=== PATIENT | male | born 1935 | race Caucasian/White ===

== ENCOUNTER 2016-06-17 20:33 | Inpatient (IN) | payer OTHER ==
[~2016-06-17] VITALS: Ht 180.3 cm; Wt 84.8 kg
[~2016-06-17 20:33] MED LIST: ADALAT CC90 MG ORAL; CELEBREX200 MG ORAL; GABAPENTIN100 MG ORAL; HYDROCODON-ACE1 EA15 ORAL; LOTENSIN20 MG ORAL; TROSPIUM CHLORI60 MG PO; TYLENOL EXTRA500 MG ORAL; ULTRAM50 MG ORAL
[2016-06-17] MEDS ORDERED: Morphine Sulfate 4mg/ml Inj IVP ONE (21:00)
[2016-06-17 21:13] VITALS: BP 152/80
--- NOTE | 2016-06-17 21:21 | Emergency Room Report ---
History of Present Illness General Chief Complaint: Abdominal Pain Source: Patient Present Illness HPI Patient presents with complaints of lower abdominal cramping Also complains of gross hematuria Patient reports that previously back in December after having any procedure He thinks likely there was a Lynch catheter placed Since then the patient has been having off-and-on discomfort Recently was on Cipro Patient had been having frequency and burning with urination along with UTI Earlier today patient had increased cramping and gross hematuria Pain was 5/10 And presents for further eval Allergies: Coded Allergies: No Known Allergies (Unverified , 10/25/13) Patient History Past Medical History: see triage record Pertinent Family History: none Reviewed Nursing Documentation: PMH: Agreed, PSxH: Agreed Nursing Documentation-PMH Hx Hypertension: Yes Hx Cancer: No Hx Gastrointestinal Problems: Yes - OVER ACTIVE BLADDER Hx Neurological Problems: No Review of Systems All Other Systems: negative except mentioned in HPI Physical Exam Vital Signs Date Time Temp Pulse Resp B/P Pulse Ox O2 Delivery O2 Flow Rate FiO2 06/17/16 20:50 97.9 74 16 152/80 99 Room Air Sp02 EP Interpretation: reviewed, normal General Appearance: well appearing, no apparent distress Head: normocephalic, atraumatic Eyes: bilateral eye EOMI, bilateral eye PERRL ENT: hearing grossly normal, normal pharynx, TMs + canals normal, uvula midline Neck: full range of motion, supple, no meningismus, no bony tend Respiratory: lungs clear, normal breath sounds, no rhonchi, no respiratory distress, no retraction, no accessory muscle use Cardiovascular #1: normal peripheral pulses, regular rate, rhythm, no edema, no gallop, no JVD, no murmur Gastrointestinal: normal bowel sounds, soft, no mass, no organomegaly, non- distended, no guarding, no hernia, no pulsatile mass, no rebound, other - Tender over the suprapubic area Genitourinary: no CVA tenderness Musculoskeletal: normal inspection Neurologic: oriented x3, responsive, doper III-XII nml as tested, motor strength/ tone normal, sensory intact Psychiatric: mood/affect normal Skin: normal color, no rash, warm/dry, palpation normal Lymphatic: normal inspection, no adenopathy Medical Decision Making Diagnostic Impression: Primary Impression: Hematuria Additional Impressions: Abdominal pain Bladder mass ER Course Multiple differentials considered patient is complex requiring blood work and imaging CAT scan shows concerning findings of possible mass Patient was given further hydration Requires pain medication urology consultation was made and patient admitted for further care Labs Test 06/17/16 21:30 06/18/16 04:50 White Blood Count 7.2 K/UL (4.8-10.8) 7.8 K/UL (4.8-10.8) Red Blood Count 4.69 M/UL (4.70-6.10) 4.73 M/UL (4.70-6.10) Hemoglobin 14.2 G/DL (14.2-18.0) 14.3 G/DL (14.2-18.0) Hematocrit 42.8 % (42.0-52.0) 42.9 % (42.0-52.0) Mean Corpuscular Volume 91 FL (80-99) 91 FL (80-99) Mean Corpuscular Hemoglobin 30.4 PG (27.0-31.0) 30.2 PG (27.0-31.0) Mean Corpuscular Hemoglobin Concent 33.3 G/DL (32.0-36.0) 33.3 G/DL (32.0-36.0) Red Cell Distribution Width 12.6 % (11.6-14.8) 12.0 % (11.6-14.8) Platelet Count 148 K/UL (150-450) 231 K/UL (150-450) Mean Platelet Volume 12.7 FL (6.5-10.1) 8.0 FL (6.5-10.1) Neutrophils (%) (Auto) 52.2 % (45.0-75.0) 70.5 % (45.0-75.0) Lymphocytes (%) (Auto) 27.6 % (20.0-45.0) 14.0 % (20.0-45.0) Monocytes (%) (Auto) 14.8 % (1.0-10.0) 12.4 % (1.0-10.0) Eosinophils (%) (Auto) 4.1 % (0.0-3.0) 2.4 % (0.0-3.0) Basophils (%) (Auto) 1.3 % (0.0-2.0) 0.8 % (0.0-2.0) Prothrombin Time 10.4 SEC (9.30-11.50) Prothromb Time International Ratio 1.0 (0.9-1.1) Activated Partial Thromboplast Time 27 SEC (23-33) Urine Color Yellow Urine Appearance Slightly cloudy Urine pH 7 (4.5-8.0) Urine Specific [place] 1.015 (1.005-1.035) Urine Protein 4+ (NEGATIVE) Urine Glucose (UA) Negative (NEGATIVE) Urine Ketones Negative (NEGATIVE) Urine Occult Blood 5+ (NEGATIVE) Urine Nitrite Negative (NEGATIVE) Urine Bilirubin Negative (NEGATIVE) Urine Urobilinogen Normal MG/DL (0.0-1.0) Urine Leukocyte Esterase Negative (NEGATIVE) Urine RBC Tntc /HPF (0 - 0) Urine WBC 2-4 /HPF (0 - 0) Urine Squamous Epithelial Cells None /LPF (NONE/OCC) Urine Bacteria Few /HPF (NONE) Sodium Level 141 mEQ/L (135-145) 139 mEQ/L (135-145) Potassium Level 4.3 mEQ/L (3.4-4.9) 3.9 mEQ/L (3.4-4.9) Chloride Level 101 mEQ/L (98-107) 100 mEQ/L (98-107) Carbon Dioxide Level 28 mEQ/L (20-30) 26 mEQ/L (20-30) Anion Gap 12 (5-15) 13 (5-15) Blood Urea Nitrogen 18 mg/dL (7-23) 14 mg/dL (7-23) Creatinine 0.9 mg/dL (0.7-1.2) 0.8 mg/dL (0.7-1.2) Estimat Glomerular Filtration Rate mL/min (>60) mL/min (>60) Glucose Level 99 mg/dL (74-106) 133 mg/dL (74-106) Calcium Level 9.1 mg/dL (8.6-10.2) 9.2 mg/dL (8.6-10.2) Total Bilirubin 0.3 mg/dL (0.0-1.2) 0.4 mg/dL (0.0-1.2) Aspartate Amino Transf (AST/SGOT) 15 U/L (5-40) 16 U/L (5-40) Alanine Aminotransferase (ALT/SGPT) 8 U/L (3-41) 9 U/L (3-41) Alkaline Phosphatase 64 U/L (40-129) 66 U/L (40-129) Total Protein 6.8 g/dL (6.6-8.7) 6.8 g/dL (6.6-8.7) Albumin 3.7 g/dL (3.5-5.2) 3.8 g/dL (3.5-5.2) Globulin 3.1 g/dL 3.0 g/dL Albumin/Globulin Ratio 1.1 (1.0-2.7) 1.2 (1.0-2.7) Lipase 24 U/L (< 60) Hemoglobin A1c 5.8 % (< 6.0) Triglycerides Level 91 mg/dL (< 150) Cholesterol Level 184 mg/dL (< 200) LDL Cholesterol 107 mg/dL (60-99) HDL Cholesterol 59 mg/dL (> 60) Cholesterol/HDL Ratio 3.1 (3.3-4.4) Thyroid Stimulating Hormone (TSH) 2.660 uIU/mL (0.300-4.500) Rhythm Strip Diag. Results EP Interpretation: yes Rate: 67 Rhythm: NSR, no PVC's, no ectopy CT/MRI/US Diagnostic Results CT/MRI/US Diagnostic Results : Impression CT abdomen pelvis:Impression: Complex bladder mass or masses, as described, worrisome for bladder or prostatic neoplasm. Recommend cystoscopy for further evaluation Multiple pulmonary nodules bilaterally, not evident on prior to that on the exam. Given the bladder findings, this is worrisome for metastatic malignancy Other findings as noted, including multilobulated spleen, degenerative spondylosis, small sliding-type hiatal hernia, duodenal diverticulum, asymmetric atrophy of the left rectus abdominis muscle Last Vital Signs Date Time Temp Pulse Resp B/P Pulse Ox O2 Delivery O2 Flow Rate FiO2 06/17/16 21:13 97.9 74 16 152/80 99 Room Air Status: improved Disposition: ADMITTED INPATIENT Condition: Serious MARCEL YI D.O. Jun 17, 2016 21:21
[2016-06-17 21:57] LABS: ALANINE AMINOTRANSFERASE 8 U/L (3-41); ALBUMIN/GLOBULIN RATIO 1.1 (1.0-2.7); ANION GAP 12 (5-15); ASPARTATE AMINO TRANSFERASE 15 U/L (5-40); CALCIUM 9.1 mg/dL (8.6-10.2); CARBON DIOXIDE 28 mEQ/L (20-30); CHLORIDE 101 mEQ/L (98-107); CREATININE 0.9 mg/dL (0.7-1.2); HEMOLYSIS 5; LIPASE 24 U/L (< 60); POTASSIUM 4.3 mEQ/L (3.4-4.9); SODIUM 141 mEQ/L (135-145); TOTAL PROTEIN 6.8 g/dL (6.6-8.7)
[2016-06-17 22:03] LABS: BASOPHILS % (AUTO) 1.3 % (0.0-2.0); EOSINOPHILS % (AUTO) 4.1 % (0.0-3.0); LYMPHOCYTES % (AUTO) 27.6 % (20.0-45.0); MEAN CORPUSCULAR HEMOGLOBIN 30.4 PG (27.0-31.0); MEAN CORPUSCULAR HGB CONC 33.3 G/DL (32.0-36.0); MEAN CORPUSCULAR VOLUME 91 FL (80-99); MEAN PLATELET VOLUME 12.7 FL (6.5-10.1); MONOCYTES % (AUTO) 14.8 % (1.0-10.0); NEUTROPHILS % (AUTO) 52.2 % (45.0-75.0); PLATELET COUNT 148 K/UL (150-450); RED BLOOD COUNT 4.69 M/UL (4.70-6.10); RED CELL DISTRIBUTION WIDTH 12.6 % (11.6-14.8); WHITE BLOOD COUNT 7.2 K/UL (4.8-10.8)
[2016-06-17 22:09] LABS: PROTHROMBIN TIME 10.4 SEC (9.30-11.50)
[2016-06-17 22:11] LABS: APPEARANCE,URINE SLIGHTLY CLOUDY; KETONES,URINE NEGATIVE (NEGATIVE); LEUKOCYTE ESTERASE ,URINE NEGATIVE (NEGATIVE); NITRITE,URINE NEGATIVE (NEGATIVE); PH,URINE 7 (4.5-8.0); PROTEIN,URINE 4+ (NEGATIVE); UROBILINOGEN,URINE NORMAL MG/DL (0.0-1.0)
[2016-06-17 22:16] LABS: BACTERIA,URINE FEW /HPF; RBC,URINE TNTC /HPF (0 - 0)
[2016-06-17 22:30] VITALS: BP 158/69
[2016-06-17] MEDS ORDERED: LORazepam Inj 2mg/ml 1ml IV PRN (23:00)
[2016-06-17] MEDS ORDERED: Morphine Sulfate 2mg/ml Inj IVP PRN (23:00)
[2016-06-17] MEDS ORDERED: Mylanta II UD 30ml ORAL PRN (23:00)
[2016-06-18] VITALS (7 sets, daily range): BP systolic 111–154; BP diastolic 63–96
[2016-06-18] MEDS: Norco 5mg/325mg tab ORAL PRN ×2 (02:05→21:16)
[2016-06-18 05:31] LABS: BASOPHILS % (AUTO) 0.8 % (0.0-2.0); EOSINOPHILS % (AUTO) 2.4 % (0.0-3.0); MEAN CORPUSCULAR HEMOGLOBIN 30.2 PG (27.0-31.0); MEAN CORPUSCULAR HGB CONC 33.3 G/DL (32.0-36.0); MEAN CORPUSCULAR VOLUME 91 FL (80-99); MONOCYTES % (AUTO) 12.4 % (1.0-10.0); NEUTROPHILS % (AUTO) 70.5 % (45.0-75.0); PLATELET COUNT 231 K/UL (150-450); RED BLOOD COUNT 4.73 M/UL (4.70-6.10); WHITE BLOOD COUNT 7.8 K/UL (4.8-10.8)
[2016-06-18 06:15] LABS: HEMOGLOBIN A1C 5.8 % (< 6.0)
[2016-06-18 06:24] LABS: ALANINE AMINOTRANSFERASE 9 U/L (3-41); ALBUMIN/GLOBULIN RATIO 1.2 (1.0-2.7); ANION GAP 13 (5-15); ASPARTATE AMINO TRANSFERASE 16 U/L (5-40); CALCIUM 9.2 mg/dL (8.6-10.2); CARBON DIOXIDE 26 mEQ/L (20-30); CHLORIDE 100 mEQ/L (98-107); CHOLESTEROL 184 mg/dL (< 200); CHOLESTEROL/HDL RATIO 3.1 (3.3-4.4); CREATININE 0.8 mg/dL (0.7-1.2); HEMOLYSIS 22; LDL CHOLESTEROL (CALC.) 107 mg/dL (60-99); POTASSIUM 3.9 mEQ/L (3.4-4.9); SODIUM 139 mEQ/L (135-145); TOTAL PROTEIN 6.8 g/dL (6.6-8.7)
--- NOTE | 2016-06-18 10:33 | Diagnostic Imaging Report ---
Indication: BLD Technique: Precontrast spiral acquisitions obtained through the abdomen and pelvis. No oral contrast, per urinary protocol. IV administration nonionic contrast. Multiphasic spiral acquisitions obtained through the abdomen and pelvis. Multiplanar reconstructions were generated. Total dose length product 3181 mGycm. CTDIvol(s) 17, 8, 16, 15, 17, 17 mGy. Radiation dose was minimized using automated exposure control Comparison: 01/15/2011 Findings: Within the bladder lumen, there is an endophytic polypoid masslike lesion which measures 4.8 cm AP by 4.5 cm transverse. This may represent intraluminal hematoma, but stability over the course of multiple phases as well as slight degree of enhancement suggests this is more likely tumor. This appears to have a thin connection with a mass that protrudes from the bladder floor, measures 4.8 x 4.4 cm and is contiguous with the prostate. The second lesion demonstrates a rim of calcification at its superior aspect. Either these lesions are evident on the prior study. The bladder wall is overall not thickened. There are some prominent but not frankly enlarged right iliac chain lymph nodes noted. These are also evident previously but are more striking currently The kidneys are unremarkable. No calculi, hydronephrosis, mass, cyst, or other abnormality demonstrated. The collecting systems are unremarkable. The liver, gallbladder, bile ducts, pancreas are unremarkable. The spleen is multilobulated irregular, and there are several accessory splenules. The adrenals are unremarkable. No retroperitoneal mass or adenopathy. The aorta is tortuous. The appendix is not definitely visualized, but no findings to suggest acute appendicitis are evident. No evidence of diverticulosis or diverticulitis. No small bowel distention. No free or loculated intraperitoneal air or fluid is evident. There is a duodenal diverticulum. There is a small sliding-type hiatal hernia. The stomach is unremarkable. There is asymmetric atrophy of the left side of the rectus abdominis muscle again noted. The included lung bases demonstrate multiple noncalcified nodules of up to 6 mm diameter, not evident on the prior study. The bones demonstrate degenerative spondylosis changes Impression: Complex bladder mass or masses, as described, worrisome for bladder or prostatic neoplasm. Recommend cystoscopy for further evaluation Multiple pulmonary nodules bilaterally, not evident on prior to that on the exam. Given the bladder findings, this is worrisome for metastatic malignancy Other findings as noted, including multilobulated spleen, degenerative spondylosis, small sliding-type hiatal hernia, duodenal diverticulum, asymmetric atrophy of the left rectus abdominis muscle This agrees with the preliminary interpretation provided overnight by [facility] teleradiology service. The CT scanner at [facility] is accredited by the [employer] and the scans are performed using protocols designed to limit radiation exposure to as low as reasonably achievable to attain images of sufficient resolution adequate for diagnostic evaluation.
--- NOTE | 2016-06-18 11:16 | Consultation ---
History of Present Illness General Date patient seen: Jun 18, 2016 Time patient seen: 11:12 Chief Complaint: Abdominal Pain Reason for Consultation: hematuria Present Illness HPI 80 yo male followed by Dr. Quinonez for OAB symptoms. Has been treated with detrol with little relief. Bladder symptoms started after knee surgery in december 2015. Former smoker, had 4 infections since last year. Did have hematuria before as well. Came to ER last night for increasing LUTS, difficulty voiding, and hematuria. Allergies: Coded Allergies: No Known Allergies (Unverified , 10/25/13) Medication History Scheduled Benazepril Hcl* (Lotensin*), 10 MG ORAL BEDTIME, (Reported) Celecoxib* (Celebrex*), 200 MG ORAL DAILY, (Reported) Nifedipine Er* (Adalat Cc*), 90 MG ORAL DAILY, (Reported) Trospium Chloride (Trospium Chloride), 60 MG PO BEDTIME, (Reported) Scheduled PRN Acetaminophen* (Tylenol Extra Strength*), 500 MG ORAL Q8H PRN for Prn Headache/ Temp > 101, (Reported) Hydrocodone/Acetaminophen 5-325* (Hydrocodone/Acetaminophen 5-325*), 1 TAB ORAL Q6H PRN for For Pain Tramadol Hcl (Ultram*), 50 MG ORAL BID PRN for For Pain, (Reported) Patient History History Provided By: Patient Healthcare decision maker Resuscitation status Full Code Advanced Directive on File No Past Medical/Surgical History Past Medical/Surgical History: (1) Abdominal pain (2) Hematuria Review of Systems Constitutional: Denies: chills, fever, malaise, no symptoms, other, see HPI, sweats, weakness Eye: Denies: acuity changes, blurred vision, discharge, double vision, eye pain , no symptoms, nose congestion, nose pain, other, see HPI, tearing ENT: Denies: ear discharge, ear pain, hearing loss, mouth pain, nasal discharge , no symptoms, nose congestion, nose pain, other, see HPI, throat pain, throat swelling Respiratory: Denies: MANNING, cough, no symptoms, orthopnea, other, see HPI, shortness of breath, sputum, stridor, wheezing Cardiovascular: Denies: PND, chest pain, edema, no symptoms, other, palpitations, see HPI, syncope Gastrointestinal: Reports: abdominal pain Genitourinary: Reports: hematuria Musculoskeletal: Denies: back pain, gout, joint pain, joint swelling, muscle pain, muscle stiffness, no symptoms, other, see HPI Skin: Denies: change in color, change in hair/nails, dryness, lesions, no symptoms, other, rash, see HPI Psychiatric: Denies: HI, SI, anxiety, depressed feelings, emotional problems, hallucinations, no symptoms, other, prior hx, see HPI Neurological: Denies: dizziness, focal weakness, headache, no symptoms, numbness, other, paresthesia, see HPI, seizure, syncope, tingling, tremors Endocrine: Denies: excessive sweating, flushing, increased thirst, increased urine, intolerance to temperature, no symptoms, other, see HPI, unexplained weight loss Hematologic/Lymphatic: Denies: anemia, blood clots, diathesis, easy bleeding, easy bruising, no symptoms, other, see HPI, swollen glands Physical Exam General Appearance: moderate distress Neck: non-tender Cardiovascular/Chest: normal rate Abdomen: soft, distended Neurologic: alert, oriented x 3 Last 24 Hour Vital Signs Date Time Temp Pulse Resp B/P Pulse Ox O2 Delivery O2 Flow Rate FiO2 06/18/16 09:38 73 149/83 06/18/16 08:14 96.4 06/18/16 08:00 96.4 73 18 149/83 93 Room Air 06/18/16 04:00 98.2 94 18 152/96 97 Room Air 06/18/16 03:04 98.2 06/18/16 00:48 98.2 62 18 137/70 97 Room Air 06/18/16 00:14 98.0 64 18 154/72 100 Room Air 06/18/16 00:00 98.0 64 18 154/72 100 Room Air 06/17/16 22:30 68 18 158/69 100 Room Air 06/17/16 21:13 97.9 74 16 152/80 99 Room Air 06/17/16 20:50 97.9 74 16 152/80 99 Room Air Intake and Output 06/17/16 06/18/16 19:00 07:00 Intake Total 1050 ml Output Total 600 ml Balance 450 ml Intake Oral 450 ml IV Total 600 ml Output Urine Total 600 ml # Voids 1 Laboratory Tests Test 06/17/16 21:30 06/18/16 04:50 White Blood Count 7.2 K/UL (4.8-10.8) 7.8 K/UL (4.8-10.8) Red Blood Count 4.69 M/UL (4.70-6.10) L 4.73 M/UL (4.70-6.10) Hemoglobin 14.2 G/DL (14.2-18.0) 14.3 G/DL (14.2-18.0) Hematocrit 42.8 % (42.0-52.0) 42.9 % (42.0-52.0) Mean Corpuscular Volume 91 FL (80-99) 91 FL (80-99) Mean Corpuscular Hemoglobin 30.4 PG (27.0-31.0) 30.2 PG (27.0-31.0) Mean Corpuscular Hemoglobin Concent 33.3 G/DL (32.0-36.0) 33.3 G/DL (32.0-36.0) Red Cell Distribution Width 12.6 % (11.6-14.8) 12.0 % (11.6-14.8) Platelet Count 148 K/UL (150-450) L 231 K/UL (150-450) # Mean Platelet Volume 12.7 FL (6.5-10.1) H 8.0 FL (6.5-10.1) Neutrophils (%) (Auto) 52.2 % (45.0-75.0) 70.5 % (45.0-75.0) Lymphocytes (%) (Auto) 27.6 % (20.0-45.0) 14.0 % (20.0-45.0) L Monocytes (%) (Auto) 14.8 % (1.0-10.0) H 12.4 % (1.0-10.0) H Eosinophils (%) (Auto) 4.1 % (0.0-3.0) H 2.4 % (0.0-3.0) Basophils (%) (Auto) 1.3 % (0.0-2.0) 0.8 % (0.0-2.0) Prothrombin Time 10.4 SEC (9.30-11.50) Prothromb Time International Ratio 1.0 (0.9-1.1) Activated Partial Thromboplast Time 27 SEC (23-33) Urine Color Yellow Urine Appearance Slightly cloudy Urine pH 7 (4.5-8.0) Urine Specific [place] 1.015 (1.005-1.035) Urine Protein 4+ (NEGATIVE) H Urine Glucose (UA) Negative (NEGATIVE) Urine Ketones Negative (NEGATIVE) Urine Occult Blood 5+ (NEGATIVE) H Urine Nitrite Negative (NEGATIVE) Urine Bilirubin Negative (NEGATIVE) Urine Urobilinogen Normal MG/DL (0.0-1.0) Urine Leukocyte Esterase Negative (NEGATIVE) Urine RBC Tntc /HPF (0 - 0) H Urine WBC 2-4 /HPF (0 - 0) Urine Squamous Epithelial Cells None /LPF (NONE/OCC) Urine Bacteria Few /HPF (NONE) Sodium Level 141 mEQ/L (135-145) 139 mEQ/L (135-145) Potassium Level 4.3 mEQ/L (3.4-4.9) 3.9 mEQ/L (3.4-4.9) Chloride Level 101 mEQ/L (98-107) 100 mEQ/L (98-107) Carbon Dioxide Level 28 mEQ/L (20-30) 26 mEQ/L (20-30) Anion Gap 12 (5-15) 13 (5-15) Blood Urea Nitrogen 18 mg/dL (7-23) 14 mg/dL (7-23) Creatinine 0.9 mg/dL (0.7-1.2) 0.8 mg/dL (0.7-1.2) Estimat Glomerular Filtration Rate mL/min (>60) mL/min (>60) Glucose Level 99 mg/dL (74-106) 133 mg/dL (74-106) H Calcium Level 9.1 mg/dL (8.6-10.2) 9.2 mg/dL (8.6-10.2) Total Bilirubin 0.3 mg/dL (0.0-1.2) 0.4 mg/dL (0.0-1.2) Aspartate Amino Transf (AST/SGOT) 15 U/L (5-40) 16 U/L (5-40) Alanine Aminotransferase (ALT/SGPT) 8 U/L (3-41) 9 U/L (3-41) Alkaline Phosphatase 64 U/L (40-129) 66 U/L (40-129) Total Protein 6.8 g/dL (6.6-8.7) 6.8 g/dL (6.6-8.7) Albumin 3.7 g/dL (3.5-5.2) 3.8 g/dL (3.5-5.2) Globulin 3.1 g/dL 3.0 g/dL Albumin/Globulin Ratio 1.1 (1.0-2.7) 1.2 (1.0-2.7) Lipase 24 U/L (< 60) Hemoglobin A1c 5.8 % (< 6.0) Triglycerides Level 91 mg/dL (< 150) Cholesterol Level 184 mg/dL (< 200) LDL Cholesterol 107 mg/dL (60-99) H HDL Cholesterol 59 mg/dL (> 60) Cholesterol/HDL Ratio 3.1 (3.3-4.4) L Thyroid Stimulating Hormone (TSH) 2.660 uIU/mL (0.300-4.500) Height (Feet): 5 Height (Inches): 11.00 Weight (Pounds): 187 Medications Current Medications Medications (Trade) Dose Ordered Sig/Chivo Route PRN Reason Start Time Stop Time Status Last Admin Dose Admin Acetaminophen (Tylenol) 650 mg Q4H PRN ORAL fever 06/17/16 23:00 07/17/16 22:59 Acetaminophen/ Hydrocodone Bitart ([place] 5/325) 1 tab Q6H PRN ORAL For Pain 06/17/16 23:00 06/24/16 22:59 06/18/16 02:05 Al Hydroxide/Mg Hydroxide (Mylanta II) 30 ml Q6H PRN ORAL dyspepsia 06/17/16 23:00 07/17/16 22:59 Dextrose STAT PRN IV Hypoglycemia 06/17/16 23:00 07/17/16 22:59 Levofloxacin (Levaquin) 100 ml @ 100 mls/hr Q24H IVPB 06/18/16 01:00 06/25/16 00:59 06/18/16 01:06 Lorazepam (Ativan 2mg/ml 1ml) 0.5 mg Q4H PRN IV For Anxiety 06/17/16 23:00 06/24/16 22:59 Morphine Sulfate (Morphine Sulfate) 1 mg EVERY 4 HOURS PRN IVP For Pain 06/17/16 23:00 2/27/17 22:59 06/18/16 07:44 Nifedipine (Procardia XL) 90 mg DAILY ORAL 06/18/16 09:00 07/18/16 08:59 06/18/16 09:38 Ondansetron HCl (Zofran) 4 mg Q6H PRN IVP Nausea & Vomiting 06/17/16 23:00 07/17/16 22:59 Polyethylene Glycol (Miralax) 17 gm HSPRN PRN ORAL Constipation 06/17/16 23:00 07/17/16 22:59 Zolpidem Tartrate (Ambien) 5 mg HSPRN PRN ORAL Insomnia 06/17/16 23:00 07/17/16 22:[address] abd/pelvis: 4 cm bladder mass vs. intravesical lobe of prostate, likely clot as well. Procedure: under sterile conditions [address] cantor catheter placed, 30 mL water filled in balloon. Immediate drainage of approximately 900 mL dark urine and clots. Catheter manually irrigated with 180 mL water and minimal clots removed. Started on continuous bladder irrigation. Assessment/Plan Status: stable Assessment/Plan Hematuria/retention, possibly due to BPH vs. bladder mass. At this time need to control bleeding with catheter and irrigation. Will need cystoscopy as outpatient if hematuria improves or here in hospital if it doesn't. 1. ok for diet 2. CBI today 3. re-evaluate urine in AM. 4. likely DC home with cantor. Willy Cortez M.D. Jun 18, 2016 11:16
[2016-06-18] MEDS ORDERED: Tubing IV Secondary IV ONE (15:48)
--- NOTE | 2016-06-18 16:57 | History & Physical ---
History and Physical History & Physicial Dictated for Int Med-Dr Paz no. [id number]. CARLEEN CHIRINOS Jun 18, 2016 16:57
--- NOTE | 2016-06-18 17:35 | Consultation ---
History of Present Illness General Date patient seen: Jun 18, 2016 Chief Complaint: Abdominal Pain Referring physician: Dr. Morgan Reason for Consultation: Pulmonary Nodules Present Illness HPI 80 y/o gentleman with pmhx HTN prostate enlargement presenting with c/o abdominal pain and hematuria. On CT scan of abdomen multiple lung nodules were identified and I was then asked to see this patient in consultation for evaluation of pulmonary nodules and hematuria. The pulmonary nodules are extremely worrisome for possible metastasis secondary to the fact that its been noted that the nodules were not present on prior CT scan. I've discussed the omninous nature of these findings with the patient he insists he would rather follow up with his primary care doctor and referral with oncology with urologist and refuses any procedures from my point of view to further investigate the matter. The patient has a complaint of dry cough but no hemoptysis or sputum production. No complaint of fever or chills or recent illness. Patient has a complaint of difficulty urinating. Patient admits to a remote history of smoking 50 years ago. However admits his smoking habit was heavy for a few decades consisting of more than 1 pack per day. In light of patients refusal for further evaluation with respect to his pulmonary nodules treatment at this point is recommended to be conservative and supportive and I have urged to patient to follow up with this PCP and referral to oncology is highly recommended. Allergies: Coded Allergies: No Known Allergies (Unverified , 10/25/13) Medication History Scheduled Trospium Chloride (Trospium Chloride), 60 MG PO BEDTIME, (Reported) Scheduled PRN Acetaminophen* (Tylenol Extra Strength*), 500 MG ORAL Q8H PRN for Prn Headache/ Temp > 101, (Reported) Patient History Healthcare decision maker Resuscitation status Full Code Advanced Directive on File No Past Medical/Surgical History Past Medical/Surgical History: (1) Osteoarthritis, knee (2) Overactive bladder (3) HTN (hypertension) (4) Urinary obstruction (5) Right knee pain (6) Hypertension (7) Hypercholesteremia (8) Edema extremities (9) Shoulder pain, bilateral (10) Migraine Review of Systems Respiratory: Reports: cough Gastrointestinal: Reports: abdominal pain Genitourinary: Reports: hematuria Physical Exam General Appearance: no apparent distress Lines, tubes and drains: peripheral HEENT: normocephalic, atraumatic, PERRL Neck: non-tender, normal alignment, supple Respiratory/Chest: chest wall non-tender, decreased breath sounds Cardiovascular/Chest: normal peripheral pulses, normal rate, regular rhythm Abdomen: normal bowel sounds, non tender, soft, no organomegaly Genitourinary/Rectal: normal genital exam, normal rectal exam Extremities: normal range of motion, non-tender Skin Exam: normal pigmentation, warm/dry, no diaphoresis 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, no motor/sensory deficits Last 24 Hour Vital Signs Date Time Temp Pulse Resp B/P Pulse Ox O2 Delivery O2 Flow Rate FiO2 06/18/16 16:00 97.7 70 16 111/68 95 Room Air 06/18/16 12:00 97.7 67 18 131/74 94 Room Air 06/18/16 09:38 73 149/83 06/18/16 08:14 96.4 06/18/16 08:00 96.4 73 18 149/83 93 Room Air 06/18/16 04:00 98.2 94 18 152/96 97 Room Air 06/18/16 03:04 98.2 06/18/16 00:48 98.2 62 18 137/70 97 Room Air 06/18/16 00:14 98.0 64 18 154/72 100 Room Air 06/18/16 00:00 98.0 64 18 154/72 100 Room Air 06/17/16 22:30 68 18 158/69 100 Room Air 06/17/16 21:13 97.9 74 16 152/80 99 Room Air 06/17/16 20:50 97.9 74 16 152/80 99 Room Air Intake and Output 06/17/16 06/18/16 18:59 06:59 Intake Total 1050 ml Output Total 600 ml Balance 450 ml Intake Oral 450 ml IV Total 600 ml Output Urine Total 600 ml # Voids 1 Laboratory Tests Test 06/17/16 21:30 06/18/16 04:50 White Blood Count 7.2 K/UL (4.8-10.8) 7.8 K/UL (4.8-10.8) Red Blood Count 4.69 M/UL (4.70-6.10) L 4.73 M/UL (4.70-6.10) Hemoglobin 14.2 G/DL (14.2-18.0) 14.3 G/DL (14.2-18.0) Hematocrit 42.8 % (42.0-52.0) 42.9 % (42.0-52.0) Mean Corpuscular Volume 91 FL (80-99) 91 FL (80-99) Mean Corpuscular Hemoglobin 30.4 PG (27.0-31.0) 30.2 PG (27.0-31.0) Mean Corpuscular Hemoglobin Concent 33.3 G/DL (32.0-36.0) 33.3 G/DL (32.0-36.0) Red Cell Distribution Width 12.6 % (11.6-14.8) 12.0 % (11.6-14.8) Platelet Count 148 K/UL (150-450) L 231 K/UL (150-450) # Mean Platelet Volume 12.7 FL (6.5-10.1) H 8.0 FL (6.5-10.1) Neutrophils (%) (Auto) 52.2 % (45.0-75.0) 70.5 % (45.0-75.0) Lymphocytes (%) (Auto) 27.6 % (20.0-45.0) 14.0 % (20.0-45.0) L Monocytes (%) (Auto) 14.8 % (1.0-10.0) H 12.4 % (1.0-10.0) H Eosinophils (%) (Auto) 4.1 % (0.0-3.0) H 2.4 % (0.0-3.0) Basophils (%) (Auto) 1.3 % (0.0-2.0) 0.8 % (0.0-2.0) Prothrombin Time 10.4 SEC (9.30-11.50) Prothromb Time International Ratio 1.0 (0.9-1.1) Activated Partial Thromboplast Time 27 SEC (23-33) Urine Color Yellow Urine Appearance Slightly cloudy Urine pH 7 (4.5-8.0) Urine Specific [place] 1.015 (1.005-1.035) Urine Protein 4+ (NEGATIVE) H Urine Glucose (UA) Negative (NEGATIVE) Urine Ketones Negative (NEGATIVE) Urine Occult Blood 5+ (NEGATIVE) H Urine Nitrite Negative (NEGATIVE) Urine Bilirubin Negative (NEGATIVE) Urine Urobilinogen Normal MG/DL (0.0-1.0) Urine Leukocyte Esterase Negative (NEGATIVE) Urine RBC Tntc /HPF (0 - 0) H Urine WBC 2-4 /HPF (0 - 0) Urine Squamous Epithelial Cells None /LPF (NONE/OCC) Urine Bacteria Few /HPF (NONE) Sodium Level 141 mEQ/L (135-145) 139 mEQ/L (135-145) Potassium Level 4.3 mEQ/L (3.4-4.9) 3.9 mEQ/L (3.4-4.9) Chloride Level 101 mEQ/L (98-107) 100 mEQ/L (98-107) Carbon Dioxide Level 28 mEQ/L (20-30) 26 mEQ/L (20-30) Anion Gap 12 (5-15) 13 (5-15) Blood Urea Nitrogen 18 mg/dL (7-23) 14 mg/dL (7-23) Creatinine 0.9 mg/dL (0.7-1.2) 0.8 mg/dL (0.7-1.2) Estimat Glomerular Filtration Rate mL/min (>60) mL/min (>60) Glucose Level 99 mg/dL (74-106) 133 mg/dL (74-106) H Calcium Level 9.1 mg/dL (8.6-10.2) 9.2 mg/dL (8.6-10.2) Total Bilirubin 0.3 mg/dL (0.0-1.2) 0.4 mg/dL (0.0-1.2) Aspartate Amino Transf (AST/SGOT) 15 U/L (5-40) 16 U/L (5-40) Alanine Aminotransferase (ALT/SGPT) 8 U/L (3-41) 9 U/L (3-41) Alkaline Phosphatase 64 U/L (40-129) 66 U/L (40-129) Total Protein 6.8 g/dL (6.6-8.7) 6.8 g/dL (6.6-8.7) Albumin 3.7 g/dL (3.5-5.2) 3.8 g/dL (3.5-5.2) Globulin 3.1 g/dL 3.0 g/dL Albumin/Globulin Ratio 1.1 (1.0-2.7) 1.2 (1.0-2.7) Lipase 24 U/L (< 60) Hemoglobin A1c 5.8 % (< 6.0) Triglycerides Level 91 mg/dL (< 150) Cholesterol Level 184 mg/dL (< 200) LDL Cholesterol 107 mg/dL (60-99) H HDL Cholesterol 59 mg/dL (> 60) Cholesterol/HDL Ratio 3.1 (3.3-4.4) L Thyroid Stimulating Hormone (TSH) 2.660 uIU/mL (0.300-4.500) Height (Feet): 5 Height (Inches): 11.00 Weight (Pounds): 187 Medications Current Medications Medications (Trade) Dose Ordered Sig/Chivo Route PRN Reason Start Time Stop Time Status Last Admin Dose Admin Acetaminophen (Tylenol) 650 mg Q4H PRN ORAL fever 06/17/16 23:00 07/17/16 22:59 Acetaminophen/ Hydrocodone Bitart ([place] 5/325) 1 tab Q6H PRN ORAL For Pain 06/17/16 23:00 06/24/16 22:59 06/18/16 02:05 Al Hydroxide/Mg Hydroxide (Mylanta II) 30 ml Q6H PRN ORAL dyspepsia 06/17/16 23:00 07/17/16 22:59 Dextrose STAT PRN IV Hypoglycemia 06/17/16 23:00 07/17/16 22:59 Levofloxacin (Levaquin) 100 ml @ 100 mls/hr Q24H IVPB 06/18/16 01:00 06/25/16 00:59 06/18/16 01:06 Lorazepam (Ativan 2mg/ml 1ml) 0.5 mg Q4H PRN IV For Anxiety 06/17/16 23:00 06/24/16 22:59 Morphine Sulfate (Morphine Sulfate) 1 mg EVERY 4 HOURS PRN IVP For Pain 06/17/16 23:00 06/24/16 22:59 06/18/16 07:44 Nifedipine (Procardia XL) 90 mg DAILY ORAL 06/18/16 09:00 07/18/16 08:59 06/18/16 09:38 Ondansetron HCl (Zofran) 4 mg Q6H PRN IVP Nausea & Vomiting 06/17/16 23:00 07/17/16 22:59 Polyethylene Glycol (Miralax) 17 gm HSPRN PRN ORAL Constipation 06/17/16 23:00 07/17/16 22:59 Zolpidem Tartrate (Ambien) 5 mg HSPRN PRN ORAL Insomnia 06/17/16 23:00 07/17/16 22:59 Assessment/Plan Status: stable, progressing Assessment/Plan Assessment Multiple 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 DIONI PATEL Jun 18, 2016 17:35
[2016-06-18] MEDS: Miralax 17gm pkt ORAL PRN (20:03)
--- NOTE | 2016-06-18 20:38 | History and Physical Report ---
DATE OF ADMISSION: 06/17/2016 CHIEF COMPLAINT: The patient is an 80-year-old white male with history of overactive bladder. Presents with chief complaint of hematuria. HISTORY OF PRESENT ILLNESS: The patient is followed as an outpatient by Dr. Quinonez. The patient has been treated with medication for overactive bladder. Last evening, however, the patient states he began to experience difficulty voiding. The patient states he would pass the blood clot and then could not void any further. The patient presented to [facility]. The patient was found to have 800 mL residual urine in his bladder. The patient also had gross hematuria. The patient was admitted for hematuria to rule out bladder tumor. REVIEW OF SYSTEMS: Constitutional: The patient denies weight loss or weight gain. The patient denies fevers or chills. HEENT: The patient denies ear or throat pain. Cardiovascular: The patient denies palpitations or chest pain. Chest: The patient denies wheeze or shortness of breath. Abdomen: The patient denies nausea, vomiting, or constipation. Genitourinary: The patient complains of hematuria as above. The patient denies dysuria. The patient does complain of difficulty voiding. Neuromuscular: The patient denies seizures or generalized weakness. PAST MEDICAL HISTORY: Significant for: 1. Hypertension, currently off medications. 2. Hypercholesterolemia. 3. Osteoarthritis bilateral knees. 4. Migraine headache. 5. History of overactive bladder. PAST SURGICAL HISTORY: 1. Significant for right knee total arthroplasty in 12/2015. 2. Appendectomy. 3. Spleenectomy. 4. Bilateral inguinal hernia repair. 5. Tonsillectomy/adenoidectomy. CURRENT MEDICATIONS: 1. Lotensin 20 mg one tablet p.o. daily. 2. Celebrex 200 mg one tablet p.o. daily. 3. [place] 5/325 mg one tablet p.o. every 6 hours as needed. 4. Nifedipine ER 90 mg one tablet p.o. daily. 5. Tramadol 50 mg one tablet p.o. twice daily. 6. Trospium 60 mg p.o. nightly. ALLERGIES: No known drug allergies. SOCIAL HISTORY: The patient is . He is retired. The patient denies tobacco use, having quit 50 years ago. The patient denies alcohol use. PHYSICAL EXAMINATION: VITAL SIGNS: Temperature 98.2 degrees, respirations 18, pulse 94, and blood pressure 152/96. GENERAL: The patient is a well-developed, well-nourished white male, in no apparent distress. HEENT: Pupils are equal and responsive to light and accommodation. Extraocular movements are intact. NECK: Supple. No lymphadenopathy. CHEST: Lungs are clear to auscultation bilaterally without wheezes or rales. CARDIOVASCULAR: Regular rhythm and rate. S1 and S2 normal without murmurs, rubs, or gallops. ABDOMEN: Soft, nontender, and nondistended. Positive bowel sounds. No evidence of hepatosplenomegaly currently. No rebound or guarding noted. EXTREMITIES: Negative for clubbing cyanosis or edema. RECTAL/GENITAL: Refused. NEUROLOGIC: Neurologically cranial nerves II through XII are grossly intact without focal deficits. Motor strength is 5/5 bilaterally. Deep tendon reflexes are 2+ plantar. LABORATORY STUDIES: WBC 7.2, hemoglobin 14.2, hematocrit 42.8, and platelets 148,000. Sodium 141, potassium 4.3, chloride 101, CO2 28, BUN 18, creatinine 0.9, and glucose 99. Urinalysis showed 5+ occult blood, 4+ protein and RBCs too numerous to count. ASSESSMENT: This is an 80-year-old white male 1. Hematuria. 2. Overactive bladder. 3. Difficulty voiding. 4. Hypertension. 5. Hypercholesterolemia. 6. Osteoarthritis, bilateral knees. 7. Migraine headaches. TREATMENT: 1. Overactive bladder/hematuria/difficulty voiding. A urology consultation is being obtained with Dr. Davis. Dr. Davis is going to refer Dr. Quinonez. The patient is currently receiving bladder flushes. The patient is scheduled for cystoscopy when hematuria has resolved. 2. Hypertension. Continue Lotensin as above. 3. Hypercholesterolemia. Continue Lipitor. 4. Osteoarthritis, bilateral knees. 5. Migraine headaches. Demetrio Morgan M.D. DR: Leonardo JOB#: [id number] CC:
[2016-06-19] VITALS: BP 122/72
[2016-06-19 04:00] VITALS: BP 125/69
[2016-06-19] MEDS: Norco 5mg/325mg tab ORAL PRN ×3 (06:14→19:40)
[2016-06-19 07:22] LABS: ANION GAP 12 (5-15); CARBON DIOXIDE 25 mEQ/L (20-30); CHLORIDE 101 mEQ/L (98-107); CREATININE 0.8 mg/dL (0.7-1.2); HEMOLYSIS 3; POTASSIUM 4.2 mEQ/L (3.4-4.9); SODIUM 138 mEQ/L (135-145)
[2016-06-19 07:49] LABS: MEAN CORPUSCULAR HEMOGLOBIN 29.9 PG (27.0-31.0); MEAN CORPUSCULAR HGB CONC 33.3 G/DL (32.0-36.0); MEAN CORPUSCULAR VOLUME 90 FL (80-99); MEAN PLATELET VOLUME 13.8 FL (6.5-10.1); RED BLOOD COUNT 4.56 M/UL (4.70-6.10); RED CELL DISTRIBUTION WIDTH 12.3 % (11.6-14.8); WHITE BLOOD COUNT 11.2 K/UL (4.8-10.8)
[2016-06-19 08:00] VITALS: BP 116/62
[2016-06-19 11:46] LABS: PLATELET COUNT 200 K/UL (150-450)
[2016-06-19 11:48] LABS: BAND NEUTROPHILS % (MANUAL) 0 % (0-8); BASOPHILS % (MANUAL) 0 % (0-2); EOSINOPHILS % (MANUAL) 0 % (0-3); LYMPHOCYTES % (MANUAL) 15 % (20-45); NEUTROPHILS % (MANUAL) 78 % (45-75); PLATELET ESTIMATE ADEQUATE; PLATELET MORPHOLOGY NORMAL; TOTAL CELLS COUNTED 100
[2016-06-19 11:49] LABS: PLATELET CLUMPS 2+
[2016-06-19 12:00] VITALS: BP 115/58
[2016-06-19] MEDS: Miralax 17gm pkt ORAL PRN (13:30)
--- NOTE | 2016-06-19 13:50 | Internal Med Progress Note ---
Subjective Date of Service: Jun 19, 2016 Physician Name MorganCarleen camacho Attending Physician Noah Paz MD Current Medications Medications (Trade) Dose Ordered Sig/Chivo Route PRN Reason Start Time Stop Time Status Last Admin Dose Admin Acetaminophen (Tylenol) 650 mg Q4H PRN ORAL fever 06/17/16 23:00 07/17/16 22:59 Acetaminophen/ Hydrocodone Bitart ([place] 5/325) 1 tab Q6H PRN ORAL For Pain 06/17/16 23:00 06/24/16 22:59 06/19/16 13:31 Al Hydroxide/Mg Hydroxide (Mylanta II) 30 ml Q6H PRN ORAL dyspepsia 06/17/16 23:00 07/17/16 22:59 Dextrose STAT PRN IV Hypoglycemia 06/17/16 23:00 07/17/16 22:59 Levofloxacin (Levaquin) 100 ml @ 100 mls/hr Q24H IVPB 06/18/16 01:00 06/25/16 00:59 06/19/16 01:06 Lorazepam (Ativan 2mg/ml 1ml) 0.5 mg Q4H PRN IV For Anxiety 06/17/16 23:00 06/24/16 22:59 Morphine Sulfate (Morphine Sulfate) 1 mg EVERY 4 HOURS PRN IVP For Pain 06/17/16 23:00 06/24/16 22:59 06/18/16 07:44 Nifedipine (Procardia XL) 90 mg DAILY ORAL 06/18/16 09:00 07/18/16 08:59 06/18/16 09:38 Ondansetron HCl (Zofran) 4 mg Q6H PRN IVP Nausea & Vomiting 06/17/16 23:00 07/17/16 22:59 Polyethylene Glycol (Miralax) 17 gm HSPRN PRN ORAL Constipation 06/17/16 23:00 07/17/16 22:59 06/19/16 13:30 Zolpidem Tartrate (Ambien) 5 mg HSPRN PRN ORAL Insomnia 06/17/16 23:00 07/17/16 22:59 Allergies: Coded Allergies: No Known Allergies (Unverified , 10/25/13) ROS Limited/Unobtainable: No Constitutional: Reports: no symptoms HEENT: Reports: no symptoms Cardiovascular: Reports: no symptoms Respiratory: Reports: no symptoms Gastrointestinal/Abdominal: Reports: no symptoms Genitourinary: Reports: no symptoms Neurologic/Psychiatric: Reports: no symptoms Subjective 80 YO M admitted with gross hematuria. Cover for [facility]-Dr Paz. Objective Last Vital Signs Date Time Temp Pulse Resp B/P Pulse Ox O2 Delivery O2 Flow Rate FiO2 06/19/16 12:00 97.6 63 18 115/58 94 Room Air General Appearance: WD/WN, no apparent distress, alert EENT: PERRL/EOMI, normal ENT inspection Neck: non-tender, normal alignment, supple Cardiovascular: normal peripheral pulses, normal rate, regular rhythm, no gallop/murmur, no JVD Respiratory/Chest: chest wall non-tender, lungs clear, normal breath sounds, no respiratory distress, no accessory muscle use Abdomen: normal bowel sounds, non tender, soft, no organomegaly, no mass Extremities: normal range of motion, non-tender 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, no motor/sensory deficits Laboratory Tests Test 06/19/16 04:45 White Blood Count 11.2 K/UL (4.8-10.8) H Red Blood Count 4.56 M/UL (4.70-6.10) L Hemoglobin 13.6 G/DL (14.2-18.0) L Hematocrit 41.0 % (42.0-52.0) L Mean Corpuscular Volume 90 FL (80-99) Mean Corpuscular Hemoglobin 29.9 PG (27.0-31.0) Mean Corpuscular Hemoglobin Concent 33.3 G/DL (32.0-36.0) Red Cell Distribution Width 12.3 % (11.6-14.8) Platelet Count 200 K/UL (150-450) Mean Platelet Volume 13.8 FL (6.5-10.1) H Neutrophils (%) (Auto) % (45.0-75.0) Lymphocytes (%) (Auto) % (20.0-45.0) Monocytes (%) (Auto) % (1.0-10.0) Eosinophils (%) (Auto) % (0.0-3.0) Basophils (%) (Auto) % (0.0-2.0) Differential Total Cells Counted 100 Neutrophils % (Manual) 78 % (45-75) H Lymphocytes % (Manual) 15 % (20-45) L Monocytes % (Manual) 7 % (1-10) Eosinophils % (Manual) 0 % (0-3) Basophils % (Manual) 0 % (0-2) Band Neutrophils 0 % (0-8) Platelet Estimate Adequate Platelet Morphology Normal Clumped Platelets 2+ Red Blood Cell Morphology Normal Sodium Level 138 mEQ/L (135-145) Potassium Level 4.2 mEQ/L (3.4-4.9) Chloride Level 101 mEQ/L (98-107) Carbon Dioxide Level 25 mEQ/L (20-30) Anion Gap 12 (5-15) Blood Urea Nitrogen 11 mg/dL (7-23) Creatinine 0.8 mg/dL (0.7-1.2) Estimat Glomerular Filtration Rate mL/min (>60) Glucose Level 122 mg/dL (74-106) H Calcium Level 9.0 mg/dL (8.6-10.2) Bad table Assessment/Plan Problem List: (1) Overactive bladder (2) Urinary obstruction (3) HTN (hypertension) Assessment & Plan: Cont procardia (4) Osteoarthritis, knee (5) Hematuria Assessment & Plan: Continuous bladder irrigation per Urology-see note. May require cystoscopy to rule out bladder mass (6) Abdominal pain Status: not improved CARLEEN MORGAN Jun 19, 2016 13:50
[2016-06-19 16:00] VITALS: BP 138/74
[2016-06-19 20:00] VITALS: BP 145/80
--- NOTE | 2016-06-19 20:19 | Urology Progress Note ---
Assessment/Plan Status: stable Assessment/Plan H/H stable. Vitals stable. urine bloody off irrigation. Will run irrigation one more day and re-evaluate tomorrow off irrigation. if still bloody with clots, will recommend cysto under anesthesia. Subjective Date patient seen: Jun 19, 2016 Time patient seen: 20:17 ROS Limited/Unobtainable: No Constitutional: Denies: chills, diaphoresis, fever, malaise, no symptoms, other , weakness HEENT: Denies: blurred vision, double vision, ear discharge, ear pain, eye pain , mouth pain, mouth swelling, no symptoms, nose congestion, nose pain, other, tearing, throat pain, throat swelling Cardiovascular: Denies: chest pain, edema, irregular heart rate, lightheadedness, no symptoms, other, palpitations, syncope Respiratory: Denies: SOB at rest, SOB with excertion, cough, no symptoms, orthopnea, other, shortness of breath, sputum, stridor, wheezing Gastrointestinal/Abdominal: Denies: abdomen distended, abdominal pain, black stools, blood in stool, constipated, diarrhea, difficulty swallowing, nausea, no symptoms, other, poor appetite, poor fluid intake, rectal bleeding, tarry stools, vomiting Genitourinary: Reports: hematuria Neurologic/Psychiatric: Denies: anxiety, depressed, emotional problems, headache, no symptoms, numbness, other, paresthesia, pre-existing deficit, seizure, tingling, tremors, weakness Endocrine: Denies: excessive sweating, flushing, increased hunger, increased thirst, increased urine, intolerance to cold, intolerance to heat, no symptoms, other, unexplained weight gain, unexplained weight loss Hematologic/Lymphatic: Denies: anemia, easy bleeding, easy bruising, no symptoms, other Allergies: Coded Allergies: No Known Allergies (Unverified , 10/25/13) Subjective doing well, urine bloody off irrigation Objective Last 24 Hour Vital Signs Date Time Temp Pulse Resp B/P Pulse Ox O2 Delivery O2 Flow Rate FiO2 06/19/16 16:00 97.9 69 16 138/74 96 Room Air 06/19/16 14:30 97.6 06/19/16 12:00 97.6 63 18 115/58 94 Room Air 06/19/16 08:38 75 116/62 06/19/16 08:00 97.7 75 18 116/62 95 Room Air 06/19/16 04:00 98.5 83 20 125/69 97 Room Air 06/19/16 00:00 98.2 87 18 122/72 94 Room Air Bad tableLaboratory Tests 06/19/16 04:45: White Blood Count 11.2H, Red Blood Count 4.56L, Hemoglobin 13.6L, Hematocrit 41.0L, Mean Corpuscular Volume 90, Mean Corpuscular Hemoglobin 29.9, Mean Corpuscular Hemoglobin Concent 33.3, Red Cell Distribution Width 12.3, Platelet Count 200, Mean Platelet Volume 13.8H, Neutrophils (%) (Auto) , Lymphocytes (%) (Auto) , Monocytes (%) (Auto) , Eosinophils (%) (Auto) , Basophils (%) (Auto) , Differential Total Cells Counted 100, Neutrophils % (Manual) 78H, Lymphocytes % (Manual) 15L, Monocytes % (Manual) 7, Eosinophils % (Manual) 0, Basophils % ( Manual) 0, Band Neutrophils 0, Platelet Estimate Adequate, Platelet Morphology Normal, Clumped Platelets 2+, Red Blood Cell Morphology Normal, Sodium Level 138 , Potassium Level 4.2, Chloride Level 101, Carbon Dioxide Level 25, Anion Gap 12 , Blood Urea Nitrogen 11, Creatinine 0.8, Estimat Glomerular Filtration Rate , Glucose Level 122H, Calcium Level 9.0 Height (Feet): 5 Height (Inches): 11.00 Weight (Pounds): 187 General Appearance: WD/WN Genitourinary/Rectal: other - urine light pink with minimal irrigation Willy Cortez M.D. Jun 19, 2016 20:19
--- NOTE | 2016-06-19 21:29 | Pulmonology Progress Note ---
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 Remote history of heavy tobacco smoking use HTN Hematuria Abdominal Pain Prostate Enlargement Plan Discussed abnormal findings of CT scan with patient and also discussed likelihood of metastasis Patient says he will rather want to follow outpatient oncology through his PCP Provided patient with my business card for evaluation out patient at my office and repeat CT scan to re-evaluate size and nature of metastasis Subjective ROS Limited/Unobtainable: No Respiratory: Reports: dyspnea at rest, dyspnea on exertion, pleuritic pain, productive cough, shortness of breath, sputum Allergies: Coded Allergies: No Known Allergies (Unverified , 10/25/13) Objective Last 24 Hour Vital Signs Date Time Temp Pulse Resp B/P Pulse Ox O2 Delivery O2 Flow Rate FiO2 06/19/16 20:39 97.9 06/19/16 20:00 97.9 82 20 145/80 95 Nasal Cannula 06/19/16 16:00 97.9 69 16 138/74 96 Room Air 06/19/16 12:00 97.6 63 18 115/58 94 Room Air 06/19/16 08:38 75 116/62 06/19/16 08:00 97.7 75 18 116/62 95 Room Air 06/19/16 04:00 98.5 83 20 125/69 97 Room Air 06/19/16 00:00 98.2 87 18 122/72 94 Room Air Bad tableGeneral Appearance: no acute distress HEENT: normocephalic, atraumatic, PERRL Respiratory/Chest: chest wall non-tender, decreased breath sounds, accessory muscle use, crackles/rales, rhonchi Cardiovascular: normal peripheral pulses, normal rate, regular rhythm, no JVD Abdomen: normal bowel sounds, soft, non tender, no organomegaly, non distended Genitourinary: normal external genitalia Extremities: no cyanosis Skin: rash, lesions 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, no motor/sensory deficits, oriented x 3 Laboratory Tests 06/19/16 04:45: White Blood Count 11.2H, Red Blood Count 4.56L, Hemoglobin 13.6L, Hematocrit 41.0L, Mean Corpuscular Volume 90, Mean Corpuscular Hemoglobin 29.9, Mean Corpuscular Hemoglobin Concent 33.3, Red Cell Distribution Width 12.3, Platelet Count 200, Mean Platelet Volume 13.8H, Neutrophils (%) (Auto) , Lymphocytes (%) (Auto) , Monocytes (%) (Auto) , Eosinophils (%) (Auto) , Basophils (%) (Auto) , Differential Total Cells Counted 100, Neutrophils % (Manual) 78H, Lymphocytes % (Manual) 15L, Monocytes % (Manual) 7, Eosinophils % (Manual) 0, Basophils % ( Manual) 0, Band Neutrophils 0, Platelet Estimate Adequate, Platelet Morphology Normal, Clumped Platelets 2+, Red Blood Cell Morphology Normal, Sodium Level 138 , Potassium Level 4.2, Chloride Level 101, Carbon Dioxide Level 25, Anion Gap 12 , Blood Urea Nitrogen 11, Creatinine 0.8, Estimat Glomerular Filtration Rate , Glucose Level 122H, Calcium Level 9.0 Current Medications Medications (Trade) Dose Ordered Sig/Chivo Route PRN Reason Start Time Stop Time Status Last Admin Dose Admin Acetaminophen (Tylenol) 650 mg Q4H PRN ORAL fever 06/17/16 23:00 07/17/16 22:59 Acetaminophen/ Hydrocodone Bitart ([place] 5/325) 1 tab Q6H PRN ORAL For Pain 06/17/16 23:00 06/24/16 22:59 06/19/16 19:40 Al Hydroxide/Mg Hydroxide (Mylanta II) 30 ml Q6H PRN ORAL dyspepsia 06/17/16 23:00 07/17/16 22:59 Dextrose STAT PRN IV Hypoglycemia 06/17/16 23:00 07/17/16 22:59 Levofloxacin (Levaquin) 100 ml @ 100 mls/hr Q24H IVPB 06/18/16 01:00 06/25/16 00:59 06/19/16 01:06 Lorazepam (Ativan 2mg/ml 1ml) 0.5 mg Q4H PRN IV For Anxiety 06/17/16 23:00 06/24/16 22:59 Morphine Sulfate (Morphine Sulfate) 1 mg EVERY 4 HOURS PRN IVP For Pain 06/17/16 23:00 06/24/16 22:59 06/18/16 07:44 Nifedipine (Procardia XL) 90 mg DAILY ORAL 06/18/16 09:00 07/18/16 08:59 06/18/16 09:38 Ondansetron HCl (Zofran) 4 mg Q6H PRN IVP Nausea & Vomiting 06/17/16 23:00 07/17/16 22:59 Polyethylene Glycol (Miralax) 17 gm HSPRN PRN ORAL Constipation 06/17/16 23:00 07/17/16 22:59 06/19/16 13:30 Zolpidem Tartrate (Ambien) 5 mg HSPRN PRN ORAL Insomnia 06/17/16 23:00 07/17/16 22:59 DIONI PATEL Jun 19, 2016 21:29
[2016-06-20] VITALS: BP 113/57
[2016-06-20] MEDS: Zolpidem 5mg tab ORAL PRN (03:25)
[2016-06-20 04:00] VITALS: BP 129/69
[2016-06-20 07:11] LABS: BASOPHILS % (AUTO) 0.7 % (0.0-2.0); MEAN CORPUSCULAR HEMOGLOBIN 30.5 PG (27.0-31.0); MEAN CORPUSCULAR HGB CONC 33.6 G/DL (32.0-36.0); MEAN CORPUSCULAR VOLUME 91 FL (80-99); MEAN PLATELET VOLUME 8.5 FL (6.5-10.1); MONOCYTES % (AUTO) 13.6 % (1.0-10.0); NEUTROPHILS % (AUTO) 67.7 % (45.0-75.0); PLATELET COUNT 222 K/UL (150-450); RED BLOOD COUNT 4.26 M/UL (4.70-6.10); RED CELL DISTRIBUTION WIDTH 12.2 % (11.6-14.8); WHITE BLOOD COUNT 9.6 K/UL (4.8-10.8)
[2016-06-20 07:24] LABS: ANION GAP 13 (5-15); CALCIUM 8.9 mg/dL (8.6-10.2); CARBON DIOXIDE 27 mEQ/L (20-30); CHLORIDE 97 mEQ/L (98-107); CREATININE 0.9 mg/dL (0.7-1.2); HEMOLYSIS 6; POTASSIUM 4.2 mEQ/L (3.4-4.9); SODIUM 137 mEQ/L (135-145)
[2016-06-20 08:25] VITALS: BP 126/59
[2016-06-20 12:11] VITALS: BP 130/62
--- NOTE | 2016-06-20 12:13 | Urology Progress Note ---
Assessment/Plan Status: stable Assessment/Plan H/H stable. Vitals stable. urine quality significantly improved. expect it to be occasionally pink, but significantly better than yesterday. 1. will setup for outpatient cystoscopy on Friday with Dr. Quinonez 2. ok to discharge home today with cantor to leg bag. Subjective Date patient seen: Jun 20, 2016 Time patient seen: 12:11 ROS Limited/Unobtainable: No Constitutional: Denies: chills, diaphoresis, fever, malaise, no symptoms, other , weakness HEENT: Denies: blurred vision, double vision, ear discharge, ear pain, eye pain , mouth pain, mouth swelling, no symptoms, nose congestion, nose pain, other, tearing, throat pain, throat swelling Cardiovascular: Denies: chest pain, edema, irregular heart rate, lightheadedness, no symptoms, other, palpitations, syncope Respiratory: Denies: SOB at rest, SOB with excertion, cough, no symptoms, orthopnea, other, shortness of breath, sputum, stridor, wheezing Gastrointestinal/Abdominal: Denies: abdomen distended, abdominal pain, black stools, blood in stool, constipated, diarrhea, difficulty swallowing, nausea, no symptoms, other, poor appetite, poor fluid intake, rectal bleeding, tarry stools, vomiting Genitourinary: Reports: burning Neurologic/Psychiatric: Denies: anxiety, depressed, emotional problems, headache, no symptoms, numbness, other, paresthesia, pre-existing deficit, seizure, tingling, tremors, weakness Endocrine: Denies: excessive sweating, flushing, increased hunger, increased thirst, increased urine, intolerance to cold, intolerance to heat, no symptoms, other, unexplained weight gain, unexplained weight loss Hematologic/Lymphatic: Denies: anemia, easy bleeding, easy bruising, no symptoms, other Allergies: Coded Allergies: No Known Allergies (Unverified , 10/25/13) Subjective doing well, urine looks great off irrigation. nervous but happy to see improvement. Objective Last 24 Hour Vital Signs Date Time Temp Pulse Resp B/P Pulse Ox O2 Delivery O2 Flow Rate FiO2 06/20/16 09:00 81 126/59 06/20/16 08:25 98.4 81 20 126/59 95 Room Air 06/20/16 04:00 98.0 67 20 129/69 95 Room Air 06/20/16 00:00 97.9 73 20 113/57 97 Room Air 06/19/16 20:39 97.9 06/19/16 20:00 97.9 82 20 145/80 95 Nasal Cannula 06/19/16 16:00 97.9 69 16 138/74 96 Room Air Intake and Output 06/19/16 06/20/16 19:00 07:00 Intake Total 480 ml 340 ml Output Total 1200 ml Balance 480 ml -860 ml Intake Oral 480 ml 240 ml IV Total 100 ml Output Urine Total 1200 ml Laboratory Tests 06/20/16 06:15: White Blood Count 9.6, Red Blood Count 4.26L, Hemoglobin 13.0L, Hematocrit 38.7L , Mean Corpuscular Volume 91, Mean Corpuscular Hemoglobin 30.5, Mean Corpuscular Hemoglobin Concent 33.6, Red Cell Distribution Width 12.2, Platelet Count 222, Mean Platelet Volume 8.5, Neutrophils (%) (Auto) 67.7, Lymphocytes (% ) (Auto) 15.0L, Monocytes (%) (Auto) 13.6H, Eosinophils (%) (Auto) 3.0, Basophils (%) (Auto) 0.7, Sodium Level 137, Potassium Level 4.2, Chloride Level 97L, Carbon Dioxide Level 27, Anion Gap 13, Blood Urea Nitrogen 12, Creatinine 0.9, Estimat Glomerular Filtration Rate , Glucose Level 119H, Calcium Level 8.9 Height (Feet): 5 Height (Inches): 11.00 Weight (Pounds): 187 General Appearance: WD/WN Abdomen: soft Genitourinary/Rectal: other - cantor in place urine is yellow Willy Cortez M.D. Jun 20, 2016 12:13
--- NOTE | 2016-06-20 12:14 | Diagnostic Imaging Report ---
APPROVED REPORT CPT Code: 90274 Present Symptoms Lower Extremity Pain: Right BILATERAL: Imaging reveals a patent deep venous system bilaterally. There is no evidence of thrombus within the femoral, popliteal or tibial segments. The greater saphenous veins are also within normal limits. Doppler indicates normal spontaneous flow within these segments. INCIDENTAL FINDINGS: Imaging of the (left) popliteal fossa reveals a Bakers cyst measuring approximately 3.3 x 0.9 cm.
[2016-06-20] MEDS: Norco 5mg/325mg tab ORAL PRN ×2 (15:33→22:22)
[2016-06-20 16:00] VITALS: BP 115/68
--- NOTE | 2016-06-20 17:16 | Internal Med Progress Note ---
Subjective Date of Service: Jun 20, 2016 Physician Name Chirinos,Carleen Attending Physician Noah Paz MD Current Medications Medications (Trade) Dose Ordered Sig/Chivo Route PRN Reason Start Time Stop Time Status Last Admin Dose Admin Acetaminophen (Tylenol) 650 mg Q4H PRN ORAL fever 06/17/16 23:00 07/17/16 22:59 Acetaminophen/ Hydrocodone Bitart ([place] 5/325) 1 tab Q6H PRN ORAL For Pain 06/17/16 23:00 06/24/16 22:59 06/20/16 15:33 Al Hydroxide/Mg Hydroxide (Mylanta II) 30 ml Q6H PRN ORAL dyspepsia 06/17/16 23:00 07/17/16 22:59 Dextrose STAT PRN IV Hypoglycemia 06/17/16 23:00 07/17/16 22:59 Levofloxacin (Levaquin) 100 ml @ 100 mls/hr Q24H IVPB 06/18/16 01:00 06/25/16 00:59 06/20/16 00:38 Lorazepam (Ativan 2mg/ml 1ml) 0.5 mg Q4H PRN IV For Anxiety 06/17/16 23:00 06/24/16 22:59 Morphine Sulfate (Morphine Sulfate) 1 mg EVERY 4 HOURS PRN IVP For Pain 06/17/16 23:00 06/24/16 22:59 06/18/16 07:44 Nifedipine (Procardia XL) 90 mg DAILY ORAL 06/18/16 09:00 07/18/16 08:59 06/18/16 09:38 Ondansetron HCl (Zofran) 4 mg Q6H PRN IVP Nausea & Vomiting 06/17/16 23:00 07/17/16 22:59 Polyethylene Glycol (Miralax) 17 gm HSPRN PRN ORAL Constipation 06/17/16 23:00 07/17/16 22:59 06/19/16 13:30 Zolpidem Tartrate (Ambien) 5 mg HSPRN PRN ORAL Insomnia 06/17/16 23:00 07/17/16 22:59 06/20/16 03:25 Allergies: Coded Allergies: No Known Allergies (Unverified , 10/25/13) ROS Limited/Unobtainable: No Constitutional: Reports: no symptoms HEENT: Reports: no symptoms Cardiovascular: Reports: no symptoms Respiratory: Reports: no symptoms Gastrointestinal/Abdominal: Reports: no symptoms Genitourinary: Reports: no symptoms Neurologic/Psychiatric: Reports: no symptoms Subjective 80 YO M admitted with gross hematuria. Cover for Int [facility]-Dr Paz. Objective Last Vital Signs Date Time Temp Pulse Resp B/P Pulse Ox O2 Delivery O2 Flow Rate FiO2 06/20/16 16:00 98.8 84 17 115/68 97 Room Air Laboratory Tests Test 06/20/16 06:15 White Blood Count 9.6 K/UL (4.8-10.8) Red Blood Count 4.26 M/UL (4.70-6.10) L Hemoglobin 13.0 G/DL (14.2-18.0) L Hematocrit 38.7 % (42.0-52.0) L Mean Corpuscular Volume 91 FL (80-99) Mean Corpuscular Hemoglobin 30.5 PG (27.0-31.0) Mean Corpuscular Hemoglobin Concent 33.6 G/DL (32.0-36.0) Red Cell Distribution Width 12.2 % (11.6-14.8) Platelet Count 222 K/UL (150-450) Mean Platelet Volume 8.5 FL (6.5-10.1) Neutrophils (%) (Auto) 67.7 % (45.0-75.0) Lymphocytes (%) (Auto) 15.0 % (20.0-45.0) L Monocytes (%) (Auto) 13.6 % (1.0-10.0) H Eosinophils (%) (Auto) 3.0 % (0.0-3.0) Basophils (%) (Auto) 0.7 % (0.0-2.0) Sodium Level 137 mEQ/L (135-145) Potassium Level 4.2 mEQ/L (3.4-4.9) Chloride Level 97 mEQ/L (98-107) L Carbon Dioxide Level 27 mEQ/L (20-30) Anion Gap 13 (5-15) Blood Urea Nitrogen 12 mg/dL (7-23) Creatinine 0.9 mg/dL (0.7-1.2) Estimat Glomerular Filtration Rate mL/min (>60) Glucose Level 119 mg/dL (74-106) H Calcium Level 8.9 mg/dL (8.6-10.2) Intake and Output 06/19/16 06/20/16 19:00 07:00 Intake Total 480 ml 340 ml Output Total 1200 ml Balance 480 ml -860 ml Intake Oral 480 ml 240 ml IV Total 100 ml Output Urine Total 1200 ml Objective General Appearance: WD/WN, no apparent distress, alert EENT: PERRL/EOMI, normal ENT inspection Neck: non-tender, normal alignment, supple Cardiovascular: normal peripheral pulses, normal rate, regular rhythm, no gallop/murmur, no JVD Respiratory/Chest: chest wall non-tender, lungs clear, normal breath sounds, no respiratory distress, no accessory muscle use Abdomen: normal bowel sounds, non tender, soft, no organomegaly, no mass Extremities: normal range of motion, non-tender 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 Will require cystoscopy as inpatient vs outpatient to rule out bladder mass. Leg bag cantor in place. (6) Abdominal pain Status: progressing CARLEEN CHIRINOS Jun 20, 2016 17:16
[2016-06-20 20:00] VITALS: BP 132/80
--- NOTE | 2016-06-20 22:29 | Pulmonology Progress Note ---
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 Remote history of heavy tobacco smoking use HTN Hematuria Abdominal Pain Prostate Enlargement Plan Discussed abnormal findings of CT scan with patient and also discussed likelihood of metastasis Patient says he will rather want to follow outpatient oncology through his PCP Provided patient with my business card for evaluation out patient at my office and repeat CT scan to re-evaluate size and nature of metastasis Subjective ROS Limited/Unobtainable: No Respiratory: Reports: dry cough, dyspnea at rest, dyspnea on exertion, pleuritic pain, productive cough, shortness of breath, sputum, wheezing Allergies: Coded Allergies: No Known Allergies (Unverified , 10/25/13) Objective Last 24 Hour Vital Signs Date Time Temp Pulse Resp B/P Pulse Ox O2 Delivery O2 Flow Rate FiO2 06/20/16 20:00 97.5 98 19 132/80 96 Room Air 06/20/16 16:00 98.8 84 17 115/68 97 Room Air 06/20/16 12:11 98.0 85 20 130/62 95 Room Air 06/20/16 09:00 81 126/59 06/20/16 08:25 98.4 81 20 126/59 95 Room Air 06/20/16 04:00 98.0 67 20 129/69 95 Room Air 06/20/16 00:00 97.9 73 20 113/57 97 Room Air Intake and Output 06/19/16 06/20/16 19:00 07:00 Intake Total 480 ml 340 ml Output Total 1200 ml Balance 480 ml -860 ml Intake Oral 480 ml 240 ml IV Total 100 ml Output Urine Total 1200 ml General Appearance: no acute distress HEENT: normocephalic, atraumatic, PERRL Respiratory/Chest: chest wall non-tender, decreased breath sounds, accessory muscle use, crackles/rales, rhonchi Cardiovascular: normal peripheral pulses, normal rate, regular rhythm, no JVD Abdomen: normal bowel sounds, soft, non tender, no organomegaly Genitourinary: normal external genitalia Extremities: no cyanosis Skin: rash, lesions 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, no motor/sensory deficits Laboratory Tests 06/20/16 06:15: White Blood Count 9.6, Red Blood Count 4.26L, Hemoglobin 13.0L, Hematocrit 38.7L , Mean Corpuscular Volume 91, Mean Corpuscular Hemoglobin 30.5, Mean Corpuscular Hemoglobin Concent 33.6, Red Cell Distribution Width 12.2, Platelet Count 222, Mean Platelet Volume 8.5, Neutrophils (%) (Auto) 67.7, Lymphocytes (% ) (Auto) 15.0L, Monocytes (%) (Auto) 13.6H, Eosinophils (%) (Auto) 3.0, Basophils (%) (Auto) 0.7, Sodium Level 137, Potassium Level 4.2, Chloride Level 97L, Carbon Dioxide Level 27, Anion Gap 13, Blood Urea Nitrogen 12, Creatinine 0.9, Estimat Glomerular Filtration Rate , Glucose Level 119H, Calcium Level 8.9 Current Medications Medications (Trade) Dose Ordered Sig/Chivo Route PRN Reason Start Time Stop Time Status Last Admin Dose Admin Acetaminophen (Tylenol) 650 mg Q4H PRN ORAL fever 06/17/16 23:00 07/17/16 22:59 Acetaminophen/ Hydrocodone Bitart ([place] 5/325) 1 tab Q6H PRN ORAL For Pain 06/17/16 23:00 06/24/16 22:59 06/20/16 22:22 Al Hydroxide/Mg Hydroxide (Mylanta II) 30 ml Q6H PRN ORAL dyspepsia 06/17/16 23:00 07/17/16 22:59 Dextrose STAT PRN IV Hypoglycemia 06/17/16 23:00 07/17/16 22:59 Levofloxacin (Levaquin) 100 ml @ 100 mls/hr Q24H IVPB 06/18/16 01:00 06/25/16 00:59 06/20/16 00:38 Lorazepam (Ativan 2mg/ml 1ml) 0.5 mg Q4H PRN IV For Anxiety 06/17/16 23:00 06/24/16 22:59 Morphine Sulfate (Morphine Sulfate) 1 mg EVERY 4 HOURS PRN IVP For Pain 06/17/16 23:00 06/24/16 22:59 06/18/16 07:44 Nifedipine (Procardia XL) 90 mg DAILY ORAL 06/18/16 09:00 07/18/16 08:59 06/18/16 09:38 Ondansetron HCl (Zofran) 4 mg Q6H PRN IVP Nausea & Vomiting 06/17/16 23:00 07/17/16 22:59 Polyethylene Glycol (Miralax) 17 gm HSPRN PRN ORAL Constipation 06/17/16 23:00 07/17/16 22:59 06/19/16 13:30 Zolpidem Tartrate (Ambien) 5 mg HSPRN PRN ORAL Insomnia 06/17/16 23:00 07/17/16 22:59 06/20/16 03:25 DIONI PATEL Jun 20, 2016 22:29
[2016-06-21] VITALS: BP 121/65
[2016-06-21] MEDS: Zolpidem 5mg tab ORAL PRN ×2 (00:55→18:06)
[2016-06-21 04:00] VITALS: BP 126/69
[2016-06-21] MEDS: Norco 5mg/325mg tab ORAL PRN (05:08)
[2016-06-21 05:32] LABS: BASOPHILS % (AUTO) 0.7 % (0.0-2.0); EOSINOPHILS % (AUTO) 4.1 % (0.0-3.0); LYMPHOCYTES % (AUTO) 17.3 % (20.0-45.0); MEAN CORPUSCULAR HEMOGLOBIN 29.8 PG (27.0-31.0); MEAN CORPUSCULAR HGB CONC 33.3 G/DL (32.0-36.0); MEAN CORPUSCULAR VOLUME 90 FL (80-99); MEAN PLATELET VOLUME 8.1 FL (6.5-10.1); NEUTROPHILS % (AUTO) 63.9 % (45.0-75.0); PLATELET COUNT 211 K/UL (150-450); RED BLOOD COUNT 4.21 M/UL (4.70-6.10); RED CELL DISTRIBUTION WIDTH 12.2 % (11.6-14.8); WHITE BLOOD COUNT 8.2 K/UL (4.8-10.8)
[2016-06-21 06:03] LABS: ANION GAP 13 (5-15); CALCIUM 8.7 mg/dL (8.6-10.2); CARBON DIOXIDE 27 mEQ/L (20-30); CHLORIDE 95 mEQ/L (98-107); CREATININE 0.8 mg/dL (0.7-1.2); HEMOLYSIS 5; SODIUM 135 mEQ/L (135-145)
[2016-06-21 08:00] VITALS: BP 119/62
[2016-06-21 12:00] VITALS: BP 157/79
[2016-06-21] MEDS: Miralax 17gm pkt ORAL PRN (13:29)
[2016-06-21] MEDS ORDERED: TAMSULOSIN HCL0.4 MG ORAL (14:13)
--- NOTE | 2016-06-21 14:17 | Discharge Summary ---
Discharge Summary Hospital Course Date of Admission Jun 17, 2016 at 22:31 Date of Discharge Admitting Diagnosis abdominal pain, hematuria HPI Larry Gonzalez Jr is a 80 year old male who was admitted on Jun 17, 2016 at 22: 31 for Abdominal Pain,Hematuria Hospital Course The patient was seen and examined at bedside and all new and available data was reviewed in the patients chart. Last 24 Hour Vital Signs Date Time Temp Pulse Resp B/P Pulse Ox O2 Delivery O2 Flow Rate FiO2 06/21/16 12:29 85 157/84 06/21/16 12:00 98.2 20 157/79 96 Room Air 06/21/16 09:00 80 126/69 06/21/16 08:00 97.7 74 20 119/62 97 Room Air 06/21/16 06:13 98.1 06/21/16 04:00 97.9 80 18 126/69 97 Room Air 06/21/16 00:00 98.1 83 18 121/65 96 Room Air 06/20/16 20:00 97.5 98 19 132/80 96 Room Air 06/20/16 16:00 98.8 84 17 115/68 97 Room Air GENERAL: The patient is a well-developed, well-nourished white male, in no apparent distress. HEENT: Pupils are equal and responsive to light and accommodation. Extraocular movements are intact. NECK: Supple. No lymphadenopathy. CHEST: Lungs are clear to auscultation bilaterally without wheezes or rales. CARDIOVASCULAR: Regular rhythm and rate. S1 and S2 normal without murmurs, ABDOMEN: Soft, nontender, and nondistended. Positive bowel sounds. No rebound or guarding noted. EXTREMITIES: Negative for clubbing cyanosis or edema. GENITAL: Lynch Cath with yellow urine. NEUROLOGIC: Neurologically cranial nerves II through XII are grossly intact without focal deficits. Motor strength is 5/5 bilaterally. Plan: DC home today with Lynch cath F/U with Urology office on Friday. (Patient was seen earlier today. Signature timestamp does not reflect patient encounter time) Noah Paz MD Discharge Discharge Disposition Patient was discharged to Discharge Diagnoses: Noah Paz MD Jun 21, 2016 14:17
[2016-06-21] MEDS ORDERED: Fleet's Enema 133ml RECTAL ONE (14:30)
[2016-06-21] MEDS ORDERED: NS Irrig 4000ml IRRIG ONE ×2 (15:20→15:47)
[2016-06-21] MEDS ORDERED: NS Irrig 2000ml IRRIG ONE (15:47)
[2016-06-21] MEDS ORDERED: 1/2 NS 1000ml IV ONE (15:47)
--- NOTE | 2016-06-21 18:33 | Internal Med Progress Note ---
Subjective Physician Name Demetrio Chirinos Attending Physician Noah Paz MD Current Medications Medications (Trade) Dose Ordered Sig/Chivo Route PRN Reason Start Time Stop Time Status Last Admin Dose Admin Acetaminophen (Tylenol) 650 mg Q4H PRN ORAL fever 06/17/16 23:00 07/17/16 22:59 Acetaminophen/ Hydrocodone Bitart ([place] 5/325) 1 tab Q6H PRN ORAL For Pain 06/17/16 23:00 06/24/16 22:59 06/21/16 05:08 Al Hydroxide/Mg Hydroxide (Mylanta II) 30 ml Q6H PRN ORAL dyspepsia 06/17/16 23:00 07/17/16 22:59 Dextrose STAT PRN IV Hypoglycemia 06/17/16 23:00 07/17/16 22:59 Levofloxacin (Levaquin) 100 ml @ 100 mls/hr Q24H IVPB 06/18/16 01:00 06/25/16 00:59 06/21/16 00:49 Lorazepam (Ativan 2mg/ml 1ml) 0.5 mg Q4H PRN IV For Anxiety 06/17/16 23:00 06/24/16 22:59 Morphine Sulfate (Morphine Sulfate) 1 mg EVERY 4 HOURS PRN IVP For Pain 06/17/16 23:00 06/24/16 22:59 06/18/16 07:44 Nifedipine (Procardia XL) 90 mg DAILY ORAL 06/18/16 09:00 07/18/16 08:59 06/21/16 12:29 Ondansetron HCl (Zofran) 4 mg Q6H PRN IVP Nausea & Vomiting 06/17/16 23:00 07/17/16 22:59 Polyethylene Glycol (Miralax) 17 gm HSPRN PRN ORAL Constipation 06/17/16 23:00 07/17/16 22:59 06/21/16 13:29 Zolpidem Tartrate (Ambien) 5 mg HSPRN PRN ORAL Insomnia 06/17/16 23:00 07/17/16 22:59 06/21/16 18:06 Allergies: Coded Allergies: No Known Allergies (Unverified , 10/25/13) Subjective 80 YO M admitted with gross hematuria. Cover for Int Med-Dr Paz. Await discharge home today Objective Last Vital Signs Date Time Temp Pulse Resp B/P Pulse Ox O2 Delivery O2 Flow Rate FiO2 06/21/16 12:29 85 157/84 06/21/16 12:00 98.2 20 96 Room Air Laboratory Tests Test 06/21/16 04:05 White Blood Count 8.2 K/UL (4.8-10.8) Red Blood Count 4.21 M/UL (4.70-6.10) L Hemoglobin 12.6 G/DL (14.2-18.0) L Hematocrit 37.8 % (42.0-52.0) L Mean Corpuscular Volume 90 FL (80-99) Mean Corpuscular Hemoglobin 29.8 PG (27.0-31.0) Mean Corpuscular Hemoglobin Concent 33.3 G/DL (32.0-36.0) Red Cell Distribution Width 12.2 % (11.6-14.8) Platelet Count 211 K/UL (150-450) Mean Platelet Volume 8.1 FL (6.5-10.1) Neutrophils (%) (Auto) 63.9 % (45.0-75.0) Lymphocytes (%) (Auto) 17.3 % (20.0-45.0) L Monocytes (%) (Auto) 14.0 % (1.0-10.0) H Eosinophils (%) (Auto) 4.1 % (0.0-3.0) H Basophils (%) (Auto) 0.7 % (0.0-2.0) Sodium Level 135 mEQ/L (135-145) Potassium Level 4.0 mEQ/L (3.4-4.9) Chloride Level 95 mEQ/L (98-107) L Carbon Dioxide Level 27 mEQ/L (20-30) Anion Gap 13 (5-15) Blood Urea Nitrogen 16 mg/dL (7-23) Creatinine 0.8 mg/dL (0.7-1.2) Estimat Glomerular Filtration Rate mL/min (>60) Glucose Level 111 mg/dL (74-106) H Calcium Level 8.7 mg/dL (8.6-10.2) Intake and Output 06/20/16 06/21/16 19:00 07:00 Intake Total 720 ml 1010 ml Output Total 600 ml 1150 ml Balance 120 ml -140 ml Intake Oral 720 ml 910 ml IV Total 100 ml Output Urine Total 600 ml 1150 ml Objective General Appearance: WD/WN, no apparent distress, alert EENT: PERRL/EOMI, normal ENT inspection Neck: non-tender, normal alignment, supple Cardiovascular: normal peripheral pulses, normal rate, regular rhythm, no gallop/murmur, no JVD Respiratory/Chest: chest wall non-tender, lungs clear, normal breath sounds, no respiratory distress, no accessory muscle use Abdomen: normal bowel sounds, non tender, soft, no organomegaly, no mass Extremities: normal range of motion, non-tender 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 Will require cystoscopy as inpatient vs outpatient to rule out bladder mass. Leg bag cantor in place. (6) Abdominal pain Assessment/Plan Discharge home today-F/U Dr Cortez for outpatient cystoscopy DEMETRIO CHIRINOS Jun 21, 2016 18:33
[2016-06-21 20:00] VITALS: BP 124/58
== END 2016-06-21 21:50 | disposition home or self-care (01) | DRG 696 ==
LOC: EMR 21:02 → 4W 22:31 → EDBEDREQ 22:41
DX: R31.0 Gross hematuria (principal); N32.81 Overactive bladder; N32.89 Other specified disorders of bladder; I10 Essential (primary) hypertension; D49.4 Neoplasm of unspecified behavior of bladder; M17.0 Bilateral primary osteoarthritis of knee; E78.00 Pure hypercholesterolemia, unspecified; N13.9 Obstructive and reflux uropathy, unspecified; R33.9 Retention of urine, unspecified; R10.9 Unspecified abdominal pain
CPT/HCPCS: 36415; 74177; 74178; 80048; 80053; 80061; 81003; 83036; 83690; 84443; 85007; 85025; 85610; 85730; 93970

== ENCOUNTER → 2016-07-08 | Day surgery (SDC) | payer OTHER ==
[2016-07-01 15:32] LABS: APPEARANCE,URINE CLEAR; KETONES,URINE NEGATIVE (NEGATIVE); LEUKOCYTE ESTERASE ,URINE 1+ (NEGATIVE); NITRITE,URINE NEGATIVE (NEGATIVE); PH,URINE 8 (4.5-8.0); PROTEIN,URINE 1+ (NEGATIVE); UROBILINOGEN,URINE NORMAL MG/DL (0.0-1.0)
--- NOTE | 2016-07-01 15:41 | Diagnostic Imaging Report ---
Indication: COUGH Technique: Two views of the chest Comparison: 01/10/2016 Findings: There is calcified apical pleural scarring on the right. There are multiple subcentimeter nodules scattered throughout both lungs, more numerous on the right on the left, which are not evident on the prior study. The heart size is normal. Aorta is tortuous. No effusions. No infiltrates. Impression: No acute process Multiple small nodules, new since 01/10/2016. These are also described at the lung bases on prior abdomen pelvis CT of 06/17/2016, most likely represent metastatic neoplasm.
[2016-07-01 15:56] LABS: BACTERIA,URINE FEW /HPF; WBC,URINE 0-2 /HPF (0 - 0)
[2016-07-08] VITALS (12 sets, daily range): BP systolic 121–144; BP diastolic 61–76
[~2016-07-08] VITALS: Ht 180.3 cm; Wt 83.0 kg
[~2016-07-08] MED LIST changes: +DiphenhydrAMINE 50mg/ml Inj IVP PRN; +Hydromorphone 0.5mg/0.5ml inj IVP PRN; +LR 1000ml 1,000 ML IVLG SCH; +LR 1000ml ONE; +Midazolam 2mg/2ml Inj ONE; +NS Irrig 2000ml IRRIG ONE; +Propofol 10mg/ml 20ml IV ONE; +Sterile Water For Irrig 2000ml IRRIG ONE; +Sterile Water Irrig 1000ml IRRIG ONE; +TAMSULOSIN HCL0.4 MG ORAL; +ceFAZolin sod 1 GM in NS 55 ML IVPB ONE; +fentaNYL 100 mcg/2 mL IV ONE; +fentaNYL 100 mcg/2 mL IV PRN
--- NOTE | 2016-07-08 07:36 | Pre-Procedure Note/Attestation ---
Pre-Procedure Note/Attestation Complete Prior to Procedure Planned Procedure: not applicable Procedure Narrative: Cystoscopy with transurethral resection of bladder tumor Indications for Procedure Pre-Operative Diagnosis: Bladder mass/ hematuria Attestation I attest that I discussed the nature of the procedure; its benefits; risks and complications; and alternatives (and the risks and benefits of such alternatives ), prior to the procedure, with the patient (or the patient's legal farm loan representative). I attest that, if there was a reasonable possibility of needing a blood transfusion, the patient (or the patient's legal farm loan representative) was given the [facility] standardized written summary, pursuant to the Abdi Munir Blood Safety Act ([place] Health and Safety Code # 1645, as amended). I attest that I re-evaluated the patient just prior to the surgery and that there has been no change in the patient's H&P, except as documented below: David Quinonez M.D. Jul 08, 2016 07:36
--- NOTE | 2016-07-08 07:38 | Anethesia Preoperative Eval ---
Anesthesia Pre-op PMH/ROS General Date of Evaluation: Jul 08, 2016 Time of Evaluation: 07:37 Anesthesiologist: Gloria ASA Score: ASA 2 Mallampati Score Class I : Soft palate, uvula, fauces, pillars visible Class II: Soft palate, uvula, fauces visible Class III: Soft palate, base of uvula visible Class IV: Only hard plate visible Mallampati Classification: Class II Surgeon: Cristiano Diagnosis: Hematuria Surgical Procedure: Cysto Anesthesia History: none Family History: no anesthesia problems Allergies: Coded Allergies: No Known Allergies (Unverified , 10/25/13) Medications: see eMAR Past Medical History Cardiovascular: Reports: HTN, Denies: CAD, IL, arrhythmia, other, valve dz Pulmonary: Denies: COPD, SOFÍA, asthma, other Gastrointestinal/Genitourinary: Reports: GERD, other - bladder tumor, Denies: CRI, ESRD Neurologic/Psychiatric: Denies: CVA, TIA, dementia, depression/anxiety, other Endocrine: Denies: DM, hypothyroidism, other, steroids HEENT: Denies: ALATNA (L), ALATNA (R), cataract (L), cataract (R), glaucoma, other Hematology/Immune: Reports: anemia - mild, Denies: DVT, bleeding disorder, other Musculoskeletal/Integumentary: Reports: DJD, Denies: DDD, OA, RA, edema, other PMH Narrative: as above PSxH Narrative: hernia repair splenectomy, knee arthroplasty Anesthesia Pre-op Phys. Exam Physician Exam Last Vital Signs Date Time Temp Pulse Resp B/P Pulse Ox O2 Delivery O2 Flow Rate FiO2 07/08/16 06:59 97.2 70 18 129/68 95 Room Air Constitutional: NAD Neurologic: CN 2-12 intact Cardiovascular: RRR, no M/R/G Respiratory: CTA Gastrointestinal: S/NT/ND Airway Exam Mallampati Score: Class II MO: full Neck: stiff ROM: limited Teeth: missing Dentures: no lower, no upper Anesthesia Pre-op A/P Labs see chart Studies Pre-op Studies: EKG - NSR Risk Assessment & Plan Assessment: ASA 2 Plan: GA with LMA Status Change Before Surgery: No Pre-Antibiotics Drug: Ancef 1 gr. Given Within 1 Hr of Incision: Yes Time Given: 07:48 FARHAN LEDEZMA M.D. Jul 08, 2016 07:38
--- NOTE | 2016-07-08 09:12 | Immediate Post-Op Evaluation ---
Immediate Post-Op Evalulation Immediate Post-Op Evalulation Procedure: Cysto Resection of bladder tumor Date of Evaluation: Jul 08, 2016 Time of Evaluation: 09:11 IV Fluids: 500 Blood Products: none Estimated Blood Loss: 50 Urinary Output: n/a Blood Pressure Systolic: 139 Blood Pressure Diastolic: 68 Pulse Rate: 66 Respiratory Rate: 20 O2 Sat by Pulse Oximetry: 99 Temperature (Fahrenheit): 97.5 Pain Score (1-10): 1 Nausea: No Vomiting: No Complications none Patient Status: reacts, patent, none Hydration Status: adequate FARHAN LEDEZMA M.D. Jul 08, 2016 09:12
--- NOTE | 2016-07-08 13:45 | 48 Hour Post Anesthesia Eval ---
Post Anesthesia Evaluation Procedure: Cysto Resection of bladder tumor Date of Evaluation: Jul 08, 2016 Time of Evaluation: 13:44 Blood Pressure Systolic: 142 0: 68 Pulse Rate: 74 Respiratory Rate: 20 Temperature (Fahrenheit): 97.6 O2 Sat by Pulse Oximetry: 99 Airway: patent Nausea: No Vomiting: No Pain Intensity: 2 Hydration Status: adequate Cardiopulmonary Status: stable Mental Status/LOC: patient returned to baseline Follow-up Care/Observations: n/a Post-Anesthesia Complications: none Follow-up care needed: ready to discharge FARHAN LEDEZMA M.D. Jul 08, 2016 13:45
--- NOTE | 2016-07-09 04:38 | Operative Note - Dictated ---
DATE OF OPERATION: 07/08/2016 PREOPERATIVE DIAGNOSIS: Hematuria/bladder mass. POSTOPERATIVE DIAGNOSIS: Hematuria/bladder mass. PROCEDURE PERFORMED: Cystoscopy with TURBT. SURGEON: David Quinonez M.D. ANESTHESIA: General/LMA. ESTIMATED BLOOD LOSS: Minimal. IV FLUIDS: Crystalloid. DRAINS: 15-Chadian catheter, 20-Chadian Lynch catheter, gravity drainage. SPECIMEN: Bladder tumor chips to pathology for evaluation. COMPLICATIONS: None. OPERATIVE INDICATION: The patient is an 80-year-old gentleman with a history of gross hematuria. Office cystoscopy revealed a bladder mass worrisome for malignancy. He was counseled and elected to undergo procedure as described above. Once medical and cardiac clearance were obtained, he was scheduled to [facility] on July 08, 2016. OPERATIVE DETAILS: The patient was brought to the operative room, placed on table in supine position. General anesthesia was induced. Once the patient had his LMA placed, he was repositioned to dorsal lithotomy, draped and prepped in usual sterile fashion. Using a 24-Chadian resectoscope, the urethral meatus was calibrated and the resectoscope was passed along the length of the urethra. The urethra and prostate were normal limits. The bladder was then entered and inspected. The aforementioned tumor was seen at the right lateral side wall and the dome of the bladder. Using a resectoscope loop, I proceeded to shape the tumor off the bladder wall. Care was taken to include detrusor muscle in the specimen but not to perforate to the wall. Any bleeding which was encountered was controlled with the coagulation function of the loop during the case. The resection went well and at the conclusion resection I could not see any appreciable further tumor still within the bladder. Hemostasis was excellent. The bladder tumor chips were evacuated through the scope with an Spartz evacuator. Once this was done, a final check revealed no further evidence of hematuria or significant bleeding. As such, the bladder was left full and the scope was removed. A 20-Chadian Lynch catheter was placed to gravity drainage. The patient was taken out in dorsal lithotomy and placed back in supine position. He was clean, dry, and intact. He was awakened and extubated in the operating room without difficulty and transferred to recovery in stable condition. I was present for the entire duration of the case. All needles, sponge and instruments counts were reported correct. David Quinonez M.D. DR: MARGIE JOB#: [id number] CC: COLBY
== END | disposition home or self-care (01) ==
LOC: SUR 06:14
DX: C67.9 Malignant neoplasm of bladder, unspecified (principal); R31.9 Hematuria, unspecified; I10 Essential (primary) hypertension; E78.00 Pure hypercholesterolemia, unspecified; K21.9 Gastro-esophageal reflux disease without esophagitis; D64.9 Anemia, unspecified; M19.90 Unspecified osteoarthritis, unspecified site; R91.8 Other nonspecific abnormal finding of lung field
CPT/HCPCS: 52224; 71020; 81001; 87086; J0690; J1170; J1200; J2250; J2704; J3010; J7120; 94003; 94150

== ENCOUNTER 2016-10-14 19:18 | Inpatient (IN) | payer OTHER ==
[~2016-10-14] VITALS: Ht 182.9 cm; Wt 63.5 kg
[~2016-10-14 19:18] MED LIST changes: -DiphenhydrAMINE 50mg/ml Inj IVP PRN; -Hydromorphone 0.5mg/0.5ml inj IVP PRN; -LR 1000ml 1,000 ML IVLG SCH; -LR 1000ml ONE; -Midazolam 2mg/2ml Inj ONE; -NS Irrig 2000ml IRRIG ONE; -Propofol 10mg/ml 20ml IV ONE; -Sterile Water For Irrig 2000ml IRRIG ONE; -Sterile Water Irrig 1000ml IRRIG ONE; -ceFAZolin sod 1 GM in NS 55 ML IVPB ONE; -fentaNYL 100 mcg/2 mL IV ONE; -fentaNYL 100 mcg/2 mL IV PRN
[2016-10-14] MEDS ORDERED: NS 1000ml 1,900 ML IVLG ONE (19:30)
--- NOTE | 2016-10-14 20:12 | Emergency Room Report ---
History of Present Illness General Chief Complaint: Male Urogenital Problems Source: Patient, Family Member, EMS Present Illness HPI This patient was sent in by his primary care physician. The patient has a history of multiple cancers. Patient reports that he has prostate cancer, bladder cancer, colon cancer. He states that he was diagnosed in May of this year. He states that he has undergone 2 months of chemotherapy. He presents today for fever and chills for the past several days the. He also has right-sided flank pain. He states he was seen by his primary care physician and was diagnosed with a urinary tract infection. He had been on antibiotics but apparently he UTI was resistant to this particular antibiotic. 5 days ago he was started on a different antibiotic. He states that he continues to have ongoing fever and chills. He states that he is fatigued and weak. Allergies: Coded Allergies: No Known Allergies (Unverified , 10/25/13) Patient History Past Medical History: see triage record, HTN, other - HLP, prostate, colon, bladder ca Social History: Denies: alcohol use, drug use, smoking Reviewed Nursing Documentation: PMH: Agreed, PSxH: Agreed Nursing Documentation-PMH Past Medical History: No History, Except For Hx Cancer: Yes - colon, prostate, lung, bladder, heme Review of Systems All Other Systems: negative except mentioned in HPI Physical Exam Vital Signs Date Time Temp Pulse Resp B/P Pulse Ox O2 Delivery O2 Flow Rate FiO2 10/14/16 19:11 100.9 71 18 99/54 98 Room Air Sp02 EP Interpretation: reviewed, normal General Appearance: no apparent distress, alert, GCS 15, non-toxic Head: normocephalic, atraumatic Eyes: bilateral eye PERRL, bilateral eye normal inspection ENT: hearing grossly normal, normal pharynx, no angioedema, normal voice Neck: full range of motion, supple/symm/no masses Respiratory: chest non-tender, lungs clear, normal breath sounds, speaking full sentences Cardiovascular #1: regular rate, rhythm, no edema Gastrointestinal: normal bowel sounds, non tender, soft, non-distended, no guarding, no rebound Rectal: deferred Genitourinary: CVA tenderness (R) Musculoskeletal: normal range of motion, non-tender Neurologic: alert, oriented x3, responsive, motor strength/tone normal, sensory intact, speech normal Psychiatric: judgement/insight normal, memory normal, mood/affect normal, no suicidal/homicidal ideation Skin: normal color, no rash, warm/dry, well hydrated Medical Decision Making Diagnostic Impression: Primary Impression: Fever Additional Impressions: Pyelonephritis Sepsis ER Course This patient presents with high fever. He has a history of multiple cancers and his immunocompromised after undergoing chemotherapy. He has recently had a resistant urinary tract infection and had ongoing flank pain. He was given broad-spectrum antibiotics here in the emergency department an IV fluids. He has pyelonephritis and sepsis. Initially on arrival he did have some hypotension , however he responded to IV fluids and became normotensive. He will be admitted for further evaluation and treatment. Labs Test 10/14/16 20:00 10/14/16 21:00 10/14/16 21:45 White Blood Count 2.4 K/UL (4.8-10.8) Red Blood Count 3.77 M/UL (4.70-6.10) Hemoglobin 12.2 G/DL (14.2-18.0) Hematocrit 34.7 % (42.0-52.0) Mean Corpuscular Volume 92 FL (80-99) Mean Corpuscular Hemoglobin 32.3 PG (27.0-31.0) Mean Corpuscular Hemoglobin Concent 35.1 G/DL (32.0-36.0) Red Cell Distribution Width 17.7 % (11.6-14.8) Platelet Count 216 K/UL (150-450) Mean Platelet Volume 7.9 FL (6.5-10.1) Neutrophils (%) (Auto) 67.0 % (45.0-75.0) Lymphocytes (%) (Auto) 16.7 % (20.0-45.0) Monocytes (%) (Auto) 13.3 % (1.0-10.0) Eosinophils (%) (Auto) 1.7 % (0.0-3.0) Basophils (%) (Auto) 1.2 % (0.0-2.0) Sodium Level 132 mEQ/L (135-145) Potassium Level 4.2 mEQ/L (3.4-4.9) Chloride Level 96 mEQ/L (98-107) Carbon Dioxide Level 19 mEQ/L (20-30) Anion Gap 17 (5-15) Blood Urea Nitrogen 21 mg/dL (7-23) Creatinine 1.2 mg/dL (0.7-1.2) Estimat Glomerular Filtration Rate mL/min (>60) Glucose Level 101 mg/dL (74-106) Lactic Acid Level 0.90 mmol/L (0.66-2.22) Calcium Level 8.7 mg/dL (8.6-10.2) Total Bilirubin 0.3 mg/dL (0.0-1.2) Aspartate Amino Transf (AST/SGOT) 33 U/L (5-40) Alanine Aminotransferase (ALT/SGPT) 18 U/L (3-41) Alkaline Phosphatase 58 U/L (40-129) Total Creatine Kinase 39 U/L (38-174) Creatine Kinase MB < 1.5 ng/mL (< 6.7) Creatine Kinase MB Relative Index Troponin I < 0.30 ng/mL (<=0.30) Total Protein 5.8 g/dL (6.6-8.7) Albumin 3.2 g/dL (3.5-5.2) Globulin 2.6 g/dL Albumin/Globulin Ratio 1.2 (1.0-2.7) Urine Color Yellow Urine Appearance Clear Urine pH 6 (4.5-8.0) Urine Specific [place] 1.015 (1.005-1.035) Urine Protein 2+ (NEGATIVE) Urine Glucose (UA) Negative (NEGATIVE) Urine Ketones Negative (NEGATIVE) Urine Occult Blood 4+ (NEGATIVE) Urine Nitrite Negative (NEGATIVE) Urine Bilirubin Negative (NEGATIVE) Urine Urobilinogen Normal MG/DL (0.0-1.0) Urine Leukocyte Esterase 1+ (NEGATIVE) Urine RBC 15-20 /HPF (0 - 0) Urine WBC 2-4 /HPF (0 - 0) Urine Squamous Epithelial Cells None /LPF (NONE/OCC) Urine Bacteria Occasional /HPF (NONE) EKG Diagnostic Results Rate: normal Rhythm: NSR ST Segments: no acute changes Other Impression Short AR, PAC's Rhythm Strip Diag. Results EP Interpretation: yes Rate: 80's Rhythm: NSR, no PVC's, other Other Impression PAC's Chest X-Ray Diagnostic Results Chest X-Ray Ordered: Yes # of Views/Limited/Complete: 1 View Interpretation: no consolidation, no effusion, no pneumothorax, no acute cardiopulmonary disease Indication: Shortness of Breath Impression: No acute disease Date Electronically Signed: Oct 15, 2016 Time Electronically Signed: 11:40 Interpreting ER Physician: Iftikhar Last Vital Signs Date Time Temp Pulse Resp B/P Pulse Ox O2 Delivery O2 Flow Rate FiO2 10/14/16 19:11 100.9 71 18 99/54 98 Room Air Disposition: ADMITTED INPATIENT Condition: Serious ELENA BENNETT D.O. Oct 14, 2016 20:12
[2016-10-14] MEDS ORDERED: Cefepime 1gm vial ONE (20:15)
[2016-10-14] MEDS: Cefepime HCl 1 GM in NS 55 ML IV SCH ×2 (20:17→20:18)
[2016-10-14 20:37] LABS: TROPONIN I < 0.30 ng/mL (<=0.30)
[2016-10-14 20:55] LABS: MEAN CORPUSCULAR HEMOGLOBIN 32.3 PG (27.0-31.0); MEAN CORPUSCULAR HGB CONC 35.1 G/DL (32.0-36.0); MEAN CORPUSCULAR VOLUME 92 FL (80-99); MEAN PLATELET VOLUME 7.9 FL (6.5-10.1); PLATELET COUNT 216 K/UL (150-450); RED BLOOD COUNT 3.77 M/UL (4.70-6.10); RED CELL DISTRIBUTION WIDTH 17.7 % (11.6-14.8); WHITE BLOOD COUNT 2.4 K/UL (4.8-10.8)
[2016-10-14 20:56] LABS: BASOPHILS % (AUTO) 1.2 % (0.0-2.0); EOSINOPHILS % (AUTO) 1.7 % (0.0-3.0); LYMPHOCYTES % (AUTO) 16.7 % (20.0-45.0); MONOCYTES % (AUTO) 13.3 % (1.0-10.0)
[2016-10-14 21:13] LABS: ALANINE AMINOTRANSFERASE 18 U/L (3-41); ALBUMIN/GLOBULIN RATIO 1.2 (1.0-2.7); ANION GAP 17 (5-15); ASPARTATE AMINO TRANSFERASE 33 U/L (5-40); CALCIUM 8.7 mg/dL (8.6-10.2); CARBON DIOXIDE 19 mEQ/L (20-30); CHLORIDE 96 mEQ/L (98-107); CREATININE 1.2 mg/dL (0.7-1.2); HEMOLYSIS 11; POTASSIUM 4.2 mEQ/L (3.4-4.9); SODIUM 132 mEQ/L (135-145); TOTAL PROTEIN 5.8 g/dL (6.6-8.7)
[2016-10-14 21:23] LABS: CKMB < 1.5 ng/mL (< 6.7)
[2016-10-14 21:46] LABS: APPEARANCE,URINE CLEAR; KETONES,URINE NEGATIVE (NEGATIVE); LEUKOCYTE ESTERASE ,URINE 1+ (NEGATIVE); NITRITE,URINE NEGATIVE (NEGATIVE); PH,URINE 6 (4.5-8.0); PROTEIN,URINE 2+ (NEGATIVE); UROBILINOGEN,URINE NORMAL MG/DL (0.0-1.0)
[2016-10-14 21:58] LABS: RBC,URINE 15-20 /HPF (0 - 0)
[2016-10-14 21:59] LABS: BACTERIA,URINE OCCASIONAL /HPF
[2016-10-14 22:00] VITALS: BP 114/66
[2016-10-14] MEDS ORDERED: Morphine Sulfate 2mg/ml Inj IVP PRN (22:30)
[2016-10-14] MEDS ORDERED: DuoNeb 0.5-3(2.5)mg/3ml neb HHN PRN (22:30)
[2016-10-14] MEDS ORDERED: Miralax 17gm pkt ORAL PRN (22:30)
[2016-10-14] MEDS ORDERED: Nitroglycerin Subl 0.4mg tab (Bottle Of 25) SL PRN (22:30)
[2016-10-15] VITALS: BP 110/66
[2016-10-15] MEDS ORDERED: Nitroglycerin Subl 0.4mg tab (Bottle Of 25) SL PRN (00:15)
[2016-10-15] MEDS ORDERED: Vancomycin 1 GM in D5W 275 ML IVPB SCH (00:30)
[2016-10-15] MEDS ORDERED: Vancomycin 1gm inj IVPB ONE (00:45)
[2016-10-15 04:00] VITALS: BP 106/69
[2016-10-15 07:53] VITALS: BP 131/61
[2016-10-15] MEDS: Heparin 5000 units/ml inj SUBQ SCH ×2 (08:45→21:21)
[2016-10-15] MEDS: Cefepime HCl 2 GM in D5W 110 ML IV SCH ×2 (08:45→21:19)
[2016-10-15 09:25] LABS: MEAN CORPUSCULAR HEMOGLOBIN 32.1 PG (27.0-31.0); MEAN CORPUSCULAR HGB CONC 34.9 G/DL (32.0-36.0); MEAN CORPUSCULAR VOLUME 92 FL (80-99); PLATELET COUNT 205 K/UL (150-450); RED BLOOD COUNT 3.51 M/UL (4.70-6.10); RED CELL DISTRIBUTION WIDTH 17.9 % (11.6-14.8); WHITE BLOOD COUNT 2.5 K/UL (4.8-10.8)
[2016-10-15 09:55] LABS: ALANINE AMINOTRANSFERASE 17 U/L (3-41); ALBUMIN/GLOBULIN RATIO 0.9 (1.0-2.7); ANION GAP 16 (5-15); ASPARTATE AMINO TRANSFERASE 31 U/L (5-40); CALCIUM 8.1 mg/dL (8.6-10.2); CARBON DIOXIDE 18 mEQ/L (20-30); CHLORIDE 100 mEQ/L (98-107); CREATININE 0.9 mg/dL (0.7-1.2); HEMOLYSIS 2; POTASSIUM 3.9 mEQ/L (3.4-4.9); SODIUM 134 mEQ/L (135-145); TOTAL PROTEIN 5.3 g/dL (6.6-8.7)
[2016-10-15 10:19] LABS: ANISOCYTOSIS 1+; BAND NEUTROPHILS % (MANUAL) 0 % (0-8); BASOPHILS % (MANUAL) 0 % (0-2); EOSINOPHILS % (MANUAL) 4 % (0-3); LYMPHOCYTES % (MANUAL) 11 % (20-45); NEUTROPHILS % (MANUAL) 76 % (45-75); PLATELET ESTIMATE ADEQUATE; PLATELET MORPHOLOGY NORMAL; TOTAL CELLS COUNTED 100
[2016-10-15 11:27] VITALS: BP 116/60
--- NOTE | 2016-10-15 12:16 | Consultation ---
Consult Note Consult Note ID # [id number] LEONIDES REYEZ M.D. Oct 15, 2016 12:16
--- NOTE | 2016-10-15 13:11 | History and Physical ---
History of Present Illness General Date patient seen: Oct 15, 2016 Reason for Hospitalization: Male Urogenital Problems Present Illness HPI 80 year old male with hx of colon/cancer/prostate CA on chemo was sent in by his primary care physician for fever and chills for the past several days the. He also has right-sided flank pain. He states he was seen by his primary care physician and was diagnosed with a urinary tract infection. He had been on antibiotics. He states that he continues to have ongoing fever and chills. He states that he is fatigued and weak. He is admitted to telemetry for sepsis. Allergies: Coded Allergies: No Known Allergies (Unverified , 10/14/16) Patient History Healthcare decision maker Resuscitation status Full Code Advanced Directive on File Past Medical/Surgical History Past Medical/Surgical History: (1) Metastatic cancer Review of Systems All Other Systems: negative except mentioned in HPI Physical Exam General Appearance: cachetic Lines, tubes and drains: peripheral HEENT: normocephalic Neck: non-tender, normal alignment Respiratory/Chest: chest wall non-tender, lungs clear Cardiovascular/Chest: normal peripheral pulses, normal rate Abdomen: non tender Genitourinary/Rectal: normal genital exam Extremities: normal range of motion, non-tender Skin Exam: normal pigmentation 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: 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 engineer 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 Last 24 Hour Vital Signs Date Time Temp Pulse Resp B/P Pulse Ox O2 Delivery O2 Flow Rate FiO2 10/15/16 11:27 98.1 85 20 116/60 97 Room Air 10/15/16 07:53 98.2 81 20 131/61 96 Room Air 10/15/16 07:05 90 18 Room Air 10/15/16 04:00 97.9 72 18 106/69 97 Room Air 10/15/16 04:00 71 10/15/16 00:00 88 18 110/66 98 Room Air 10/15/16 00:00 99.0 86 18 110/66 98 Room Air 10/14/16 22:00 99.0 86 18 114/66 98 Room Air 10/14/16 19:11 100.9 71 18 99/54 98 Room Air Intake and Output 10/14/16 10/15/16 19:00 07:00 Intake Total 720 ml Output Total 300 ml Balance 420 ml Intake Oral 110 ml IV Total 610 ml Output Urine Total 300 ml # Voids 3 Laboratory Tests Test 10/14/16 20:00 10/14/16 21:00 10/14/16 21:45 10/15/16 08:50 White Blood Count 2.4 K/UL (4.8-10.8) L 2.5 K/UL (4.8-10.8) L Red Blood Count 3.77 M/UL (4.70-6.10) L 3.51 M/UL (4.70-6.10) L Hemoglobin 12.2 G/DL (14.2-18.0) L 11.3 G/DL (14.2-18.0) L Hematocrit 34.7 % (42.0-52.0) L 32.2 % (42.0-52.0) L Mean Corpuscular Volume 92 FL (80-99) 92 FL (80-99) Mean Corpuscular Hemoglobin 32.3 PG (27.0-31.0) H 32.1 PG (27.0-31.0) H Mean Corpuscular Hemoglobin Concent 35.1 G/DL (32.0-36.0) 34.9 G/DL (32.0-36.0) Red Cell Distribution Width 17.7 % (11.6-14.8) H 17.9 % (11.6-14.8) H Platelet Count 216 K/UL (150-450) 205 K/UL (150-450) Mean Platelet Volume 7.9 FL (6.5-10.1) 7.0 FL (6.5-10.1) Neutrophils (%) (Auto) 67.0 % (45.0-75.0) % (45.0-75.0) Lymphocytes (%) (Auto) 16.7 % (20.0-45.0) L % (20.0-45.0) Monocytes (%) (Auto) 13.3 % (1.0-10.0) H % (1.0-10.0) Eosinophils (%) (Auto) 1.7 % (0.0-3.0) % (0.0-3.0) Basophils (%) (Auto) 1.2 % (0.0-2.0) % (0.0-2.0) Sodium Level 132 mEQ/L (135-145) L 134 mEQ/L (135-145) L Potassium Level 4.2 mEQ/L (3.4-4.9) 3.9 mEQ/L (3.4-4.9) Chloride Level 96 mEQ/L (98-107) L 100 mEQ/L (98-107) Carbon Dioxide Level 19 mEQ/L (20-30) L 18 mEQ/L (20-30) L Anion Gap 17 (5-15) H 16 (5-15) H Blood Urea Nitrogen 21 mg/dL (7-23) 15 mg/dL (7-23) Creatinine 1.2 mg/dL (0.7-1.2) 0.9 mg/dL (0.7-1.2) Estimat Glomerular Filtration Rate mL/min (>60) mL/min (>60) Glucose Level 101 mg/dL (74-106) 119 mg/dL (74-106) H Lactic Acid Level 0.90 mmol/L (0.66-2.22) 0.70 mmol/L (0.66-2.22) Calcium Level 8.7 mg/dL (8.6-10.2) 8.1 mg/dL (8.6-10.2) L Total Bilirubin 0.3 mg/dL (0.0-1.2) 0.3 mg/dL (0.0-1.2) Aspartate Amino Transf (AST/SGOT) 33 U/L (5-40) 31 U/L (5-40) Alanine Aminotransferase (ALT/SGPT) 18 U/L (3-41) 17 U/L (3-41) Alkaline Phosphatase 58 U/L (40-129) 49 U/L (40-129) Total Creatine Kinase 39 U/L (38-174) Creatine Kinase MB < 1.5 ng/mL (< 6.7) Creatine Kinase MB Relative Index Troponin I < 0.30 ng/mL (<=0.30) Total Protein 5.8 g/dL (6.6-8.7) L 5.3 g/dL (6.6-8.7) L Albumin 3.2 g/dL (3.5-5.2) L 2.6 g/dL (3.5-5.2) L Globulin 2.6 g/dL 2.7 g/dL Albumin/Globulin Ratio 1.2 (1.0-2.7) 0.9 (1.0-2.7) L Urine Color Yellow Urine Appearance Clear Urine pH 6 (4.5-8.0) Urine Specific [place] 1.015 (1.005-1.035) Urine Protein 2+ (NEGATIVE) H Urine Glucose (UA) Negative (NEGATIVE) Urine Ketones Negative (NEGATIVE) Urine Occult Blood 4+ (NEGATIVE) H Urine Nitrite Negative (NEGATIVE) Urine Bilirubin Negative (NEGATIVE) Urine Urobilinogen Normal MG/DL (0.0-1.0) Urine Leukocyte Esterase 1+ (NEGATIVE) H Urine RBC 15-20 /HPF (0 - 0) H Urine WBC 2-4 /HPF (0 - 0) Urine Squamous Epithelial Cells None /LPF (NONE/OCC) Urine Bacteria Occasional /HPF (NONE) Differential Total Cells Counted 100 Neutrophils % (Manual) 76 % (45-75) H Lymphocytes % (Manual) 11 % (20-45) L Monocytes % (Manual) 9 % (1-10) Eosinophils % (Manual) 4 % (0-3) H Basophils % (Manual) 0 % (0-2) Band Neutrophils 0 % (0-8) Platelet Estimate Adequate Platelet Morphology Normal Anisocytosis 1+ Height (Feet): 6 Height (Inches): 0.00 Weight (Pounds): 140 Medications Current Medications Medications (Trade) Dose Ordered Sig/Chivo Route PRN Reason Start Time Stop Time Status Last Admin Dose Admin Acetaminophen (Tylenol) 650 mg Q4H PRN ORAL fever 10/14/16 22:30 11/13/16 22:29 Albuterol/ Ipratropium 3 ml 3 ml Q4H PRN HHN Shortness of Breath 10/14/16 22:30 10/19/16 22:29 Cefepime HCl/ Dextrose (Maxipime/D5W) 110 ml @ 220 mls/hr EVERY 12 HOURS IV 10/15/16 09:00 10/22/16 08:59 10/15/16 08:45 Heparin Sodium (Porcine) (Heparin 5000 units/ml) 5,000 units EVERY 12 HOURS SUBQ 10/15/16 09:00 11/14/16 08:59 10/15/16 08:45 Levofloxacin (Levaquin) 100 ml @ 100 mls/hr Q24H IVPB 10/15/16 14:00 10/22/16 13:59 Morphine Sulfate (Morphine Sulfate) 2 mg Q4H PRN IVP Moderate Pain (Pain Scale 4-6) 10/14/16 22:30 10/21/16 22:29 Nitroglycerin 0.4 mg 0.4 mg Q5M PRN SL Prn Chest Pain 10/15/16 00:15 11/14/16 00:14 Ondansetron HCl (Zofran) 4 mg Q6H PRN IVP Nausea & Vomiting 10/14/16 22:30 11/13/16 22:29 Polyethylene Glycol (Miralax) 17 gm DAILYPRN PRN ORAL Constipation 10/14/16 22:30 11/13/16 22:29 Sodium Chloride (0.45% NS 1000ml) 1,000 ml @ 75 mls/hr [id number] IV 10/15/16 00:30 11/14/16 00:29 10/15/16 01:02 Temazepam 15 mg 15 mg HSPRN PRN ORAL Insomnia 10/14/16 22:30 10/21/16 22:29 Assessment/Plan Problem List: (1) Sepsis ICD Codes: A41.9 - Sepsis, unspecified organism SNOMED: 81131089 (2) Fever ICD Codes: R50.9 - Fever, unspecified SNOMED: 404835299 (3) Pyelonephritis ICD Codes: N12 - Tubulo-interstitial nephritis, not specified as acute or chronic SNOMED: 30445488 (4) Protein-calorie malnutrition, severe ICD Codes: E43 - Unspecified severe protein-calorie malnutrition SNOMED: 600693027 (5) Metastatic cancer ICD Codes: C79.9 - Secondary malignant neoplasm of unspecified site SNOMED: 872933876 Assessment/Plan broad spectrum abx moss culture ID evaluation support BP with IV fluids if needed. anemia w/u DIONI PATEL Oct 15, 2016 13:11
--- NOTE | 2016-10-15 14:42 | Cardiology Report ---
APPROVED REPORT EXAM: Two-dimensional and M-mode echocardiogram with Doppler and color Doppler. INDICATION Left Ventricular Function M-Mode DIMENSIONS IVSd1.1 (0.7-1.1cm)Left Atrium (MM)4.0 (1.6-4.0cm) LVDd4.1 (3.5-5.6cm)Aortic Root2.6 (2.0-3.7cm) PWd0.8 (0.7-1.1cm)Aortic Cusp Exc.1.8 (1.5-2.0cm) LVDs1.7 (2.5-4.0cm) PWs1.3 cm Technically difficult study due to poor acoustic windows. Study quality precludes accurate assessment of regional wall motion. Normal left ventricular chamber size, systolic function and wall motion. Left ventricular ejection fraction estimated to be 60 %. No evidence of ventricular hypertrophy. Anterior Echo-free space, may be due to pericardial fat or effusion. All other cardiac chamber sizes are within normal limits. Focal aortic valve sclerosis with adequate cusp excursion. Thickened mitral valve leaflets with normal excursion. Mitral annulus and aortic root calcification. Pulmonic valve not visualized. Normal tricuspid valve structure. IVC dilated at 2.1 cm with physiologic collapse. A color flow and spectral Doppler study was performed and revealed: Mild aortic regurgitation. Trace mitral regurgitation. Mitral diastolic velocities suggest reduced left ventricular relaxation (Grade I). Trace tricuspid regurgitation. Tricuspid systolic velocities suggests peak right ventricular systolic pressure of 23 mmHg. No pulmonic regurgitation present.
--- NOTE | 2016-10-15 14:59 | Cardiology Report ---
APPROVED REPORT EKG Measurement Heart [id number] MD [id number] Sinus rhythm with short MD with premature supraventricular complexes Otherwise normal ECG
[2016-10-15 15:40] VITALS: BP 117/74
--- NOTE | 2016-10-15 16:27 | History & Physical ---
History and Physical History & Physicial Dictated for Int Med-Dr Paz no. [id number]. CARLEEN CHIRINOS Oct 15, 2016 16:27
--- NOTE | 2016-10-15 18:29 | Diagnostic Imaging Report ---
Indication: SOB, chest pain Technique: One view of the chest Comparison: none Findings: Lungs and pleural spaces are clear. Heart size is normal. Impression: No acute process
[2016-10-15 20:00] VITALS: BP 119/54
--- NOTE | 2016-10-15 20:00 | Consultation ---
DATE OF CONSULTATION: INFECTIOUS DISEASE CONSULTATION CONSULTING PHYSICIAN: Seth Navarro M.D. REFERRING PHYSICIAN: 1. Isacc Weir M.D. 2. Noah Paz M.D. REASON FOR CONSULTATION: Evaluation of the patient fever, pneumonia, probable urinary tract infection as well as antibiotic management. HISTORY OF PRESENT ILLNESS: This is an 80-year-old male with multiple medical problems as listed below, was admitted to this medical center due to having fever, chills, cough and right-sided flank tenderness. The patient has been admitted with impression of sepsis, probable urinary tract infection and pneumonia. Infectious Disease consultation requested for further evaluation of the patient. PAST MEDICAL HISTORY: History of colon cancer with mets to bladder and prostate statu post chemo, PET scan is pending as outpatient. MEDICATIONS: IV cefepime and vancomycin. SOCIAL HISTORY: Negative for alcohol or drug abuse. FAMILY HISTORY: Noncontributory. REVIEW OF SYSTEMS: HEENT: No recent change in vision or hearing. Pulmonary: Cough and sputum production. Cardiovascular: No chest pain or palpitations. Gastrointestinal/Abdomen: No nausea or vomiting. Genitourinary: The patient has right flank tenderness. History of urinary tract infection recently status post Levaquin, that did not respond. PHYSICAL EXAMINATION: VITAL SIGNS: Pulse 86, respiratory rate 18, temperature 100.9 and blood pressure 116/60. HEENT: Mild pale conjunctiva. No icterus. NECK: No lymphadenopathy. CHEST: Coarse breathing sounds. HEART: S1 and S2. ABDOMEN: Soft. The patient has right flank tenderness. EXTREMITIES: No cyanosis. NEUROLOGIC: Awake and alert. LABORATORY AND DIAGNOSTIC DATA: White blood cell 2.5, hemoglobin 11.3 and platelets 205,000. Urinalysis shows 15-20 red blood cells and 2-4 white blood cells. BUN 15 and creatinine 0.8. ALT, AST and alkaline phosphatase unremarkable. ASSESSMENT: The patient is an 80-year-old male with 1. Pneumonia/cough. 2. Fever. 3. Leukopenia. 4. Probable urinary tract infection/right-sided pyelonephritis. PLAN: 1. We will continue the patient on IV cefepime. Add Levaquin for atypical coverage. Discontinue vancomycin. 2. Monitor cultures (blood, sputum, and urine). 3. Monitor CBC. 4. Monitor BMP. 5. Monitor chest x-ray. 6. Ultrasound of the kidneys. 7. Based on the patient's clinical course and labs, we will do further recommendations. Thank you, Dr. Weir, for allowing me to participate in the care of this patient. I will follow the patient with you during this hospitalization. Seth Navarro M.D. DR: JASMINA JOB#: [id number] CC:
--- NOTE | 2016-10-15 23:15 | History and Physical Report ---
DATE OF ADMISSION: 10/14/2016 CHIEF COMPLAINT: The patient is an 80-year-old white male with history of metastatic cancer, who presents with chief complaint of fever, chills, and right flank pain. HISTORY OF PRESENT ILLNESS: The patient was admitted to [facility] in 05/2016. The patient was diagnosed with a bladder mass. Biopsy results reviewed. The patient underwent cystoscopy at that time. Pathology revealed metastatic colon cancer. 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 The patient began to experience frequency of urination about a week ago. The patient received antibiotics. The culture revealed that the patient was on an antibiotic, which the organism was not sensitive to. The antibiotic was changed approximately 5 days ago. Yesterday, the patient began to experience fevers and chills. The patient states that his temperature reached 101 degrees Fahrenheit. The patient also was experiencing right flank pain. The patient presented to [place] emergency room. The patient was admitted for urinary tract infection with probable pyelonephritis. PAST MEDICAL HISTORY: Significant for, 1. Hypertension. 2. Hypercholesterolemia. 3. Osteoarthritis bilateral knees. 4. Migraine headaches. 5. Colon cancer with metastases to the bladder, lung and prostate as above. The patient's last dose of chemotherapy was on 09/2013. PAST SURGICAL HISTORY: Significant for, 1. Right knee total arthroplasty in 12/2015. 2. Appendectomy. 3. Splenectomy. 4. Bilateral inguinal hernia repair. 5. Tonsillectomy/adenoidectomy. CURRENT MEDICATIONS: 1. Trospium chloride 60 mg one tablet p.o. q.h.s. 2. Tylenol 500 mg one tablet p.o. q.8 hours p.r.n. 3. Chemotherapy, last dose on 10/09/2016. ALLERGIES: No known drug allergies. SOCIAL HISTORY: The patient is and lives with his . The patient denies tobacco or alcohol use. REVIEW OF SYSTEMS: Constitutional: The patient denies weight loss or weight gain. The patient complains of fevers and chills as above. HEENT: The patient denies ear or throat pain. Cardiovascular: The patient denies palpitations or chest pain. Chest: The patient denies wheeze or shortness of breath. Abdomen: The patient denies nausea, vomiting, diarrhea, or constipation. Genitourinary: The patient denies dysuria or increased frequency of urination. The patient denies hematuria. PHYSICAL EXAMINATION: VITAL SIGNS: Temperature 98.1 to 99.0 degrees, respirations 18 to 20, pulse 81 to 90, and blood pressure 116 to 131/60 to 74. GENERAL: The patient is well-developed and well-nourished, white male, who has obvious chills. HEENT: Eyes, pupils are equal and responsive to light and accommodation. Extraocular movements are intact. NECK: Supple without lymphadenopathy. LUNGS: Clear to auscultation bilaterally without wheeze or rales. CARDIOVASCULAR: Regular rhythm and rate. S1 and S2 are normal without murmurs, rubs, or gallops. ABDOMEN: Soft, nontender, and nondistended. Positive bowel sounds. No evidence of hepatosplenomegaly. Currently, no rebound or guarding noted. EXTREMITIES: No clubbing, cyanosis, or edema. RECTAL/GENITAL: Refused. NEUROLOGICAL: Cranial nerves II through XII are grossly intact without focal deficits. Motor strength is 5/5 bilaterally. Deep tendon reflexes 2+ plantar. LABORATORY STUDIES: WBC 3.4, hemoglobin 12.2, hematocrit 37.8, lymphocytes 34.7, and platelets 260,000. Sodium 133, potassium 4.2, chloride 96, CO2 19, BUN 29, creatinine 1.2, and glucose 101. Urine and blood cultures are pending. ASSESSMENT: This is an 80-year-old white male. 1. Fever with chills. 2. Right flank pain. 3. Urinary tract infection. 4. Pyelonephritis. 5. Probable sepsis. 6. Hypertension. 7. Hypercholesterolemia. 8. Osteoarthritis, bilateral knees. 9. Migraine. TREATMENT: 1. Pyelonephritis/urinary tract infection. Urine and blood cultures are pending. The patient has been started empirically on cefepime and Levaquin. Await results of cultures as above. An Infectious Disease consultation was obtained with Dr. Navarro. 2. Fever with chills. This is probably secondary to sepsis versus pyelonephritis. 3. Right flank pain. This is probably secondary to pyelonephritis. 4. Hypertension. The patient is currently hypotensive. We will hold antihypertensive medications at this time. 5. Hypercholesterolemia. 6. Osteoarthritis, bilateral knees. 7. Migraine headaches. Demetrio Morgan M.D. DR: MICHAEL JOB#: [id number] CC:
[2016-10-16] VITALS: BP 111/56
[2016-10-16] MEDS ORDERED: Nitroglycerin Subl 0.4mg tab (Bottle Of 25) SL PRN (00:05)
[2016-10-16] MEDS ORDERED: Miralax 17gm pkt ORAL PRN (00:37)
[2016-10-16 04:00] VITALS: BP 120/58
[2016-10-16] MEDS: Morphine Sulfate 2mg/ml Inj IVP PRN ×2 (05:29→19:28)
[2016-10-16 07:05] LABS: INR 1.1 (0.9-1.1); PROTHROMBIN TIME 11.1 SEC (9.30-11.50)
[2016-10-16 07:12] LABS: MEAN CORPUSCULAR HEMOGLOBIN 32.7 PG (27.0-31.0); MEAN CORPUSCULAR HGB CONC 36.7 G/DL (32.0-36.0); MEAN CORPUSCULAR VOLUME 89 FL (80-99); MEAN PLATELET VOLUME 7.5 FL (6.5-10.1); PLATELET COUNT 148 K/UL (150-450); RED BLOOD COUNT 3.52 M/UL (4.70-6.10); RED CELL DISTRIBUTION WIDTH 17.8 % (11.6-14.8); WHITE BLOOD COUNT 2.7 K/UL (4.8-10.8)
[2016-10-16 07:22] LABS: ANION GAP 17 (5-15); CALCIUM 7.9 mg/dL (8.6-10.2); CARBON DIOXIDE 17 mEQ/L (20-30); CHLORIDE 96 mEQ/L (98-107); CREATININE 0.8 mg/dL (0.7-1.2); HEMOLYSIS 3; POTASSIUM 3.9 mEQ/L (3.4-4.9); SODIUM 130 mEQ/L (135-145)
[2016-10-16 08:00] VITALS: BP 115/58
[2016-10-16] MEDS: Heparin 5000 units/ml inj SUBQ SCH ×2 (09:00→21:00)
[2016-10-16] MEDS: Cefepime HCl 2 GM in D5W 110 ML IV SCH ×2 (09:34→21:13)
[2016-10-16 10:21] LABS: ANISOCYTOSIS 2+; BAND NEUTROPHILS % (MANUAL) 0 % (0-8); BASOPHILS % (MANUAL) 0 % (0-2); EOSINOPHILS % (MANUAL) 1 % (0-3); HYPOCHROMASIA 1+; LYMPHOCYTES % (MANUAL) 15 % (20-45); NEUTROPHILS % (MANUAL) 62 % (45-75); PLATELET ESTIMATE DECREASED; PLATELET MORPHOLOGY NORMAL; SPHEROCYTES 1+; TOTAL CELLS COUNTED 100
--- NOTE | 2016-10-16 10:26 | Infectious Diseases Prog Note ---
Assessment/Plan Assessment/Plan A: This is an 80-year-old male with Pneumonia/cough. Leukopenia. Probable urinary tract infection/right-sided pyelonephritis. Fever improving PS Chills Sepsis History of colon cancer with mets to bladder and prostate SP chemo PLAN: cont patient on IV cefepime and Levaquin d# 2 Monitor cultures (blood, sputum, and urine) Monitor CBC Monitor BMP Monitor chest x-ray Ultrasound of the kidneys Subjective Constitutional: Denies: anorexia, chills, drenching sweats, fatigue, fever, no symptoms, other Allergies: Coded Allergies: No Known Allergies (Unverified , 10/14/16) Objective Vital Signs Last 24 Hour Vital Signs Date Time Temp Pulse Resp B/P Pulse Ox O2 Delivery O2 Flow Rate FiO2 10/16/16 08:00 98.8 87 20 115/58 94 Room Air 10/16/16 07:52 74 18 Room Air 10/16/16 04:00 99.7 74 19 120/58 93 Room Air 10/16/16 00:00 97.7 50 18 111/56 95 Room Air 10/15/16 20:00 96 10/15/16 20:00 97.7 89 18 119/54 95 Room Air 10/15/16 19:58 97 18 Room Air 10/15/16 15:40 99.0 69 20 117/74 96 Room Air 10/15/16 15:05 88 10/15/16 11:44 87 10/15/16 11:27 98.1 85 20 116/60 97 Room Air Height (Feet): 6 Height (Inches): 0.00 Weight (Pounds): 140 HEENT: atraumatic Respiratory/Chest: no respiratory distress Cardiovascular: regular rhythm Abdomen: non distended Microbiology Date/Time Source Procedure Growth Status 10/14/16 20:15 Blood Blood Culture - Preliminary NO GROWTH AFTER 24 HOURS Resulted 10/14/16 20:00 Blood Blood Culture - Preliminary NO GROWTH AFTER 24 HOURS Resulted Laboratory Tests Test 10/16/16 05:20 White Blood Count 2.7 K/UL (4.8-10.8) L Red Blood Count 3.52 M/UL (4.70-6.10) L Hemoglobin 11.5 G/DL (14.2-18.0) L Hematocrit 31.4 % (42.0-52.0) L Mean Corpuscular Volume 89 FL (80-99) Mean Corpuscular Hemoglobin 32.7 PG (27.0-31.0) H Mean Corpuscular Hemoglobin Concent 36.7 G/DL (32.0-36.0) H Red Cell Distribution Width 17.8 % (11.6-14.8) H Platelet Count 148 K/UL (150-450) L Mean Platelet Volume 7.5 FL (6.5-10.1) Neutrophils (%) (Auto) % (45.0-75.0) Lymphocytes (%) (Auto) % (20.0-45.0) Monocytes (%) (Auto) % (1.0-10.0) Eosinophils (%) (Auto) % (0.0-3.0) Basophils (%) (Auto) % (0.0-2.0) Neutrophils % (Manual) Pending Lymphocytes % (Manual) Pending Platelet Estimate Pending Platelet Morphology Pending Erythrocyte Sedimentation Rate Pending Reticulocyte Count Pending Prothrombin Time 11.1 SEC (9.30-11.50) Prothromb Time International Ratio 1.1 (0.9-1.1) Activated Partial Thromboplast Time 33 SEC (23-33) Sodium Level 130 mEQ/L (135-145) L Potassium Level 3.9 mEQ/L (3.4-4.9) Chloride Level 96 mEQ/L (98-107) L Carbon Dioxide Level 17 mEQ/L (20-30) L Anion Gap 17 (5-15) H Blood Urea Nitrogen 11 mg/dL (7-23) Creatinine 0.8 mg/dL (0.7-1.2) Estimat Glomerular Filtration Rate mL/min (>60) Glucose Level 96 mg/dL (74-106) Calcium Level 7.9 mg/dL (8.6-10.2) L Iron Level 26 ug/dL (59-158) L Total Iron Binding Capacity 204 ug/dL (250-400) L Percent Iron Saturation 13 % (15-50) L Unsaturated Iron Binding 178 ug/dL (112-346) Lactate Dehydrogenase 268 U/L (135-230) H Carcinoembryonic Antigen 1.9 ng/mL Vitamin B12 Level 1393 pg/mL (211-946) H Folate Pending Current Medications Medications (Trade) Dose Ordered Sig/Chivo Route PRN Reason Start Time Stop Time Status Last Admin Dose Admin Acetaminophen (Tylenol) 650 mg Q4H PRN ORAL fever 10/16/16 00:35 11/15/16 00:34 Albuterol/ Ipratropium (DuoNeb 0.5-3(2.5)mg/3ml) 3 ml Q4H PRN HHN Shortness of Breath 10/16/16 00:36 10/21/16 00:35 Cefepime HCl 2 gm/ Dextrose 110 ml @ 220 mls/hr EVERY 12 HOURS IV 10/16/16 09:00 10/23/16 08:59 10/16/16 09:34 Heparin Sodium (Porcine) (Heparin 5000 units/ml) 5,000 units EVERY 12 HOURS SUBQ 10/16/16 09:00 11/15/16 08:59 Levofloxacin (Levaquin) 100 ml @ 100 mls/hr Q24H IVPB 10/16/16 14:00 10/23/16 13:59 Morphine Sulfate (Morphine Sulfate) 2 mg Q4H PRN IVP Moderate Pain (Pain Scale 4-6) 10/16/16 00:36 10/23/16 00:35 10/16/16 05:29 Nitroglycerin (Ntg) 0.4 mg Q5M PRN SL Prn Chest Pain 10/16/16 00:05 11/15/16 00:04 Ondansetron HCl (Zofran) 4 mg Q6H PRN IVP Nausea & Vomiting 10/16/16 00:37 11/15/16 00:36 Polyethylene Glycol (Miralax) 17 gm DAILYPRN PRN ORAL Constipation 10/16/16 00:37 11/15/16 00:36 Sodium Chloride 1,000 ml @ 75 mls/hr [id number] IV 10/16/16 01:00 11/15/16 00:59 10/16/16 05:11 Temazepam (Restoril) 15 mg HSPRN PRN ORAL Insomnia 10/16/16 22:30 10/23/16 22:29 LEONIDES REYEZ M.D. Oct 16, 2016 10:26
[2016-10-16 10:31] LABS: PATH BLOOD SMEAR/OMC SENT TO PATHOLOGIST
--- NOTE | 2016-10-16 11:10 | Internal Med Progress Note ---
Subjective Date of Service: Oct 16, 2016 Physician Name Chirinos,Carleen Attending Physician Noah Paz MD Current Medications Medications (Trade) Dose Ordered Sig/Chivo Route PRN Reason Start Time Stop Time Status Last Admin Dose Admin Acetaminophen (Tylenol) 650 mg Q4H PRN ORAL fever 10/16/16 00:35 11/15/16 00:34 Albuterol/ Ipratropium (DuoNeb 0.5-3(2.5)mg/3ml) 3 ml Q4H PRN HHN Shortness of Breath 10/16/16 00:36 10/21/16 00:35 Cefepime HCl 2 gm/ Dextrose 110 ml @ 220 mls/hr EVERY 12 HOURS IV 10/16/16 09:00 10/23/16 08:59 10/16/16 09:34 Heparin Sodium (Porcine) (Heparin 5000 units/ml) 5,000 units EVERY 12 HOURS SUBQ 10/16/16 09:00 11/15/16 08:59 Levofloxacin (Levaquin) 100 ml @ 100 mls/hr Q24H IVPB 10/16/16 14:00 10/23/16 13:59 Morphine Sulfate (Morphine Sulfate) 2 mg Q4H PRN IVP Moderate Pain (Pain Scale 4-6) 10/16/16 00:36 10/23/16 00:35 10/16/16 05:29 Nitroglycerin (Ntg) 0.4 mg Q5M PRN SL Prn Chest Pain 10/16/16 00:05 11/15/16 00:04 Ondansetron HCl (Zofran) 4 mg Q6H PRN IVP Nausea & Vomiting 10/16/16 00:37 11/15/16 00:36 Polyethylene Glycol (Miralax) 17 gm DAILYPRN PRN ORAL Constipation 10/16/16 00:37 11/15/16 00:36 Sodium Chloride 1,000 ml @ 75 mls/hr [id number] IV 10/16/16 01:00 11/15/16 00:59 10/16/16 05:11 Temazepam (Restoril) 15 mg HSPRN PRN ORAL Insomnia 10/16/16 22:30 10/23/16 22:29 Allergies: Coded Allergies: No Known Allergies (Unverified , 10/14/16) ROS Limited/Unobtainable: No Constitutional: Reports: chills, fever HEENT: Reports: no symptoms Cardiovascular: Reports: no symptoms Respiratory: Reports: no symptoms Gastrointestinal/Abdominal: Reports: no symptoms Genitourinary: Reports: flank pain Subjective 80 YO M admitted with fever and chills. Now pyelonephritis and sepsis. Cover for Int [facility]-Dr Paz. Objective Last Vital Signs Date Time Temp Pulse Resp B/P Pulse Ox O2 Delivery O2 Flow Rate FiO2 10/16/16 08:00 98.8 87 20 115/58 94 Room Air Laboratory Tests Test 10/16/16 05:20 White Blood Count 2.7 K/UL (4.8-10.8) L Red Blood Count 3.52 M/UL (4.70-6.10) L Hemoglobin 11.5 G/DL (14.2-18.0) L Hematocrit 31.4 % (42.0-52.0) L Mean Corpuscular Volume 89 FL (80-99) Mean Corpuscular Hemoglobin 32.7 PG (27.0-31.0) H Mean Corpuscular Hemoglobin Concent 36.7 G/DL (32.0-36.0) H Red Cell Distribution Width 17.8 % (11.6-14.8) H Platelet Count 148 K/UL (150-450) L Mean Platelet Volume 7.5 FL (6.5-10.1) Neutrophils (%) (Auto) % (45.0-75.0) Lymphocytes (%) (Auto) % (20.0-45.0) Monocytes (%) (Auto) % (1.0-10.0) Eosinophils (%) (Auto) % (0.0-3.0) Basophils (%) (Auto) % (0.0-2.0) Differential Total Cells Counted 100 Neutrophils % (Manual) 62 % (45-75) Lymphocytes % (Manual) 15 % (20-45) L Monocytes % (Manual) 22 % (1-10) H Eosinophils % (Manual) 1 % (0-3) Basophils % (Manual) 0 % (0-2) Band Neutrophils 0 % (0-8) Platelet Estimate Decreased L Platelet Morphology Normal Hypochromasia 1+ Anisocytosis 2+ Spherocytes 1+ Erythrocyte Sedimentation Rate Pending Reticulocyte Count Pending Prothrombin Time 11.1 SEC (9.30-11.50) Prothromb Time International Ratio 1.1 (0.9-1.1) Activated Partial Thromboplast Time 33 SEC (23-33) Sodium Level 130 mEQ/L (135-145) L Potassium Level 3.9 mEQ/L (3.4-4.9) Chloride Level 96 mEQ/L (98-107) L Carbon Dioxide Level 17 mEQ/L (20-30) L Anion Gap 17 (5-15) H Blood Urea Nitrogen 11 mg/dL (7-23) Creatinine 0.8 mg/dL (0.7-1.2) Estimat Glomerular Filtration Rate mL/min (>60) Glucose Level 96 mg/dL (74-106) Calcium Level 7.9 mg/dL (8.6-10.2) L Iron Level 26 ug/dL (59-158) L Total Iron Binding Capacity 204 ug/dL (250-400) L Percent Iron Saturation 13 % (15-50) L Unsaturated Iron Binding 178 ug/dL (112-346) Lactate Dehydrogenase 268 U/L (135-230) H Carcinoembryonic Antigen 1.9 ng/mL Vitamin B12 Level 1393 pg/mL (211-946) H Folate Pending Microbiology Date/Time Source Procedure Growth Status 10/14/16 20:15 Blood Blood Culture - Preliminary NO GROWTH AFTER 24 HOURS Resulted 10/14/16 20:00 Blood Blood Culture - Preliminary NO GROWTH AFTER 24 HOURS Resulted Intake and Output 10/15/16 10/16/16 19:00 07:00 Intake Total 1745 ml Output Total 1400 ml Balance 1745 ml -1400 ml Intake Oral 720 ml IV Total 1025 ml Output Urine Total 1400 ml # Voids 2 Objective General: alert, cooperative, no distress, appears stated age Head: normocephalic, without obvious abnormality, atraumatic Eyes: conjunctivae/corneas clear. PERRL, EOM's intact Throat: lips, mucosa, and tongue normal. MMM Neck: supple, symmetrical, trachea midline, and no JVD Lungs: clear to auscultation bilaterally Heart: regular rate and rhythm, S1, S2 normal, no murmur, click, rub or gallop Abdomen: soft, non-tender, non-distended, bowel sounds normal; no masses or organomegaly Extremities: extremities normal, atraumatic, no cyanosis or edema Pulses: 2+ and symmetric Skin: skin color, texture, turgor normal; no rashes or lesions Neurologic: grossly normal, no focal deficits Assessment/Plan Problem List: (1) Right flank pain Assessment & Plan: Due to pyelonephritis. (2) Colon cancer metastasized to multiple sites Assessment & Plan: On chemotherapy (3) HTN (hypertension) Assessment & Plan: currently hypotensive. (4) Hypercholesteremia (5) Osteoarthritis, knee (6) Pyelonephritis Assessment & Plan: Await culture and sensitivity results. Continue cefepime and levaquin per ID (7) Fever (8) Sepsis Status: unchanged CARLEEN CHIRINOS Oct 16, 2016 11:10
[2016-10-16 11:40] LABS: ERYTHROCYTE SEDIMENTATION RATE 61 MM/HR (0-30)
[2016-10-16 12:00] VITALS: BP 112/66
--- NOTE | 2016-10-16 12:07 | Diagnostic Imaging Report ---
Indication: Right flank pain Technique: Grayscale and duplex images of the kidneys, retroperitoneum, and bladder were obtained. Comparison:None Findings: Right kidney measures 11.7 cm in length. Left kidney measures 11.8 cm in length. Both kidneys demonstrate normal echogenicity. No hydronephrosis. No focal abnormality. Normal inferior vena cava. Bladder is normal. Prominent and lobulated prostate demonstrated, calculated volume 50 mL. It appears to indents the bladder floor, which is somewhat irregular Impression: Negative for hydronephrosis Prominent lobulated prostate, calculated volume 50 mL. Prostate indents the bladder floor, which is somewhat irregular, may correlate with stated clinical history of prostate and bladder carcinoma
[2016-10-16 16:00] VITALS: BP 142/74
--- NOTE | 2016-10-16 16:42 | Pulmonology Progress Note ---
Assessment/Plan Problems: (1) Sepsis (2) Fever (3) Pyelonephritis (4) Protein-calorie malnutrition, severe (5) Metastatic cancer Assessment/Plan still low grade fever continue abx check cultures check electrolytes Subjective ROS Limited/Unobtainable: No Constitutional: Reports: no symptoms HEENT: Repors: no symptoms Respiratory: Reports: no symptoms Allergies: Coded Allergies: No Known Allergies (Unverified , 10/14/16) Objective Last 24 Hour Vital Signs Date Time Temp Pulse Resp B/P Pulse Ox O2 Delivery O2 Flow Rate FiO2 10/16/16 16:00 99.5 94 20 142/74 97 Room Air 10/16/16 12:00 99.3 84 20 112/66 96 Room Air 10/16/16 08:00 98.8 87 20 115/58 94 Room Air 10/16/16 07:52 74 18 Room Air 10/16/16 04:00 99.7 74 19 120/58 93 Room Air 10/16/16 00:00 97.7 50 18 111/56 95 Room Air 10/15/16 20:00 96 10/15/16 20:00 97.7 89 18 119/54 95 Room Air 10/15/16 19:58 97 18 Room Air Intake and Output 10/15/16 10/16/16 19:00 07:00 Intake Total 1745 ml Output Total 1400 ml Balance 1745 ml -1400 ml Intake Oral 720 ml IV Total 1025 ml Output Urine Total 1400 ml # Voids 2 General Appearance: WD/WN HEENT: normocephalic, atraumatic Respiratory/Chest: chest wall non-tender, lungs clear Cardiovascular: normal peripheral pulses, normal rate Abdomen: normal bowel sounds, soft, non tender Extremities: no cyanosis Skin: no rash Microbiology Date/Time Source Procedure Growth Status 10/14/16 20:15 Blood Blood Culture - Preliminary NO GROWTH AFTER 24 HOURS Resulted 10/14/16 20:00 Blood Blood Culture - Preliminary NO GROWTH AFTER 24 HOURS Resulted 10/14/16 21:00 Urine,Clean Catch Urine Culture - Preliminary NO GROWTH AFTER 24 HOURS Resulted Laboratory Tests 10/16/16 05:20: White Blood Count 2.7L, Red Blood Count 3.52L, Hemoglobin 11.5L, Hematocrit 31.4L, Mean Corpuscular Volume 89, Mean Corpuscular Hemoglobin 32.7H, Mean Corpuscular Hemoglobin Concent 36.7H, Red Cell Distribution Width 17.8H, Platelet Count 148L, Mean Platelet Volume 7.5, Neutrophils (%) (Auto) , Lymphocytes (%) (Auto) , Monocytes (%) (Auto) , Eosinophils (%) (Auto) , Basophils (%) (Auto) , Differential Total Cells Counted 100, Neutrophils % ( Manual) 62, Lymphocytes % (Manual) 15L, Monocytes % (Manual) 22H, Eosinophils % (Manual) 1, Basophils % (Manual) 0, Band Neutrophils 0, Platelet Estimate DecreasedL, Platelet Morphology Normal, Hypochromasia 1+, Anisocytosis 2+, Spherocytes 1+, Erythrocyte Sedimentation Rate 61H, Reticulocyte Count 1.0, Prothrombin Time 11.1, Prothromb Time International Ratio 1.1, Activated Partial Thromboplast Time 33, Sodium Level 130L, Potassium Level 3.9, Chloride Level 96L, Carbon Dioxide Level 17L, Anion Gap 17H, Blood Urea Nitrogen 11, Creatinine 0.8, Estimat Glomerular Filtration Rate , Glucose Level 96, Calcium Level 7.9L, Iron Level 26L, Total Iron Binding Capacity 204L, Percent Iron Saturation 13L, Unsaturated Iron Binding 178, Lactate Dehydrogenase 268H, Carcinoembryonic Antigen 1.9, Vitamin B12 Level 1393H, Folate [Pending] Current Medications Medications (Trade) Dose Ordered Sig/Chivo Route PRN Reason Start Time Stop Time Status Last Admin Dose Admin Acetaminophen (Tylenol) 650 mg Q4H PRN ORAL fever 10/16/16 00:35 11/15/16 00:34 Albuterol/ Ipratropium (DuoNeb 0.5-3(2.5)mg/3ml) 3 ml Q4H PRN HHN Shortness of Breath 10/16/16 00:36 10/21/16 00:35 Cefepime HCl 2 gm/ Dextrose 110 ml @ 220 mls/hr EVERY 12 HOURS IV 10/16/16 09:00 10/23/16 08:59 10/16/16 09:34 Heparin Sodium (Porcine) (Heparin 5000 units/ml) 5,000 units EVERY 12 HOURS SUBQ 10/16/16 09:00 11/15/16 08:59 Levofloxacin (Levaquin) 100 ml @ 100 mls/hr Q24H IVPB 10/16/16 14:00 10/23/16 13:59 Morphine Sulfate (Morphine Sulfate) 2 mg Q4H PRN IVP Moderate Pain (Pain Scale 4-6) 10/16/16 00:36 10/23/16 00:35 10/16/16 05:29 Nitroglycerin (Ntg) 0.4 mg Q5M PRN SL Prn Chest Pain 10/16/16 00:05 11/15/16 00:04 Ondansetron HCl (Zofran) 4 mg Q6H PRN IVP Nausea & Vomiting 10/16/16 00:37 11/15/16 00:36 Polyethylene Glycol (Miralax) 17 gm DAILYPRN PRN ORAL Constipation 10/16/16 00:37 11/15/16 00:36 Sodium Chloride (Sodium Chloride 1000ml bag) 1,000 ml @ 75 mls/hr [id number] IV 10/16/16 12:00 11/15/16 11:59 10/16/16 12:46 Temazepam 15 mg 15 mg HSPRN PRN ORAL Insomnia 10/16/16 22:30 10/23/16 22:29 DIONI PATEL Oct 16, 2016 16:42
[2016-10-16 20:00] VITALS: BP 97/57
[2016-10-17] VITALS: BP 101/58
[2016-10-17 04:00] VITALS: BP 100/56
[2016-10-17 07:35] LABS: MEAN CORPUSCULAR HEMOGLOBIN 33.3 PG (27.0-31.0); MEAN CORPUSCULAR HGB CONC 35.6 G/DL (32.0-36.0); MEAN CORPUSCULAR VOLUME 94 FL (80-99); MEAN PLATELET VOLUME 7.5 FL (6.5-10.1); PLATELET COUNT 148 K/UL (150-450); RED BLOOD COUNT 3.75 M/UL (4.70-6.10); WHITE BLOOD COUNT 2.9 K/UL (4.8-10.8)
[2016-10-17 07:46] LABS: ANION GAP 15 (5-15); CALCIUM 8.4 mg/dL (8.6-10.2); CARBON DIOXIDE 20 mEQ/L (20-30); CHLORIDE 97 mEQ/L (98-107); CREATININE 0.8 mg/dL (0.7-1.2); HEMOLYSIS 2; POTASSIUM 4.2 mEQ/L (3.4-4.9); SODIUM 132 mEQ/L (135-145)
[2016-10-17 08:00] VITALS: BP 118/68
[2016-10-17] MEDS: Cefepime HCl 2 GM in D5W 110 ML IV SCH ×2 (08:34→20:00)
[2016-10-17] MEDS: Heparin 5000 units/ml inj SUBQ SCH ×2 (08:37→20:00)
[2016-10-17 10:04] LABS: ANISOCYTOSIS 1+; BAND NEUTROPHILS % (MANUAL) 0 % (0-8); BASOPHILS % (MANUAL) 0 % (0-2); EOSINOPHILS % (MANUAL) 2 % (0-3); LYMPHOCYTES % (MANUAL) 25 % (20-45); NEUTROPHILS % (MANUAL) 58 % (45-75); PLATELET ESTIMATE ADEQUATE; PLATELET MORPHOLOGY NORMAL; TOTAL CELLS COUNTED 100
[2016-10-17 12:00] VITALS: BP 118/61
--- NOTE | 2016-10-17 15:21 | Pulmonology Progress Note ---
Assessment/Plan Problems: (1) Sepsis (2) Fever (3) Pyelonephritis (4) Protein-calorie malnutrition, severe (5) Metastatic cancer Assessment/Plan still low grade fever, it was 101 yesterday, continue abx, cefepime and Levofloxacin check cultures. all cultures negative sofar check electrolytes Subjective ROS Limited/Unobtainable: No Constitutional: Reports: no symptoms HEENT: Repors: no symptoms Respiratory: Reports: no symptoms Allergies: Coded Allergies: No Known Allergies (Unverified , 10/25/13) Objective Last 24 Hour Vital Signs Date Time Temp Pulse Resp B/P Pulse Ox O2 Delivery O2 Flow Rate FiO2 10/17/16 12:00 97.7 79 20 118/61 95 Room Air 10/17/16 08:00 98.1 82 20 118/68 95 Room Air 10/17/16 07:09 85 20 Room Air 10/17/16 04:00 98.6 74 17 100/56 100 Room Air 10/17/16 00:00 98.6 79 19 101/58 94 Room Air 10/16/16 20:01 90 20 Room Air 10/16/16 20:00 98.8 10/16/16 20:00 98.8 10/16/16 20:00 98.8 82 20 97/57 94 Room Air 10/16/16 18:54 101.0 10/16/16 16:00 99.5 94 20 142/74 97 Room Air Intake and Output 10/16/16 10/17/16 18:59 06:59 Intake Total 1145 ml 920 ml Output Total 200 ml 1000 ml Balance 945 ml -80 ml Intake Oral 300 ml IV Total 845 ml 920 ml Output Urine Total 200 ml 1000 ml # Voids 5 General Appearance: cachetic HEENT: normocephalic, atraumatic Respiratory/Chest: chest wall non-tender, lungs clear Cardiovascular: normal peripheral pulses, normal rate Abdomen: normal bowel sounds, soft, non tender Extremities: no cyanosis, no clubbing 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, no motor/sensory deficits Lymphatic: no groin adenopathy Musculoskeletal: no effusion Microbiology Date/Time Source Procedure Growth Status 10/14/16 20:15 Blood Blood Culture - Preliminary NO GROWTH AFTER 48 HOURS Resulted 10/14/16 20:00 Blood Blood Culture - Preliminary NO GROWTH AFTER 48 HOURS Resulted 10/14/16 21:00 Urine,Clean Catch Urine Culture - Final NO GROWTH AFTER 48 HOURS Complete Laboratory Tests 10/17/16 05:00: Stool Occult Blood Negative 10/17/16 05:15: White Blood Count 2.9L, Red Blood Count 3.75L, Hemoglobin 12.5L, Hematocrit 35.1L, Mean Corpuscular Volume 94, Mean Corpuscular Hemoglobin 33.3H, Mean Corpuscular Hemoglobin Concent 35.6, Red Cell Distribution Width 18.0H, Platelet Count 148L, Mean Platelet Volume 7.5, Neutrophils (%) (Auto) , Lymphocytes (%) (Auto) , Monocytes (%) (Auto) , Eosinophils (%) (Auto) , Basophils (%) (Auto) , Differential Total Cells Counted 100, Neutrophils % ( Manual) 58, Lymphocytes % (Manual) 25, Monocytes % (Manual) 15H, Eosinophils % ( Manual) 2, Basophils % (Manual) 0, Band Neutrophils 0, Platelet Estimate Adequate, Platelet Morphology Normal, Anisocytosis 1+, Sodium Level 132L, Potassium Level 4.2, Chloride Level 97L, Carbon Dioxide Level 20, Anion Gap 15, Blood Urea Nitrogen 11, Creatinine 0.8, Estimat Glomerular Filtration Rate , Glucose Level 97, Calcium Level 8.4L Current Medications Medications (Trade) Dose Ordered Sig/Chivo Route PRN Reason Start Time Stop Time Status Last Admin Dose Admin Acetaminophen (Tylenol) 650 mg Q4H PRN ORAL fever 10/16/16 00:35 11/15/16 00:34 10/16/16 18:54 Albuterol/ Ipratropium (DuoNeb 0.5-3(2.5)mg/3ml) 3 ml Q4H PRN HHN Shortness of Breath 10/16/16 00:36 10/21/16 00:35 Cefepime HCl 2 gm/ Dextrose 110 ml @ 220 mls/hr EVERY 12 HOURS IV 10/16/16 09:00 10/23/16 08:59 10/17/16 08:34 Heparin Sodium (Porcine) (Heparin 5000 units/ml) 5,000 units EVERY 12 HOURS SUBQ 10/16/16 09:00 11/15/16 08:59 Levofloxacin (Levaquin) 100 ml @ 100 mls/hr Q24H IVPB 10/16/16 14:00 10/23/16 13:59 10/17/16 13:58 Morphine Sulfate (Morphine Sulfate) 2 mg Q4H PRN IVP Moderate Pain (Pain Scale 4-6) 10/16/16 00:36 10/23/16 00:35 10/16/16 19:28 Nitroglycerin (Ntg) 0.4 mg Q5M PRN SL Prn Chest Pain 10/16/16 00:05 11/15/16 00:04 Ondansetron HCl (Zofran) 4 mg Q6H PRN IVP Nausea & Vomiting 10/16/16 00:37 11/15/16 00:36 Polyethylene Glycol (Miralax) 17 gm DAILYPRN PRN ORAL Constipation 10/16/16 00:37 11/15/16 00:36 Sodium Chloride (Sodium Chloride 1000ml bag) 1,000 ml @ 75 mls/hr [id number] IV 10/16/16 12:00 11/15/16 11:59 10/17/16 04:30 Temazepam 15 mg 15 mg HSPRN PRN ORAL Insomnia 10/16/16 22:30 10/23/16 22:29 DIONI PATEL Oct 17, 2016 15:21
[2016-10-17 16:00] VITALS: BP 109/54
--- NOTE | 2016-10-17 16:22 | Internal Med Progress Note ---
Subjective Date of Service: Oct 17, 2016 Physician Name Demetrio Chirinos Attending Physician Noah Paz MD Current Medications Medications (Trade) Dose Ordered Sig/Chivo Route PRN Reason Start Time Stop Time Status Last Admin Dose Admin Acetaminophen (Tylenol) 650 mg Q4H PRN ORAL fever 10/16/16 00:35 11/15/16 00:34 10/16/16 18:54 Albuterol/ Ipratropium (DuoNeb 0.5-3(2.5)mg/3ml) 3 ml Q4H PRN HHN Shortness of Breath 10/16/16 00:36 10/21/16 00:35 Cefepime HCl 2 gm/ Dextrose 110 ml @ 220 mls/hr EVERY 12 HOURS IV 10/16/16 09:00 10/23/16 08:59 10/17/16 08:34 Heparin Sodium (Porcine) (Heparin 5000 units/ml) 5,000 units EVERY 12 HOURS SUBQ 10/16/16 09:00 11/15/16 08:59 Levofloxacin (Levaquin) 100 ml @ 100 mls/hr Q24H IVPB 10/16/16 14:00 10/23/16 13:59 10/17/16 13:58 Morphine Sulfate (Morphine Sulfate) 2 mg Q4H PRN IVP Moderate Pain (Pain Scale 4-6) 10/16/16 00:36 10/23/16 00:35 10/16/16 19:28 Nitroglycerin (Ntg) 0.4 mg Q5M PRN SL Prn Chest Pain 10/16/16 00:05 11/15/16 00:04 Ondansetron HCl (Zofran) 4 mg Q6H PRN IVP Nausea & Vomiting 10/16/16 00:37 11/15/16 00:36 Polyethylene Glycol (Miralax) 17 gm DAILYPRN PRN ORAL Constipation 10/16/16 00:37 11/15/16 00:36 Sodium Chloride (Sodium Chloride 1000ml bag) 1,000 ml @ 75 mls/hr [id number] IV 10/16/16 12:00 11/15/16 11:59 10/17/16 16:01 Temazepam 15 mg 15 mg HSPRN PRN ORAL Insomnia 10/16/16 22:30 10/23/16 22:29 Allergies: Coded Allergies: No Known Allergies (Unverified , 10/25/13) ROS Limited/Unobtainable: No Constitutional: Reports: chills, fever HEENT: Reports: no symptoms Cardiovascular: Reports: no symptoms Respiratory: Reports: no symptoms Gastrointestinal/Abdominal: Reports: no symptoms Genitourinary: Reports: flank pain Neurologic/Psychiatric: Reports: no symptoms Subjective 80 YO M admitted with fever and chills. Now pyelonephritis and sepsis. Cover for Int Med-Dr Paz. Objective Last Vital Signs Date Time Temp Pulse Resp B/P Pulse Ox O2 Delivery O2 Flow Rate FiO2 10/17/16 12:00 97.7 79 20 118/61 95 Room Air Laboratory Tests Test 10/17/16 05:00 10/17/16 05:15 Stool Occult Blood Negative (NEGATIVE) White Blood Count 2.9 K/UL (4.8-10.8) L Red Blood Count 3.75 M/UL (4.70-6.10) L Hemoglobin 12.5 G/DL (14.2-18.0) L Hematocrit 35.1 % (42.0-52.0) L Mean Corpuscular Volume 94 FL (80-99) Mean Corpuscular Hemoglobin 33.3 PG (27.0-31.0) H Mean Corpuscular Hemoglobin Concent 35.6 G/DL (32.0-36.0) Red Cell Distribution Width 18.0 % (11.6-14.8) H Platelet Count 148 K/UL (150-450) L Mean Platelet Volume 7.5 FL (6.5-10.1) Neutrophils (%) (Auto) % (45.0-75.0) Lymphocytes (%) (Auto) % (20.0-45.0) Monocytes (%) (Auto) % (1.0-10.0) Eosinophils (%) (Auto) % (0.0-3.0) Basophils (%) (Auto) % (0.0-2.0) Differential Total Cells Counted 100 Neutrophils % (Manual) 58 % (45-75) Lymphocytes % (Manual) 25 % (20-45) Monocytes % (Manual) 15 % (1-10) H Eosinophils % (Manual) 2 % (0-3) Basophils % (Manual) 0 % (0-2) Band Neutrophils 0 % (0-8) Platelet Estimate Adequate Platelet Morphology Normal Anisocytosis 1+ Sodium Level 132 mEQ/L (135-145) L Potassium Level 4.2 mEQ/L (3.4-4.9) Chloride Level 97 mEQ/L (98-107) L Carbon Dioxide Level 20 mEQ/L (20-30) Anion Gap 15 (5-15) Blood Urea Nitrogen 11 mg/dL (7-23) Creatinine 0.8 mg/dL (0.7-1.2) Estimat Glomerular Filtration Rate mL/min (>60) Glucose Level 97 mg/dL (74-106) Calcium Level 8.4 mg/dL (8.6-10.2) L Microbiology Date/Time Source Procedure Growth Status 10/14/16 20:15 Blood Blood Culture - Preliminary NO GROWTH AFTER 48 HOURS Resulted 10/14/16 20:00 Blood Blood Culture - Preliminary NO GROWTH AFTER 48 HOURS Resulted 10/14/16 21:00 Urine,Clean Catch Urine Culture - Final NO GROWTH AFTER 48 HOURS Complete Intake and Output 10/16/16 10/17/16 19:00 07:00 Intake Total 1220 ml 920 ml Output Total 200 ml 1000 ml Balance 1020 ml -80 ml Intake Oral 300 ml IV Total 920 ml 920 ml Output Urine Total 200 ml 1000 ml # Voids 5 Objective General: alert, cooperative, no distress, appears stated age Head: normocephalic, without obvious abnormality, atraumatic Eyes: conjunctivae/corneas clear. PERRL, EOM's intact Throat: lips, mucosa, and tongue normal. MMM Neck: supple, symmetrical, trachea midline, and no JVD Lungs: clear to auscultation bilaterally Heart: regular rate and rhythm, S1, S2 normal, no murmur, click, rub or gallop Abdomen: soft, non-tender, non-distended, bowel sounds normal; no masses or organomegaly Extremities: extremities normal, atraumatic, no cyanosis or edema Pulses: 2+ and symmetric Skin: skin color, texture, turgor normal; no rashes or lesions Neurologic: grossly normal, no focal deficits Assessment/Plan Problem List: (1) Right flank pain Assessment & Plan: Due to pyelonephritis. (2) Colon cancer metastasized to multiple sites Assessment & Plan: On chemotherapy (3) HTN (hypertension) Assessment & Plan: currently hypotensive. (4) Hypercholesteremia (5) Osteoarthritis, knee (6) Pyelonephritis Assessment & Plan: Continue cefepime and levaquin per ID (7) Fever (8) Sepsis Status: stable Assessment/Plan Discharge planning DEMETRIO CHIRINOS Oct 17, 2016 16:22
[2016-10-17] MEDS ORDERED: 1/2 NS 1000ml IV ONE (16:43)
--- NOTE | 2016-10-17 18:03 | Pulmonology Progress Note ---
Assessment/Plan Problems: (1) Sepsis (2) Fever (3) Pyelonephritis (4) Protein-calorie malnutrition, severe (5) Metastatic cancer Assessment/Plan afebrile now continue abx, cefepime and Levofloxacin check cultures. all cultures negative sofar check electrolytes dc home when OK with ID Subjective ROS Limited/Unobtainable: No Constitutional: Reports: no symptoms Allergies: Coded Allergies: No Known Allergies (Unverified , 10/25/13) Objective Last 24 Hour Vital Signs Date Time Temp Pulse Resp B/P Pulse Ox O2 Delivery O2 Flow Rate FiO2 10/17/16 16:00 98.6 60 20 109/54 96 Room Air 10/17/16 12:00 97.7 79 20 118/61 95 Room Air 10/17/16 08:00 98.1 82 20 118/68 95 Room Air 10/17/16 07:09 85 20 Room Air 10/17/16 04:00 98.6 74 17 100/56 100 Room Air 10/17/16 00:00 98.6 79 19 101/58 94 Room Air 10/16/16 20:01 90 20 Room Air 10/16/16 20:00 98.8 10/16/16 20:00 98.8 10/16/16 20:00 98.8 82 20 97/57 94 Room Air 10/16/16 18:54 101.0 Intake and Output 10/16/16 10/17/16 19:00 07:00 Intake Total 1220 ml 920 ml Output Total 200 ml 1000 ml Balance 1020 ml -80 ml Intake Oral 300 ml IV Total 920 ml 920 ml Output Urine Total 200 ml 1000 ml # Voids 5 General Appearance: WD/WN, no acute distress HEENT: normocephalic Respiratory/Chest: chest wall non-tender, lungs clear Cardiovascular: normal peripheral pulses, normal rate Abdomen: normal bowel sounds Extremities: no cyanosis Skin: no rash Microbiology Date/Time Source Procedure Growth Status 10/14/16 20:15 Blood Blood Culture - Preliminary NO GROWTH AFTER 48 HOURS Resulted 10/14/16 20:00 Blood Blood Culture - Preliminary NO GROWTH AFTER 48 HOURS Resulted 10/14/16 21:00 Urine,Clean Catch Urine Culture - Final NO GROWTH AFTER 48 HOURS Complete Laboratory Tests 10/17/16 05:00: Stool Occult Blood Negative 10/17/16 05:15: White Blood Count 2.9L, Red Blood Count 3.75L, Hemoglobin 12.5L, Hematocrit 35.1L, Mean Corpuscular Volume 94, Mean Corpuscular Hemoglobin 33.3H, Mean Corpuscular Hemoglobin Concent 35.6, Red Cell Distribution Width 18.0H, Platelet Count 148L, Mean Platelet Volume 7.5, Neutrophils (%) (Auto) , Lymphocytes (%) (Auto) , Monocytes (%) (Auto) , Eosinophils (%) (Auto) , Basophils (%) (Auto) , Differential Total Cells Counted 100, Neutrophils % ( Manual) 58, Lymphocytes % (Manual) 25, Monocytes % (Manual) 15H, Eosinophils % ( Manual) 2, Basophils % (Manual) 0, Band Neutrophils 0, Platelet Estimate Adequate, Platelet Morphology Normal, Anisocytosis 1+, Sodium Level 132L, Potassium Level 4.2, Chloride Level 97L, Carbon Dioxide Level 20, Anion Gap 15, Blood Urea Nitrogen 11, Creatinine 0.8, Estimat Glomerular Filtration Rate , Glucose Level 97, Calcium Level 8.4L Current Medications Medications (Trade) Dose Ordered Sig/Chivo Route PRN Reason Start Time Stop Time Status Last Admin Dose Admin Acetaminophen (Tylenol) 650 mg Q4H PRN ORAL fever 10/16/16 00:35 11/15/16 00:34 10/16/16 18:54 Albuterol/ Ipratropium (DuoNeb 0.5-3(2.5)mg/3ml) 3 ml Q4H PRN HHN Shortness of Breath 10/16/16 00:36 10/21/16 00:35 Cefepime HCl 2 gm/ Dextrose 110 ml @ 220 mls/hr EVERY 12 HOURS IV 10/16/16 09:00 10/23/16 08:59 10/17/16 08:34 Heparin Sodium (Porcine) (Heparin 5000 units/ml) 5,000 units EVERY 12 HOURS SUBQ 10/16/16 09:00 11/15/16 08:59 Levofloxacin (Levaquin) 100 ml @ 100 mls/hr Q24H IVPB 10/16/16 14:00 10/23/16 13:59 10/17/16 13:58 Morphine Sulfate (Morphine Sulfate) 2 mg Q4H PRN IVP Moderate Pain (Pain Scale 4-6) 10/16/16 00:36 10/23/16 00:35 10/16/16 19:28 Nitroglycerin (Ntg) 0.4 mg Q5M PRN SL Prn Chest Pain 10/16/16 00:05 11/15/16 00:04 Ondansetron HCl (Zofran) 4 mg Q6H PRN IVP Nausea & Vomiting 10/16/16 00:37 11/15/16 00:36 Polyethylene Glycol (Miralax) 17 gm DAILYPRN PRN ORAL Constipation 10/16/16 00:37 11/15/16 00:36 Sodium Chloride (Sodium Chloride 1000ml bag) 1,000 ml @ 75 mls/hr [id number] IV 10/16/16 12:00 11/15/16 11:59 10/17/16 16:01 Temazepam 15 mg 15 mg HSPRN PRN ORAL Insomnia 10/16/16 22:30 10/23/16 22:29 DIONI PATEL Oct 17, 2016 18:03
--- NOTE | 2016-10-17 18:07 | Infectious Diseases Prog Note ---
Assessment/Plan Assessment/Plan A: This is an 80-year-old male with Pneumonia/cough. Leukopenia. Probable urinary tract infection/right-sided pyelonephritis. Ultrasound of the kidneys : no obst Fever improving PS Chills Sepsis, SP History of colon cancer with mets to bladder and prostate SP chemo PLAN: cont patient on IV cefepime and DC Levaquin d# 3 / , add IV Vanco Monitor cultures (blood ) Monitor CBC Monitor BMP Monitor chest x-ray DW PCP , CT of chest A / P : Ro abscess Subjective Constitutional: Denies: anorexia, chills, drenching sweats, fatigue, fever, no symptoms, other Allergies: Coded Allergies: No Known Allergies (Unverified , 10/25/13) Objective Vital Signs Last 24 Hour Vital Signs Date Time Temp Pulse Resp B/P Pulse Ox O2 Delivery O2 Flow Rate FiO2 10/17/16 16:00 98.6 60 20 109/54 96 Room Air 10/17/16 12:00 97.7 79 20 118/61 95 Room Air 10/17/16 08:00 98.1 82 20 118/68 95 Room Air 10/17/16 07:09 85 20 Room Air 10/17/16 04:00 98.6 74 17 100/56 100 Room Air 10/17/16 00:00 98.6 79 19 101/58 94 Room Air 10/16/16 20:01 90 20 Room Air 10/16/16 20:00 98.8 10/16/16 20:00 98.8 10/16/16 20:00 98.8 82 20 97/57 94 Room Air 10/16/16 18:54 101.0 Height (Feet): 6 Height (Inches): 0.00 Weight (Pounds): 140 HEENT: anicteric Respiratory/Chest: normal breath sounds Cardiovascular: regularly irregular Abdomen: no organomegaly Microbiology Date/Time Source Procedure Growth Status 10/14/16 20:15 Blood Blood Culture - Preliminary NO GROWTH AFTER 48 HOURS Resulted 10/14/16 20:00 Blood Blood Culture - Preliminary NO GROWTH AFTER 48 HOURS Resulted 10/14/16 21:00 Urine,Clean Catch Urine Culture - Final NO GROWTH AFTER 48 HOURS Complete Laboratory Tests Test 10/17/16 05:00 10/17/16 05:15 Stool Occult Blood Negative (NEGATIVE) White Blood Count 2.9 K/UL (4.8-10.8) L Red Blood Count 3.75 M/UL (4.70-6.10) L Hemoglobin 12.5 G/DL (14.2-18.0) L Hematocrit 35.1 % (42.0-52.0) L Mean Corpuscular Volume 94 FL (80-99) Mean Corpuscular Hemoglobin 33.3 PG (27.0-31.0) H Mean Corpuscular Hemoglobin Concent 35.6 G/DL (32.0-36.0) Red Cell Distribution Width 18.0 % (11.6-14.8) H Platelet Count 148 K/UL (150-450) L Mean Platelet Volume 7.5 FL (6.5-10.1) Neutrophils (%) (Auto) % (45.0-75.0) Lymphocytes (%) (Auto) % (20.0-45.0) Monocytes (%) (Auto) % (1.0-10.0) Eosinophils (%) (Auto) % (0.0-3.0) Basophils (%) (Auto) % (0.0-2.0) Differential Total Cells Counted 100 Neutrophils % (Manual) 58 % (45-75) Lymphocytes % (Manual) 25 % (20-45) Monocytes % (Manual) 15 % (1-10) H Eosinophils % (Manual) 2 % (0-3) Basophils % (Manual) 0 % (0-2) Band Neutrophils 0 % (0-8) Platelet Estimate Adequate Platelet Morphology Normal Anisocytosis 1+ Sodium Level 132 mEQ/L (135-145) L Potassium Level 4.2 mEQ/L (3.4-4.9) Chloride Level 97 mEQ/L (98-107) L Carbon Dioxide Level 20 mEQ/L (20-30) Anion Gap 15 (5-15) Blood Urea Nitrogen 11 mg/dL (7-23) Creatinine 0.8 mg/dL (0.7-1.2) Estimat Glomerular Filtration Rate mL/min (>60) Glucose Level 97 mg/dL (74-106) Calcium Level 8.4 mg/dL (8.6-10.2) L Current Medications Medications (Trade) Dose Ordered Sig/Chivo Route PRN Reason Start Time Stop Time Status Last Admin Dose Admin Acetaminophen (Tylenol) 650 mg Q4H PRN ORAL fever 10/16/16 00:35 11/15/16 00:34 10/16/16 18:54 Albuterol/ Ipratropium (DuoNeb 0.5-3(2.5)mg/3ml) 3 ml Q4H PRN HHN Shortness of Breath 10/16/16 00:36 10/21/16 00:35 Cefepime HCl 2 gm/ Dextrose 110 ml @ 220 mls/hr EVERY 12 HOURS IV 10/16/16 09:00 10/23/16 08:59 10/17/16 08:34 Heparin Sodium (Porcine) (Heparin 5000 units/ml) 5,000 units EVERY 12 HOURS SUBQ 10/16/16 09:00 11/15/16 08:59 Levofloxacin (Levaquin) 100 ml @ 100 mls/hr Q24H IVPB 10/16/16 14:00 10/23/16 13:59 10/17/16 13:58 Morphine Sulfate (Morphine Sulfate) 2 mg Q4H PRN IVP Moderate Pain (Pain Scale 4-6) 10/16/16 00:36 10/23/16 00:35 10/16/16 19:28 Nitroglycerin (Ntg) 0.4 mg Q5M PRN SL Prn Chest Pain 10/16/16 00:05 11/15/16 00:04 Ondansetron HCl (Zofran) 4 mg Q6H PRN IVP Nausea & Vomiting 10/16/16 00:37 11/15/16 00:36 Polyethylene Glycol (Miralax) 17 gm DAILYPRN PRN ORAL Constipation 10/16/16 00:37 11/15/16 00:36 Sodium Chloride (Sodium Chloride 1000ml bag) 1,000 ml @ 75 mls/hr [id number] IV 10/16/16 12:00 11/15/16 11:59 10/17/16 16:01 Temazepam 15 mg 15 mg HSPRN PRN ORAL Insomnia 10/16/16 22:30 10/23/16 22:29 LEONIDES REYEZ M.D. Oct 17, 2016 18:07
[2016-10-17 20:00] VITALS: BP 124/64
[2016-10-17] MEDS ORDERED: Vancomycin 1gm/D5W 275ml IVPB SCH ×2 (22:30)
[2016-10-17] MEDS: Morphine Sulfate 2mg/ml Inj IVP PRN (22:50)
[2016-10-18] VITALS: BP 129/75
[2016-10-18 04:00] VITALS: BP 100/53
[2016-10-18 07:28] LABS: MEAN CORPUSCULAR HEMOGLOBIN 33.1 PG (27.0-31.0); MEAN CORPUSCULAR HGB CONC 35.6 G/DL (32.0-36.0); MEAN CORPUSCULAR VOLUME 93 FL (80-99); MEAN PLATELET VOLUME 7.2 FL (6.5-10.1); PLATELET COUNT 132 K/UL (150-450); RED BLOOD COUNT 3.72 M/UL (4.70-6.10); RED CELL DISTRIBUTION WIDTH 17.7 % (11.6-14.8); WHITE BLOOD COUNT 3.1 K/UL (4.8-10.8)
[2016-10-18 07:56] VITALS: BP 111/58
[2016-10-18 08:04] LABS: ANION GAP 14 (5-15); CALCIUM 8.5 mg/dL (8.6-10.2); CARBON DIOXIDE 20 mEQ/L (20-30); CHLORIDE 97 mEQ/L (98-107); CREATININE 0.7 mg/dL (0.7-1.2); HEMOLYSIS 5; POTASSIUM 4.1 mEQ/L (3.4-4.9); SODIUM 131 mEQ/L (135-145)
[2016-10-18 08:33] LABS: BAND NEUTROPHILS % (MANUAL) 0 % (0-8); BASOPHILS % (MANUAL) 0 % (0-2); EOSINOPHILS % (MANUAL) 6 % (0-3); LYMPHOCYTES % (MANUAL) 23 % (20-45); NEUTROPHILS % (MANUAL) 60 % (45-75); PLATELET ESTIMATE DECREASED; PLATELET MORPHOLOGY NORMAL; TOTAL CELLS COUNTED 100
[2016-10-18] MEDS: Heparin 5000 units/ml inj SUBQ SCH ×2 (09:00→21:00)
--- NOTE | 2016-10-18 09:56 | Infectious Diseases Prog Note ---
Assessment/Plan Assessment/Plan A: This is an 80-year-old male with Pneumonia/cough Leukopenia. Probable urinary tract infection/right-sided pyelonephritis. UCx : Neg Ultrasound of the kidneys : no obst Fever low grade persistent SP Chills Sepsis, SP ESR and CRP mildly elevated History of colon cancer with mets to bladder and prostate SP chemo PLAN: cont patient on IV cefepime d# add IV Vanco d# 2 10/17 SP Levaquin d# 3 Monitor cultures (blood ) Monitor CBC Monitor BMP Monitor chest x-ray CT of chest A / P : Ro abscess :P Subjective Constitutional: Denies: anorexia, chills, drenching sweats, fatigue, fever, no symptoms, other Allergies: Coded Allergies: No Known Allergies (Unverified , 10/25/13) Objective Vital Signs Last 24 Hour Vital Signs Date Time Temp Pulse Resp B/P Pulse Ox O2 Delivery O2 Flow Rate FiO2 10/18/16 07:56 98.2 66 20 111/58 98 Nasal Cannula 2.0 10/18/16 04:00 97.3 74 18 100/53 100 Nasal Cannula 2.0 10/18/16 00:00 98.9 72 20 129/75 97 Room Air 10/17/16 23:20 98.9 10/17/16 20:59 99.9 10/17/16 20:17 63 18 Room Air 10/17/16 20:00 100.4 88 20 124/64 96 Room Air 10/17/16 16:00 98.6 60 20 109/54 96 Room Air 10/17/16 12:00 97.7 79 20 118/61 95 Room Air Height (Feet): 6 Height (Inches): 0.00 Weight (Pounds): 140 HEENT: atraumatic Respiratory/Chest: normal breath sounds Cardiovascular: regularly irregular Abdomen: no organomegaly Microbiology Date/Time Source Procedure Growth Status 10/17/16 07:00 Sputum Expectorated Gram Stain Pending Resulted 10/17/16 07:00 Sputum Expectorated Sputum Culture - Preliminary Resulted Laboratory Tests Test 10/18/16 06:30 White Blood Count 3.1 K/UL (4.8-10.8) L Red Blood Count 3.72 M/UL (4.70-6.10) L Hemoglobin 12.3 G/DL (14.2-18.0) L Hematocrit 34.6 % (42.0-52.0) L Mean Corpuscular Volume 93 FL (80-99) Mean Corpuscular Hemoglobin 33.1 PG (27.0-31.0) H Mean Corpuscular Hemoglobin Concent 35.6 G/DL (32.0-36.0) Red Cell Distribution Width 17.7 % (11.6-14.8) H Platelet Count 132 K/UL (150-450) L Mean Platelet Volume 7.2 FL (6.5-10.1) Neutrophils (%) (Auto) % (45.0-75.0) Lymphocytes (%) (Auto) % (20.0-45.0) Monocytes (%) (Auto) % (1.0-10.0) Eosinophils (%) (Auto) % (0.0-3.0) Basophils (%) (Auto) % (0.0-2.0) Differential Total Cells Counted 100 Neutrophils % (Manual) 60 % (45-75) Lymphocytes % (Manual) 23 % (20-45) Monocytes % (Manual) 11 % (1-10) H Eosinophils % (Manual) 6 % (0-3) H Basophils % (Manual) 0 % (0-2) Band Neutrophils 0 % (0-8) Platelet Estimate Decreased L Platelet Morphology Normal Red Blood Cell Morphology Normal Erythrocyte Sedimentation Rate 53 MM/HR (0-30) H Sodium Level 131 mEQ/L (135-145) L Potassium Level 4.1 mEQ/L (3.4-4.9) Chloride Level 97 mEQ/L (98-107) L Carbon Dioxide Level 20 mEQ/L (20-30) Anion Gap 14 (5-15) Blood Urea Nitrogen 10 mg/dL (7-23) Creatinine 0.7 mg/dL (0.7-1.2) Estimat Glomerular Filtration Rate mL/min (>60) Glucose Level 101 mg/dL (74-106) Calcium Level 8.5 mg/dL (8.6-10.2) L C-Reactive Protein, Quantitative 2.1 mg/dL (< 0.5) H Current Medications Medications (Trade) Dose Ordered Sig/Chivo Route PRN Reason Start Time Stop Time Status Last Admin Dose Admin Acetaminophen (Tylenol) 650 mg Q4H PRN ORAL fever 10/16/16 00:35 7/21/17 00:34 10/17/16 20:00 Albuterol/ Ipratropium (DuoNeb 0.5-3(2.5)mg/3ml) 3 ml Q4H PRN HHN Shortness of Breath 10/16/16 00:36 10/21/16 00:35 Cefepime HCl/ Dextrose (Maxipime/D5W) 110 ml @ 220 mls/hr EVERY 12 HOURS IV 10/16/16 09:00 10/23/16 08:59 10/17/16 20:00 Heparin Sodium (Porcine) (Heparin 5000 units/ml) 5,000 units EVERY 12 HOURS SUBQ 10/16/16 09:00 11/15/16 08:59 Morphine Sulfate (Morphine Sulfate) 2 mg Q4H PRN IVP Moderate Pain (Pain Scale 4-6) 10/16/16 00:36 10/23/16 00:35 10/17/16 22:50 Nitroglycerin (Ntg) 0.4 mg Q5M PRN SL Prn Chest Pain 10/16/16 00:05 11/15/16 00:04 Ondansetron HCl (Zofran) 4 mg Q6H PRN IVP Nausea & Vomiting 10/16/16 00:37 11/15/16 00:36 Polyethylene Glycol (Miralax) 17 gm DAILYPRN PRN ORAL Constipation 10/16/16 00:37 11/15/16 00:36 Sodium Chloride (Sodium Chloride 1000ml bag) 1,000 ml @ 75 mls/hr [id number] IV 10/16/16 12:00 11/15/16 11:59 10/18/16 04:06 Temazepam 15 mg 15 mg HSPRN PRN ORAL Insomnia 10/16/16 22:30 10/23/16 22:29 Vancomycin HCl 1 ea 1 ea DAILY PRN MISC Per rx protocol 10/17/16 21:30 11/16/16 21:29 Vancomycin HCl 1 gm/Dextrose 275 ml @ 183.708 mls/hr Q24H IVPB 10/17/16 22:30 10/22/16 22:29 10/18/16 00:18 Vancomycin HCl/ Dextrose (Vancomycin/D5W) 275 ml @ 183.708 mls/hr Q12H IVPB 10/18/16 08:00 10/23/16 07:59 LEONIDES REYEZ M.D. Oct 18, 2016 09:56
[2016-10-18] MEDS: Vancomycin 750mg/D5W 275ml IVPB SCH ×4 (10:18→20:04)
[2016-10-18] MEDS: Cefepime HCl 2 GM in D5W 110 ML IV SCH ×2 (10:18→22:05)
[2016-10-18] MEDS ORDERED: Tubing IV Secondary IV ONE (10:32)
[2016-10-18] MEDS ORDERED: D5W 275ml ONE (10:32)
[2016-10-18] MEDS ORDERED: 1/2 NS 1000ml IV ONE (10:32)
[2016-10-18 11:56] VITALS: BP 108/64
--- NOTE | 2016-10-18 13:09 | Pulmonology Progress Note ---
Assessment/Plan Problems: (1) Sepsis (2) Fever (3) Pyelonephritis (4) Protein-calorie malnutrition, severe (5) Metastatic cancer Assessment/Plan one episode of fever last night CT abdomen and pelvis ordered continue abx, check cultures. all cultures negative sofar check electrolytes\ check electrolytes Subjective Constitutional: Reports: no symptoms HEENT: Repors: no symptoms Respiratory: Reports: no symptoms Allergies: Coded Allergies: No Known Allergies (Unverified , 10/25/13) Objective Last 24 Hour Vital Signs Date Time Temp Pulse Resp B/P Pulse Ox O2 Delivery O2 Flow Rate FiO2 10/18/16 11:56 98.6 78 19 108/64 96 Room Air 10/18/16 08:25 68 18 Room Air 10/18/16 07:56 98.2 66 20 111/58 98 Nasal Cannula 2.0 10/18/16 04:00 97.3 74 18 100/53 100 Nasal Cannula 2.0 10/18/16 00:00 98.9 72 20 129/75 97 Room Air 10/17/16 23:20 98.9 10/17/16 20:59 99.9 10/17/16 20:17 63 18 Room Air 10/17/16 20:00 100.4 88 20 124/64 96 Room Air 10/17/16 16:00 98.6 60 20 109/54 96 Room Air Intake and Output 10/17/16 10/18/16 19:00 07:00 Intake Total 1090 ml 1035.000 ml Balance 1090 ml 1035.000 ml Intake Oral 320 ml IV Total 770 ml 1035.000 ml # Voids 4 4 General Appearance: WD/WN HEENT: normocephalic, atraumatic Respiratory/Chest: chest wall non-tender, lungs clear Cardiovascular: normal peripheral pulses, normal rate Abdomen: normal bowel sounds, soft, non tender Genitourinary: normal external genitalia Extremities: no cyanosis Skin: no rash 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, no motor/sensory deficits Lymphatic: no neck adenopathy, no groin adenopathy Microbiology Date/Time Source Procedure Growth Status 10/17/16 07:00 Sputum Expectorated Gram Stain Pending Resulted 10/17/16 07:00 Sputum Expectorated Sputum Culture - Preliminary Resulted Laboratory Tests 10/18/16 06:30: White Blood Count 3.1L, Red Blood Count 3.72L, Hemoglobin 12.3L, Hematocrit 34.6L, Mean Corpuscular Volume 93, Mean Corpuscular Hemoglobin 33.1H, Mean Corpuscular Hemoglobin Concent 35.6, Red Cell Distribution Width 17.7H, Platelet Count 132L, Mean Platelet Volume 7.2, Neutrophils (%) (Auto) , Lymphocytes (%) (Auto) , Monocytes (%) (Auto) , Eosinophils (%) (Auto) , Basophils (%) (Auto) , Differential Total Cells Counted 100, Neutrophils % ( Manual) 60, Lymphocytes % (Manual) 23, Monocytes % (Manual) 11H, Eosinophils % ( Manual) 6H, Basophils % (Manual) 0, Band Neutrophils 0, Platelet Estimate DecreasedL, Platelet Morphology Normal, Red Blood Cell Morphology Normal, Erythrocyte Sedimentation Rate 53H, Sodium Level 131L, Potassium Level 4.1, Chloride Level 97L, Carbon Dioxide Level 20, Anion Gap 14, Blood Urea Nitrogen 10, Creatinine 0.7, Estimat Glomerular Filtration Rate , Glucose Level 101, Calcium Level 8.5L, C-Reactive Protein, Quantitative 2.1H Current Medications Medications (Trade) Dose Ordered Sig/Chivo Route PRN Reason Start Time Stop Time Status Last Admin Dose Admin Acetaminophen (Tylenol) 650 mg Q4H PRN ORAL fever 10/16/16 00:35 11/15/16 00:34 10/17/16 20:00 Albuterol/ Ipratropium (DuoNeb 0.5-3(2.5)mg/3ml) 3 ml Q4H PRN HHN Shortness of Breath 10/16/16 00:36 10/21/16 00:35 Cefepime HCl/ Dextrose (Maxipime/D5W) 110 ml @ 220 mls/hr EVERY 12 HOURS IV 10/16/16 09:00 10/23/16 08:59 10/18/16 10:18 Heparin Sodium (Porcine) (Heparin 5000 units/ml) 5,000 units EVERY 12 HOURS SUBQ 10/16/16 09:00 11/15/16 08:59 Morphine Sulfate (Morphine Sulfate) 2 mg Q4H PRN IVP Moderate Pain (Pain Scale 4-6) 10/16/16 00:36 10/23/16 00:35 10/17/16 22:50 Nitroglycerin (Ntg) 0.4 mg Q5M PRN SL Prn Chest Pain 10/16/16 00:05 11/15/16 00:04 Ondansetron HCl (Zofran) 4 mg Q6H PRN IVP Nausea & Vomiting 10/16/16 00:37 11/15/16 00:36 Polyethylene Glycol (Miralax) 17 gm DAILYPRN PRN ORAL Constipation 10/16/16 00:37 11/15/16 00:36 Sodium Chloride (Sodium Chloride 1000ml bag) 1,000 ml @ 75 mls/hr [id number] IV 10/16/16 12:00 11/15/16 11:59 10/18/16 04:06 Temazepam 15 mg 15 mg HSPRN PRN ORAL Insomnia 10/16/16 22:30 10/23/16 22:29 Vancomycin HCl 1 ea 1 ea DAILY PRN MISC Per rx protocol 10/17/16 21:30 11/16/16 21:29 Vancomycin HCl 1 gm/Dextrose 275 ml @ 183.708 mls/hr Q24H IVPB 10/17/16 22:30 10/22/16 22:29 10/18/16 00:18 Vancomycin HCl/ Dextrose (Vancomycin/D5W) 275 ml @ 183.708 mls/hr Q12H IVPB 10/18/16 08:00 10/23/16 07:59 10/18/16 10:18 DIONI PATEL Oct 18, 2016 13:09
[2016-10-18 16:09] VITALS: BP 121/56
--- NOTE | 2016-10-18 16:44 | Diagnostic Imaging Report ---
Indication: 80-year-old male with history of colon carcinoma, history of metastases 2 prostate, lung, bladder. History of pyelonephritis Technique: Patient ingested oral contrast patient nonionic contrast. Multiphasic spiral acquisitions obtained through the chest, abdomen, and pelvis Multiplanar reconstructions were generated. Total dose length product 1480 mGycm. CTDIvol(s) 8, 8, 89, 13, 14 mGy. Radiation dose was minimized using automated exposure control Comparison: CT abdomen pelvis dated 06/17/2016. No comparison chest CT Findings: Chest: Small focal area of pleural thickening with calcification is seen in the posterior lateral right upper hemithorax. 2 mm nodule is seen in the right upper lobe, image 24 series 6. 2 mm nodule is seen adjacent to the minor fissure image 33 series 6 and a second similar lesion also adjacent to minor fissure image 35 series 6. There is trace right-sided pleural fluid. There is posterior and basilar dependent atelectasis, as well as linear atelectasis versus scarring at the right lung base. There is also trace left pleural effusion, with some posterior atelectasis, as well as atelectatic bands seen in the anterior lower lobe. A small bulla is seen in the inferomedial left ower lobe. A 4 mm noncalcified nodule is seen in the left upper lobe, image 30 of series 6. A 3 mm noncalcified nodule is seen the left upper lobe, image 23 of series 6. However, the nodules that were seen in the lung bases in the portions of the lung visualized previously are essentially completely absent on the current exam. The currently demonstrated small pleural effusions were not evident previously, and there is much more basilar atelectatic change present currently. No infiltrates. The heart is upper limits of normal in size. No pericardial effusion. No mediastinal or hilar mass or adenopathy. The ascending thoracic aorta is ectatic but not frankly aneurysmal, measuring 4 cm diameter. Included thyroid is unremarkable. The bones are unremarkable Abdomen pelvis: The appendix is only equivocally demonstrated. No findings to suggest acute appendicitis are evident. No evidence of diverticulosis or diverticulitis. No small bowel distention. Contrast traverses the entirety of the small bowel and is seen to have entered the cecum. There is a small sliding-type hiatal hernia. Stomach is unremarkable. There is a small duodenal diverticulum. The liver, gallbladder, bile ducts, pancreas, adrenals are unremarkable. Unusual lobulated splenic contour again demonstrated. There appear to be several accessory spleens. There is suggestion of slightly increased perinephric fat stranding and fluid. No ureteral or renal calculi or hydronephrosis or hydroureter. Previously demonstrated intraluminal bladder mass is no longer evident. There is suggestion of interim TURP. There is less prostate calcification than was evident previously. No pelvic mass or adenopathy. Previously demonstrated bilateral prominent iliac chain nodes are stable or perhaps slightly less striking than previously. There is evidence of prior right inguinal region surgery. Left-sided rectus abdominis muscle asymmetric atrophy again noted. No retroperitoneal mass or adenopathy. Prominent mesenteric root lymph nodes are again demonstrated, appear unchanged. The bones demonstrate degenerative spondylosis changes. Impression: A few small pulmonary nodules are demonstrated. In the areas of the lower lobes for which prior comparison is available, the nodules that were present previously have essentially resolved, indicating response to therapy. Uncertain as to whether the small nodules present currently represent metastatic deposits that has failed completely resolved, or represent benign postinflammatory lesions. Those that are adjacent pleural surfaces are more likely the latter. Trace bilateral pleural effusions, not evident previously. Basilar pulmonary atelectatic changes, not evident pre -- viously Interim resolution of previously demonstrated endophytic bladder mass. Decreased protrusion of the prostate into the bladder lumen. Findings may represent either interim surgical resection or response to chemotherapy Borderline mesenteric root adenopathy, unchanged Decreased prominence of bilateral iliac chain nodes previously demonstrated Increased bilateral perinephric fluid, could be related to stated clinical history of pyelonephritis Nonspecific right-sided pleural calcifications Other findings as noted, including lobulated spleen with accessory splenules, asymmetric rectus abdominis muscle atrophy on the left, degenerative spondylosis, small sliding-type hiatal hernia, small duodenal diverticulum, evidence of prior right groin surgery The CT scanner at [facility] is accredited by the [employer] and the scans are performed using protocols designed to limit radiation exposure to as low as reasonably achievable to attain images of sufficient resolution adequate for diagnostic evaluation.
--- NOTE | 2016-10-18 16:57 | Internal Med Progress Note ---
Subjective Date of Service: Oct 18, 2016 Physician Name ChirinosDemetrio Attending Physician Noah Paz MD Current Medications Medications (Trade) Dose Ordered Sig/Chivo Route PRN Reason Start Time Stop Time Status Last Admin Dose Admin Acetaminophen (Tylenol) 650 mg Q4H PRN ORAL fever 10/16/16 00:35 11/15/16 00:34 10/17/16 20:00 Albuterol/ Ipratropium (DuoNeb 0.5-3(2.5)mg/3ml) 3 ml Q4H PRN HHN Shortness of Breath 10/16/16 00:36 10/21/16 00:35 Cefepime HCl/ Dextrose (Maxipime/D5W) 110 ml @ 220 mls/hr EVERY 12 HOURS IV 10/16/16 09:00 10/23/16 08:59 10/18/16 10:18 Heparin Sodium (Porcine) (Heparin 5000 units/ml) 5,000 units EVERY 12 HOURS SUBQ 10/16/16 09:00 11/15/16 08:59 Morphine Sulfate (Morphine Sulfate) 2 mg Q4H PRN IVP Moderate Pain (Pain Scale 4-6) 10/16/16 00:36 10/23/16 00:35 10/17/16 22:50 Nitroglycerin (Ntg) 0.4 mg Q5M PRN SL Prn Chest Pain 10/16/16 00:05 11/15/16 00:04 Ondansetron HCl (Zofran) 4 mg Q6H PRN IVP Nausea & Vomiting 10/16/16 00:37 11/15/16 00:36 Polyethylene Glycol (Miralax) 17 gm DAILYPRN PRN ORAL Constipation 10/16/16 00:37 11/15/16 00:36 Sodium Chloride (Sodium Chloride 1000ml bag) 1,000 ml @ 75 mls/hr [id number] IV 10/16/16 12:00 11/15/16 11:59 10/18/16 04:06 Temazepam 15 mg 15 mg HSPRN PRN ORAL Insomnia 10/16/16 22:30 10/23/16 22:29 Vancomycin HCl 1 ea 1 ea DAILY PRN MISC Per rx protocol 10/17/16 21:30 11/16/16 21:29 Vancomycin HCl 1 gm/Dextrose 275 ml @ 183.708 mls/hr Q24H IVPB 10/17/16 22:30 10/22/16 22:29 10/18/16 00:18 Vancomycin HCl/ Dextrose (Vancomycin/D5W) 275 ml @ 183.708 mls/hr Q12H IVPB 10/18/16 08:00 10/23/16 07:59 10/18/16 10:18 Allergies: Coded Allergies: No Known Allergies (Unverified , 10/25/13) ROS Limited/Unobtainable: No Constitutional: Reports: chills, fever HEENT: Reports: no symptoms Cardiovascular: Reports: no symptoms Respiratory: Reports: no symptoms Gastrointestinal/Abdominal: Reports: no symptoms Genitourinary: Reports: flank pain Subjective 80 YO M admitted with fever and chills. Now pyelonephritis and sepsis. Cover for Int Med-Dr Paz. Objective Last Vital Signs Date Time Temp Pulse Resp B/P Pulse Ox O2 Delivery O2 Flow Rate FiO2 10/18/16 16:09 99.0 77 15 121/56 96 Room Air 10/18/16 07:56 2.0 Laboratory Tests Test 10/18/16 06:30 White Blood Count 3.1 K/UL (4.8-10.8) L Red Blood Count 3.72 M/UL (4.70-6.10) L Hemoglobin 12.3 G/DL (14.2-18.0) L Hematocrit 34.6 % (42.0-52.0) L Mean Corpuscular Volume 93 FL (80-99) Mean Corpuscular Hemoglobin 33.1 PG (27.0-31.0) H Mean Corpuscular Hemoglobin Concent 35.6 G/DL (32.0-36.0) Red Cell Distribution Width 17.7 % (11.6-14.8) H Platelet Count 132 K/UL (150-450) L Mean Platelet Volume 7.2 FL (6.5-10.1) Neutrophils (%) (Auto) % (45.0-75.0) Lymphocytes (%) (Auto) % (20.0-45.0) Monocytes (%) (Auto) % (1.0-10.0) Eosinophils (%) (Auto) % (0.0-3.0) Basophils (%) (Auto) % (0.0-2.0) Differential Total Cells Counted 100 Neutrophils % (Manual) 60 % (45-75) Lymphocytes % (Manual) 23 % (20-45) Monocytes % (Manual) 11 % (1-10) H Eosinophils % (Manual) 6 % (0-3) H Basophils % (Manual) 0 % (0-2) Band Neutrophils 0 % (0-8) Platelet Estimate Decreased L Platelet Morphology Normal Red Blood Cell Morphology Normal Erythrocyte Sedimentation Rate 53 MM/HR (0-30) H Sodium Level 131 mEQ/L (135-145) L Potassium Level 4.1 mEQ/L (3.4-4.9) Chloride Level 97 mEQ/L (98-107) L Carbon Dioxide Level 20 mEQ/L (20-30) Anion Gap 14 (5-15) Blood Urea Nitrogen 10 mg/dL (7-23) Creatinine 0.7 mg/dL (0.7-1.2) Estimat Glomerular Filtration Rate mL/min (>60) Glucose Level 101 mg/dL (74-106) Calcium Level 8.5 mg/dL (8.6-10.2) L C-Reactive Protein, Quantitative 2.1 mg/dL (< 0.5) H Microbiology Date/Time Source Procedure Growth Status 10/17/16 07:00 Sputum Expectorated Gram Stain - Final Resulted 10/17/16 07:00 Sputum Expectorated Sputum Culture - Preliminary Resulted Intake and Output 10/17/16 10/18/16 19:00 07:00 Intake Total 1090 ml 1035.000 ml Balance 1090 ml 1035.000 ml Intake Oral 320 ml IV Total 770 ml 1035.000 ml # Voids 4 4 Objective General: alert, cooperative, no distress, appears stated age Head: normocephalic, without obvious abnormality, atraumatic Eyes: conjunctivae/corneas clear. PERRL, EOM's intact Throat: lips, mucosa, and tongue normal. MMM Neck: supple, symmetrical, trachea midline, and no JVD Lungs: clear to auscultation bilaterally Heart: regular rate and rhythm, S1, S2 normal, no murmur, click, rub or gallop Abdomen: soft, non-tender, non-distended, bowel sounds normal; no masses or organomegaly Extremities: extremities normal, atraumatic, no cyanosis or edema Pulses: 2+ and symmetric Skin: skin color, texture, turgor normal; no rashes or lesions Neurologic: grossly normal, no focal deficits Assessment/Plan Problem List: (1) Right flank pain Assessment & Plan: Due to pyelonephritis. (2) Colon cancer metastasized to multiple sites Assessment & Plan: On chemotherapy (3) HTN (hypertension) Assessment & Plan: currently hypotensive. (4) Hypercholesteremia (5) Osteoarthritis, knee (6) Pyelonephritis Assessment & Plan: Continue cefepime d #4/; D/C levaquin; and start vanco per ID (7) Fever (8) Sepsis Assessment/Plan Discharge planning ? home IV antibiotics? DEMETRIO CHIRINOS Oct 18, 2016 16:57
[2016-10-18 20:00] VITALS: BP 114/60
[2016-10-18] MEDS: Morphine Sulfate 2mg/ml Inj IVP PRN (21:55)
[2016-10-19] VITALS: BP 94/53
[2016-10-19 04:00] VITALS: BP 109/55
[2016-10-19 07:51] LABS: MEAN CORPUSCULAR HGB CONC 35.5 G/DL (32.0-36.0); MEAN CORPUSCULAR VOLUME 93 FL (80-99); MEAN PLATELET VOLUME 7.8 FL (6.5-10.1); PLATELET COUNT 113 K/UL (150-450); RED BLOOD COUNT 3.63 M/UL (4.70-6.10); RED CELL DISTRIBUTION WIDTH 18.2 % (11.6-14.8); WHITE BLOOD COUNT 3.4 K/UL (4.8-10.8)
[2016-10-19 07:57] LABS: ALANINE AMINOTRANSFERASE 28 U/L (3-41); ANION GAP 12 (5-15); ASPARTATE AMINO TRANSFERASE 50 U/L (5-40); CALCIUM 8.3 mg/dL (8.6-10.2); CARBON DIOXIDE 22 mEQ/L (20-30); CHLORIDE 95 mEQ/L (98-107); CREATININE 0.8 mg/dL (0.7-1.2); HEMOLYSIS 5; MAGNESIUM 1.5 mg/dL (1.7-2.5); PHOSPHORUS 2.6 mg/dL (2.5-4.8); SODIUM 129 mEQ/L (135-145); TOTAL PROTEIN 5.2 g/dL (6.6-8.7)
[2016-10-19] MEDS: Vancomycin 750mg/D5W 275ml IVPB SCH ×2 (08:00)
[2016-10-19 08:45] VITALS: BP 99/65
[2016-10-19] MEDS: Heparin 5000 units/ml inj SUBQ SCH ×2 (09:00→20:42)
[2016-10-19] MEDS: Cefepime HCl 2 GM in D5W 110 ML IV SCH ×2 (09:06→20:42)
[2016-10-19] MEDS: Vancomycin 1gm/D5W 275ml IVPB SCH ×4 (10:26→22:10)
[2016-10-19 12:00] VITALS: BP 113/57
[2016-10-19 13:51] LABS: ANISOCYTOSIS 2+; BAND NEUTROPHILS % (MANUAL) 0 % (0-8); BASOPHILS % (MANUAL) 1 % (0-2); EOSINOPHILS % (MANUAL) 10 % (0-3); LYMPHOCYTES % (MANUAL) 31 % (20-45); METAMYELOCYTES % 1 % (0-0); NEUTROPHILS % (MANUAL) 42 % (45-75); PLATELET ESTIMATE DECREASED; PLATELET MORPHOLOGY NORMAL; TOTAL CELLS COUNTED 100
--- NOTE | 2016-10-19 14:09 | Internal Med Progress Note ---
Subjective Date of Service: Oct 19, 2016 Physician Name Carleen Chirinos Attending Physician Noah Paz MD Current Medications Medications (Trade) Dose Ordered Sig/Chivo Route PRN Reason Start Time Stop Time Status Last Admin Dose Admin Acetaminophen (Tylenol) 650 mg Q4H PRN ORAL fever 10/16/16 00:35 11/15/16 00:34 10/17/16 20:00 Albuterol/ Ipratropium (DuoNeb 0.5-3(2.5)mg/3ml) 3 ml Q4H PRN HHN Shortness of Breath 10/16/16 00:36 10/21/16 00:35 Cefepime HCl/ Dextrose (Maxipime/D5W) 110 ml @ 220 mls/hr EVERY 12 HOURS IV 10/16/16 09:00 10/23/16 08:59 10/19/16 09:06 Heparin Sodium (Porcine) (Heparin 5000 units/ml) 5,000 units EVERY 12 HOURS SUBQ 10/16/16 09:00 11/15/16 08:59 Morphine Sulfate (Morphine Sulfate) 2 mg Q4H PRN IVP Moderate Pain (Pain Scale 4-6) 10/16/16 00:36 10/23/16 00:35 10/18/16 21:55 Nitroglycerin (Ntg) 0.4 mg Q5M PRN SL Prn Chest Pain 10/16/16 00:05 11/15/16 00:04 Ondansetron HCl (Zofran) 4 mg Q6H PRN IVP Nausea & Vomiting 10/16/16 00:37 11/15/16 00:36 Polyethylene Glycol (Miralax) 17 gm DAILYPRN PRN ORAL Constipation 10/16/16 00:37 11/15/16 00:36 Sodium Chloride (Sodium Chloride 1000ml bag) 1,000 ml @ 75 mls/hr [id number] IV 10/16/16 12:00 11/15/16 11:59 10/19/16 09:00 Temazepam 15 mg 15 mg HSPRN PRN ORAL Insomnia 10/16/16 22:30 10/23/16 22:29 Vancomycin HCl 1 ea 1 ea DAILY PRN MISC Per rx protocol 10/17/16 21:30 11/16/16 21:29 Vancomycin HCl/ Dextrose (Vancomycin/D5W) 275 ml @ 183.708 mls/hr Q12HR@1000,2200 IVPB 10/19/16 10:00 10/24/16 09:59 10/19/16 10:26 Allergies: Coded Allergies: No Known Allergies (Unverified , 10/25/13) ROS Limited/Unobtainable: No Constitutional: Reports: no symptoms HEENT: Reports: no symptoms Cardiovascular: Reports: no symptoms Respiratory: Reports: no symptoms Gastrointestinal/Abdominal: Reports: no symptoms Genitourinary: Reports: no symptoms Neurologic/Psychiatric: Reports: no symptoms Subjective 80 YO M admitted with fever and chills. Now pyelonephritis and sepsis. Cover for Int [place]-Dr Paz. Objective Last Vital Signs Date Time Temp Pulse Resp B/P Pulse Ox O2 Delivery O2 Flow Rate FiO2 10/19/16 12:00 97.7 86 18 113/57 96 Room Air 10/19/16 07:30 21 10/19/16 04:00 2.0 Laboratory Tests Test 10/19/16 07:15 White Blood Count 3.4 K/UL (4.8-10.8) L Red Blood Count 3.63 M/UL (4.70-6.10) L Hemoglobin 12.0 G/DL (14.2-18.0) L Hematocrit 33.7 % (42.0-52.0) L Mean Corpuscular Volume 93 FL (80-99) Mean Corpuscular Hemoglobin 33.0 PG (27.0-31.0) H Mean Corpuscular Hemoglobin Concent 35.5 G/DL (32.0-36.0) Red Cell Distribution Width 18.2 % (11.6-14.8) H Platelet Count 113 K/UL (150-450) L Mean Platelet Volume 7.8 FL (6.5-10.1) Neutrophils (%) (Auto) % (45.0-75.0) Lymphocytes (%) (Auto) % (20.0-45.0) Monocytes (%) (Auto) % (1.0-10.0) Eosinophils (%) (Auto) % (0.0-3.0) Basophils (%) (Auto) % (0.0-2.0) Differential Total Cells Counted 100 Neutrophils % (Manual) 42 % (45-75) L Lymphocytes % (Manual) 31 % (20-45) Monocytes % (Manual) 15 % (1-10) H Eosinophils % (Manual) 10 % (0-3) H Basophils % (Manual) 1 % (0-2) Metamyelocytes % 1 % (0-0) H Band Neutrophils 0 % (0-8) Platelet Estimate Decreased L Platelet Morphology Normal Anisocytosis 2+ Sodium Level 129 mEQ/L (135-145) L Potassium Level 4.0 mEQ/L (3.4-4.9) Chloride Level 95 mEQ/L (98-107) L Carbon Dioxide Level 22 mEQ/L (20-30) Anion Gap 12 (5-15) Blood Urea Nitrogen 10 mg/dL (7-23) Creatinine 0.8 mg/dL (0.7-1.2) Estimat Glomerular Filtration Rate mL/min (>60) Glucose Level 102 mg/dL (74-106) Calcium Level 8.3 mg/dL (8.6-10.2) L Phosphorus Level 2.6 mg/dL (2.5-4.8) Magnesium Level 1.5 mg/dL (1.7-2.5) L Total Bilirubin 0.3 mg/dL (0.0-1.2) Aspartate Amino Transf (AST/SGOT) 50 U/L (5-40) H Alanine Aminotransferase (ALT/SGPT) 28 U/L (3-41) Alkaline Phosphatase 53 U/L (40-129) Total Protein 5.2 g/dL (6.6-8.7) L Albumin 2.6 g/dL (3.5-5.2) L Globulin 2.6 g/dL Albumin/Globulin Ratio 1.0 (1.0-2.7) Vancomycin Level Trough 8.9 ug/mL (5.0-12.0) Microbiology Date/Time Source Procedure Growth Status 10/17/16 07:00 Sputum Expectorated Gram Stain - Final Complete 10/17/16 07:00 Sputum Expectorated Sputum Culture - Final NORMAL UPPER RESPIRATORY TOM AT 48 ... Complete Intake and Output 10/18/16 10/19/16 19:00 07:00 Intake Total 1745 ml 1410.000 ml Output Total 1200 ml 1000 ml Balance 545 ml 410.000 ml Intake Oral 920 ml 280 ml IV Total 825 ml 1130.000 ml Output Urine Total 1200 ml 1000 ml # Voids 3 # Bowel Movements 2 1 Objective General: alert, cooperative, no distress, appears stated age Head: normocephalic, without obvious abnormality, atraumatic Eyes: conjunctivae/corneas clear. PERRL, EOM's intact Throat: lips, mucosa, and tongue normal. MMM Neck: supple, symmetrical, trachea midline, and no JVD Lungs: clear to auscultation bilaterally Heart: regular rate and rhythm, S1, S2 normal, no murmur, click, rub or gallop Abdomen: soft, non-tender, non-distended, bowel sounds normal; no masses or organomegaly Extremities: extremities normal, atraumatic, no cyanosis or edema Pulses: 2+ and symmetric Skin: skin color, texture, turgor normal; no rashes or lesions Neurologic: grossly normal, no focal deficits Assessment/Plan Problem List: (1) Right flank pain Assessment & Plan: Due to pyelonephritis. (2) Colon cancer metastasized to multiple sites Assessment & Plan: On chemotherapy (3) HTN (hypertension) Assessment & Plan: currently hypotensive. (4) Hypercholesteremia (5) Osteoarthritis, knee (6) Pyelonephritis Assessment & Plan: Continue cefepime d #4/14; D/C levaquin; and start vanco per ID (7) Fever (8) Sepsis Status: not improved Assessment/Plan Discharge planning ? home IV antibiotics? CARLEEN CHIRINOS Oct 19, 2016 14:09
[2016-10-19 16:12] VITALS: BP 119/63
--- NOTE | 2016-10-19 18:25 | Pulmonology Progress Note ---
Assessment/Plan Problems: (1) Sepsis (2) Fever (3) Pyelonephritis (4) Protein-calorie malnutrition, severe (5) Metastatic cancer Assessment/Plan one episode of fever last night CT abdomen and pelvis reviewed continue abx, check cultures. all cultures negative [place] check electrolytes\ check electrolytes Subjective ROS Limited/Unobtainable: No Constitutional: Reports: no symptoms HEENT: Repors: no symptoms Respiratory: Reports: no symptoms Cardiovascular: Reports: no symptoms Allergies: Coded Allergies: No Known Allergies (Unverified , 10/25/13) Objective Last 24 Hour Vital Signs Date Time Temp Pulse Resp B/P Pulse Ox O2 Delivery O2 Flow Rate FiO2 10/19/16 16:12 98.8 73 18 119/63 96 Room Air 10/19/16 12:00 97.7 86 18 113/57 96 Room Air 10/19/16 08:45 98.1 85 19 99/65 95 Nasal Cannula 10/19/16 07:30 86 20 Room Air 21 10/19/16 04:00 98.6 79 20 109/55 96 Nasal Cannula 2.0 10/19/16 00:00 99.0 78 20 94/53 96 Nasal Cannula 2.0 10/18/16 22:28 99.0 10/18/16 20:00 97.5 80 18 114/60 99 Room Air 10/18/16 19:15 72 18 Room Air Intake and Output 10/18/16 10/19/16 19:00 07:00 Intake Total 1745 ml 1410.000 ml Output Total 1200 ml 1000 ml Balance 545 ml 410.000 ml Intake Oral 920 ml 280 ml IV Total 825 ml 1130.000 ml Output Urine Total 1200 ml 1000 ml # Voids 3 # Bowel Movements 2 1 General Appearance: WD/WN HEENT: normocephalic, atraumatic Respiratory/Chest: chest wall non-tender Cardiovascular: normal peripheral pulses Abdomen: normal bowel sounds Skin: no rash Microbiology Date/Time Source Procedure Growth Status 10/17/16 07:00 Sputum Expectorated Gram Stain - Final Complete 10/17/16 07:00 Sputum Expectorated Sputum Culture - Final NORMAL UPPER RESPIRATORY TOM AT 48 ... Complete Laboratory Tests 10/19/16 07:15: White Blood Count 3.4L, Red Blood Count 3.63L, Hemoglobin 12.0L, Hematocrit 33.7L, Mean Corpuscular Volume 93, Mean Corpuscular Hemoglobin 33.0H, Mean Corpuscular Hemoglobin Concent 35.5, Red Cell Distribution Width 18.2H, Platelet Count 113L, Mean Platelet Volume 7.8, Neutrophils (%) (Auto) , Lymphocytes (%) (Auto) , Monocytes (%) (Auto) , Eosinophils (%) (Auto) , Basophils (%) (Auto) , Differential Total Cells Counted 100, Neutrophils % ( Manual) 42L, Lymphocytes % (Manual) 31, Monocytes % (Manual) 15H, Eosinophils % (Manual) 10H, Basophils % (Manual) 1, Metamyelocytes % 1H, Band Neutrophils 0, Platelet Estimate DecreasedL, Platelet Morphology Normal, Anisocytosis 2+, Sodium Level 129L, Potassium Level 4.0, Chloride Level 95L, Carbon Dioxide Level 22, Anion Gap 12, Blood Urea Nitrogen 10, Creatinine 0.8, Estimat Glomerular Filtration Rate , Glucose Level 102, Calcium Level 8.3L, Phosphorus Level 2.6, Magnesium Level 1.5L, Total Bilirubin 0.3, Aspartate Amino Transf ( AST/SGOT) 50H, Alanine Aminotransferase (ALT/SGPT) 28, Alkaline Phosphatase 53, Total Protein 5.2L, Albumin 2.6L, Globulin 2.6, Albumin/Globulin Ratio 1.0, Vancomycin Level Trough 8.9 Current Medications Medications (Trade) Dose Ordered Sig/Chivo Route PRN Reason Start Time Stop Time Status Last Admin Dose Admin Acetaminophen (Tylenol) 650 mg Q4H PRN ORAL fever 10/16/16 00:35 11/15/16 00:34 10/17/16 20:00 Albuterol/ Ipratropium (DuoNeb 0.5-3(2.5)mg/3ml) 3 ml Q4H PRN HHN Shortness of Breath 10/16/16 00:36 10/21/16 00:35 Cefepime HCl/ Dextrose (Maxipime/D5W) 110 ml @ 220 mls/hr EVERY 12 HOURS IV 10/16/16 09:00 10/23/16 08:59 10/19/16 09:06 Heparin Sodium (Porcine) (Heparin 5000 units/ml) 5,000 units EVERY 12 HOURS SUBQ 10/16/16 09:00 11/15/16 08:59 Morphine Sulfate (Morphine Sulfate) 2 mg Q4H PRN IVP Moderate Pain (Pain Scale 4-6) 10/16/16 00:36 10/23/16 00:35 10/18/16 21:55 Nitroglycerin (Ntg) 0.4 mg Q5M PRN SL Prn Chest Pain 10/16/16 00:05 11/15/16 00:04 Ondansetron HCl (Zofran) 4 mg Q6H PRN IVP Nausea & Vomiting 10/16/16 00:37 11/15/16 00:36 Polyethylene Glycol (Miralax) 17 gm DAILYPRN PRN ORAL Constipation 10/16/16 00:37 11/15/16 00:36 Sodium Chloride (Sodium Chloride 1000ml bag) 1,000 ml @ 75 mls/hr [id number] IV 10/16/16 12:00 11/15/16 11:59 10/19/16 09:00 Temazepam 15 mg 15 mg HSPRN PRN ORAL Insomnia 10/16/16 22:30 10/23/16 22:29 Vancomycin HCl 1 ea 1 ea DAILY PRN MISC Per rx protocol 10/17/16 21:30 11/16/16 21:29 Vancomycin HCl/ Dextrose (Vancomycin/D5W) 275 ml @ 183.708 mls/hr Q12HR@1000,2200 IVPB 10/19/16 10:00 10/24/16 09:59 10/19/16 10:26 DIONI PATEL Oct 19, 2016 18:25
[2016-10-19 20:00] VITALS: BP 118/54
[2016-10-20] VITALS: BP 114/53
[2016-10-20 04:00] VITALS: BP 113/58
[2016-10-20 07:51] LABS: BASOPHILS % (AUTO) 1.3 % (0.0-2.0); EOSINOPHILS % (AUTO) 9.2 % (0.0-3.0); LYMPHOCYTES % (AUTO) 36.2 % (20.0-45.0); MEAN CORPUSCULAR HEMOGLOBIN 32.4 PG (27.0-31.0); MEAN CORPUSCULAR HGB CONC 34.6 G/DL (32.0-36.0); MEAN CORPUSCULAR VOLUME 94 FL (80-99); MEAN PLATELET VOLUME 9.2 FL (6.5-10.1); MONOCYTES % (AUTO) 16.3 % (1.0-10.0); PLATELET COUNT 110 K/UL (150-450); RED BLOOD COUNT 3.76 M/UL (4.70-6.10); WHITE BLOOD COUNT 4.1 K/UL (4.8-10.8)
[2016-10-20 08:00] VITALS: BP 112/65
[2016-10-20 08:06] LABS: ANION GAP 14 (5-15); CALCIUM 8.5 mg/dL (8.6-10.2); CARBON DIOXIDE 20 mEQ/L (20-30); CHLORIDE 100 mEQ/L (98-107); CREATININE 0.7 mg/dL (0.7-1.2); HEMOLYSIS 33; POTASSIUM 4.2 mEQ/L (3.4-4.9); SODIUM 134 mEQ/L (135-145)
[2016-10-20] MEDS: Heparin 5000 units/ml inj SUBQ SCH ×2 (08:27→20:40)
[2016-10-20] MEDS: Cefepime HCl 2 GM in D5W 110 ML IV SCH ×2 (08:33→20:40)
[2016-10-20] MEDS: DuoNeb 0.5-3(2.5)mg/3ml neb HHN PRN (08:47)
[2016-10-20] MEDS ORDERED: Promethazine/Codeine 5ml UD ORAL PRN (09:00)
--- NOTE | 2016-10-20 09:35 | Diagnostic Imaging Report ---
Indications: Shortness of breath Technique: Portable AP chest Findings: Comparison: 07/01/2016 Cardiac silhouette remains normal in size. Pulmonary vasculature remains within normal limits. Small linear density persists in the left costophrenic angle. Lungs and pleura remain otherwise clear. Mild calcification and elongation of the aortic arch again noted. Prominence of the right paratracheal soft tissues with mild mass effect has apparently increased.. IMPRESSION: No evidence of acute disease, unchanged Apparent increase in right paratracheal soft tissue prominence may represent increase in vascular ectasia. Other pathology including but not limited to thyroid enlargement/mass not excludable. Other stable chronic changes as described
[2016-10-20] MEDS: Vancomycin 1gm/D5W 275ml IVPB SCH ×4 (10:03→22:38)
--- NOTE | 2016-10-20 10:23 | Infectious Diseases Prog Note ---
Assessment/Plan Assessment/Plan ASSESSMENT: 80-year-old male with: Probable urinary tract infection/right-sided pyelonephritis. UCx : Neg Ultrasound of the kidneys : no obst Cough, probable bronchitis CXR 10/20: No evidence of acute disease, unchanged Leukopenia. 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 SP chemo TCP NKDA Full Code PLAN: continue IV cefepime d# , IV Vanco d# 4 / 5 ( 10/17 SP Levaquin d# 3 ) Monitor CBC, temperatures, re-culture if acute change Monitor BMP Monitor chest x-ray Subjective Allergies: Coded Allergies: No Known Allergies (Unverified , 10/25/13) Subjective fevers resolved, cultures NGTD CT noted Objective Vital Signs Last 24 Hour Vital Signs Date Time Temp Pulse Resp B/P Pulse Ox O2 Delivery O2 Flow Rate FiO2 10/20/16 08:57 83 18 95 Nasal Cannula 10/20/16 08:47 83 18 95 Room Air 10/20/16 08:00 97.7 85 18 112/65 92 Room Air 10/20/16 07:20 83 18 Room Air 21 10/20/16 04:00 97.7 102 20 113/58 96 Room Air 10/20/16 00:00 97.9 73 20 114/53 94 Room Air 10/19/16 20:00 98.8 91 20 118/54 96 Room Air 10/19/16 19:50 75 18 Room Air 21 10/19/16 16:12 98.8 73 18 119/63 96 Room Air 10/19/16 12:00 97.7 86 18 113/57 96 Room Air Height (Feet): 6 Height (Inches): 0.00 Weight (Pounds): 140 General Appearance: no acute distress Respiratory/Chest: no respiratory distress Cardiovascular: normal rate, regular rhythm Abdomen: normal bowel sounds, soft, non tender, non distended Laboratory Tests Test 10/20/16 05:45 White Blood Count 4.1 K/UL (4.8-10.8) L Red Blood Count 3.76 M/UL (4.70-6.10) L Hemoglobin 12.2 G/DL (14.2-18.0) L Hematocrit 35.2 % (42.0-52.0) L Mean Corpuscular Volume 94 FL (80-99) Mean Corpuscular Hemoglobin 32.4 PG (27.0-31.0) H Mean Corpuscular Hemoglobin Concent 34.6 G/DL (32.0-36.0) Red Cell Distribution Width 18.0 % (11.6-14.8) H Platelet Count 110 K/UL (150-450) L Mean Platelet Volume 9.2 FL (6.5-10.1) Neutrophils (%) (Auto) 37.0 % (45.0-75.0) L Lymphocytes (%) (Auto) 36.2 % (20.0-45.0) Monocytes (%) (Auto) 16.3 % (1.0-10.0) H Eosinophils (%) (Auto) 9.2 % (0.0-3.0) H Basophils (%) (Auto) 1.3 % (0.0-2.0) Sodium Level 134 mEQ/L (135-145) L Potassium Level 4.2 mEQ/L (3.4-4.9) Chloride Level 100 mEQ/L (98-107) Carbon Dioxide Level 20 mEQ/L (20-30) Anion Gap 14 (5-15) Blood Urea Nitrogen 8 mg/dL (7-23) Creatinine 0.7 mg/dL (0.7-1.2) Estimat Glomerular Filtration Rate mL/min (>60) Glucose Level 98 mg/dL (74-106) Calcium Level 8.5 mg/dL (8.6-10.2) L Current Medications Medications (Trade) Dose Ordered Sig/Chivo Route PRN Reason Start Time Stop Time Status Last Admin Dose Admin Acetaminophen (Tylenol) 650 mg Q4H PRN ORAL fever 10/16/16 00:35 11/15/16 00:34 10/17/16 20:00 Albuterol/ Ipratropium (DuoNeb 0.5-3(2.5)mg/3ml) 3 ml Q4H PRN HHN Shortness of Breath 10/16/16 00:36 10/21/16 00:35 10/20/16 08:47 Cefepime HCl/ Dextrose (Maxipime/D5W) 110 ml @ 220 mls/hr EVERY 12 HOURS IV 10/16/16 09:00 10/23/16 08:59 10/20/16 08:33 Heparin Sodium (Porcine) (Heparin 5000 units/ml) 5,000 units EVERY 12 HOURS SUBQ 10/16/16 09:00 11/15/16 08:59 Morphine Sulfate (Morphine Sulfate) 2 mg Q4H PRN IVP Moderate Pain (Pain Scale 4-6) 10/16/16 00:36 10/23/16 00:35 10/18/16 21:55 Nitroglycerin (Ntg) 0.4 mg Q5M PRN SL Prn Chest Pain 10/16/16 00:05 11/15/16 00:04 Ondansetron HCl (Zofran) 4 mg Q6H PRN IVP Nausea & Vomiting 10/16/16 00:37 11/15/16 00:36 Polyethylene Glycol (Miralax) 17 gm DAILYPRN PRN ORAL Constipation 10/16/16 00:37 11/15/16 00:36 Promethazine HCl/ Codeine (Phenergan with Codeine) 5 ml Q4H PRN ORAL For Cough 10/20/16 09:00 11/19/16 08:59 Sodium Chloride (Sodium Chloride 1000ml bag) 1,000 ml @ 75 mls/hr [id number] IV 10/16/16 12:00 11/15/16 11:59 10/20/16 05:50 Temazepam 15 mg 15 mg HSPRN PRN ORAL Insomnia 10/16/16 22:30 10/23/16 22:29 Vancomycin HCl 1 ea 1 ea DAILY PRN MISC Per rx protocol 10/17/16 21:30 11/16/16 21:29 Vancomycin HCl/ Dextrose (Vancomycin/D5W) 275 ml @ 183.708 mls/hr Q12HR@1000,2200 IVPB 10/19/16 10:00 10/24/16 09:59 10/20/16 10:03 ANA GOMEZ 25, 2017 10:23
[2016-10-20 12:01] VITALS: BP 107/59
--- NOTE | 2016-10-20 13:43 | Internal Med Progress Note ---
Subjective Date of Service: Oct 20, 2016 Physician Name Chirinos,Carleen Attending Physician Noah Paz MD Current Medications Medications (Trade) Dose Ordered Sig/Chivo Route PRN Reason Start Time Stop Time Status Last Admin Dose Admin Acetaminophen (Tylenol) 650 mg Q4H PRN ORAL fever 10/16/16 00:35 11/15/16 00:34 10/17/16 20:00 Albuterol/ Ipratropium (DuoNeb 0.5-3(2.5)mg/3ml) 3 ml Q4H PRN HHN Shortness of Breath 10/16/16 00:36 10/21/16 00:35 10/20/16 08:47 Cefepime HCl/ Dextrose (Maxipime/D5W) 110 ml @ 220 mls/hr EVERY 12 HOURS IV 10/16/16 09:00 10/23/16 08:59 10/20/16 08:33 Heparin Sodium (Porcine) (Heparin 5000 units/ml) 5,000 units EVERY 12 HOURS SUBQ 10/16/16 09:00 11/15/16 08:59 Morphine Sulfate (Morphine Sulfate) 2 mg Q4H PRN IVP Moderate Pain (Pain Scale 4-6) 10/16/16 00:36 10/23/16 00:35 10/18/16 21:55 Nitroglycerin (Ntg) 0.4 mg Q5M PRN SL Prn Chest Pain 10/16/16 00:05 11/15/16 00:04 Ondansetron HCl (Zofran) 4 mg Q6H PRN IVP Nausea & Vomiting 10/16/16 00:37 11/15/16 00:36 Polyethylene Glycol (Miralax) 17 gm DAILYPRN PRN ORAL Constipation 10/16/16 00:37 11/15/16 00:36 Promethazine HCl/ Codeine (Phenergan with Codeine) 5 ml Q4H PRN ORAL For Cough 10/20/16 09:00 11/19/16 08:59 10/20/16 10:43 Sodium Chloride (Sodium Chloride 1000ml bag) 1,000 ml @ 75 mls/hr [id number] IV 10/16/16 12:00 11/15/16 11:59 10/20/16 05:50 Temazepam 15 mg 15 mg HSPRN PRN ORAL Insomnia 10/16/16 22:30 6/28/17 22:29 Vancomycin HCl 1 ea 1 ea DAILY PRN MISC Per rx protocol 10/17/16 21:30 11/16/16 21:29 Vancomycin HCl/ Dextrose (Vancomycin/D5W) 275 ml @ 183.708 mls/hr Q12HR@1000,2200 IVPB 10/19/16 10:00 10/24/16 09:59 10/20/16 10:03 Allergies: Coded Allergies: No Known Allergies (Unverified , 10/25/13) ROS Limited/Unobtainable: No Constitutional: Reports: chills, fever HEENT: Reports: no symptoms Cardiovascular: Reports: no symptoms Respiratory: Reports: no symptoms Gastrointestinal/Abdominal: Reports: no symptoms Genitourinary: Reports: no symptoms Neurologic/Psychiatric: Reports: no symptoms Subjective 80 YO M admitted with fever and chills. Now pyelonephritis and sepsis. Cover for Int [facility]-Dr Paz. Objective Last Vital Signs Date Time Temp Pulse Resp B/P Pulse Ox O2 Delivery O2 Flow Rate FiO2 10/20/16 12:01 97.9 75 19 107/59 97 Nasal Cannula 2.0 10/20/16 07:20 21 Laboratory Tests Test 10/20/16 05:45 White Blood Count 4.1 K/UL (4.8-10.8) L Red Blood Count 3.76 M/UL (4.70-6.10) L Hemoglobin 12.2 G/DL (14.2-18.0) L Hematocrit 35.2 % (42.0-52.0) L Mean Corpuscular Volume 94 FL (80-99) Mean Corpuscular Hemoglobin 32.4 PG (27.0-31.0) H Mean Corpuscular Hemoglobin Concent 34.6 G/DL (32.0-36.0) Red Cell Distribution Width 18.0 % (11.6-14.8) H Platelet Count 110 K/UL (150-450) L Mean Platelet Volume 9.2 FL (6.5-10.1) Neutrophils (%) (Auto) 37.0 % (45.0-75.0) L Lymphocytes (%) (Auto) 36.2 % (20.0-45.0) Monocytes (%) (Auto) 16.3 % (1.0-10.0) H Eosinophils (%) (Auto) 9.2 % (0.0-3.0) H Basophils (%) (Auto) 1.3 % (0.0-2.0) Sodium Level 134 mEQ/L (135-145) L Potassium Level 4.2 mEQ/L (3.4-4.9) Chloride Level 100 mEQ/L (98-107) Carbon Dioxide Level 20 mEQ/L (20-30) Anion Gap 14 (5-15) Blood Urea Nitrogen 8 mg/dL (7-23) Creatinine 0.7 mg/dL (0.7-1.2) Estimat Glomerular Filtration Rate mL/min (>60) Glucose Level 98 mg/dL (74-106) Calcium Level 8.5 mg/dL (8.6-10.2) L Intake and Output 10/19/16 10/20/16 19:00 07:00 Intake Total 1772 ml 910.000 ml Output Total 900 ml Balance 1772 ml 10.000 ml IV Total 1772 ml 910.000 ml Output Urine Total 900 ml # Voids 4 # Bowel Movements 1 Objective General: alert, cooperative, no distress, appears stated age Head: normocephalic, without obvious abnormality, atraumatic Eyes: conjunctivae/corneas clear. PERRL, EOM's intact Throat: lips, mucosa, and tongue normal. MMM Neck: supple, symmetrical, trachea midline, and no JVD Lungs: clear to auscultation bilaterally Heart: regular rate and rhythm, S1, S2 normal, no murmur, click, rub or gallop Abdomen: soft, non-tender, non-distended, bowel sounds normal; no masses or organomegaly Extremities: extremities normal, atraumatic, no cyanosis or edema Pulses: 2+ and symmetric Skin: skin color, texture, turgor normal; no rashes or lesions Neurologic: grossly normal, no focal deficits Assessment/Plan Problem List: (1) Right flank pain Assessment & Plan: Due to pyelonephritis. (2) Colon cancer metastasized to multiple sites Assessment & Plan: On chemotherapy (3) HTN (hypertension) Assessment & Plan: currently hypotensive. (4) Hypercholesteremia (5) Osteoarthritis, knee (6) Pyelonephritis Assessment & Plan: Continue cefepime d #6/14 and D# 4/5 vanco per ID (7) Fever (8) Sepsis Status: progressing Assessment/Plan Discharge planning ? home IV antibiotics? CARLEEN CHIRINOS Oct 20, 2016 13:43
[2016-10-20 16:00] VITALS: BP 109/64
[2016-10-20] MEDS: Morphine Sulfate 2mg/ml Inj IVP PRN (17:45)
--- NOTE | 2016-10-20 18:00 | Pulmonology Progress Note ---
Assessment/Plan Problems: (1) Sepsis (2) Fever (3) Pyelonephritis (4) Protein-calorie malnutrition, severe (5) Metastatic cancer Assessment/Plan cxr was negative CT abdomen and pelvis reviewed continue abx, check cultures. all cultures negative sofar check electrolytes\ check electrolytes probably dc planning soon Subjective ROS Limited/Unobtainable: No Interval Events: was short of breath earlier, improvined now Allergies: Coded Allergies: No Known Allergies (Unverified , 10/25/13) Objective Last 24 Hour Vital Signs Date Time Temp Pulse Resp B/P Pulse Ox O2 Delivery O2 Flow Rate FiO2 10/20/16 16:00 99.3 76 19 109/64 97 Nasal Cannula 2.0 10/20/16 12:01 97.9 75 19 107/59 97 Nasal Cannula 2.0 10/20/16 08:57 83 18 95 Nasal Cannula 10/20/16 08:47 83 18 95 Room Air 10/20/16 08:00 97.7 85 18 112/65 92 Room Air 10/20/16 07:20 83 18 Room Air 21 10/20/16 04:00 97.7 102 20 113/58 96 Room Air 10/20/16 00:00 97.9 73 20 114/53 94 Room Air 10/19/16 20:00 98.8 91 20 118/54 96 Room Air 10/19/16 19:50 75 18 Room Air 21 Intake and Output 10/19/16 10/20/16 19:00 07:00 Intake Total 1772 ml 910.000 ml Output Total 900 ml Balance 1772 ml 10.000 ml IV Total 1772 ml 910.000 ml Output Urine Total 900 ml # Voids 4 # Bowel Movements 1 General Appearance: cachetic HEENT: normocephalic, atraumatic Respiratory/Chest: chest wall non-tender, lungs clear, normal breath sounds Cardiovascular: normal peripheral pulses, normal rate Abdomen: normal bowel sounds, soft, non tender Genitourinary: normal external genitalia Extremities: no cyanosis Skin: no rash Laboratory Tests 10/20/16 05:45: White Blood Count 4.1L, Red Blood Count 3.76L, Hemoglobin 12.2L, Hematocrit 35.2L, Mean Corpuscular Volume 94, Mean Corpuscular Hemoglobin 32.4H, Mean Corpuscular Hemoglobin Concent 34.6, Red Cell Distribution Width 18.0H, Platelet Count 110L, Mean Platelet Volume 9.2, Neutrophils (%) (Auto) 37.0L, Lymphocytes (%) (Auto) 36.2, Monocytes (%) (Auto) 16.3H, Eosinophils (%) (Auto) 9.2H, Basophils (%) (Auto) 1.3, Sodium Level 134L, Potassium Level 4.2, Chloride Level 100, Carbon Dioxide Level 20, Anion Gap 14, Blood Urea Nitrogen 8 , Creatinine 0.7, Estimat Glomerular Filtration Rate , Glucose Level 98, Calcium Level 8.5L Current Medications Medications (Trade) Dose Ordered Sig/Chivo Route PRN Reason Start Time Stop Time Status Last Admin Dose Admin Acetaminophen (Tylenol) 650 mg Q4H PRN ORAL fever 10/16/16 00:35 11/15/16 00:34 10/17/16 20:00 Albuterol/ Ipratropium (DuoNeb 0.5-3(2.5)mg/3ml) 3 ml Q4H PRN HHN Shortness of Breath 10/16/16 00:36 10/21/16 00:35 10/20/16 08:47 Cefepime HCl/ Dextrose (Maxipime/D5W) 110 ml @ 220 mls/hr EVERY 12 HOURS IV 10/16/16 09:00 10/23/16 08:59 10/20/16 08:33 Heparin Sodium (Porcine) (Heparin 5000 units/ml) 5,000 units EVERY 12 HOURS SUBQ 10/16/16 09:00 11/15/16 08:59 Morphine Sulfate (Morphine Sulfate) 2 mg Q4H PRN IVP Moderate Pain (Pain Scale 4-6) 10/16/16 00:36 10/23/16 00:35 10/20/16 17:45 Nitroglycerin (Ntg) 0.4 mg Q5M PRN SL Prn Chest Pain 10/16/16 00:05 11/15/16 00:04 Ondansetron HCl (Zofran) 4 mg Q6H PRN IVP Nausea & Vomiting 10/16/16 00:37 11/15/16 00:36 Polyethylene Glycol (Miralax) 17 gm DAILYPRN PRN ORAL Constipation 10/16/16 00:37 11/15/16 00:36 Promethazine HCl/ Codeine (Phenergan with Codeine) 5 ml Q4H PRN ORAL For Cough 10/20/16 09:00 11/19/16 08:59 10/20/16 10:43 Sodium Chloride (Sodium Chloride 1000ml bag) 1,000 ml @ 75 mls/hr [id number] IV 10/16/16 12:00 11/15/16 11:59 10/20/16 05:50 Temazepam 15 mg 15 mg HSPRN PRN ORAL Insomnia 10/16/16 22:30 10/23/16 22:29 Vancomycin HCl 1 ea 1 ea DAILY PRN MISC Per rx protocol 10/17/16 21:30 11/16/16 21:29 Vancomycin HCl/ Dextrose (Vancomycin/D5W) 275 ml @ 183.708 mls/hr Q12HR@1000,2200 IVPB 10/19/16 10:00 10/24/16 09:59 10/20/16 10:03 DIONI PATEL Oct 20, 2016 18:00
[2016-10-20 20:00] VITALS: BP 113/60
[2016-10-21] VITALS: BP 122/66
[2016-10-21] MEDS: DuoNeb 0.5-3(2.5)mg/3ml neb HHN PRN ×2 (00:01→08:33)
[2016-10-21 04:00] VITALS: BP 129/88
[2016-10-21 06:10] LABS: MEAN CORPUSCULAR VOLUME 94 FL (80-99); MEAN PLATELET VOLUME 7.5 FL (6.5-10.1); PLATELET COUNT 95 K/UL (150-450); RED CELL DISTRIBUTION WIDTH 18.2 % (11.6-14.8); WHITE BLOOD COUNT 4.7 K/UL (4.8-10.8)
[2016-10-21 06:34] LABS: MAGNESIUM 1.6 mg/dL (1.7-2.5); PHOSPHORUS 3.4 mg/dL (2.5-4.8)
[2016-10-21 06:38] LABS: ALANINE AMINOTRANSFERASE 32 U/L (3-41); ANION GAP 17 (5-15); ASPARTATE AMINO TRANSFERASE 53 U/L (5-40); CALCIUM 8.9 mg/dL (8.6-10.2); CARBON DIOXIDE 21 mEQ/L (20-30); CHLORIDE 97 mEQ/L (98-107); CREATININE 0.7 mg/dL (0.7-1.2); HEMOLYSIS 1; POTASSIUM 3.8 mEQ/L (3.4-4.9); SODIUM 135 mEQ/L (135-145); TOTAL PROTEIN 5.3 g/dL (6.6-8.7)
[2016-10-21 08:00] VITALS: BP 124/64
[2016-10-21 08:30] LABS: ANISOCYTOSIS 1+; BAND NEUTROPHILS % (MANUAL) 0 % (0-8); BASOPHILS % (MANUAL) 0 % (0-2); EOSINOPHILS % (MANUAL) 11 % (0-3); LYMPHOCYTES % (MANUAL) 36 % (20-45); NEUTROPHILS % (MANUAL) 40 % (45-75); PLATELET ESTIMATE DECREASED; PLATELET MORPHOLOGY NORMAL; TOTAL CELLS COUNTED 100
[2016-10-21] MEDS: Heparin 5000 units/ml inj SUBQ SCH ×2 (09:00→21:00)
[2016-10-21] MEDS: Cefepime HCl 2 GM in D5W 110 ML IV SCH ×2 (09:21→20:16)
[2016-10-21] MEDS: Vancomycin 1gm/D5W 275ml IVPB SCH ×2 (11:31)
[2016-10-21 12:00] VITALS: BP 110/63
--- NOTE | 2016-10-21 15:31 | Pulmonology Progress Note ---
Assessment/Plan Problems: (1) Sepsis (2) Fever (3) Pyelonephritis (4) Protein-calorie malnutrition, severe (5) Metastatic cancer Assessment/Plan continue abx, check cultures. all cultures negative sofar check electrolytes\ check electrolytes dc home with 10 more days of IV antibiotics Subjective ROS Limited/Unobtainable: No Constitutional: Reports: no symptoms HEENT: Repors: no symptoms Respiratory: Reports: no symptoms Allergies: Coded Allergies: No Known Allergies (Unverified , 10/25/13) Objective Last 24 Hour Vital Signs Date Time Temp Pulse Resp B/P Pulse Ox O2 Delivery O2 Flow Rate FiO2 10/21/16 12:00 97.9 85 20 110/63 99 Room Air 10/21/16 08:42 88 18 98 Nasal Cannula 2.0 28 10/21/16 08:33 85 18 98 Nasal Cannula 2.0 28 10/21/16 08:00 98.2 75 20 124/64 95 Room Air 10/21/16 07:23 75 18 Room Air 21 10/21/16 04:00 97.8 87 18 129/88 95 Nasal Cannula 2.0 10/21/16 00:42 85 18 98 Nasal Cannula 2.0 28 10/21/16 00:03 82 18 98 Nasal Cannula 2.0 28 10/21/16 00:00 98.4 79 20 122/66 94 Nasal Cannula 2.0 10/20/16 20:00 98.2 86 18 113/60 98 Nasal Cannula 2.0 10/20/16 19:49 83 18 Nasal Cannula 2.0 28 10/20/16 18:15 99.3 10/20/16 16:00 99.3 76 19 109/64 97 Nasal Cannula 2.0 Intake and Output 10/20/16 10/21/16 19:00 07:00 Intake Total 1587.416 ml 970.000 ml Balance 1587.416 ml 970.000 ml Intake Oral 400 ml IV Total 1187.416 ml 970.000 ml # Voids 3 3 General Appearance: WD/WN HEENT: normocephalic, atraumatic Respiratory/Chest: chest wall non-tender, lungs clear Cardiovascular: normal peripheral pulses, normal rate Abdomen: normal bowel sounds, soft, non tender Genitourinary: normal external genitalia Extremities: no cyanosis Skin: no rash 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, abnormal gait Lymphatic: no neck adenopathy Laboratory Tests 10/21/16 04:45: White Blood Count 4.7L, Red Blood Count 3.70L, Hemoglobin 12.2L, Hematocrit 34.9L, Mean Corpuscular Volume 94, Mean Corpuscular Hemoglobin 33.0H, Mean Corpuscular Hemoglobin Concent 35.0, Red Cell Distribution Width 18.2H, Platelet Count 95L, Mean Platelet Volume 7.5, Neutrophils (%) (Auto) , Lymphocytes (%) (Auto) , Monocytes (%) (Auto) , Eosinophils (%) (Auto) , Basophils (%) (Auto) , Differential Total Cells Counted 100, Neutrophils % ( Manual) 40L, Lymphocytes % (Manual) 36, Monocytes % (Manual) 13H, Eosinophils % (Manual) 11H, Basophils % (Manual) 0, Band Neutrophils 0, Platelet Estimate DecreasedL, Platelet Morphology Normal, Anisocytosis 1+, Sodium Level 135, Potassium Level 3.8, Chloride Level 97L, Carbon Dioxide Level 21, Anion Gap 17H , Blood Urea Nitrogen 12, Creatinine 0.7, Estimat Glomerular Filtration Rate , Glucose Level 116H, Calcium Level 8.9, Phosphorus Level 3.4, Magnesium Level 1.6L, Total Bilirubin 0.3, Aspartate Amino Transf (AST/SGOT) 53H, Alanine Aminotransferase (ALT/SGPT) 32, Alkaline Phosphatase 68, Total Protein 5.3L, Albumin 2.7L, Globulin 2.6, Albumin/Globulin Ratio 1.0 Current Medications Medications (Trade) Dose Ordered Sig/Chivo Route PRN Reason Start Time Stop Time Status Last Admin Dose Admin Acetaminophen (Tylenol) 650 mg Q4H PRN ORAL fever 10/16/16 00:35 11/15/16 00:34 10/17/16 20:00 Cefepime HCl/ Dextrose (Maxipime/D5W) 110 ml @ 220 mls/hr EVERY 12 HOURS IV 10/16/16 09:00 10/23/16 08:59 10/21/16 09:21 Heparin Sodium (Porcine) (Heparin 5000 units/ml) 5,000 units EVERY 12 HOURS SUBQ 10/16/16 09:00 11/15/16 08:59 Morphine Sulfate (Morphine Sulfate) 2 mg Q4H PRN IVP Moderate Pain (Pain Scale 4-6) 10/16/16 00:36 10/23/16 00:35 10/20/16 17:45 Nitroglycerin (Ntg) 0.4 mg Q5M PRN SL Prn Chest Pain 10/16/16 00:05 11/15/16 00:04 Ondansetron HCl (Zofran) 4 mg Q6H PRN IVP Nausea & Vomiting 10/16/16 00:37 11/15/16 00:36 Polyethylene Glycol (Miralax) 17 gm DAILYPRN PRN ORAL Constipation 10/16/16 00:37 11/15/16 00:36 Promethazine HCl/ Codeine (Phenergan with Codeine) 5 ml Q4H PRN ORAL For Cough 10/20/16 09:00 11/19/16 08:59 10/20/16 10:43 Sodium Chloride (Sodium Chloride 1000ml bag) 1,000 ml @ 75 mls/hr [id number] IV 10/16/16 12:00 11/15/16 11:59 10/21/16 13:39 Temazepam 15 mg 15 mg HSPRN PRN ORAL Insomnia 10/16/16 22:30 10/23/16 22:29 Vancomycin HCl 1 ea 1 ea DAILY PRN MISC Per rx protocol 10/17/16 21:30 11/16/16 21:29 Vancomycin HCl/ Dextrose (Vancomycin/D5W) 275 ml @ 183.708 mls/hr Q12HR@1000,2200 IVPB 10/19/16 10:00 10/24/16 09:59 10/21/16 11:31 DIONI PATEL Oct 21, 2016 15:31
[2016-10-21 16:00] VITALS: BP 108/62
--- NOTE | 2016-10-21 17:53 | Internal Med Progress Note ---
Subjective Date of Service: Oct 21, 2016 Physician Name ChirinosCarleen Attending Physician Noah Paz MD Current Medications Medications (Trade) Dose Ordered Sig/Chivo Route PRN Reason Start Time Stop Time Status Last Admin Dose Admin Acetaminophen (Tylenol) 650 mg Q4H PRN ORAL fever 10/16/16 00:35 11/15/16 00:34 10/17/16 20:00 Cefepime HCl/ Dextrose (Maxipime/D5W) 110 ml @ 220 mls/hr EVERY 12 HOURS IV 10/16/16 09:00 10/23/16 08:59 10/21/16 09:21 Heparin Sodium (Porcine) (Heparin 5000 units/ml) 5,000 units EVERY 12 HOURS SUBQ 10/16/16 09:00 11/15/16 08:59 Morphine Sulfate (Morphine Sulfate) 2 mg Q4H PRN IVP Moderate Pain (Pain Scale 4-6) 10/16/16 00:36 10/23/16 00:35 10/20/16 17:45 Nitroglycerin (Ntg) 0.4 mg Q5M PRN SL Prn Chest Pain 10/16/16 00:05 11/15/16 00:04 Ondansetron HCl (Zofran) 4 mg Q6H PRN IVP Nausea & Vomiting 10/16/16 00:37 11/15/16 00:36 Polyethylene Glycol (Miralax) 17 gm DAILYPRN PRN ORAL Constipation 10/16/16 00:37 11/15/16 00:36 Promethazine HCl/ Codeine (Phenergan with Codeine) 5 ml Q4H PRN ORAL For Cough 10/20/16 09:00 11/19/16 08:59 10/20/16 10:43 Sodium Chloride (Sodium Chloride 1000ml bag) 1,000 ml @ 75 mls/hr [id number] IV 10/16/16 12:00 11/15/16 11:59 10/21/16 13:39 Temazepam 15 mg 15 mg HSPRN PRN ORAL Insomnia 10/16/16 22:30 10/23/16 22:29 Vancomycin HCl 1 ea 1 ea DAILY PRN MISC Per rx protocol 10/17/16 21:30 11/16/16 21:29 Vancomycin HCl/ Dextrose (Vancomycin/D5W) 275 ml @ 183.708 mls/hr Q12HR@1000,2200 IVPB 10/19/16 10:00 10/24/16 09:59 10/21/16 11:31 Allergies: Coded Allergies: No Known Allergies (Unverified , 10/25/13) ROS Limited/Unobtainable: No Constitutional: Reports: chills, fever HEENT: Reports: no symptoms Cardiovascular: Reports: no symptoms Respiratory: Reports: no symptoms Gastrointestinal/Abdominal: Reports: no symptoms Genitourinary: Reports: no symptoms Neurologic/Psychiatric: Reports: no symptoms Subjective 80 YO M admitted with fever and chills. Now pyelonephritis and sepsis. Cover for Int [facility]-Dr Paz. Objective Last Vital Signs Date Time Temp Pulse Resp B/P Pulse Ox O2 Delivery O2 Flow Rate FiO2 10/21/16 16:00 98.4 79 20 108/62 98 Room Air 10/21/16 08:42 2.0 28 Laboratory Tests Test 10/21/16 04:45 White Blood Count 4.7 K/UL (4.8-10.8) L Red Blood Count 3.70 M/UL (4.70-6.10) L Hemoglobin 12.2 G/DL (14.2-18.0) L Hematocrit 34.9 % (42.0-52.0) L Mean Corpuscular Volume 94 FL (80-99) Mean Corpuscular Hemoglobin 33.0 PG (27.0-31.0) H Mean Corpuscular Hemoglobin Concent 35.0 G/DL (32.0-36.0) Red Cell Distribution Width 18.2 % (11.6-14.8) H Platelet Count 95 K/UL (150-450) L Mean Platelet Volume 7.5 FL (6.5-10.1) Neutrophils (%) (Auto) % (45.0-75.0) Lymphocytes (%) (Auto) % (20.0-45.0) Monocytes (%) (Auto) % (1.0-10.0) Eosinophils (%) (Auto) % (0.0-3.0) Basophils (%) (Auto) % (0.0-2.0) Differential Total Cells Counted 100 Neutrophils % (Manual) 40 % (45-75) L Lymphocytes % (Manual) 36 % (20-45) Monocytes % (Manual) 13 % (1-10) H Eosinophils % (Manual) 11 % (0-3) H Basophils % (Manual) 0 % (0-2) Band Neutrophils 0 % (0-8) Platelet Estimate Decreased L Platelet Morphology Normal Anisocytosis 1+ Sodium Level 135 mEQ/L (135-145) Potassium Level 3.8 mEQ/L (3.4-4.9) Chloride Level 97 mEQ/L (98-107) L Carbon Dioxide Level 21 mEQ/L (20-30) Anion Gap 17 (5-15) H Blood Urea Nitrogen 12 mg/dL (7-23) Creatinine 0.7 mg/dL (0.7-1.2) Estimat Glomerular Filtration Rate mL/min (>60) Glucose Level 116 mg/dL (74-106) H Calcium Level 8.9 mg/dL (8.6-10.2) Phosphorus Level 3.4 mg/dL (2.5-4.8) Magnesium Level 1.6 mg/dL (1.7-2.5) L Total Bilirubin 0.3 mg/dL (0.0-1.2) Aspartate Amino Transf (AST/SGOT) 53 U/L (5-40) H Alanine Aminotransferase (ALT/SGPT) 32 U/L (3-41) Alkaline Phosphatase 68 U/L (40-129) Total Protein 5.3 g/dL (6.6-8.7) L Albumin 2.7 g/dL (3.5-5.2) L Globulin 2.6 g/dL Albumin/Globulin Ratio 1.0 (1.0-2.7) Intake and Output 10/20/16 10/21/16 19:00 07:00 Intake Total 1587.416 ml 970.000 ml Balance 1587.416 ml 970.000 ml Intake Oral 400 ml IV Total 1187.416 ml 970.000 ml # Voids 3 3 Objective General: alert, cooperative, no distress, appears stated age Head: normocephalic, without obvious abnormality, atraumatic Eyes: conjunctivae/corneas clear. PERRL, EOM's intact Throat: lips, mucosa, and tongue normal. MMM Neck: supple, symmetrical, trachea midline, and no JVD Lungs: clear to auscultation bilaterally Heart: regular rate and rhythm, S1, S2 normal, no murmur, click, rub or gallop Abdomen: soft, non-tender, non-distended, bowel sounds normal; no masses or organomegaly Extremities: extremities normal, atraumatic, no cyanosis or edema Pulses: 2+ and symmetric Skin: skin color, texture, turgor normal; no rashes or lesions Neurologic: grossly normal, no focal deficits Assessment/Plan Problem List: (1) Right flank pain Assessment & Plan: Due to pyelonephritis. (2) Colon cancer metastasized to multiple sites Assessment & Plan: On chemotherapy (3) HTN (hypertension) Assessment & Plan: currently hypotensive. (4) Hypercholesteremia (5) Osteoarthritis, knee (6) Pyelonephritis Assessment & Plan: Continue cefepime d #7/14 and D# 5/5 vanco per ID (7) Fever (8) Sepsis Status: progressing Assessment/Plan Discharge planning ? home IV antibiotics? CARLEEN CHIRINOS Oct 21, 2016 17:53
--- NOTE | 2016-10-21 18:14 | Infectious Diseases Prog Note ---
Assessment/Plan Assessment/Plan ASSESSMENT: 80-year-old male with: Probable urinary tract infection/right-sided pyelonephritis. UCx : Neg Ultrasound of the kidneys : no obst Cough, probable bronchitis CXR 10/20: No evidence of acute disease, unchanged Leukopenia. 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 ?lung SP chemo TCP Dysphagia NKDA Full Code PLAN: continue IV cefepime d# / . Ok to complete course with PO keflex at discharge ( 10/21 SP IV Vanco d# 5 / 5 ) ( 10/17 SP Levaquin d# 3 ) Monitor CBC, temperatures, re-culture if acute change Monitor BMP Monitor chest x-ray aspiration precautions d/w family at bedside Subjective Allergies: Coded Allergies: No Known Allergies (Unverified , 10/25/13) Subjective fevers resolved, cultures NGTD Objective Vital Signs Last 24 Hour Vital Signs Date Time Temp Pulse Resp B/P Pulse Ox O2 Delivery O2 Flow Rate FiO2 10/21/16 16:00 98.4 79 20 108/62 98 Room Air 10/21/16 12:00 97.9 85 20 110/63 99 Room Air 10/21/16 08:42 88 18 98 Nasal Cannula 2.0 28 10/21/16 08:33 85 18 98 Nasal Cannula 2.0 28 10/21/16 08:00 98.2 75 20 124/64 95 Room Air 10/21/16 07:23 75 18 Room Air 21 10/21/16 04:00 97.8 87 18 129/88 95 Nasal Cannula 2.0 10/21/16 00:42 85 18 98 Nasal Cannula 2.0 28 10/21/16 00:03 82 18 98 Nasal Cannula 2.0 28 10/21/16 00:00 98.4 79 20 122/66 94 Nasal Cannula 2.0 10/20/16 20:00 98.2 86 18 113/60 98 Nasal Cannula 2.0 10/20/16 19:49 83 18 Nasal Cannula 2.0 28 10/20/16 18:15 99.3 Height (Feet): 6 Height (Inches): 0.00 Weight (Pounds): 140 General Appearance: no acute distress Respiratory/Chest: no respiratory distress Cardiovascular: normal rate, regular rhythm Abdomen: normal bowel sounds, soft, non tender, non distended Laboratory Tests Test 10/21/16 04:45 White Blood Count 4.7 K/UL (4.8-10.8) L Red Blood Count 3.70 M/UL (4.70-6.10) L Hemoglobin 12.2 G/DL (14.2-18.0) L Hematocrit 34.9 % (42.0-52.0) L Mean Corpuscular Volume 94 FL (80-99) Mean Corpuscular Hemoglobin 33.0 PG (27.0-31.0) H Mean Corpuscular Hemoglobin Concent 35.0 G/DL (32.0-36.0) Red Cell Distribution Width 18.2 % (11.6-14.8) H Platelet Count 95 K/UL (150-450) L Mean Platelet Volume 7.5 FL (6.5-10.1) Neutrophils (%) (Auto) % (45.0-75.0) Lymphocytes (%) (Auto) % (20.0-45.0) Monocytes (%) (Auto) % (1.0-10.0) Eosinophils (%) (Auto) % (0.0-3.0) Basophils (%) (Auto) % (0.0-2.0) Differential Total Cells Counted 100 Neutrophils % (Manual) 40 % (45-75) L Lymphocytes % (Manual) 36 % (20-45) Monocytes % (Manual) 13 % (1-10) H Eosinophils % (Manual) 11 % (0-3) H Basophils % (Manual) 0 % (0-2) Band Neutrophils 0 % (0-8) Platelet Estimate Decreased L Platelet Morphology Normal Anisocytosis 1+ Sodium Level 135 mEQ/L (135-145) Potassium Level 3.8 mEQ/L (3.4-4.9) Chloride Level 97 mEQ/L (98-107) L Carbon Dioxide Level 21 mEQ/L (20-30) Anion Gap 17 (5-15) H Blood Urea Nitrogen 12 mg/dL (7-23) Creatinine 0.7 mg/dL (0.7-1.2) Estimat Glomerular Filtration Rate mL/min (>60) Glucose Level 116 mg/dL (74-106) H Calcium Level 8.9 mg/dL (8.6-10.2) Phosphorus Level 3.4 mg/dL (2.5-4.8) Magnesium Level 1.6 mg/dL (1.7-2.5) L Total Bilirubin 0.3 mg/dL (0.0-1.2) Aspartate Amino Transf (AST/SGOT) 53 U/L (5-40) H Alanine Aminotransferase (ALT/SGPT) 32 U/L (3-41) Alkaline Phosphatase 68 U/L (40-129) Total Protein 5.3 g/dL (6.6-8.7) L Albumin 2.7 g/dL (3.5-5.2) L Globulin 2.6 g/dL Albumin/Globulin Ratio 1.0 (1.0-2.7) Current Medications Medications (Trade) Dose Ordered Sig/Chivo Route PRN Reason Start Time Stop Time Status Last Admin Dose Admin Acetaminophen (Tylenol) 650 mg Q4H PRN ORAL fever 10/16/16 00:35 11/15/16 00:34 10/17/16 20:00 Cefepime HCl/ Dextrose (Maxipime/D5W) 110 ml @ 220 mls/hr EVERY 12 HOURS IV 10/16/16 09:00 10/23/16 08:59 10/21/16 09:21 Heparin Sodium (Porcine) (Heparin 5000 units/ml) 5,000 units EVERY 12 HOURS SUBQ 10/16/16 09:00 11/15/16 08:59 Morphine Sulfate (Morphine Sulfate) 2 mg Q4H PRN IVP Moderate Pain (Pain Scale 4-6) 10/16/16 00:36 10/23/16 00:35 10/20/16 17:45 Nitroglycerin (Ntg) 0.4 mg Q5M PRN SL Prn Chest Pain 10/16/16 00:05 11/15/16 00:04 Ondansetron HCl (Zofran) 4 mg Q6H PRN IVP Nausea & Vomiting 10/16/16 00:37 11/15/16 00:36 Polyethylene Glycol (Miralax) 17 gm DAILYPRN PRN ORAL Constipation 10/16/16 00:37 11/15/16 00:36 Promethazine HCl/ Codeine (Phenergan with Codeine) 5 ml Q4H PRN ORAL For Cough 10/20/16 09:00 11/19/16 08:59 10/20/16 10:43 Sodium Chloride (Sodium Chloride 1000ml bag) 1,000 ml @ 75 mls/hr [id number] IV 10/16/16 12:00 11/15/16 11:59 10/21/16 13:39 Temazepam 15 mg 15 mg HSPRN PRN ORAL Insomnia 10/16/16 22:30 10/23/16 22:29 Vancomycin HCl 1 ea 1 ea DAILY PRN MISC Per rx protocol 10/17/16 21:30 11/16/16 21:29 Vancomycin HCl/ Dextrose (Vancomycin/D5W) 275 ml @ 183.708 mls/hr Q12HR@1000,2200 IVPB 10/19/16 10:00 10/24/16 09:59 10/21/16 11:31 ANA GOMEZ Oct 21, 2016 18:14
[2016-10-21] MEDS ORDERED: CEPHALEXIN500 MG ORAL (19:56)
[2016-10-21 20:00] VITALS: BP 121/65
[2016-10-21] MEDS ORDERED: Tubing IV Secondary IV ONE ×2 (21:14)
[2016-10-21] MEDS ORDERED: NS 275ml ONE (21:14)
--- NOTE | 2016-10-22 13:36 | Discharge Summary ---
Discharge Summary Hospital Course Date of Admission Oct 14, 2016 at 21:00 Date of Discharge Oct 21, 2016 at 21:15 Admitting Diagnosis SEPSIS HPI Larry Gonzalez is a 80 year old male who was admitted on Oct 14, 2016 at 21: 00 for Sepsis Hospital Course dc summary #[id number] Discharge Medications Continued Medications: Cephalexin* (Keflex*) 500 Mg Capsule 500 MG ORAL EVERY 12 HOURS, #14 CAP 0 Refills Discharge Condition Upon Discharge: stable Discharge Disposition Patient was discharged to Home () Discharge Diagnoses: Discharge Instructions Discharge Instructions Special Instructions I have been assigned to complete a D/C Summary on this account. I was not involved in the patient management Elizabeth Lam NP (Vanchtein) Oct 22, 2016 13:36
--- NOTE | 2016-10-23 04:30 | Discharge Summary 2 SIG ---
DATE OF ADMISSION: 10/14/2016 DATE OF DISCHARGE: 10/21/2016 REASON FOR ADMISSION: The patient is an 80-year-old male with history of colon cancer with metastasis to the bladder and prostate undergone two months of chemotherapy. He presented with fever and chills per past few days and right-sided flank pain. Apparently, the patient had urinary tract infection and he was started on antibiotics five days ago per his primary care provider. However urinary tract infection apparently was resistant and he switched to different antibiotics. However, the patient reported to have continuous and ongoing fever and chills. He stated that he is in fatigue state and weak. The patient had a low-grade temperature of 100.9. Leukopenia with WBC 2.4. Hemoglobin and hematocrit stable. Lactic acid within normal limits. Troponin negative. Urinalysis revealed occasional bacteria, +2 protein, +4 occult blood +1 leukocyte esterase, pyuria. EKG shows sinus normal sinus rhythm. Chest x-ray is negative for any acute cardiopulmonary disease. The patient admitted for further management. ADMITTING DIAGNOSES: 1. Sepsis. 2. Cough. 3. Possible bronchitis. 4. Probable urinary tract infection/pyelonephritis right-sided. 5. Metastatic CA. 6. Severe protein-calorie malnutrition. HOSPITAL STAY: The patient admitted. The patient undergone workup initially with empiric antibiotics. Urine culture, sputum culture, and blood culture were all negative. Per ID recommendation, continue Kef[facility] 10 [facility]. Renal ultrasound was done and it revealed negative for hydronephrosis. Prominent lobulated prostate calculated volume bladder carcinoma. DVT prophylaxis provided. The patient was stable for transfer back to home. DISCHARGE MEDICATIONS: See medication reconciliation list. DISCHARGE INSTRUCTIONS: The patient discharged home. Followup with the primary medical doctor. Encourage complete antibiotics and given prescription. Noah Paz M.D. I have been assigned to dictate discharge summary on this account and I was not involved in the patient's management. Elizabeth [facility] N[facility]dyPBro[facility] DR: Dylon JOB#: [id number] CC:
== END 2016-10-21 21:15 | disposition home or self-care (01) | DRG 871 ==
LOC: EDBD 19:18 → EMR 19:48 → 2E 21:00 → MERGE 21:00 → EDBEDREQ 22:15 → UNDODISIN 23:10 → 2E 23:18 → 4E 10-16 00:30
DX: A41.9 Sepsis, unspecified organism (principal); E43 Unspecified severe protein-calorie malnutrition; C79.11 Secondary malignant neoplasm of bladder; N12 Tubulo-interstitial nephritis, not specified as acute or chronic; Z68.1 Body mass index [BMI] 19.9 or less, adult; C18.9 Malignant neoplasm of colon, unspecified; C79.82 Secondary malignant neoplasm of genital organs; M17.9 Osteoarthritis of knee, unspecified; E78.00 Pure hypercholesterolemia, unspecified; J40 Bronchitis, not specified as acute or chronic
CPT/HCPCS: 36415; 71010; 71260; 74177; 76775; 80048; 80053; 80202; 81003; 82270; 82378; 82550; 82553; 82607; 82746; 82962; 83540; 83550; 83605; 83615; 83735; 84100; 84484; 85007; 85025; 85044; 85060; 85610; 85651; 85730; 86140; 87040; 87070; 87086; 87205; 93005; 93306; 94640; 94664; J7620

== ENCOUNTER 2018-02-24 17:46 | Emergency (ER) | payer OTHER ==
[~2018-02-24] VITALS: Ht 180.3 cm; Wt 81.2 kg
[~2018-02-24 17:46] MED LIST changes: +CEPHALEXIN500 MG ORAL
[2018-02-24 18:21] VITALS: BP 119/63
[2018-02-24 18:31] LABS: BASOPHILS % (AUTO) 1.2 % (0.0-2.0); EOSINOPHILS % (AUTO) 3.2 % (0.0-3.0); HEMATOCRIT 40.9 % (42.0-52.0); HEMOGLOBIN 13.9 G/DL (14.2-18.0); LYMPHOCYTES % (AUTO) 26.4 % (20.0-45.0); MEAN CORPUSCULAR VOLUME 97 FL (80-99); MONOCYTES % (AUTO) 10.6 % (1.0-10.0); NEUTROPHILS % (AUTO) 58.5 % (45.0-75.0); PLATELET COUNT 199 K/UL (150-450); RED BLOOD COUNT 4.21 M/UL (4.70-6.10); RED CELL DISTRIBUTION WIDTH 11.2 % (11.6-14.8); WHITE BLOOD COUNT 8.1 K/UL (4.8-10.8)
[2018-02-24] MEDS ORDERED: Dexamethasone 4mg/ml vial IVP ONE (18:45)
[2018-02-24] MEDS ORDERED: levETIRAcetam 1,000mg/NS100ml 100 ML IVPB ONE (18:45)
--- NOTE | 2018-02-24 18:48 | Emergency Room Report ---
History of Present Illness General Chief Complaint: Generalized Weakness Source: Patient Present Illness HPI Patient is an 82-year-old male brought in by family member increased left- sided weakness. Patient poorly had prior history of neuroendocrine tumor. Patient was noted to have some increased confusion as well as the difficulty moving his left upper and lower extremity. Patient was normally ambulatory. Patient had been receiving treatment with infusions. The patient is followed by Dr. Noah Paz Allergies: Coded Allergies: No Known Allergies (Unverified , 10/25/13) Patient History Past Medical History: see triage record Reviewed Nursing Documentation: PMH: Agreed; PSxH: Agreed Nursing Documentation-PMH Past Medical History: No History, Except For Hx Cardiac Problems: No Hx Hypertension: Yes Hx Cancer: No Hx Gastrointestinal Problems: Yes Hx Neurological Problems: No Review of Systems All Other Systems: negative except mentioned in HPI Physical Exam Vital Signs Date Time Temp Pulse Resp B/P (MAP) Pulse Ox O2 Delivery O2 Flow Rate FiO2 02/24/18 17:57 97.2 58 17 132/55 96 Room Air Sp02 EP Interpretation: reviewed, normal General Appearance: normal inspection, alert, Chronically Ill Head: atraumatic ENT: normal ENT inspection, hearing grossly normal, normal voice Neck: normal inspection, full range of motion, supple, no bony tend Respiratory: normal inspection, lungs clear, normal breath sounds, no respiratory distress, no retraction, no wheezing Cardiovascular #1: regular rate, rhythm, no edema Gastrointestinal: normal inspection, normal bowel sounds, non tender, soft, no guarding, no hernia Genitourinary: no CVA tenderness Musculoskeletal: normal inspection, back normal, normal range of motion Neurologic: normal inspection, alert, responsive, speech normal, motor weakness - left upper extremity, slow speech, other - lean to left Psychiatric: judgement/insight normal, mood/affect normal, depressed affect Skin: normal inspection, normal color, no rash Medical Decision Making Diagnostic Impression: Primary Impression: Intracranial mass ER Course The patient presented for altered mental status. Differential diagnosis included was not limited to tumor, CVA, intracranial hemorrhage among others.Because of complexity of patient's case laboratory testing and imaging studies were ordered. CT the head read by radiology showed 6X 4 x 5 cm right frontal lobe mass consistent with neoplasm. The patient was given IV Decadron as well as IV Keppra. The patient was discussed with Dr. Hurtado who agreed to accept the patient as a transfer to [facility]. The patient be transferred ALS ambulance due to intracranial mass. Labs Test 02/24/18 18:05 White Blood Count 8.1 K/UL (4.8-10.8) Red Blood Count 4.21 M/UL (4.70-6.10) Hemoglobin 13.9 G/DL (14.2-18.0) Hematocrit 40.9 % (42.0-52.0) Mean Corpuscular Volume 97 FL (80-99) Mean Corpuscular Hemoglobin 33.0 PG (27.0-31.0) Mean Corpuscular Hemoglobin Concent 34.0 G/DL (32.0-36.0) Red Cell Distribution Width 11.2 % (11.6-14.8) Platelet Count 199 K/UL (150-450) Mean Platelet Volume 7.2 FL (6.5-10.1) Neutrophils (%) (Auto) 58.5 % (45.0-75.0) Lymphocytes (%) (Auto) 26.4 % (20.0-45.0) Monocytes (%) (Auto) 10.6 % (1.0-10.0) Eosinophils (%) (Auto) 3.2 % (0.0-3.0) Basophils (%) (Auto) 1.2 % (0.0-2.0) Last Vital Signs Date Time Temp Pulse Resp B/P (MAP) Pulse Ox O2 Delivery O2 Flow Rate FiO2 02/24/18 18:21 97.2 57 17 119/63 98 Room Air Status: unchanged Disposition: XFER SHT-TRM HOSP Condition: Serious Roly Bird MD Feb 24, 2018 18:48
[2018-02-24 18:57] LABS: ANION GAP 10 mmol/L (5-15); BLOOD UREA NITROGEN 20 mg/dL (7-18); CALCIUM 9.7 MG/DL (8.5-10.1); CARBON DIOXIDE 25 MMOL/L (21-32); CHLORIDE 103 MMOL/L (98-107); CREATININE 0.9 MG/DL (0.55-1.30); POTASSIUM 4.7 MMOL/L (3.5-5.1); SODIUM 138 MMOL/L (136-145)
[2018-02-24 19:02] LABS: ALANINE AMINOTRANSFERASE 18 U/L (12-78); ALBUMIN 3.6 G/DL (3.4-5.0); ALBUMIN/GLOBULIN RATIO 0.9 (1.0-2.7); ALKALINE PHOSPHATASE 60 U/L (46-116); ASPARTATE AMINO TRANSFERASE 29 U/L (15-37); BILIRUBIN,TOTAL 0.7 MG/DL (0.2-1.0); CHOLESTEROL 230 MG/DL (< 200); HDL CHOLESTEROL 55 MG/DL (40-60); TRIGLYCERIDES 145 MG/DL (30-150)
[2018-02-24 20:17] VITALS: BP 114/83
[2018-02-24 20:24] LABS: APPEARANCE,URINE CLEAR; BILIRUBIN, URINE NEGATIVE (NEGATIVE); COLOR,URINE PALE YELLOW; GLUCOSE, URINE (UA) NEGATIVE (NEGATIVE); KETONES,URINE NEGATIVE (NEGATIVE); LEUKOCYTE ESTERASE ,URINE NEGATIVE (NEGATIVE); NITRITE,URINE NEGATIVE (NEGATIVE); PH,URINE 7 (4.5-8.0); PROTEIN,URINE NEGATIVE (NEGATIVE); UROBILINOGEN,URINE NORMAL MG/DL (0.0-1.0)
[2018-02-24 23:38] VITALS: BP 114/83
--- NOTE | 2018-02-25 09:45 | Diagnostic Imaging Report ---
Indications: Altered mental status Technique: Spiral acquisitions obtained through the brain. Angled axial and coronal 5 x 5 mm slices were reconstructed. Total dose length product 1326.63 mGycm. CTDI vol(s) 70.38 mGy. Dose reduction achieved using automated exposure control Comparison: 01/15/2011 Findings: There is a mixed attenuation mass in the right frontal region, which is mostly hyperattenuating, contains areas of low-attenuation as well as a central cystic space. There is suggestion of layering of blood within the cystic component dependently. This measures 5.6 cm AP by 4.3 cm transverse by 3.8 cm craniocaudad. It is unclear whether this is extra-axial or intra-axial. It appears to have a broad legs at the dural surface of the anterior fossa skull base. There is extensive surrounding edema. The mass protrudes across the midline along the falx by about 14 mm. There is considerable mass effect, with obliteration of the ipsilateral sulci as well as some of the contralateral anterior sulci and up to 17 mm of [id number] midline shift. The basilar cisterns remain patent. No acute intracranial hemorrhage. In the areas not affected by the edema, the prater-white differentiation is normal. Visualized sinuses are unremarkable. Impression: 5.6 x 4.3 x 3.8 cm right frontal region mass, mostly hyperattenuating with areas of low attenuation and cystic spaces. There is suggestion of layering of blood within the cystic component.. There is extensive surrounding edema and mass effect with subfalcine herniation of tumor as well as brain. The basilar cisterns are patent. It is unclear whether this is intra-axial or extra-axial. Given known history of metastatic colon carcinoma, the possibility of metastatic disease should be considered. However, meningioma and primary neoplasm are also possibilities. Recommend further evaluation with contrast MRI Other findings as noted This agrees with the preliminary interpretation provided overnight by Dr. Bell The CT scanner at [facility] is accredited by the [employer] and the scans are performed using protocols designed to limit radiation exposure to as low as reasonably achievable to attain images of sufficient resolution adequate for diagnostic evaluation.
== END 2018-02-24 21:40 | disposition short-term general hospital (02) ==
LOC: EMR 19:09
DX: R22.0 Localized swelling, mass and lump, head (principal); I10 Essential (primary) hypertension; R53.1 Weakness
CPT/HCPCS: 36415; 70450; 80053; 80061; 81003; 84484; 85025; 85610; 85730; 86850; 86900; 86901; 87040; 87086; 93005; 96374; 96375; 99285; J1100; J1953

== ENCOUNTER 2018-04-20 05:54 | Inpatient (IN) | payer MEDICARE, OTHER ==
[~2018-04-20] VITALS: Ht 180.3 cm; Wt 86.4 kg
[2018-04-20] VITALS (7 sets, daily range): BP systolic 112–133; BP diastolic 71–94
[2018-04-20] MEDS ORDERED: Morphine Sulfate 4mg/ml Inj (IV/IM USE ONLY) IVP ONE (06:30)
--- NOTE | 2018-04-20 06:30 | Emergency Room Report ---
History of Present Illness General Chief Complaint: Pain Source: Patient Present Illness HPI This is an 82-year-old male with history of metastatic colon cancer including to brain. He had chemotherapy before. Now is getting radiation. Last radiation therapy was about a month ago. He presents with chief complaint of generalized body pain and weakness. Decreased appetite. No fever chills but no nausea no vomiting. No increasing focal deficit. Denies any other complaint. Worse with swallowing. Minford nauseous but no vomiting. No diarrhea. No fever. No chest pain. Allergies: Coded Allergies: No Known Allergies (Unverified , 10/25/13) Patient History Past Medical History: see triage record, old chart reviewed Past Surgical History: other Pertinent Family History: none Social History: Denies: smoking Immunizations: other Reviewed Nursing Documentation: PMH: Agreed; PSxH: Agreed Nursing Documentation-PMH Past Medical History: No History, Except For Hx Cardiac Problems: No Hx Hypertension: Yes Hx Cancer: Yes - liver,bladder,lungs,brain Hx Gastrointestinal Problems: Yes Hx Neurological Problems: No Review of Systems Constitutional: Reports: malaise, weakness Eye: Denies: eye pain, blurred vision ENT: Reports: throat pain; Denies: ear pain, nose congestion, throat swelling Respiratory: Denies: cough, shortness of breath Cardiovascular: Denies: chest pain, palpitations Gastrointestinal: Denies: abdominal pain, diarrhea, nausea, vomiting Musculoskeletal: Denies: back pain, joint pain Skin: Denies: rash Neurological: Denies: headache, numbness Endocrine: Denies: increased thirst, increased urine Hematologic/Lymphatic: Denies: easy bruising All Other Systems: negative except mentioned in HPI Physical Exam Vital Signs Date Time Temp Pulse Resp B/P (MAP) Pulse Ox O2 Delivery O2 Flow Rate FiO2 04/20/18 05:49 96 16 142/94 98 Room Air 04/20/18 06:08 97.7 vitals with mild hypertension Sp02 EP Interpretation: reviewed, normal General Appearance: alert, Chronically Ill Head: normocephalic, atraumatic Eyes: bilateral eye PERRL, bilateral eye EOMI ENT: hearing grossly normal, dry mucus membranes Neck: full range of motion, supple, no meningismus Respiratory: chest non-tender, lungs clear, normal breath sounds Cardiovascular #1: no murmur, tachycardia, irregularly irregular Gastrointestinal: normal bowel sounds, non tender, no mass, no organomegaly, no bruit, non-distended Musculoskeletal: back normal, normal range of motion Neurologic: alert, oriented x3 Psychiatric: mood/affect normal Skin: warm/dry Medical Decision Making Diagnostic Impression: Primary Impression: Failure to thrive in adult Additional Impressions: Dehydration Colon cancer metastasized to multiple sites Hyponatremia ER Course Patient with generalize weakness and dehydration. EKG showed a new onset A. fib. He is a high risk for anticoagulation. I will hold off on that. Will admit for further workup. I contacted Dr. Paz for admission. Lab Results Impression labs with hyponatremia EKG Diagnostic Results Rate: normal Rhythm: other - afib ST Segments: other - NSST changes Rhythm Strip Diag. Results Rhythm Strip Time: 06:39 EP Interpretation: yes Rate: 90 Rhythm: no PVC's, no ectopy Chest X-Ray Diagnostic Results Chest X-Ray Diagnostic Results : Chest X-Ray Ordered: Yes # of Views/Limited/Complete: 1 View Indication: Chest Pain EP Interpretation: Yes Interpretation: no consolidation, no effusion, no pneumothorax, no acute cardiopulmonary disease Impression: No acute disease Electronically Signed by: Dayton Williamson MD Last Vital Signs Date Time Temp Pulse Resp B/P (MAP) Pulse Ox O2 Delivery O2 Flow Rate FiO2 04/20/18 06:08 97.7 100 20 133/94 98 Room Air Status: improved Disposition: ADMITTED INPATIENT Condition: Serious Referrals: Noah Paz MD (PCP) Dayton Williamson MD Apr 20, 2018 06:30
[2018-04-20 07:01] LABS: APPEARANCE,URINE CLEAR; BILIRUBIN, URINE NEGATIVE (NEGATIVE); GLUCOSE, URINE (UA) 4+ (NEGATIVE); KETONES,URINE NEGATIVE (NEGATIVE); LEUKOCYTE ESTERASE ,URINE 1+ (NEGATIVE); NITRITE,URINE POSITIVE (NEGATIVE); PH,URINE 7 (4.5-8.0); PROTEIN,URINE 2+ (NEGATIVE); UROBILINOGEN,URINE NORMAL MG/DL (0.0-1.0)
[2018-04-20 07:10] LABS: ANION GAP 11 mmol/L (5-15); BLOOD UREA NITROGEN 18 mg/dL (7-18); CALCIUM 8.4 MG/DL (8.5-10.1); CARBON DIOXIDE 22 MMOL/L (21-32); CHLORIDE 93 MMOL/L (98-107); CREATININE 0.7 MG/DL (0.55-1.30); HEMATOCRIT 45.7 % (42.0-52.0); HEMOGLOBIN 16.4 G/DL (14.2-18.0); MEAN CORPUSCULAR VOLUME 90 FL (80-99); PLATELET COUNT 109 K/UL (150-450); POTASSIUM 4.2 MMOL/L (3.5-5.1); RED BLOOD COUNT 5.06 M/UL (4.70-6.10); RED CELL DISTRIBUTION WIDTH 10.9 % (11.6-14.8); SODIUM 126 MMOL/L (136-145); WHITE BLOOD COUNT 7.9 K/UL (4.8-10.8)
[2018-04-20] MEDS ORDERED: DEXAMETHASONE4 M1 PO (07:23)
[2018-04-20] MEDS ORDERED: NYSTATIN100000 UN1 ORAL (07:23)
[2018-04-20] MEDS ORDERED: FAMOTIDINE40 MG ORAL (07:23)
[2018-04-20] MEDS ORDERED: TAMSULOSIN HCL0.4 MG ORAL (07:23)
[2018-04-20] MEDS ORDERED: SYNTHROID75 MCG ORAL (07:23)
[2018-04-20 07:29] LABS: COLOR,URINE YELLOW
--- NOTE | 2018-04-20 12:38 | Diagnostic Imaging Report ---
Indication: Shortness of breath Technique: One view of the chest Comparison: 10/20/2016 Findings: The interstitial and airspace parenchymal opacities are seen in the right upper lung. Interim placement right jugular port catheter. Questionable 3.5 cm mass or adenopathy seen in the right pulmonary hilum, not evident previously. The pleural spaces are clear. No focal dense consolidation. The heart size is normal Impression: Right right upper lung interstitial and airspace opacities, possibly related to clinical history of metastatic colon carcinoma Right hilar mass, possibly related to clinical history of metastatic colon carcinoma No definite dense consolidation or effusions Port catheter in place
--- NOTE | 2018-04-20 14:08 | Cardiology Report ---
APPROVED REPORT EKG Measurement Heart [id number] Atrial fibrillation Abnormal ECG
[2018-04-20] MEDS ORDERED: Miralax 17gm pkt ORAL PRN (15:15)
[2018-04-20] MEDS ORDERED: Milk of Magnesia 30ml Ud ORAL PRN (15:15)
--- NOTE | 2018-04-20 15:35 | History & Physical ---
History and Physical History & Physicial JoB # [id number] Noah Paz MD Apr 20, 2018 15:35
--- NOTE | 2018-04-20 16:45 | Consultation ---
History of Present Illness General Date patient seen: Apr 20, 2018 Time patient seen: 16:33 Chief Complaint: Pain Present Illness HPI Pt brought in by ambulance from home due to generalized pain that started three days ago Cardiology consulted for AFIB RVR. Recently seen at [facility]. 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, Hypertension,HLD < severe OA, UTI, sp splenectomy, dialed aorta 4.2 cm Troponin mildly elevated, heart rate elevated 90-110, urinary tract infection Allergies: Coded Allergies: No Known Allergies (Unverified , 10/25/13) Medication History Scheduled Cephalexin* (Keflex*), 500 MG ORAL EVERY 12 HOURS, (Reported) Dexamethasone (Dexamethasone), 4 MG PO DAILY, (Reported) Famotidine (Famotidine), 40 MG ORAL DAILY, (Reported) Levothyroxine Sodium* (Synthroid*), 75 MCG ORAL DAILY, (Reported) Nystatin* (Nystatin*), 3 ML ORAL FOUR TIMES A DAY, (Reported) Tamsulosin Hcl (Tamsulosin Hcl*), 0.4 MG ORAL AC, (Reported) Trospium Chloride (Trospium Chloride), 60 MG PO BEDTIME, (Reported) Scheduled PRN Acetaminophen* (Tylenol Extra Strength*), 500 MG ORAL Q8H PRN for Prn Headache/ Temp > 101, (Reported) Patient History Healthcare decision maker Resuscitation status Full Code Advanced Directive on File No Review of Systems Constitutional: Reports: no symptoms Eye: Reports: no symptoms ENT: Reports: no symptoms Respiratory: Reports: no symptoms Cardiovascular: Reports: no symptoms Gastrointestinal: Reports: no symptoms Genitourinary: Reports: no symptoms Musculoskeletal: Reports: no symptoms Skin: Reports: no symptoms Psychiatric: Reports: no symptoms Neurological: Reports: no symptoms Endocrine: Reports: no symptoms Hematologic/Lymphatic: Reports: no symptoms Physical Exam General Appearance: no apparent distress, lethargic, cachetic Lines, tubes and drains: peripheral HEENT: normocephalic, atraumatic, anicteric, mucous membranes moist, PERRL, EOMI, pharynx normal, supple, no JVD Neck: non-tender, normal alignment, supple, normal inspection Respiratory/Chest: chest wall non-tender, lungs clear, normal breath sounds, no respiratory distress Cardiovascular/Chest: regularly irregular, no JVD, JVD, tachycardia Abdomen: non tender, soft, no mass, hyperactive bowel sounds Extremities: normal range of motion, non-tender, normal inspection Skin Exam: normal pigmentation, warm/dry 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, no motor/sensory deficits, abnormal gait Last 24 Hour Vital Signs Date Time Temp Pulse Resp B/P (MAP) Pulse Ox O2 Delivery O2 Flow Rate FiO2 04/20/18 11:51 94 04/20/18 10:45 Nasal Cannula 2.0 04/20/18 10:21 98.0 108 19 118/91 95 Nasal Cannula 2.0 04/20/18 09:00 115 16 115/93 95 Room Air 04/20/18 08:00 103 17 119/71 96 Room Air 2.0 04/20/18 07:25 96 13 Room Air 04/20/18 07:00 97.9 103 17 113/72 94 Room Air 04/20/18 06:08 97.7 100 20 133/94 98 Room Air 04/20/18 05:49 96 16 142/94 98 Room Air Intake and Output 04/19/18 04/20/18 18:59 06:59 Intake Total 0 ml Balance 0 ml Intake Oral 0 ml Laboratory Tests Test 04/20/18 06:30 White Blood Count 7.9 K/UL (4.8-10.8) Red Blood Count 5.06 M/UL (4.70-6.10) Hemoglobin 16.4 G/DL (14.2-18.0) Hematocrit 45.7 % (42.0-52.0) Mean Corpuscular Volume 90 FL (80-99) Mean Corpuscular Hemoglobin 32.4 PG (27.0-31.0) H Mean Corpuscular Hemoglobin Concent 35.8 G/DL (32.0-36.0) Red Cell Distribution Width 10.9 % (11.6-14.8) L Platelet Count 109 K/UL (150-450) L Mean Platelet Volume 6.8 FL (6.5-10.1) Neutrophils (%) (Auto) % (45.0-75.0) Lymphocytes (%) (Auto) % (20.0-45.0) Monocytes (%) (Auto) % (1.0-10.0) Eosinophils (%) (Auto) % (0.0-3.0) Basophils (%) (Auto) % (0.0-2.0) Differential Total Cells Counted 100 Neutrophils % (Manual) 86 % (45-75) H Lymphocytes % (Manual) 11 % (20-45) L Monocytes % (Manual) 3 % (1-10) Eosinophils % (Manual) 0 % (0-3) Basophils % (Manual) 0 % (0-2) Band Neutrophils 0 % (0-8) Platelet Estimate Decreased L Platelet Morphology Normal Red Blood Cell Morphology Normal Urine Color Yellow Urine Appearance Clear Urine pH 7 (4.5-8.0) Urine Specific [place] 1.015 (1.005-1.035) Urine Protein 2+ (NEGATIVE) H Urine Glucose (UA) 4+ (NEGATIVE) H Urine Ketones Negative (NEGATIVE) Urine Blood 3+ (NEGATIVE) H Urine Nitrite Positive (NEGATIVE) H Urine Bilirubin Negative (NEGATIVE) Urine Urobilinogen Normal MG/DL (0.0-1.0) Urine Leukocyte Esterase 1+ (NEGATIVE) H Urine RBC 2-4 /HPF (0 - 0) H Urine WBC 2-4 /HPF (0 - 0) Urine Squamous Epithelial Cells Few /LPF (NONE/OCC) Urine Bacteria Few /HPF (NONE) Sodium Level 126 MMOL/L (136-145) L Potassium Level 4.2 MMOL/L (3.5-5.1) Chloride Level 93 MMOL/L (98-107) L Carbon Dioxide Level 22 MMOL/L (21-32) Anion Gap 11 mmol/L (5-15) Blood Urea Nitrogen 18 mg/dL (7-18) Creatinine 0.7 MG/DL (0.55-1.30) Estimat Glomerular Filtration Rate mL/min (>60) Glucose Level 327 MG/DL (74-106) H Calcium Level 8.4 MG/DL (8.5-10.1) L Troponin I 0.098 ng/mL (0.000-0.056) Height (Feet): 5 Height (Inches): 11.00 Weight (Pounds): 162 Medications Current Medications Medications (Trade) Dose Ordered Sig/Chivo Route PRN Reason Start Time Stop Time Status Last Admin Dose Admin Acetaminophen (Tylenol) 650 mg Q4H PRN ORAL Mild Pain (Pain Scale 1-3) 04/20/18 15:15 05/20/18 15:14 Acetaminophen (Tylenol) 650 mg Q4H PRN ORAL fever 04/20/18 15:15 05/20/18 15:14 Dexamethasone (Decadron) 4 mg DAILY ORAL 04/21/18 09:00 05/21/18 08:59 Dextrose (Dextrose 50%) 25 ml Q30M PRN IV Hypoglycemia 04/20/18 15:15 05/20/18 15:14 Dextrose (Dextrose 50%) 50 ml Q30M PRN IV Hypoglycemia 04/20/18 15:15 05/20/18 15:14 Diphenhydramine HCl (Benadryl) 25 mg Q6H PRN ORAL Itching/Pruritis 04/20/18 15:15 05/20/18 15:14 Docusate Sodium (Colace) 100 mg EVERY 12 HOURS ORAL 04/20/18 21:00 05/20/18 20:59 Famotidine (Pepcid) 40 mg DAILY ORAL 04/21/18 09:00 05/21/18 08:59 Heparin Sodium (Porcine) (Heparin 5000 units/ml) 5,000 units EVERY 12 HOURS SUBQ 04/20/18 21:00 05/20/18 20:59 Insulin Aspart (NovoLOG) BEFORE MEALS AND HS SUBQ 04/20/18 16:30 05/20/18 16:29 Levothyroxine Sodium (Synthroid) 75 mcg Q24H ORAL 04/21/18 06:30 05/21/18 06:29 Magnesium Hydroxide (Mom) 30 ml HSPRN PRN ORAL Constipation 04/20/18 15:15 05/20/18 15:14 Nystatin (Nystatin) 3 ml FOUR TIMES A DAY ORAL 04/20/18 18:00 04/27/18 17:59 Ondansetron HCl (Zofran) 4 mg Q6H PRN IVP Nausea & Vomiting 04/20/18 15:15 05/20/18 15:14 Polyethylene Glycol (Miralax) 17 gm DAILYPRN PRN ORAL Constipation 04/20/18 15:15 05/20/18 15:14 Sodium Chloride 1,000 ml @ 75 mls/hr [id number] IV 04/20/18 15:32 05/20/18 15:31 Tamsulosin HCl (Flomax) 0.4 mg QHS ORAL 04/20/18 21:00 05/20/18 20:59 Assessment/Plan Status: stable, progressing Assessment/Plan Assessment: Tachycardia Atrial fibrillation Neuroendocrine carcinoma with mets Hypertension Hyperlipiemia Osteoarthritis knees Recurrent UT Splenectomy Ascending aortic aneurysm hypothyroidism elevated hemoglobin A1c s/p TURP Ectopy with premature atrial contractions Plan: IV steroids for brain mass IV abx for UTI AAA stable in size no indication for intervention continue outpatient palliative radiation Nutrition consult Continue synthroid Hx of bradycardia from brain mass and hypervagal state - no indication for intervention Metoprolol prn tachycardia anticoagulation contraindicated due to brain lesions and fall risk Echo at OSH normal LV function Enrique Cordero MD Apr 20, 2018 16:45
[2018-04-20] MEDS: NovoLOG Insulin Flexpen SUBQ SCH ×2 (17:16→20:30)
[2018-04-20] MEDS: Nystatin Susp 500,000 units/5ml ORAL SCH ×2 (17:54→20:27)
--- NOTE | 2018-04-20 19:00 | History and Physical Report ---
DATE OF ADMISSION: 04/20/2018 CHIEF COMPLAINT: Severe pain, weakness, poor appetite. 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, lung, mediastinum as well as brain; history of hypertension, resolved after weight loss; dyslipidemia, resolved after weight loss; severe osteoarthritis of the knee, status post knee arthroplasty; recurrent urinary tract infection; bilateral inguinal hernia repair; history of splenectomy in 1967; 4.2-cm ascending aortic aneurysm; distal left circumflex coronary artery disease; history of hypothyroidism; 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 The patient today presented to the hospital complaining about pain, difficulty swallowing, severe weakness, some nausea. No vomiting. No diarrhea. No chest pain. No shortness of breath. Shortly after initial evaluation in the emergency room, the patient was noted to be hyponatremic as well as new onset of atrial fibrillation and subsequently, the patient was admitted to telemetry for further evaluation and therapy. PAST MEDICAL HISTORY/PAST SURGICAL HISTORY: As above. 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 History of hypertension resolved with weight loss, dyslipidemia resolved with weight loss, severe osteoarthritis of the knee, history of recurrent urinary tract infection, bilateral inguinal hernia repair, status post splenectomy in 1967, 4.2-cm ascending aortic aneurysm, distal left circumflex coronary artery aneurysm 1.3 cm, history of hypothyroidism, right anteroinferior hypervascular homogeneous mass with cystic as well as hemorrhagic component, most likely solitary metastasized with leftward mid brain shift. MEDICATIONS: Medications at home is significant for Decadron 4 mg q.12 hours, Pepcid 20 mg daily, levothyroxine 75 mcg daily, Flomax 0.4 mg daily. ALLERGIES: No known drug allergies. SOCIAL HISTORY: No smoking, alcohol, or drugs at this time. FAMILY HISTORY: Noncontributory. REVIEW OF SYSTEMS: Mostly as above. Denies any dysuria, frequency, or hematuria. Complained about poor appetite. Denies any hemoptysis. Complained about difficulty swallowing. The patient has increased focal deficits. Continues on the radiation therapy. Last radiation was a month ago. PHYSICAL EXAMINATION: VITAL SIGNS: On admission, temperature 97.7, pulse of 96, respirations 16, and blood pressure 142/94. GENERAL: The patient is awake, responsive, confused, but very pleasant. HEAD AND NECK: Pupils equal and reactive to light. Extraocular movements intact. Neck was supple. No JVD. LUNGS: Good air entry. No wheeze or rales. Poor inspiratory effort. HEART: S1 and S2. Irregular. No murmur or gallop. ABDOMEN: Soft, nondistended, and nontender. Positive bowel sounds. EXTREMITIES: No cyanosis, clubbing, or edema. NEUROLOGIC: Cranial nerves II through XII are grossly intact. The patient is moving all the extremities spontaneously. Gait was not assessed due to the patient's status. RECTAL: Refused and deferred. GENITOURINARY: Refused and deferred. PSYCHIATRIC: Mood and affect is intact. LABORATORY AND DIAGNOSTIC DATA: Laboratory on admission from the ER, sodium 126, potassium 4.2, chloride 93, bicarbonate 22, BUN 18, creatinine 0.7, glucose is 327, calcium is 8.4. Troponin 0.098. WBC of 7.9, hemoglobin 16, hematocrit 45, platelet is 109,000. protein +2, glucose is +4, blood +3, leukocyte is +1. The patient's chest x-ray showed the right upper lung interstitial as well as airspace opacity, possible related to the history of metastatic cancer; right hilar mass, possible related to the chronic history of metastasized disease; no definite density, consolidation, or effusion; Port-A-Cath is in place. EKG, atrial fibrillation, ventricular rate of 95. No ST elevation was noted or T-wave inversion. ASSESSMENT: 1. Dehydration. 2. Steroid-induced hyperglycemia. 3. Dehydration. 4. Hyponatremia. 5. 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 6. 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 7. Hypothyroidism. 8. Atherosclerotic heart disease. 9. A 4.2-cm ascending aortic aneurysm. 10. Status post splenectomy in 1967. 11. Severe osteoarthritis of the knee. 12. Hypertension. PLAN: Admit the patient to monitored unit. At this time, the patient is not a candidate for anticoagulation due to the brain metastasis. We will continue to do DVT prophylaxis with heparin subcutaneous. Code status at this time is Full Code. We will resume home medication and IV hydration. Follow up with Cardiology consultation with Dr. Cordero and we will discuss with family extensively. Reviewed the record from [facility], printed out, and placed in the chart. Noah Paz M.D. DRJasmin Matthews JOB#: [id number] CC:
[2018-04-20] MEDS: Tamsulosin 0.4mg cap ORAL SCH (20:28)
[2018-04-20] MEDS: Docusate 100mg cap ORAL SCH (20:28)
[2018-04-20] MEDS: Heparin 5000 units/ml inj SUBQ SCH (20:29)
[2018-04-21] VITALS: BP 131/71
[2018-04-21 04:00] VITALS: BP 126/67
[2018-04-21] MEDS: NovoLOG Insulin Flexpen SUBQ SCH ×4 (05:38→21:14)
[2018-04-21] MEDS ORDERED: Morphine Sulfate 2mg/ml Inj IVP PRN (07:15)
[2018-04-21 07:36] LABS: HEMATOCRIT 45.2 % (42.0-52.0); HEMOGLOBIN 15.9 G/DL (14.2-18.0); MEAN CORPUSCULAR VOLUME 93 FL (80-99); PLATELET COUNT 96 K/UL (150-450); RED BLOOD COUNT 4.88 M/UL (4.70-6.10); RED CELL DISTRIBUTION WIDTH 11.7 % (11.6-14.8); WHITE BLOOD COUNT 6.6 K/UL (4.8-10.8)
[2018-04-21 08:00] VITALS: BP 108/93
[2018-04-21] MEDS ORDERED: Norco 5mg/325mg tab ORAL PRN (08:00)
[2018-04-21 08:03] LABS: ALANINE AMINOTRANSFERASE 36 U/L (12-78); ALBUMIN 1.8 G/DL (3.4-5.0); ALBUMIN/GLOBULIN RATIO 0.5 (1.0-2.7); ALKALINE PHOSPHATASE 76 U/L (46-116); ANION GAP 8 mmol/L (5-15); ASPARTATE AMINO TRANSFERASE 24 U/L (15-37); BILIRUBIN,TOTAL 0.5 MG/DL (0.2-1.0); BLOOD UREA NITROGEN 17 mg/dL (7-18); CALCIUM 8.1 MG/DL (8.5-10.1); CARBON DIOXIDE 25 MMOL/L (21-32); CHLORIDE 94 MMOL/L (98-107); CREATININE 0.6 MG/DL (0.55-1.30); PHOSPHORUS 1.5 MG/DL (2.5-4.9); POTASSIUM 4.2 MMOL/L (3.5-5.1); SODIUM 127 MMOL/L (136-145)
[2018-04-21] MEDS: Nystatin Susp 500,000 units/5ml ORAL SCH ×4 (08:22→21:12)
[2018-04-21] MEDS: Docusate 100mg cap ORAL SCH ×2 (08:23→21:12)
[2018-04-21] MEDS: Tylenol #3 tab (300mg/30mg) ORAL PRN ×2 (08:23→16:55)
[2018-04-21] MEDS: Heparin 5000 units/ml inj SUBQ SCH ×2 (08:23→21:00)
[2018-04-21 12:00] VITALS: BP 101/66
--- NOTE | 2018-04-21 12:27 | Internal Med Progress Note ---
Subjective Physician Name Noah Paz Attending Physician Noah Paz MD Current Medications Medications (Trade) Dose Ordered Sig/Chivo Route PRN Reason Start Time Stop Time Status Last Admin Dose Admin Acetaminophen (Tylenol) 650 mg Q4H PRN ORAL Mild Pain (Pain Scale 1-3) 04/20/18 15:15 05/20/18 15:14 04/21/18 01:02 Acetaminophen (Tylenol) 650 mg Q4H PRN ORAL fever 04/20/18 15:15 05/20/18 15:14 Acetaminophen/ Codeine Phosphate (Tylenol #3) 1 tab Q6H PRN ORAL Moderate Pain (Pain Scale 4-6) 04/21/18 07:15 04/28/18 07:14 04/21/18 08:23 Acetaminophen/ Hydrocodone Bitart ([place] 5/325) 1 tab Q6H PRN ORAL BREAKTHROUGH PAIN 04/21/18 08:00 04/28/18 07:59 Dexamethasone (Decadron) 4 mg DAILY ORAL 04/21/18 09:00 05/21/18 08:59 04/21/18 08:23 Dextrose (Dextrose 50%) 25 ml Q30M PRN IV Hypoglycemia 04/20/18 15:15 05/20/18 15:14 Dextrose (Dextrose 50%) 50 ml Q30M PRN IV Hypoglycemia 04/20/18 15:15 05/20/18 15:14 Diphenhydramine HCl (Benadryl) 25 mg Q6H PRN ORAL Itching/Pruritis 04/20/18 15:15 05/20/18 15:14 04/21/18 01:10 Docusate Sodium (Colace) 100 mg EVERY 12 HOURS ORAL 04/20/18 21:00 05/20/18 20:59 04/21/18 08:23 Famotidine (Pepcid) 40 mg DAILY ORAL 04/21/18 09:00 05/21/18 08:59 04/21/18 08:23 Heparin Sodium (Porcine) (Heparin 5000 units/ml) 5,000 units EVERY 12 HOURS SUBQ 04/20/18 21:00 05/20/18 20:59 04/20/18 20:29 Insulin Aspart (NovoLOG) BEFORE MEALS AND HS SUBQ 04/20/18 16:30 05/20/18 16:29 04/21/18 05:38 Levothyroxine Sodium (Synthroid) 75 mcg Q24H ORAL 04/21/18 06:30 05/21/18 06:29 04/21/18 05:37 Magnesium Hydroxide (Mom) 30 ml HSPRN PRN ORAL Constipation 04/20/18 15:15 05/20/18 15:14 Morphine Sulfate (Morphine Sulfate) 2 mg Q6H PRN IVP Severe Pain (Pain Scale 7-10) 04/21/18 07:15 04/28/18 07:14 Nystatin (Nystatin) 3 ml FOUR TIMES A DAY ORAL 04/20/18 18:00 04/27/18 17:59 04/21/18 08:22 Ondansetron HCl (Zofran) 4 mg Q6H PRN IVP Nausea & Vomiting 04/20/18 15:15 05/20/18 15:14 Polyethylene Glycol (Miralax) 17 gm DAILYPRN PRN ORAL Constipation 04/20/18 15:15 05/20/18 15:14 Sodium Chloride 1,000 ml @ 75 mls/hr [id number] IV 04/21/18 10:45 05/21/18 10:44 04/21/18 10:50 Tamsulosin HCl (Flomax) 0.4 mg QHS ORAL 04/20/18 21:00 05/20/18 20:59 04/20/18 20:28 Allergies: Coded Allergies: No Known Allergies (Unverified , 10/25/13) Subjective awake, responsive but very sleepy, C/O leg pain overnight Objective Last Vital Signs Date Time Temp Pulse Resp B/P (MAP) Pulse Ox O2 Delivery O2 Flow Rate FiO2 04/21/18 09:27 Nasal Cannula 2.0 04/21/18 08:53 98.3 04/21/18 08:00 94 20 108/93 (98) 95 Laboratory Tests Test 04/21/18 06:00 White Blood Count 6.6 K/UL (4.8-10.8) Red Blood Count 4.88 M/UL (4.70-6.10) Hemoglobin 15.9 G/DL (14.2-18.0) Hematocrit 45.2 % (42.0-52.0) Mean Corpuscular Volume 93 FL (80-99) Mean Corpuscular Hemoglobin 32.5 PG (27.0-31.0) H Mean Corpuscular Hemoglobin Concent 35.2 G/DL (32.0-36.0) Red Cell Distribution Width 11.7 % (11.6-14.8) Platelet Count 96 K/UL (150-450) L Mean Platelet Volume 7.3 FL (6.5-10.1) Neutrophils (%) (Auto) % (45.0-75.0) Lymphocytes (%) (Auto) % (20.0-45.0) Monocytes (%) (Auto) % (1.0-10.0) Eosinophils (%) (Auto) % (0.0-3.0) Basophils (%) (Auto) % (0.0-2.0) Differential Total Cells Counted 100 Neutrophils % (Manual) 81 % (45-75) H Lymphocytes % (Manual) 11 % (20-45) L Monocytes % (Manual) 0 % (1-10) L Eosinophils % (Manual) 0 % (0-3) Basophils % (Manual) 0 % (0-2) Band Neutrophils 8 % (0-8) Platelet Estimate Decreased L Platelet Morphology Normal Red Blood Cell Morphology Normal Sodium Level 127 MMOL/L (136-145) L Potassium Level 4.2 MMOL/L (3.5-5.1) Chloride Level 94 MMOL/L (98-107) L Carbon Dioxide Level 25 MMOL/L (21-32) Anion Gap 8 mmol/L (5-15) Blood Urea Nitrogen 17 mg/dL (7-18) Creatinine 0.6 MG/DL (0.55-1.30) Estimat Glomerular Filtration Rate mL/min (>60) Glucose Level 165 MG/DL (74-106) #H Calcium Level 8.1 MG/DL (8.5-10.1) L Phosphorus Level 1.5 MG/DL (2.5-4.9) L Magnesium Level 1.6 MG/DL (1.8-2.4) L Total Bilirubin 0.5 MG/DL (0.2-1.0) Aspartate Amino Transf (AST/SGOT) 24 U/L (15-37) Alanine Aminotransferase (ALT/SGPT) 36 U/L (12-78) Alkaline Phosphatase 76 U/L (46-116) Total Protein 5.7 G/DL (6.4-8.2) L Albumin 1.8 G/DL (3.4-5.0) L Globulin 3.9 g/dL Albumin/Globulin Ratio 0.5 (1.0-2.7) L Thyroid Stimulating Hormone (TSH) 2.076 uiU/mL (0.358-3.740) Intake and Output 04/20/18 04/21/18 19:00 07:00 Intake Total 1355 ml 900 ml Output Total 600 ml 700 ml Balance 755 ml 200 ml Intake Oral 280 ml IV Total 1075 ml 900 ml Output Urine Total 600 ml 700 ml Objective GENERAL: awake, responsive, confused and sleepy. HEAD AND NECK: Pupils equal and reactive to light. Extraocular movements intact. Neck was supple. No JVD. LUNGS: Decrease air entry at bases. No wheeze or rales. Poor inspiratory effort. HEART: S1 and S2. Irregular. No murmur or gallop. ABDOMEN: Soft, nondistended, and nontender. Positive bowel sounds. EXTREMITIES: No cyanosis, clubbing, or edema. NEUROLOGIC: Cranial nerves II through XII are grossly intact. moving all the extremities spontaneously. Gait was not assessed due to the patient's status. RECTAL: Refused and deferred. GENITOURINARY: Refused and deferred. PSYCHIATRIC: Mood and affect is intact. Assessment/Plan Assessment/Plan 1. Acute UTI.. 2. Steroid-induced hyperglycemia. 3. Dehydration. 4. Hyponatremia. 5. 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 6. 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 7. Hypothyroidism. 8. Atherosclerotic heart disease. 9. A 4.2-cm ascending aortic aneurysm. 10. Status post splenectomy in 1967. 11. Severe osteoarthritis of the knee. 12. Hypertension. 13. New onset Atrial Fibrillation. PLAN: In monitored unit. At this time, the patient is not a candidate for anticoagulation due to the brain metastasis. DVT prophylaxis: heparin subcutaneous. Code status: Full Code. IV hydration. Follow up with Cardiology consultation with Dr. Cordero Abx: Start on Cefepime IV F/u with labs and cultures. Duplex of Legs. Wes Diallo,Noah MURPHY Apr 21, 2018 12:27
[2018-04-21] MEDS: Cefepime HCl 1 GM in D5W 55 ML IVPB SCH ×2 (12:51→21:12)
[2018-04-21] MEDS ORDERED: 1/2 NS 1000ml IV ONE (13:21)
[2018-04-21 16:00] VITALS: BP 101/59
[2018-04-21 20:00] VITALS: BP 97/58
[2018-04-21] MEDS: Tamsulosin 0.4mg cap ORAL SCH (21:12)
--- NOTE | 2018-04-21 22:23 | Cardiology Progress Note ---
Assessment/Plan Status: stable Assessment/Plan Assessment/Plan Status: stable, progressing Assessment/Plan Assessment: Tachycardia Atrial fibrillation Neuroendocrine carcinoma with mets Hypertension Hyperlipiemia Osteoarthritis knees Recurrent UT Splenectomy Ascending aortic aneurysm hypothyroidism elevated hemoglobin A1c s/p TURP Ectopy with premature atrial contractions Plan: IV steroids for brain mass IV abx for UTI AAA stable in size no indication for intervention continue outpatient palliative radiation Nutrition consult Continue synthroid Hx of bradycardia from brain mass and hypervagal state - no indication for intervention Metoprolol prn tachycardia 25 BID anticoagulation contraindicated due to brain lesions and fall risk Echo at OSH normal LV function Supportive care Hospice? Subjective Cardiovascular: Reports: no symptoms Respiratory: Reports: no symptoms Gastrointestinal/Abdominal: Reports: no symptoms Genitourinary: Reports: no symptoms Subjective Patient agitated and altered ,Mg low, replaced, tachycardia mildly improved. Objective Last 24 Hour Vital Signs Date Time Temp Pulse Resp B/P (MAP) Pulse Ox O2 Delivery O2 Flow Rate FiO2 04/21/18 21:00 Nasal Cannula 2.0 04/21/18 20:00 97.0 95 20 97/58 (71) 94 04/21/18 16:00 97.3 80 19 101/59 (73) 93 04/21/18 16:00 102 04/21/18 12:00 98.0 80 21 101/66 (78) 94 04/21/18 11:45 113 04/21/18 09:27 Nasal Cannula 2.0 04/21/18 08:53 98.3 04/21/18 08:00 98.3 94 20 108/93 (98) 95 04/21/18 08:00 108 04/21/18 04:46 98 04/21/18 04:00 97.2 78 20 126/67 (86) 93 04/21/18 00:11 107 04/21/18 00:00 97.2 103 24 131/71 (91) 90 General Appearance: mild distress, lethargic, agitated EENT: PERRL/EOMI, normal ENT inspection, TMs normal, pharynx normal Neck: non-tender, normal alignment, supple, normal inspection, no JVD Rhythm: NSR, Afib Cardiovascular: normal peripheral pulses, regularly irregular, tachycardia Respiratory/Chest: chest wall non-tender, lungs clear, normal breath sounds Abdomen: normal bowel sounds, non tender, soft, no organomegaly 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, no motor/sensory deficits Intake and Output 04/20/18 04/21/18 19:00 07:00 Intake Total 1355 ml 900 ml Output Total 600 ml 700 ml Balance 755 ml 200 ml Intake Oral 280 ml IV Total 1075 ml 900 ml Output Urine Total 600 ml 700 ml Laboratory Tests Test 04/21/18 06:00 White Blood Count 6.6 K/UL (4.8-10.8) Red Blood Count 4.88 M/UL (4.70-6.10) Hemoglobin 15.9 G/DL (14.2-18.0) Hematocrit 45.2 % (42.0-52.0) Mean Corpuscular Volume 93 FL (80-99) Mean Corpuscular Hemoglobin 32.5 PG (27.0-31.0) H Mean Corpuscular Hemoglobin Concent 35.2 G/DL (32.0-36.0) Red Cell Distribution Width 11.7 % (11.6-14.8) Platelet Count 96 K/UL (150-450) L Mean Platelet Volume 7.3 FL (6.5-10.1) Neutrophils (%) (Auto) % (45.0-75.0) Lymphocytes (%) (Auto) % (20.0-45.0) Monocytes (%) (Auto) % (1.0-10.0) Eosinophils (%) (Auto) % (0.0-3.0) Basophils (%) (Auto) % (0.0-2.0) Differential Total Cells Counted 100 Neutrophils % (Manual) 81 % (45-75) H Lymphocytes % (Manual) 11 % (20-45) L Monocytes % (Manual) 0 % (1-10) L Eosinophils % (Manual) 0 % (0-3) Basophils % (Manual) 0 % (0-2) Band Neutrophils 8 % (0-8) Platelet Estimate Decreased L Platelet Morphology Normal Red Blood Cell Morphology Normal Sodium Level 127 MMOL/L (136-145) L Potassium Level 4.2 MMOL/L (3.5-5.1) Chloride Level 94 MMOL/L (98-107) L Carbon Dioxide Level 25 MMOL/L (21-32) Anion Gap 8 mmol/L (5-15) Blood Urea Nitrogen 17 mg/dL (7-18) Creatinine 0.6 MG/DL (0.55-1.30) Estimat Glomerular Filtration Rate mL/min (>60) Glucose Level 165 MG/DL (74-106) #H Calcium Level 8.1 MG/DL (8.5-10.1) L Phosphorus Level 1.5 MG/DL (2.5-4.9) L Magnesium Level 1.6 MG/DL (1.8-2.4) L Total Bilirubin 0.5 MG/DL (0.2-1.0) Aspartate Amino Transf (AST/SGOT) 24 U/L (15-37) Alanine Aminotransferase (ALT/SGPT) 36 U/L (12-78) Alkaline Phosphatase 76 U/L (46-116) Total Protein 5.7 G/DL (6.4-8.2) L Albumin 1.8 G/DL (3.4-5.0) L Globulin 3.9 g/dL Albumin/Globulin Ratio 0.5 (1.0-2.7) L Thyroid Stimulating Hormone (TSH) 2.076 uiU/mL (0.358-3.740) Enrique Cordero MD Apr 21, 2018 22:23
[2018-04-21] MEDS: Metoprolol 25mg tab ORAL SCH (22:30)
[2018-04-22] VITALS: BP 109/63
[2018-04-22 04:00] VITALS: BP 129/76
[2018-04-22] MEDS: Tylenol #3 tab (300mg/30mg) ORAL PRN (04:09)
[2018-04-22] MEDS: NovoLOG Insulin Flexpen SUBQ SCH ×4 (05:51→22:01)
[2018-04-22 07:24] LABS: HEMATOCRIT 40.1 % (42.0-52.0); HEMOGLOBIN 14.2 G/DL (14.2-18.0); MEAN CORPUSCULAR VOLUME 93 FL (80-99); PLATELET COUNT 88 K/UL (150-450); RED BLOOD COUNT 4.33 M/UL (4.70-6.10); RED CELL DISTRIBUTION WIDTH 12.1 % (11.6-14.8); WHITE BLOOD COUNT 6.2 K/UL (4.8-10.8)
[2018-04-22 07:46] LABS: ALANINE AMINOTRANSFERASE 36 U/L (12-78); ALBUMIN 1.5 G/DL (3.4-5.0); ALBUMIN/GLOBULIN RATIO 0.4 (1.0-2.7); ALKALINE PHOSPHATASE 69 U/L (46-116); ANION GAP 7 mmol/L (5-15); ASPARTATE AMINO TRANSFERASE 23 U/L (15-37); BILIRUBIN,TOTAL 0.4 MG/DL (0.2-1.0); BLOOD UREA NITROGEN 19 mg/dL (7-18); CALCIUM 7.9 MG/DL (8.5-10.1); CARBON DIOXIDE 25 MMOL/L (21-32); CHLORIDE 97 MMOL/L (98-107); CREATININE 0.6 MG/DL (0.55-1.30); PHOSPHORUS 1.8 MG/DL (2.5-4.9); SODIUM 129 MMOL/L (136-145)
[2018-04-22 08:00] VITALS: BP 106/69
[2018-04-22] MEDS: Heparin 5000 units/ml inj SUBQ SCH ×2 (09:00→21:00)
[2018-04-22] MEDS: Cefepime HCl 1 GM in D5W 55 ML IVPB SCH ×2 (09:56→22:19)
[2018-04-22] MEDS: Docusate 100mg cap ORAL SCH ×2 (09:57→22:00)
[2018-04-22] MEDS: Metoprolol 25mg tab ORAL SCH ×2 (09:57→21:59)
[2018-04-22] MEDS: Nystatin Susp 500,000 units/5ml ORAL SCH ×4 (09:57→21:59)
[2018-04-22 12:00] VITALS: BP 104/67
--- NOTE | 2018-04-22 12:29 | Consultation ---
History of Present Illness General Date patient seen: Apr 22, 2018 Chief Complaint: Pain Present Illness HPI 82 y/o M with hx of neuroendocrine CA of bladder with liver, brain, mediastinum and lungs mets s/p chemo and currently on radiation tx (last was 1 month ago), HTN, HLD, Severe OA Knee s/p knee arthroplasty, s/p b/l inguinal repair, s/p splenectomy 1968, hypothyroidism, hx of UTI presents to ED on 04/20 with 3 days of generalized pain, difficulty swallowing and decreased appetite. Upon admission paqtietn with Afib with RVR, hyponatremic, elevated troponin and abnormal U/a. Denies f/c, n/v/d, CP. Of note, patient admitted to [facility] from 02/24-03/19 due to brain mass; mass unresectable; discharged on [facility]. Allergies: Coded Allergies: No Known Allergies (Unverified , 10/25/13) Medication History Scheduled Cephalexin* (Keflex*), 500 MG ORAL EVERY 12 HOURS, (Reported) Dexamethasone (Dexamethasone), 4 MG PO DAILY, (Reported) Famotidine (Famotidine), 40 MG ORAL DAILY, (Reported) Levothyroxine Sodium* (Synthroid*), 75 MCG ORAL DAILY, (Reported) Nystatin* (Nystatin*), 3 ML ORAL FOUR TIMES A DAY, (Reported) Tamsulosin Hcl (Tamsulosin Hcl*), 0.4 MG ORAL AC, (Reported) Trospium Chloride (Trospium Chloride), 60 MG PO BEDTIME, (Reported) Scheduled PRN Acetaminophen* (Tylenol Extra Strength*), 500 MG ORAL Q8H PRN for Prn Headache/ Temp > 101, (Reported) Patient History Healthcare decision maker Resuscitation status Full Code Advanced Directive on File No Patient History Narrative Pmhx: as above Shx: No smoking, alcohol, or drugs at this time. Fhx: non contributory Review of Systems All Other Systems: negative except mentioned in HPI Physical Exam Physical Exam Narrative GENERAL: The patient is awake, responsive, confused, but very pleasant. HEAD AND NECK: Pupils equal and reactive to light. Extraocular movements intact. Neck was supple. No JVD. LUNGS: Good air entry. No wheeze or rales. Poor inspiratory effort. HEART: S1 and S2. Irregular. No murmur or gallop. ABDOMEN: Soft, nondistended, and nontender. Positive bowel sounds. EXTREMITIES: No cyanosis, clubbing, or edema. NEUROLOGIC: Cranial nerves II through XII are grossly intact. The patient is moving all the extremities spontaneously. Gait was not assessed due to the patient's status.. PSYCHIATRIC: Mood and affect is intact. Last 24 Hour Vital Signs Date Time Temp Pulse Resp B/P (MAP) Pulse Ox O2 Delivery O2 Flow Rate FiO2 04/22/18 09:57 105 106/69 04/22/18 09:00 Nasal Cannula 2.0 04/22/18 08:00 103 04/22/18 08:00 97.6 105 20 106/69 (81) 93 04/22/18 04:39 97.0 04/22/18 04:00 97.9 97 20 129/76 (93) 94 04/22/18 04:00 106 04/22/18 00:00 98 04/22/18 00:00 97.7 98 20 109/63 (78) 95 04/21/18 22:30 95 97/58 04/21/18 21:00 Nasal Cannula 2.0 04/21/18 20:00 97.0 95 20 97/58 (71) 94 04/21/18 20:00 106 04/21/18 16:00 97.3 80 19 101/59 (73) 93 04/21/18 16:00 102 Intake and Output 04/21/18 04/22/18 19:00 07:00 Intake Total 1360 ml 880 ml Output Total 900 ml 1500 ml Balance 460 ml -620 ml Intake Oral 500 ml IV Total 860 ml 880 ml Output Urine Total 900 ml 1500 ml # Bowel Movements 1 Laboratory Tests Test 04/22/18 05:50 White Blood Count 6.2 K/UL (4.8-10.8) Red Blood Count 4.33 M/UL (4.70-6.10) L Hemoglobin 14.2 G/DL (14.2-18.0) Hematocrit 40.1 % (42.0-52.0) L Mean Corpuscular Volume 93 FL (80-99) Mean Corpuscular Hemoglobin 32.8 PG (27.0-31.0) H Mean Corpuscular Hemoglobin Concent 35.4 G/DL (32.0-36.0) Red Cell Distribution Width 12.1 % (11.6-14.8) Platelet Count 88 K/UL (150-450) L Mean Platelet Volume 7.1 FL (6.5-10.1) Neutrophils (%) (Auto) % (45.0-75.0) Lymphocytes (%) (Auto) % (20.0-45.0) Monocytes (%) (Auto) % (1.0-10.0) Eosinophils (%) (Auto) % (0.0-3.0) Basophils (%) (Auto) % (0.0-2.0) Differential Total Cells Counted 100 Neutrophils % (Manual) 86 % (45-75) H Lymphocytes % (Manual) 6 % (20-45) L Monocytes % (Manual) 8 % (1-10) Eosinophils % (Manual) 0 % (0-3) Basophils % (Manual) 0 % (0-2) Band Neutrophils 0 % (0-8) Nucleated Red Blood Cells 2 /100 WBC Platelet Estimate Decreased L Platelet Morphology Normal Sodium Level 129 MMOL/L (136-145) L Potassium Level 4.0 MMOL/L (3.5-5.1) Chloride Level 97 MMOL/L (98-107) L Carbon Dioxide Level 25 MMOL/L (21-32) Anion Gap 7 mmol/L (5-15) Blood Urea Nitrogen 19 mg/dL (7-18) H Creatinine 0.6 MG/DL (0.55-1.30) Estimat Glomerular Filtration Rate mL/min (>60) Glucose Level 170 MG/DL (74-106) H Calcium Level 7.9 MG/DL (8.5-10.1) L Phosphorus Level 1.8 MG/DL (2.5-4.9) L Magnesium Level 1.8 MG/DL (1.8-2.4) Total Bilirubin 0.4 MG/DL (0.2-1.0) Aspartate Amino Transf (AST/SGOT) 23 U/L (15-37) Alanine Aminotransferase (ALT/SGPT) 36 U/L (12-78) Alkaline Phosphatase 69 U/L (46-116) Troponin I 0.079 ng/mL (0.000-0.056) Total Protein 5.0 G/DL (6.4-8.2) L Albumin 1.5 G/DL (3.4-5.0) L Globulin 3.5 g/dL Albumin/Globulin Ratio 0.4 (1.0-2.7) L Height (Feet): 5 Height (Inches): 11.00 Weight (Pounds): 162 Medications Current Medications Medications (Trade) Dose Ordered Sig/Chivo Route PRN Reason Start Time Stop Time Status Last Admin Dose Admin Acetaminophen (Tylenol) 650 mg Q4H PRN ORAL Mild Pain (Pain Scale 1-3) 04/20/18 15:15 05/20/18 15:14 04/21/18 01:02 Acetaminophen (Tylenol) 650 mg Q4H PRN ORAL fever 04/20/18 15:15 05/20/18 15:14 Acetaminophen/ Codeine Phosphate (Tylenol #3) 1 tab Q6H PRN ORAL Moderate Pain (Pain Scale 4-6) 04/21/18 07:15 04/28/18 07:14 04/22/18 04:09 Acetaminophen/ Hydrocodone Bitart ([place] 5/325) 1 tab Q6H PRN ORAL BREAKTHROUGH PAIN 04/21/18 08:00 04/28/18 07:59 Cefepime HCl 1 gm/ Dextrose 55 ml @ 110 mls/hr EVERY 12 HOURS IVPB 04/21/18 13:30 04/28/18 13:29 04/22/18 09:56 Dexamethasone (Decadron) 4 mg DAILY ORAL 04/21/18 09:00 05/21/18 08:59 04/22/18 09:58 Dextrose (Dextrose 50%) 25 ml Q30M PRN IV Hypoglycemia 04/20/18 15:15 05/20/18 15:14 Dextrose (Dextrose 50%) 50 ml Q30M PRN IV Hypoglycemia 04/20/18 15:15 05/20/18 15:14 Docusate Sodium (Colace) 100 mg EVERY 12 HOURS ORAL 04/20/18 21:00 05/20/18 20:59 04/22/18 09:57 Famotidine (Pepcid) 40 mg DAILY ORAL 04/21/18 09:00 05/21/18 08:59 04/22/18 09:57 Heparin Sodium (Porcine) (Heparin 5000 units/ml) 5,000 units EVERY 12 HOURS SUBQ 04/20/18 21:00 05/20/18 20:59 04/20/18 20:29 Insulin Aspart (NovoLOG) BEFORE MEALS AND HS SUBQ 04/20/18 16:30 05/20/18 16:29 04/22/18 05:51 Levothyroxine Sodium (Synthroid) 75 mcg Q24H ORAL 04/21/18 06:30 05/21/18 06:29 04/22/18 05:48 Magnesium Hydroxide (Mom) 30 ml HSPRN PRN ORAL Constipation 04/20/18 15:15 05/20/18 15:14 Metoprolol Tartrate (Lopressor) 25 mg Q12HR ORAL 04/21/18 22:30 05/21/18 22:29 04/22/18 09:57 Nystatin (Nystatin) 3 ml FOUR TIMES A DAY ORAL 04/20/18 18:00 04/27/18 17:59 04/22/18 09:57 Ondansetron HCl (Zofran) 4 mg Q6H PRN IVP Nausea & Vomiting 04/20/18 15:15 05/20/18 15:14 Polyethylene Glycol (Miralax) 17 gm DAILYPRN PRN ORAL Constipation 04/20/18 15:15 05/20/18 15:14 Sodium Chloride 1,000 ml @ 75 mls/hr [id number] IV 04/21/18 10:45 05/21/18 10:44 04/21/18 23:43 Tamsulosin HCl (Flomax) 0.4 mg QHS ORAL 04/20/18 21:00 05/20/18 20:59 04/21/18 21:12 Assessment/Plan Assessment/Plan Abx: Cefepime 04/21- Assessment: Afebrile No leukocytosis R/o probable UTI- (on/off dysuria, worse in the last few days, however no pyuria ) -CXR: Right right upper lung interstitial and airspace opacities, possibly related to clinical history of metastatic colon carcinoma. Right hilar mass, possibly related to clinical history of metastatic colon carcinoma. No definite dense consolidation or effusions. Port catheter in place -u/a wbc 2-4, nit +, leuk est +1 Generalized weakness Dysphagia Afib w RVR Hyponatremia Troponinemia HTN HLD neuroendocrine CA of bladder with liver, brain, mediastinum and lungs mets s/p chemo and currently on radiation tx (last was 1 month ago) Severe OA Knee s/p knee arthroplasty s/p b/l inguinal repair s/p splenectomy 1968 hypothyroidism hx of UTI Plan: -Continue empiric Cefepime #2 for now pending urine culture -if neg UCx, will d/c -f/u cx -Monitro CBC/CMP, temperatures -aspiration precautions -Cards f/u Thank you for this consultation. Will continue to follow along with you. Discussed with NICOLÁS. Anna Yusuf M.D. Apr 22, 2018 12:29
[2018-04-22 16:00] VITALS: BP 100/53
--- NOTE | 2018-04-22 16:16 | Internal Med Progress Note ---
Subjective Physician Name Noah Paz Attending Physician Noah Paz MD Current Medications Medications (Trade) Dose Ordered Sig/Chivo Route PRN Reason Start Time Stop Time Status Last Admin Dose Admin Acetaminophen (Tylenol) 650 mg Q4H PRN ORAL Mild Pain (Pain Scale 1-3) 04/20/18 15:15 05/20/18 15:14 04/21/18 01:02 Acetaminophen (Tylenol) 650 mg Q4H PRN ORAL fever 04/20/18 15:15 05/20/18 15:14 Acetaminophen/ Codeine Phosphate (Tylenol #3) 1 tab Q6H PRN ORAL Moderate Pain (Pain Scale 4-6) 04/21/18 07:15 04/28/18 07:14 04/22/18 04:09 Acetaminophen/ Hydrocodone Bitart ([place] 5/325) 1 tab Q6H PRN ORAL BREAKTHROUGH PAIN 04/21/18 08:00 04/28/18 07:59 Cefepime HCl 1 gm/ Dextrose 55 ml @ 110 mls/hr EVERY 12 HOURS IVPB 04/21/18 13:30 04/28/18 13:29 04/22/18 09:56 Dexamethasone (Decadron) 4 mg DAILY ORAL 04/21/18 09:00 05/21/18 08:59 04/22/18 09:58 Dextrose (Dextrose 50%) 25 ml Q30M PRN IV Hypoglycemia 04/20/18 15:15 05/20/18 15:14 Dextrose (Dextrose 50%) 50 ml Q30M PRN IV Hypoglycemia 04/20/18 15:15 05/20/18 15:14 Docusate Sodium (Colace) 100 mg EVERY 12 HOURS ORAL 04/20/18 21:00 05/20/18 20:59 04/22/18 09:57 Famotidine (Pepcid) 40 mg DAILY ORAL 04/21/18 09:00 05/21/18 08:59 04/22/18 09:57 Heparin Sodium (Porcine) (Heparin 5000 units/ml) 5,000 units EVERY 12 HOURS SUBQ 04/20/18 21:00 05/20/18 20:59 04/20/18 20:29 Insulin Aspart (NovoLOG) BEFORE MEALS AND HS SUBQ 04/20/18 16:30 05/20/18 16:29 04/22/18 12:27 Levothyroxine Sodium (Synthroid) 75 mcg Q24H ORAL 04/21/18 06:30 05/21/18 06:29 04/22/18 05:48 Magnesium Hydroxide (Mom) 30 ml HSPRN PRN ORAL Constipation 04/20/18 15:15 05/20/18 15:14 Metoprolol Tartrate (Lopressor) 25 mg Q12HR ORAL 04/21/18 22:30 05/21/18 22:29 04/22/18 09:57 Nystatin (Nystatin) 3 ml FOUR TIMES A DAY ORAL 04/20/18 18:00 04/27/18 17:59 04/22/18 12:45 Ondansetron HCl (Zofran) 4 mg Q6H PRN IVP Nausea & Vomiting 04/20/18 15:15 05/20/18 15:14 Polyethylene Glycol (Miralax) 17 gm DAILYPRN PRN ORAL Constipation 04/20/18 15:15 05/20/18 15:14 Sodium Chloride 1,000 ml @ 75 mls/hr [id number] IV 04/21/18 10:45 05/21/18 10:44 04/22/18 12:47 Tamsulosin HCl (Flomax) 0.4 mg QHS ORAL 04/20/18 21:00 05/20/18 20:59 04/21/18 21:12 Allergies: Coded Allergies: No Known Allergies (Unverified , 10/25/13) Subjective awake, alert, responsive , No more leg pain, C/O back pain Objective Last Vital Signs Date Time Temp Pulse Resp B/P (MAP) Pulse Ox O2 Delivery O2 Flow Rate FiO2 04/22/18 13:06 89 04/22/18 12:00 99.5 20 104/67 (79) 96 04/22/18 09:00 Nasal Cannula 2.0 Laboratory Tests Test 04/22/18 05:50 White Blood Count 6.2 K/UL (4.8-10.8) Red Blood Count 4.33 M/UL (4.70-6.10) L Hemoglobin 14.2 G/DL (14.2-18.0) Hematocrit 40.1 % (42.0-52.0) L Mean Corpuscular Volume 93 FL (80-99) Mean Corpuscular Hemoglobin 32.8 PG (27.0-31.0) H Mean Corpuscular Hemoglobin Concent 35.4 G/DL (32.0-36.0) Red Cell Distribution Width 12.1 % (11.6-14.8) Platelet Count 88 K/UL (150-450) L Mean Platelet Volume 7.1 FL (6.5-10.1) Neutrophils (%) (Auto) % (45.0-75.0) Lymphocytes (%) (Auto) % (20.0-45.0) Monocytes (%) (Auto) % (1.0-10.0) Eosinophils (%) (Auto) % (0.0-3.0) Basophils (%) (Auto) % (0.0-2.0) Differential Total Cells Counted 100 Neutrophils % (Manual) 86 % (45-75) H Lymphocytes % (Manual) 6 % (20-45) L Monocytes % (Manual) 8 % (1-10) Eosinophils % (Manual) 0 % (0-3) Basophils % (Manual) 0 % (0-2) Band Neutrophils 0 % (0-8) Nucleated Red Blood Cells 2 /100 WBC Platelet Estimate Decreased L Platelet Morphology Normal Sodium Level 129 MMOL/L (136-145) L Potassium Level 4.0 MMOL/L (3.5-5.1) Chloride Level 97 MMOL/L (98-107) L Carbon Dioxide Level 25 MMOL/L (21-32) Anion Gap 7 mmol/L (5-15) Blood Urea Nitrogen 19 mg/dL (7-18) H Creatinine 0.6 MG/DL (0.55-1.30) Estimat Glomerular Filtration Rate mL/min (>60) Glucose Level 170 MG/DL (74-106) H Calcium Level 7.9 MG/DL (8.5-10.1) L Phosphorus Level 1.8 MG/DL (2.5-4.9) L Magnesium Level 1.8 MG/DL (1.8-2.4) Total Bilirubin 0.4 MG/DL (0.2-1.0) Aspartate Amino Transf (AST/SGOT) 23 U/L (15-37) Alanine Aminotransferase (ALT/SGPT) 36 U/L (12-78) Alkaline Phosphatase 69 U/L (46-116) Troponin I 0.079 ng/mL (0.000-0.056) Total Protein 5.0 G/DL (6.4-8.2) L Albumin 1.5 G/DL (3.4-5.0) L Globulin 3.5 g/dL Albumin/Globulin Ratio 0.4 (1.0-2.7) L Intake and Output 04/21/18 04/22/18 19:00 07:00 Intake Total 1360 ml 880 ml Output Total 900 ml 1500 ml Balance 460 ml -620 ml Intake Oral 500 ml IV Total 860 ml 880 ml Output Urine Total 900 ml 1500 ml # Bowel Movements 1 Objective GENERAL: awake, responsive, confused and sleepy. HEAD AND NECK: Pupils equal and reactive to light. Extraocular movements intact. Neck was supple. No JVD. LUNGS: Decrease air entry at bases. No wheeze or rales. Poor inspiratory effort. HEART: S1 and S2. Irregular. No murmur or gallop. ABDOMEN: Soft, nondistended, and nontender. Positive bowel sounds. EXTREMITIES: No cyanosis, clubbing, or edema. NEUROLOGIC: Cranial nerves II through XII are grossly intact. moving all the extremities spontaneously. Gait was not assessed due to the patient's status. RECTAL: Refused and deferred. GENITOURINARY: Refused and deferred. PSYCHIATRIC: Mood and affect is intact. Assessment/Plan Assessment/Plan 1. Acute UTI.. 2. Steroid-induced hyperglycemia. 3. Dehydration. 4. Hyponatremia. 5. 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 6. 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 7. Hypothyroidism. 8. Atherosclerotic heart disease. 9. A 4.2-cm ascending aortic aneurysm. 10. Status post splenectomy in 1967. 11. Severe osteoarthritis of the knee. 12. Hypertension. 13. New onset Atrial Fibrillation. PLAN: In monitored unit. At this time, the patient is not a candidate for anticoagulation due to the brain metastasis. DVT prophylaxis: heparin subcutaneous. Code status: Full Code. IV hydration. Follow up with Cardiology consultation with Dr. Cordero Abx: Start on Cefepime IV F/u with labs and cultures. Duplex of Legs. Wes Diallo Payam MD Apr 22, 2018 16:16
--- NOTE | 2018-04-22 16:52 | Consultation ---
Consult Note Assessment/Plan Renal consult dictated # [id number] Ayo An MD Apr 22, 2018 16:51
[2018-04-22] MEDS ORDERED: Milk of Magnesia 30ml Ud ORAL PRN (18:30)
[2018-04-22] MEDS ORDERED: Norco 5mg/325mg tab ORAL PRN (18:30)
[2018-04-22] MEDS ORDERED: Miralax 17gm pkt ORAL PRN (18:30)
--- NOTE | 2018-04-22 19:14 | Consultation ---
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, lung, mediastinum as well as brain, hypertension, dyslipidemia, severe osteoarthritis of the knee status post knee arthroplasty, recurrent urinary tract infection, bilateral inguinal hernia repair; history of splenectomy in 1967, 4.2-cm ascending aortic aneurysm, distal left circumflex coronary artery disease, history of hypothyroidism, right anteroinferior hypervascular homogeneous mass with cystic and hemorrhagic component, most likely solitary metastasis with leftward midline shift, who was initially presented to [facility] on 02/24/2018 through 03/19/2018, due to the brain mass and it subsequently was unresectable and the patient was discharged home with outpatient follow up who presented to [facility] complaining about pain, difficulty swallowing, severe weakness, some nausea. No vomiting. No diarrhea. On admission noted to have wounds which would require care. Surgery called to evaluate. patient seen, chart reviewed, patient examined. Allergies: Coded Allergies: No Known Allergies (Unverified , 10/25/13) Medication History Scheduled Cephalexin* (Keflex*), 500 MG ORAL EVERY 12 HOURS, (Reported) Dexamethasone (Dexamethasone), 4 MG PO DAILY, (Reported) Famotidine (Famotidine), 40 MG ORAL DAILY, (Reported) Levothyroxine Sodium* (Synthroid*), 75 MCG ORAL DAILY, (Reported) Nystatin* (Nystatin*), 3 ML ORAL FOUR TIMES A DAY, (Reported) Tamsulosin Hcl (Tamsulosin Hcl*), 0.4 MG ORAL AC, (Reported) Trospium Chloride (Trospium Chloride), 60 MG PO BEDTIME, (Reported) Scheduled PRN Acetaminophen* (Tylenol Extra Strength*), 500 MG ORAL Q8H PRN for Prn Headache/ Temp > 101, (Reported) Patient History Limited by: medical condition History Provided By: Medical Record, PMD Healthcare decision maker Resuscitation status Full Code Advanced Directive on File No Past Medical/Surgical History Past Medical/Surgical History: (1) Edema extremities (2) Knee osteoarthritis (3) Urinary obstruction (4) HTN (hypertension) (5) Overactive bladder (6) Osteoarthritis, knee (7) Migraine (8) Hypercholesteremia (9) Hypertension (10) Edema extremities (11) Right knee pain (12) Shoulder pain, bilateral (13) Protein-calorie malnutrition, severe (14) Hypercholesteremia (15) HTN (hypertension) (16) Right flank pain (17) Dehydration (18) Hyponatremia (19) Metastatic cancer (20) Osteoarthritis, knee (21) Failure to thrive in adult (22) Colon cancer metastasized to multiple sites Review of Systems All Other Systems: negative except mentioned in HPI Physical Exam General Appearance: no apparent distress Lines, tubes and drains: other HEENT: mucous membranes moist Neck: normal inspection Respiratory/Chest: no respiratory distress, no accessory muscle use Cardiovascular/Chest: normal rate Abdomen: soft, no organomegaly, no mass Extremities: normal inspection Skin Exam: warm/dry, other Neurologic: alert Last 24 Hour Vital Signs Date Time Temp Pulse Resp B/P (MAP) Pulse Ox O2 Delivery O2 Flow Rate FiO2 04/22/18 16:58 81 04/22/18 16:00 98.1 85 20 100/53 (69) 94 04/22/18 13:06 89 04/22/18 12:00 99.5 97 20 104/67 (79) 96 04/22/18 09:57 105 106/69 04/22/18 09:00 Nasal Cannula 2.0 04/22/18 08:00 103 04/22/18 08:00 97.6 105 20 106/69 (81) 93 04/22/18 04:39 97.0 04/22/18 04:00 97.9 97 20 129/76 (93) 94 04/22/18 04:00 106 04/22/18 00:00 98 04/22/18 00:00 97.7 98 20 109/63 (78) 95 04/21/18 22:30 95 97/58 04/21/18 21:00 Nasal Cannula 2.0 04/21/18 20:00 97.0 95 20 97/58 (71) 94 04/21/18 20:00 106 Intake and Output 04/21/18 04/22/18 18:59 06:59 Intake Total 1360 ml 955 ml Output Total 900 ml 1500 ml Balance 460 ml -545 ml Intake Oral 500 ml IV Total 860 ml 955 ml Output Urine Total 900 ml 1500 ml # Bowel Movements 1 Laboratory Tests Test 04/22/18 05:50 White Blood Count 6.2 K/UL (4.8-10.8) Red Blood Count 4.33 M/UL (4.70-6.10) L Hemoglobin 14.2 G/DL (14.2-18.0) Hematocrit 40.1 % (42.0-52.0) L Mean Corpuscular Volume 93 FL (80-99) Mean Corpuscular Hemoglobin 32.8 PG (27.0-31.0) H Mean Corpuscular Hemoglobin Concent 35.4 G/DL (32.0-36.0) Red Cell Distribution Width 12.1 % (11.6-14.8) Platelet Count 88 K/UL (150-450) L Mean Platelet Volume 7.1 FL (6.5-10.1) Neutrophils (%) (Auto) % (45.0-75.0) Lymphocytes (%) (Auto) % (20.0-45.0) Monocytes (%) (Auto) % (1.0-10.0) Eosinophils (%) (Auto) % (0.0-3.0) Basophils (%) (Auto) % (0.0-2.0) Differential Total Cells Counted 100 Neutrophils % (Manual) 86 % (45-75) H Lymphocytes % (Manual) 6 % (20-45) L Monocytes % (Manual) 8 % (1-10) Eosinophils % (Manual) 0 % (0-3) Basophils % (Manual) 0 % (0-2) Band Neutrophils 0 % (0-8) Nucleated Red Blood Cells 2 /100 WBC Platelet Estimate Decreased L Platelet Morphology Normal Sodium Level 129 MMOL/L (136-145) L Potassium Level 4.0 MMOL/L (3.5-5.1) Chloride Level 97 MMOL/L (98-107) L Carbon Dioxide Level 25 MMOL/L (21-32) Anion Gap 7 mmol/L (5-15) Blood Urea Nitrogen 19 mg/dL (7-18) H Creatinine 0.6 MG/DL (0.55-1.30) Estimat Glomerular Filtration Rate mL/min (>60) Glucose Level 170 MG/DL (74-106) H Calcium Level 7.9 MG/DL (8.5-10.1) L Phosphorus Level 1.8 MG/DL (2.5-4.9) L Magnesium Level 1.8 MG/DL (1.8-2.4) Total Bilirubin 0.4 MG/DL (0.2-1.0) Aspartate Amino Transf (AST/SGOT) 23 U/L (15-37) Alanine Aminotransferase (ALT/SGPT) 36 U/L (12-78) Alkaline Phosphatase 69 U/L (46-116) Troponin I 0.079 ng/mL (0.000-0.056) Total Protein 5.0 G/DL (6.4-8.2) L Albumin 1.5 G/DL (3.4-5.0) L Globulin 3.5 g/dL Albumin/Globulin Ratio 0.4 (1.0-2.7) L Height (Feet): 5 Height (Inches): 11.00 Weight (Pounds): 162 Medications Current Medications Medications (Trade) Dose Ordered Sig/Chivo Route PRN Reason Start Time Stop Time Status Last Admin Dose Admin Acetaminophen (Tylenol) 650 mg Q4H PRN ORAL Mild Pain (Pain Scale 1-3) 04/22/18 18:30 05/20/18 18:29 Acetaminophen (Tylenol) 650 mg Q4H PRN ORAL fever 04/22/18 18:30 05/20/18 18:29 Acetaminophen/ Codeine Phosphate (Tylenol #3) 1 tab Q6H PRN ORAL Moderate Pain (Pain Scale 4-6) 04/22/18 18:30 04/28/18 18:29 Acetaminophen/ Hydrocodone Bitart ([place] 5/325) 1 tab Q6H PRN ORAL BREAKTHROUGH PAIN 04/22/18 18:30 04/28/18 18:29 Cefepime HCl 1 gm/ Dextrose 55 ml @ 110 mls/hr EVERY 12 HOURS IVPB 04/22/18 21:00 04/28/18 13:29 Dexamethasone (Decadron) 4 mg DAILY ORAL 04/23/18 09:00 05/21/18 08:59 Dextrose (Dextrose 50%) 25 ml Q30M PRN IV Hypoglycemia 04/22/18 18:45 05/20/18 15:14 Dextrose (Dextrose 50%) 50 ml Q30M PRN IV Hypoglycemia 04/22/18 18:45 05/20/18 15:14 Docusate Sodium (Colace) 100 mg EVERY 12 HOURS ORAL 04/22/18 21:00 05/20/18 20:59 Famotidine (Pepcid) 40 mg DAILY ORAL 04/23/18 09:00 05/21/18 08:59 Heparin Sodium (Porcine) (Heparin 5000 units/ml) 5,000 units EVERY 12 HOURS SUBQ 04/22/18 21:00 05/20/18 20:59 Insulin Aspart (NovoLOG) BEFORE MEALS AND HS SUBQ 04/22/18 21:00 05/20/18 16:29 Levothyroxine Sodium (Synthroid) 75 mcg Q24H ORAL 04/23/18 06:30 05/21/18 06:29 Magnesium Hydroxide (Mom) 30 ml HSPRN PRN ORAL Constipation 04/22/18 18:30 05/22/18 18:29 Metoprolol Tartrate (Lopressor) 25 mg Q12HR ORAL 04/22/18 21:00 05/21/18 22:29 Nystatin (Nystatin) 3 ml FOUR TIMES A DAY ORAL 04/22/18 21:00 04/27/18 17:59 Ondansetron HCl (Zofran) 4 mg Q6H PRN IVP Nausea & Vomiting 04/22/18 18:30 05/20/18 18:29 Polyethylene Glycol (Miralax) 17 gm DAILYPRN PRN ORAL Constipation 04/22/18 18:30 05/22/18 18:29 Sodium Chloride 1,000 ml @ 75 mls/hr [id number] IV 04/22/18 18:30 05/21/18 10:44 Tamsulosin HCl (Flomax) 0.4 mg QHS ORAL 04/22/18 21:00 05/20/18 20:59 Assessment/Plan Problem List: (1) Dermatitis Assessment & Plan: PT presents with resolving incontinence associated dermatitis to buttocks. Bilateral buttocks pink with dry peeling skin sacral area non-tender when palpated. Both heels dry and callused . Tx.Plan: Apply Moisture Barrier Paste to buttocks with each perineal care Q shift. Reposition at least every 2hours or as tolerated. Off-load heels with pillow. thank you for allowing me to participate in patients care ICD Codes: L30.9 - Dermatitis, unspecified SNOMED: [id number] Jamie Chavez Apr 22, 2018 19:14
--- NOTE | 2018-04-22 19:30 | Consultation ---
DATE OF CONSULTATION: 04/22/2018 NEPHROLOGY CONSULTATION CONSULTING PHYSICIAN: Ayo An M.D. REFERRING PHYSICIAN: Noah Paz M.D. REASON FOR CONSULTATION: Hyponatremia. HISTORY OF PRESENT ILLNESS: This is an 82-year-old male, who was admitted with weakness and poor appetite. I was asked to see him for his hyponatremia. His serum sodium was 126 upon admission, yesterday was 127, and today is 129. The patient had a UA done on the , which showed 2+ protein and only 2-4 rbc's per high-powered field. He is a poor historian and cannot give much history. 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 History of hypertension, weight loss, dyslipidemia, osteoarthritis of knee, recurrent urinary tract infections, bilateral inguinal hernia repair. The patient is status post splenectomy in 1967. He has an ascending aortic aneurysm, distal left circumflex coronary artery aneurysm, history of hypothyroidism. MEDICATIONS: Reviewed in the EMR. SOCIAL HISTORY: Unobtainable. ALLERGIES: No known drug allergies. REVIEW OF SYSTEMS: Unobtainable. PHYSICAL EXAMINATION: GENERAL: The patient is an elderly male, in no acute distress. VITAL SIGNS: Blood pressure is 100/53, pulse is 85, respirations 20, and temperature is 98.1. HEENT: Showed pale conjunctivae. Anicteric sclerae. NECK: Supple. LUNGS: Clear to auscultation. HEART: S1 and S2 without murmurs or rubs. ABDOMEN: Soft, nontender. EXTREMITIES: Bilateral pedal edema. LABORATORY FINDINGS: The CBC shows WBC of 6200, hematocrit 40.1, hemoglobin 14.2, platelets 88,000. The chemistry panel shows sodium 129, potassium 4, chloride 97, CO2 25, BUN is 19, creatinine 0.6, and glucose is 170. Phosphorus is 1.8. Albumin is 1.5. ASSESSMENT: This is an 82-year-old male with history of weakness. He has history of poorly differentiated carcinoma of the bladder dome with metastasis. He has history of hypothyroidism, history of atherosclerotic disease as described. His hyponatremia could be result of syndrome of inappropriate ADH release. Volume depletion is a possibility, although less likely since the patient has been getting IV normal saline and still has significant hyponatremia. Hypothyroidism is another possibility although the patient is taking thyroid replacement. PLAN: Urine studies will be done including urine osmolality and urine sodium. The patient will need to be on free-water restriction. I will continue the normal saline for now, however, if there is no improvement of sodium, I will discontinue it. Laboratories will be followed and further recommendations will be given based on those results. Thank you very much, Dr. Paz, for this consultation. Ayo An M.D. DR: Dalia JOB#: [id number] CC:
[2018-04-22 20:00] VITALS: BP_SYST 100; BP_SYST 116; BP_DIAS 60; BP_DIAS 68
[2018-04-22] MEDS: Tamsulosin 0.4mg cap ORAL SCH (21:58)
--- NOTE | 2018-04-22 22:14 | Cardiology Progress Note ---
Assessment/Plan Status: stable Assessment/Plan Assessment/Plan Status: stable, progressing Assessment/Plan Assessment: Tachycardia Atrial fibrillation Neuroendocrine carcinoma with mets Hypertension Hyperlipiemia Osteoarthritis knees Recurrent UT Splenectomy Ascending aortic aneurysm hypothyroidism elevated hemoglobin A1c s/p TURP Ectopy with premature atrial contractions Plan: IV steroids for brain mass IV abx for UTI AAA stable in size no indication for intervention continue outpatient palliative radiation Nutrition consult Continue Synthroid Hx of bradycardia from brain mass and hypervagal state - no indication for intervention Metoprolol prn tachycardia 25 BID - hold for SBP<90, discussed with nursing anticoagulation contraindicated due to brain lesions and fall risk Echo at OSH normal LV function Troponin down trending Fluid restriction for hyponatremia Supportive care Hospice? Subjective Cardiovascular: Reports: no symptoms Respiratory: Reports: no symptoms Gastrointestinal/Abdominal: Reports: no symptoms Genitourinary: Reports: no symptoms Subjective Patient agitated and altered ,Mg low, replaced, tachycardia mildly improved. Troponin downtrending, heart rates 90s-110, BP stable, Sodium mildly coming up with fluid restriction. Objective Last 24 Hour Vital Signs Date Time Temp Pulse Resp B/P (MAP) Pulse Ox O2 Delivery O2 Flow Rate FiO2 04/22/18 21:59 95 100/68 04/22/18 16:58 81 04/22/18 16:00 98.1 85 20 100/53 (69) 94 04/22/18 13:06 89 04/22/18 12:00 99.5 97 20 104/67 (79) 96 04/22/18 09:57 105 106/69 04/22/18 09:00 Nasal Cannula 2.0 04/22/18 08:00 103 04/22/18 08:00 97.6 105 20 106/69 (81) 93 04/22/18 04:39 97.0 04/22/18 04:00 97.9 97 20 129/76 (93) 94 04/22/18 04:00 106 04/22/18 00:00 98 04/22/18 00:00 97.7 98 20 109/63 (78) 95 04/21/18 22:30 95 97/58 General Appearance: no apparent distress, cachetic, lethargic EENT: PERRL/EOMI, normal ENT inspection, TMs normal Neck: non-tender, normal alignment, supple, normal inspection, no JVD Rhythm: Afib Cardiovascular: normal peripheral pulses, normal rate, regularly irregular, tachycardia Respiratory/Chest: chest wall non-tender, lungs clear, normal breath sounds, no respiratory distress, no accessory muscle use Abdomen: normal bowel sounds, non tender, soft, no organomegaly, no mass Extremities: normal range of motion, non-tender, normal inspection, no calf tenderness, no swelling Neurologic: 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 helper 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, no motor/sensory deficits Intake and Output 04/21/18 04/22/18 18:59 06:59 Intake Total 1360 ml 955 ml Output Total 900 ml 1500 ml Balance 460 ml -545 ml Intake Oral 500 ml IV Total 860 ml 955 ml Output Urine Total 900 ml 1500 ml # Bowel Movements 1 Laboratory Tests Test 04/22/18 05:50 White Blood Count 6.2 K/UL (4.8-10.8) Red Blood Count 4.33 M/UL (4.70-6.10) L Hemoglobin 14.2 G/DL (14.2-18.0) Hematocrit 40.1 % (42.0-52.0) L Mean Corpuscular Volume 93 FL (80-99) Mean Corpuscular Hemoglobin 32.8 PG (27.0-31.0) H Mean Corpuscular Hemoglobin Concent 35.4 G/DL (32.0-36.0) Red Cell Distribution Width 12.1 % (11.6-14.8) Platelet Count 88 K/UL (150-450) L Mean Platelet Volume 7.1 FL (6.5-10.1) Neutrophils (%) (Auto) % (45.0-75.0) Lymphocytes (%) (Auto) % (20.0-45.0) Monocytes (%) (Auto) % (1.0-10.0) Eosinophils (%) (Auto) % (0.0-3.0) Basophils (%) (Auto) % (0.0-2.0) Differential Total Cells Counted 100 Neutrophils % (Manual) 86 % (45-75) H Lymphocytes % (Manual) 6 % (20-45) L Monocytes % (Manual) 8 % (1-10) Eosinophils % (Manual) 0 % (0-3) Basophils % (Manual) 0 % (0-2) Band Neutrophils 0 % (0-8) Nucleated Red Blood Cells 2 /100 WBC Platelet Estimate Decreased L Platelet Morphology Normal Sodium Level 129 MMOL/L (136-145) L Potassium Level 4.0 MMOL/L (3.5-5.1) Chloride Level 97 MMOL/L (98-107) L Carbon Dioxide Level 25 MMOL/L (21-32) Anion Gap 7 mmol/L (5-15) Blood Urea Nitrogen 19 mg/dL (7-18) H Creatinine 0.6 MG/DL (0.55-1.30) Estimat Glomerular Filtration Rate mL/min (>60) Glucose Level 170 MG/DL (74-106) H Calcium Level 7.9 MG/DL (8.5-10.1) L Phosphorus Level 1.8 MG/DL (2.5-4.9) L Magnesium Level 1.8 MG/DL (1.8-2.4) Total Bilirubin 0.4 MG/DL (0.2-1.0) Aspartate Amino Transf (AST/SGOT) 23 U/L (15-37) Alanine Aminotransferase (ALT/SGPT) 36 U/L (12-78) Alkaline Phosphatase 69 U/L (46-116) Troponin I 0.079 ng/mL (0.000-0.056) Total Protein 5.0 G/DL (6.4-8.2) L Albumin 1.5 G/DL (3.4-5.0) L Globulin 3.5 g/dL Albumin/Globulin Ratio 0.4 (1.0-2.7) L Enrique Cordero MD Apr 22, 2018 22:14
[2018-04-23 00:21] VITALS: BP 114/70
[2018-04-23 04:35] VITALS: BP 117/74
[2018-04-23] MEDS: NovoLOG Insulin Flexpen SUBQ SCH ×4 (06:46→21:23)
[2018-04-23 08:00] VITALS: BP 140/86
[2018-04-23] MEDS: Heparin 5000 units/ml inj SUBQ SCH ×2 (09:00→21:00)
[2018-04-23 09:01] LABS: ANION GAP 10 mmol/L (5-15); BLOOD UREA NITROGEN 21 mg/dL (7-18); CALCIUM 8.6 MG/DL (8.5-10.1); CARBON DIOXIDE 25 MMOL/L (21-32); CHLORIDE 95 MMOL/L (98-107); CREATININE 0.6 MG/DL (0.55-1.30); POTASSIUM 4.7 MMOL/L (3.5-5.1); SODIUM 129 MMOL/L (136-145)
[2018-04-23] MEDS: Docusate 100mg cap ORAL SCH ×2 (09:05→21:19)
[2018-04-23] MEDS: Metoprolol 25mg tab ORAL SCH ×2 (09:06→21:20)
[2018-04-23] MEDS: Nystatin Susp 500,000 units/5ml ORAL SCH ×4 (09:07→21:20)
[2018-04-23] MEDS: Cefepime HCl 1 GM in D5W 55 ML IVPB SCH ×2 (09:22→21:19)
[2018-04-23] MEDS ORDERED: Albuterol/Ipratropium 3ml neb HHN PRN (10:15)
--- NOTE | 2018-04-23 11:22 | Diagnostic Imaging Report ---
Indication: Reason For Exam: SOB Technique: One view of the chest Comparison: 04/20/2018 Findings: Heart size stable. Right chest wall Mediport again noted. There is interval worsening of aeration with increasing interstitial opacification/edema and increased perihilar airspace opacities. Previously noted right hilar mass versus lymph node is less well-defined on this exam. No radiographically appreciable pleural effusion. No pneumothorax. There are degenerative changes of the spine. No acute osseous abnormality. Impression: Interval worsening of aeration with increasing interstitial opacities and worsening perihilar opacities. Given and short-term interval worsening findings may be related to development of pulmonary edema. Correlate clinically. Previously described right hilar masslike opacity less well-defined on this exam, likely obscured by above described opacities. The possibility of an underlying mass is not entirely excluded especially given history of known malignancy. Follow up recommend.
[2018-04-23 12:00] VITALS: BP 121/81
--- NOTE | 2018-04-23 12:41 | General Surgery Progress Note ---
General Surgery-Progress Note Subjective Symptoms: improved Additional Comments no acute events. comfortable. Objective Last 24 Hour Vital Signs Date Time Temp Pulse Resp B/P (MAP) Pulse Ox O2 Delivery O2 Flow Rate FiO2 04/23/18 09:06 96 141/86 04/23/18 04:35 97.6 95 20 117/74 (88) 92 04/23/18 00:21 98.1 89 18 114/70 (85) 92 04/22/18 21:59 95 100/68 04/22/18 20:00 Nasal Cannula 2.0 04/22/18 20:00 98.2 95 18 100/68 (79) 92 04/22/18 16:58 81 04/22/18 16:00 98.1 85 20 100/53 (69) 94 04/22/18 13:06 89 I&O Intake and Output 04/22/18 04/23/18 19:00 07:00 Intake Total 240 ml 605 ml Output Total 800 ml 600 ml Balance -560 ml 5 ml Intake Oral 240 ml 100 ml IV Total 505 ml Output Urine Total 800 ml 600 ml Drains: none Cardiovascular: RSR Respiratory: clear Abdomen: soft, non-tender, present bowel sounds Extremities: other Laboratory Tests Test 04/23/18 00:26 04/23/18 07:35 Urine Osmolality 646 mOsm/kg (429-449) H Urine Random Sodium 136 mmol/L (20-110) H Sodium Level 129 MMOL/L (136-145) L Potassium Level 4.7 MMOL/L (3.5-5.1) Chloride Level 95 MMOL/L (98-107) L Carbon Dioxide Level 25 MMOL/L (21-32) Anion Gap 10 mmol/L (5-15) Blood Urea Nitrogen 21 mg/dL (7-18) H Creatinine 0.6 MG/DL (0.55-1.30) Estimat Glomerular Filtration Rate mL/min (>60) Glucose Level 150 MG/DL (74-106) H Calcium Level 8.6 MG/DL (8.5-10.1) Phosphorus Level 1.9 MG/DL (2.5-4.9) L Magnesium Level 1.7 MG/DL (1.8-2.4) L Plan Problems: (1) Dermatitis Assessment & Plan: PT presents with resolving incontinence associated dermatitis to buttocks. Bilateral buttocks pink with dry peeling skin sacral area non-tender when palpated. Both heels dry and callused . Tx.Plan: Apply Moisture Barrier Paste to buttocks with each perineal care Q shift. Reposition at least every 2hours or as tolerated. Off-load heels with pillow. thank you for allowing me to participate in patients care Jamie Chavez Apr 23, 2018 12:41
--- NOTE | 2018-04-23 13:07 | Nephrology Progress Note ---
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) (2) Hyponatremia Assessment: serum sodium unchanged (3) Hypertension (4) Metastatic cancer Plan free water restriction Demeclocycline if S sodium crockett not improve follow labs Subjective Subjective In NAD Objective Objective Last 24 Hour Vital Signs Date Time Temp Pulse Resp B/P (MAP) Pulse Ox O2 Delivery O2 Flow Rate FiO2 04/23/18 09:06 96 141/86 04/23/18 04:35 97.6 95 20 117/74 (88) 92 04/23/18 00:21 98.1 89 18 114/70 (85) 92 04/22/18 21:59 95 100/68 04/22/18 20:00 Nasal Cannula 2.0 04/22/18 20:00 98.2 95 18 100/68 (79) 92 04/22/18 16:58 81 04/22/18 16:00 98.1 85 20 100/53 (69) 94 04/22/18 13:06 89 Intake and Output 04/22/18 04/23/18 19:00 07:00 Intake Total 240 ml 605 ml Output Total 800 ml 600 ml Balance -560 ml 5 ml Intake Oral 240 ml 100 ml IV Total 505 ml Output Urine Total 800 ml 600 ml Laboratory Tests 04/23/18 00:26: Urine Osmolality 646H, Urine Random Sodium 136H 04/23/18 07:35: Sodium Level 129L, Potassium Level 4.7, Chloride Level 95L, Carbon Dioxide Level 25, Anion Gap 10, Blood Urea Nitrogen 21H, Creatinine 0.6, Estimat Glomerular Filtration Rate , Glucose Level 150H, Calcium Level 8.6, Phosphorus Level 1.9L, Magnesium Level 1.7L Height (Feet): 5 Height (Inches): 11.00 Weight (Pounds): 162 Cardiovascular: regular rhythm Respiratory/Chest: lungs clear Extremities: trace edema Ayo An MD Apr 23, 2018 13:07
[2018-04-23] MEDS ORDERED: Potassium Phosphate 30 MM in NS 275 ML IV SCH (14:00)
[2018-04-23] MEDS ORDERED: SODIUM PHOSPHATE IVPB SCH (15:00)
[2018-04-23] MEDS ORDERED: NS IVPB SCH (15:00)
[2018-04-23 16:00] VITALS: BP 109/73
[2018-04-23] MEDS ORDERED: Isovue-370 150ml vial INJ PRN (16:00)
--- NOTE | 2018-04-23 16:02 | Internal Med Progress Note ---
Subjective Physician Name Noah Paz Attending Physician Noah Paz MD Current Medications Medications (Trade) Dose Ordered Sig/Chivo Route PRN Reason Start Time Stop Time Status Last Admin Dose Admin Acetaminophen (Tylenol) 650 mg Q4H PRN ORAL Mild Pain (Pain Scale 1-3) 04/22/18 18:30 05/20/18 18:29 Acetaminophen (Tylenol) 650 mg Q4H PRN ORAL fever 04/22/18 18:30 05/20/18 18:29 Acetaminophen/ Codeine Phosphate (Tylenol #3) 1 tab Q6H PRN ORAL Moderate Pain (Pain Scale 4-6) 04/22/18 18:30 04/28/18 18:29 Acetaminophen/ Hydrocodone Bitart ([place] 5/325) 1 tab Q6H PRN ORAL BREAKTHROUGH PAIN 04/22/18 18:30 04/28/18 18:29 Albuterol/ Ipratropium (Albuterol/ Ipratropium) 3 ml Q4H PRN HHN Shortness of Breath 04/23/18 10:15 04/28/18 10:14 Cefepime HCl 1 gm/ Dextrose 55 ml @ 110 mls/hr EVERY 12 HOURS IVPB 04/22/18 21:00 04/28/18 13:29 04/23/18 09:22 Dexamethasone (Decadron) 4 mg DAILY ORAL 04/23/18 09:00 05/21/18 08:59 04/23/18 09:06 Dextrose (Dextrose 50%) 25 ml Q30M PRN IV Hypoglycemia 04/22/18 18:45 05/20/18 15:14 Dextrose (Dextrose 50%) 50 ml Q30M PRN IV Hypoglycemia 04/22/18 18:45 05/20/18 15:14 Docusate Sodium (Colace) 100 mg EVERY 12 HOURS ORAL 04/22/18 21:00 05/20/18 20:59 04/23/18 09:05 Famotidine (Pepcid) 40 mg DAILY ORAL 04/23/18 09:00 05/21/18 08:59 04/23/18 10:34 Heparin Sodium (Porcine) (Heparin 5000 units/ml) 5,000 units EVERY 12 HOURS SUBQ 04/22/18 21:00 05/20/18 20:59 Insulin Aspart (NovoLOG) BEFORE MEALS AND HS SUBQ 04/22/18 21:00 05/20/18 16:29 04/23/18 11:59 Levothyroxine Sodium (Synthroid) 75 mcg Q24H ORAL 04/23/18 06:30 05/21/18 06:29 04/23/18 06:46 Magnesium Hydroxide (Mom) 30 ml HSPRN PRN ORAL Constipation 04/22/18 18:30 05/22/18 18:29 Metoprolol Tartrate (Lopressor) 25 mg Q12HR ORAL 04/22/18 21:00 05/21/18 22:29 04/23/18 09:06 Nystatin (Nystatin) 3 ml FOUR TIMES A DAY ORAL 04/22/18 21:00 04/27/18 17:59 04/23/18 14:34 Ondansetron HCl (Zofran) 4 mg Q6H PRN IVP Nausea & Vomiting 04/22/18 18:30 05/20/18 18:29 Polyethylene Glycol (Miralax) 17 gm DAILYPRN PRN ORAL Constipation 04/22/18 18:30 05/22/18 18:29 Sodium Phosphate 30 mm/Sodium Chloride 285 ml @ 47.5 mls/hr ONCE IVPB 04/23/18 15:00 04/23/18 21:00 Tamsulosin HCl (Flomax) 0.4 mg QHS ORAL 04/22/18 21:00 05/20/18 20:59 04/22/18 21:58 Allergies: Coded Allergies: No Known Allergies (Unverified , 10/25/13) Subjective awake, alert, responsive , but confused, Daughter at bedside. Objective Last Vital Signs Date Time Temp Pulse Resp B/P (MAP) Pulse Ox O2 Delivery O2 Flow Rate FiO2 04/23/18 09:06 96 141/86 04/23/18 09:00 Nasal Cannula 2.0 04/23/18 04:35 97.6 20 92 Laboratory Tests Test 04/23/18 00:26 04/23/18 07:35 Urine Osmolality 646 mOsm/kg (429-449) H Urine Random Sodium 136 mmol/L (20-110) H Sodium Level 129 MMOL/L (136-145) L Potassium Level 4.7 MMOL/L (3.5-5.1) Chloride Level 95 MMOL/L (98-107) L Carbon Dioxide Level 25 MMOL/L (21-32) Anion Gap 10 mmol/L (5-15) Blood Urea Nitrogen 21 mg/dL (7-18) H Creatinine 0.6 MG/DL (0.55-1.30) Estimat Glomerular Filtration Rate mL/min (>60) Glucose Level 150 MG/DL (74-106) H Calcium Level 8.6 MG/DL (8.5-10.1) Phosphorus Level 1.9 MG/DL (2.5-4.9) L Magnesium Level 1.7 MG/DL (1.8-2.4) L Intake and Output 04/22/18 04/23/18 19:00 07:00 Intake Total 240 ml 605 ml Output Total 800 ml 600 ml Balance -560 ml 5 ml Intake Oral 240 ml 100 ml IV Total 505 ml Output Urine Total 800 ml 600 ml Objective GENERAL: awake, responsive, confused. HEAD AND NECK: Pupils equal and reactive to light. Extraocular movements intact. Neck was supple. No JVD. LUNGS: Decrease air entry at bases. No wheeze or rales. Poor inspiratory effort. HEART: S1 and S2. Irregular. No murmur or gallop. ABDOMEN: Soft, nondistended, and nontender. Positive bowel sounds. EXTREMITIES: No cyanosis, clubbing, or edema. NEUROLOGIC: Cranial nerves II through XII are grossly intact. moving all the extremities spontaneously. Gait was not assessed due to the patient's status. RECTAL: Refused and deferred. GENITOURINARY: Refused and deferred. PSYCHIATRIC: Mood and affect is intact. Assessment/Plan Assessment/Plan 1. Acute UTI. 2. Steroid-induced hyperglycemia. 3. Dehydration. 4. Hyponatremia. 5. 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 6. 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 7. Hypothyroidism. 8. Atherosclerotic heart disease. 9. A 4.2-cm ascending aortic aneurysm. 10. Status post splenectomy in 1967. 11. Severe osteoarthritis of the knee. 12. Hypertension. 13. New onset Atrial Fibrillation. PLAN: In monitored unit. At this time, the patient is not a candidate for anticoagulation due to the brain metastasis. DVT prophylaxis: heparin subcutaneous. Code status: Full Code. IV hydration. Follow up with Cardiology consultation with Dr. Gil Pabon: Cefepime IV F/u with labs and cultures. CT of brain with and without contrast. Discuss with daughter and patient at bedside regarding discharge planning, SNF Vs. Home with HH, in AM. Noah Paz M.D. Noah Paz MD Apr 23, 2018 16:02
--- NOTE | 2018-04-23 16:15 | Infectious Diseases Prog Note ---
Assessment/Plan Assessment/Plan Abx: Cefepime 04/21- Assessment: Afebrile No leukocytosis R/o probable UTI- (on/off dysuria, worse in the last few days, however no pyuria ) -CXR: Right right upper lung interstitial and airspace opacities, possibly related to clinical history of metastatic colon carcinoma. Right hilar mass, possibly related to clinical history of metastatic colon carcinoma. No definite dense consolidation or effusions. Port catheter in place -u/a wbc 2-4, nit +, leuk est +1; ucx Generalized weakness Dysphagia Afib w RVR -04/23 CXR: Interval worsening of aeration with increasing interstitial opacities and worsening perihilar opacities. Given and short-term interval worsening findings may be related to development of pulmonary edema. Correlate clinically. Previously described right hilar masslike opacity less well-defined on this exam, likely obscured by above described opacities. The possibility of an underlying mass is not entirely excluded especially given history of known malignancy. Follow up recommend. Hyponatremia Troponinemia HTN HLD neuroendocrine CA of bladder with liver, brain, mediastinum and lungs mets s/p chemo and currently on radiation tx (last was 1 month ago) Severe OA Knee s/p knee arthroplasty s/p b/l inguinal repair s/p splenectomy 1968 hypothyroidism hx of UTI Plan: -Continue empiric Cefepime #3 for now pending urine culture -if neg UCx, will d/c -f/u cx -Monitro CBC/CMP, temperatures -aspiration precautions -Cards f/u Thank you for this consultation. Will continue to follow along with you. Discussed with RN. Subjective Allergies: Coded Allergies: No Known Allergies (Unverified , 10/25/13) Objective Vital Signs Last 24 Hour Vital Signs Date Time Temp Pulse Resp B/P (MAP) Pulse Ox O2 Delivery O2 Flow Rate FiO2 04/23/18 09:06 96 141/86 04/23/18 09:00 Nasal Cannula 2.0 04/23/18 04:35 97.6 95 20 117/74 (88) 92 04/23/18 00:21 98.1 89 18 114/70 (85) 92 04/22/18 21:59 95 100/68 04/22/18 20:00 Nasal Cannula 2.0 04/22/18 20:00 98.2 95 18 100/68 (79) 92 04/22/18 16:58 81 Height (Feet): 5 Height (Inches): 11.00 Weight (Pounds): 162 Objective GENERAL: The patient is awake, responsive, confused, but very pleasant. HEAD AND NECK: Pupils equal and reactive to light. Extraocular movements intact. Neck was supple. No JVD. LUNGS: Good air entry. No wheeze or rales. Poor inspiratory effort. HEART: S1 and S2. Irregular. No murmur or gallop. ABDOMEN: Soft, nondistended, and nontender. Positive bowel sounds. EXTREMITIES: No cyanosis, clubbing, or edema. NEUROLOGIC: Cranial nerves II through XII are grossly intact. The patient is moving all the extremities spontaneously. Gait was not assessed due to the patient's status.. PSYCHIATRIC: Mood and affect is intact. Laboratory Tests Test 04/23/18 00:26 04/23/18 07:35 Urine Osmolality 646 mOsm/kg (429-449) H Urine Random Sodium 136 mmol/L (20-110) H Sodium Level 129 MMOL/L (136-145) L Potassium Level 4.7 MMOL/L (3.5-5.1) Chloride Level 95 MMOL/L (98-107) L Carbon Dioxide Level 25 MMOL/L (21-32) Anion Gap 10 mmol/L (5-15) Blood Urea Nitrogen 21 mg/dL (7-18) H Creatinine 0.6 MG/DL (0.55-1.30) Estimat Glomerular Filtration Rate mL/min (>60) Glucose Level 150 MG/DL (74-106) H Calcium Level 8.6 MG/DL (8.5-10.1) Phosphorus Level 1.9 MG/DL (2.5-4.9) L Magnesium Level 1.7 MG/DL (1.8-2.4) L Current Medications Medications (Trade) Dose Ordered Sig/Chivo Route PRN Reason Start Time Stop Time Status Last Admin Dose Admin Acetaminophen (Tylenol) 650 mg Q4H PRN ORAL Mild Pain (Pain Scale 1-3) 04/22/18 18:30 05/20/18 18:29 Acetaminophen (Tylenol) 650 mg Q4H PRN ORAL fever 04/22/18 18:30 05/20/18 18:29 Acetaminophen/ Codeine Phosphate (Tylenol #3) 1 tab Q6H PRN ORAL Moderate Pain (Pain Scale 4-6) 04/22/18 18:30 04/28/18 18:29 Acetaminophen/ Hydrocodone Bitart ([place] 5/325) 1 tab Q6H PRN ORAL BREAKTHROUGH PAIN 04/22/18 18:30 04/28/18 18:29 Albuterol/ Ipratropium (Albuterol/ Ipratropium) 3 ml Q4H PRN HHN Shortness of Breath 04/23/18 10:15 04/28/18 10:14 Cefepime HCl 1 gm/ Dextrose 55 ml @ 110 mls/hr EVERY 12 HOURS IVPB 04/22/18 21:00 04/28/18 13:29 04/23/18 09:22 Dexamethasone (Decadron) 4 mg DAILY ORAL 04/23/18 09:00 05/21/18 08:59 04/23/18 09:06 Dextrose (Dextrose 50%) 25 ml Q30M PRN IV Hypoglycemia 04/22/18 18:45 05/20/18 15:14 Dextrose (Dextrose 50%) 50 ml Q30M PRN IV Hypoglycemia 04/22/18 18:45 05/20/18 15:14 Docusate Sodium (Colace) 100 mg EVERY 12 HOURS ORAL 04/22/18 21:00 05/20/18 20:59 04/23/18 09:05 Famotidine (Pepcid) 40 mg DAILY ORAL 04/23/18 09:00 05/21/18 08:59 04/23/18 10:34 Heparin Sodium (Porcine) (Heparin 5000 units/ml) 5,000 units EVERY 12 HOURS SUBQ 04/22/18 21:00 05/20/18 20:59 Insulin Aspart (NovoLOG) BEFORE MEALS AND HS SUBQ 04/22/18 21:00 05/20/18 16:29 04/23/18 11:59 Iopamidol (Isovue-370 150ml) 150 ml NOW PRN INJ Radiology Procedure 04/23/18 16:00 04/25/18 15:58 Levothyroxine Sodium (Synthroid) 75 mcg Q24H ORAL 04/23/18 06:30 05/21/18 06:29 04/23/18 06:46 Magnesium Hydroxide (Mom) 30 ml HSPRN PRN ORAL Constipation 04/22/18 18:30 05/22/18 18:29 Metoprolol Tartrate (Lopressor) 25 mg Q12HR ORAL 04/22/18 21:00 05/21/18 22:29 04/23/18 09:06 Nystatin (Nystatin) 3 ml FOUR TIMES A DAY ORAL 04/22/18 21:00 04/27/18 17:59 04/23/18 14:34 Ondansetron HCl (Zofran) 4 mg Q6H PRN IVP Nausea & Vomiting 04/22/18 18:30 05/20/18 18:29 Polyethylene Glycol (Miralax) 17 gm DAILYPRN PRN ORAL Constipation 04/22/18 18:30 05/22/18 18:29 Sodium Phosphate 30 mm/Sodium Chloride 285 ml @ 47.5 mls/hr ONCE IVPB 04/23/18 15:00 04/23/18 21:00 Tamsulosin HCl (Flomax) 0.4 mg QHS ORAL 04/22/18 21:00 05/20/18 20:59 04/22/18 21:58 Anna Yusuf M.D. Apr 23, 2018 16:15
--- NOTE | 2018-04-23 17:09 | Diagnostic Imaging Report ---
APPROVED REPORT CPT Code: 51954 Present Symptoms Comments: Pain BILATERAL: Imaging reveals a patent deep venous system bilaterally. There is no evidence of thrombus within the femoral, popliteal or tibial segments. The greater saphenous veins are also within normal limits. Doppler indicates normal spontaneous flow within these segments.
[2018-04-23] MEDS ORDERED: Isovue-300 100ml vial INJ PRN (18:30)
[2018-04-23 20:00] VITALS: BP 102/65
[2018-04-23] MEDS: Tamsulosin 0.4mg cap ORAL SCH (21:19)
[2018-04-23] MEDS: Tylenol #3 tab (300mg/30mg) ORAL PRN (22:55)
--- NOTE | 2018-04-23 23:07 | Cardiology Progress Note ---
Assessment/Plan Status: stable Assessment/Plan Assessment/Plan Status: stable, progressing Assessment/Plan Assessment: Tachycardia Atrial fibrillation Neuroendocrine carcinoma with mets Hypertension Hyperlipiemia Osteoarthritis knees Recurrent UT Splenectomy Ascending aortic aneurysm hypothyroidism elevated hemoglobin A1c s/p TURP Ectopy with premature atrial contractions Plan: IV steroids for brain mass IV abx for UTI AAA stable in size no indication for intervention continue outpatient palliative radiation Nutrition consult Continue Synthroid Hx of bradycardia from brain mass and hypervagal state - no indication for intervention Metoprolol prn tachycardia 25 BID - hold for SBP<90, discussed with nursing anticoagulation contraindicated due to brain lesions and fall risk Echo at OSH normal LV function Troponin down trending Fluid restriction for hyponatremia CT brain pending Supportive care Hospice? Subjective Cardiovascular: Reports: no symptoms Respiratory: Reports: no symptoms Gastrointestinal/Abdominal: Reports: no symptoms Subjective Patient agitated and altered ,Mg low, replaced, tachycardia mildly improved. Troponin downtrending, heart rates 90s-110, BP stable, Sodium mildly coming up with fluid restriction. currently at 129 for two days, may need demeclocycline CT brain pending Plan to d/c in AM to SNF vs Home Objective Last 24 Hour Vital Signs Date Time Temp Pulse Resp B/P (MAP) Pulse Ox O2 Delivery O2 Flow Rate FiO2 04/23/18 21:20 93 102/65 04/23/18 20:00 97.2 93 20 102/65 (77) 94 04/23/18 16:00 98.0 20 109/73 (85) 97 04/23/18 12:00 98.1 20 121/81 (94) 90 04/23/18 09:06 96 141/86 04/23/18 09:00 Nasal Cannula 2.0 04/23/18 08:00 97.2 18 140/86 (104) 90 04/23/18 04:35 97.6 95 20 117/74 (88) 92 04/23/18 00:21 98.1 89 18 114/70 (85) 92 General Appearance: no apparent distress, alert EENT: PERRL/EOMI, normal ENT inspection, TMs normal, pharynx normal Neck: non-tender, normal alignment, supple, normal inspection, no JVD Rhythm: Afib Cardiovascular: normal peripheral pulses, regularly irregular, tachycardia Respiratory/Chest: chest wall non-tender, lungs clear, normal breath sounds, no respiratory distress, no accessory muscle use Abdomen: normal bowel sounds, non tender, soft, no organomegaly, no mass Extremities: normal range of motion, non-tender, normal inspection Neurologic: top trimmer 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 Intake and Output 04/22/18 04/23/18 18:59 06:59 Intake Total 240 ml 605 ml Output Total 800 ml 600 ml Balance -560 ml 5 ml Intake Oral 240 ml 100 ml IV Total 505 ml Output Urine Total 800 ml 600 ml Laboratory Tests Test 04/23/18 00:26 04/23/18 07:35 04/23/18 10:09 Urine Osmolality 646 mOsm/kg (429-449) H Urine Random Sodium 136 mmol/L (20-110) H Sodium Level 129 MMOL/L (136-145) L Potassium Level 4.7 MMOL/L (3.5-5.1) Chloride Level 95 MMOL/L (98-107) L Carbon Dioxide Level 25 MMOL/L (21-32) Anion Gap 10 mmol/L (5-15) Blood Urea Nitrogen 21 mg/dL (7-18) H Creatinine 0.6 MG/DL (0.55-1.30) Estimat Glomerular Filtration Rate mL/min (>60) Glucose Level 150 MG/DL (74-106) H Calcium Level 8.6 MG/DL (8.5-10.1) Phosphorus Level 1.9 MG/DL (2.5-4.9) L Magnesium Level 1.7 MG/DL (1.8-2.4) L Arterial Blood pH 7.529 (7.350-7.450) Arterial Blood Partial Pressure CO2 34.1 mmHg (35.0-45.0) L Arterial Blood Partial Pressure O2 59.9 mmHg (75.0-100.0) L Arterial Blood HCO3 27.8 mmol/L (22.0-26.0) H Arterial Blood Oxygen Saturation 92.2 % (95-100) L Arterial Blood Base Excess 5.4 (-2-2) H Francesco Test Positive Enrique Cordero MD Apr 23, 2018 23:07
[2018-04-24] VITALS: BP 125/69
[2018-04-24 04:00] VITALS: BP 97/61
[2018-04-24] MEDS: NovoLOG Insulin Flexpen SUBQ SCH ×4 (06:27→21:12)
[2018-04-24 06:46] LABS: ANION GAP 6 mmol/L (5-15); BLOOD UREA NITROGEN 22 mg/dL (7-18); CALCIUM 8.2 MG/DL (8.5-10.1); CARBON DIOXIDE 27 MMOL/L (21-32); CHLORIDE 93 MMOL/L (98-107); CREATININE 0.6 MG/DL (0.55-1.30); SODIUM 126 MMOL/L (136-145)
[2018-04-24 08:00] VITALS: BP 94/58
--- NOTE | 2018-04-24 08:43 | Infectious Diseases Prog Note ---
Assessment/Plan Assessment/Plan Abx: Cefepime 04/21- Assessment: Afebrile No leukocytosis R/o probable UTI- (on/off dysuria, worse in the last few days, however no pyuria ) -CXR: Right right upper lung interstitial and airspace opacities, possibly related to clinical history of metastatic colon carcinoma. Right hilar mass, possibly related to clinical history of metastatic colon carcinoma. No definite dense consolidation or effusions. Port catheter in place -u/a wbc 2-4, nit +, leuk est +1; ucx Generalized weakness Dysphagia Afib w RVR -04/23 CXR: Interval worsening of aeration with increasing interstitial opacities and worsening perihilar opacities. Given and short-term interval worsening findings may be related to development of pulmonary edema. Correlate clinically. Previously described right hilar masslike opacity less well-defined on this exam, likely obscured by above described opacities. The possibility of an underlying mass is not entirely excluded especially given history of known malignancy. Follow up recommend. Hyponatremia Troponinemia HTN HLD neuroendocrine CA of bladder with liver, brain, mediastinum and lungs mets s/p chemo and currently on radiation tx (last was 1 month ago) Severe OA Knee s/p knee arthroplasty s/p b/l inguinal repair s/p splenectomy 1968 hypothyroidism hx of UTI Plan: -Continue empiric Cefepime #4/7 - UCx not collected Would finish a 7 day course, Switch to levofloxacin 500mg Qday on D/C if PO appropriate -Monitro CBC/CMP, temperatures -aspiration precautions -Cards f/u Thank you for this consultation. Will continue to follow along with you. Subjective Allergies: Coded Allergies: No Known Allergies (Unverified , 10/25/13) Subjective Patient remains afebrile No leukocytosis and is satting well on 2L Awake and taking but a little confused Objective Vital Signs Last 24 Hour Vital Signs Date Time Temp Pulse Resp B/P (MAP) Pulse Ox O2 Delivery O2 Flow Rate FiO2 04/24/18 04:00 97.9 75 19 97/61 (73) 94 04/24/18 00:00 97.5 75 18 125/69 (87) 95 04/23/18 21:20 93 102/65 04/23/18 21:00 Nasal Cannula 2.0 04/23/18 20:10 Nasal Cannula 3.0 32 04/23/18 20:10 80 22 Nasal Cannula 3.0 32 04/23/18 20:10 93 Nasal Cannula 3.0 32 04/23/18 20:00 97.2 93 20 102/65 (77) 94 04/23/18 16:00 98.0 20 109/73 (85) 97 04/23/18 12:00 98.1 20 121/81 (94) 90 04/23/18 09:06 96 141/86 04/23/18 09:00 Nasal Cannula 2.0 Height (Feet): 5 Height (Inches): 11.00 Weight (Pounds): 162 Objective GENERAL: The patient is thin, awake, responsive but somewhat confused HEENT: NCAT, MMM LUNGS: CTAB. No wheeze or rales. HEART: S1 and S2. Irregular. No murmur or gallop. ABDOMEN: Soft, nondistended, and nontender. Positive bowel sounds. EXTREMITIES: No cyanosis, clubbing, or edema. Laboratory Tests Test 04/23/18 10:09 04/24/18 05:50 Arterial Blood pH 7.529 (7.350-7.450) Arterial Blood Partial Pressure CO2 34.1 mmHg (35.0-45.0) L Arterial Blood Partial Pressure O2 59.9 mmHg (75.0-100.0) L Arterial Blood HCO3 27.8 mmol/L (22.0-26.0) H Arterial Blood Oxygen Saturation 92.2 % (95-100) L Arterial Blood Base Excess 5.4 (-2-2) H Francesco Test Positive Sodium Level 126 MMOL/L (136-145) L Potassium Level 4.0 MMOL/L (3.5-5.1) Chloride Level 93 MMOL/L (98-107) L Carbon Dioxide Level 27 MMOL/L (21-32) Anion Gap 6 mmol/L (5-15) Blood Urea Nitrogen 22 mg/dL (7-18) H Creatinine 0.6 MG/DL (0.55-1.30) Estimat Glomerular Filtration Rate mL/min (>60) Glucose Level 195 MG/DL (74-106) H Calcium Level 8.2 MG/DL (8.5-10.1) L Current Medications Medications (Trade) Dose Ordered Sig/Chivo Route PRN Reason Start Time Stop Time Status Last Admin Dose Admin Acetaminophen (Tylenol) 650 mg Q4H PRN ORAL Mild Pain (Pain Scale 1-3) 04/22/18 18:30 05/20/18 18:29 Acetaminophen (Tylenol) 650 mg Q4H PRN ORAL fever 04/22/18 18:30 05/20/18 18:29 Acetaminophen/ Codeine Phosphate (Tylenol #3) 1 tab Q6H PRN ORAL Moderate Pain (Pain Scale 4-6) 04/22/18 18:30 04/28/18 18:29 04/23/18 22:55 Acetaminophen/ Hydrocodone Bitart ([place] 5/325) 1 tab Q6H PRN ORAL BREAKTHROUGH PAIN 04/22/18 18:30 04/28/18 18:29 Albuterol/ Ipratropium (Albuterol/ Ipratropium) 3 ml Q4H PRN HHN Shortness of Breath 04/23/18 10:15 04/28/18 10:14 Cefepime HCl 1 gm/ Dextrose 55 ml @ 110 mls/hr EVERY 12 HOURS IVPB 04/22/18 21:00 04/28/18 13:29 04/23/18 21:19 Dexamethasone (Decadron) 4 mg DAILY ORAL 04/23/18 09:00 05/21/18 08:59 04/23/18 09:06 Dextrose (Dextrose 50%) 25 ml Q30M PRN IV Hypoglycemia 04/22/18 18:45 05/20/18 15:14 Dextrose (Dextrose 50%) 50 ml Q30M PRN IV Hypoglycemia 04/22/18 18:45 05/20/18 15:14 Docusate Sodium (Colace) 100 mg EVERY 12 HOURS ORAL 04/22/18 21:00 05/20/18 20:59 04/23/18 21:19 Famotidine (Pepcid) 40 mg DAILY ORAL 04/23/18 09:00 05/21/18 08:59 04/23/18 10:34 Heparin Sodium (Porcine) (Heparin 5000 units/ml) 5,000 units EVERY 12 HOURS SUBQ 04/22/18 21:00 05/20/18 20:59 Insulin Aspart (NovoLOG) BEFORE MEALS AND HS SUBQ 04/22/18 21:00 05/20/18 16:29 04/24/18 06:27 Levothyroxine Sodium (Synthroid) 75 mcg Q24H ORAL 04/23/18 06:30 05/21/18 06:29 04/24/18 06:25 Magnesium Hydroxide (Mom) 30 ml HSPRN PRN ORAL Constipation 04/22/18 18:30 05/22/18 18:29 Metoprolol Tartrate (Lopressor) 25 mg Q12HR ORAL 04/22/18 21:00 05/21/18 22:29 04/23/18 21:20 Nystatin (Nystatin) 3 ml FOUR TIMES A DAY ORAL 04/22/18 21:00 04/27/18 17:59 04/23/18 21:20 Ondansetron HCl (Zofran) 4 mg Q6H PRN IVP Nausea & Vomiting 04/22/18 18:30 05/20/18 18:29 Polyethylene Glycol (Miralax) 17 gm DAILYPRN PRN ORAL Constipation 04/22/18 18:30 05/22/18 18:29 Tamsulosin HCl (Flomax) 0.4 mg QHS ORAL 04/22/18 21:00 05/20/18 20:59 04/23/18 21:19 Enrique Gregory MD Apr 24, 2018 08:43
[2018-04-24] MEDS: Heparin 5000 units/ml inj SUBQ SCH ×2 (09:00→21:00)
[2018-04-24] MEDS: Metoprolol 25mg tab ORAL SCH ×2 (09:00→21:00)
[2018-04-24] MEDS: Cefepime HCl 1 GM in D5W 55 ML IVPB SCH ×2 (09:00→21:11)
[2018-04-24] MEDS: Nystatin Susp 500,000 units/5ml ORAL SCH ×4 (09:52→21:11)
[2018-04-24] MEDS: Docusate 100mg cap ORAL SCH ×2 (09:53→21:11)
--- NOTE | 2018-04-24 10:55 | Cardiology Progress Note ---
Assessment/Plan Status: stable Assessment/Plan Assessment/Plan Status: stable, progressing Assessment/Plan Assessment: Tachycardia Atrial fibrillation Neuroendocrine carcinoma with mets Hypertension Hyperlipiemia Osteoarthritis knees Recurrent UT Splenectomy Ascending aortic aneurysm hypothyroidism elevated hemoglobin A1c s/p TURP Ectopy with premature atrial contractions Plan: IV steroids for brain mass IV abx for UTI AAA stable in size no indication for intervention continue outpatient palliative radiation Nutrition consult Continue Synthroid Hx of bradycardia from brain mass and hypervagal state - no indication for intervention Metoprolol prn tachycardia 25 BID - hold for SBP<90, discussed with nursing anticoagulation contraindicated due to brain lesions and fall risk Echo at OSH normal LV function Troponin down trending Fluid restriction for hyponatremia CT brain pending Supportive care Hospice? Subjective Cardiovascular: Reports: no symptoms Respiratory: Reports: no symptoms Gastrointestinal/Abdominal: Reports: no symptoms Genitourinary: Reports: no symptoms Subjective Vitals stable, heart rates normal. no new labs, Plan for dispo, CT brain not done. Objective Last 24 Hour Vital Signs Date Time Temp Pulse Resp B/P (MAP) Pulse Ox O2 Delivery O2 Flow Rate FiO2 04/24/18 08:00 95 Nasal Cannula 3.0 32 04/24/18 08:00 79 21 Nasal Cannula 3.0 32 04/24/18 08:00 Nasal Cannula 3.0 32 04/24/18 04:00 97.9 75 19 97/61 (73) 94 04/24/18 00:00 97.5 75 18 125/69 (87) 95 04/23/18 21:20 93 102/65 04/23/18 21:00 Nasal Cannula 2.0 04/23/18 20:10 Nasal Cannula 3.0 32 04/23/18 20:10 80 22 Nasal Cannula 3.0 32 04/23/18 20:10 93 Nasal Cannula 3.0 32 04/23/18 20:00 97.2 93 20 102/65 (77) 94 04/23/18 16:00 98.0 20 109/73 (85) 97 04/23/18 12:00 98.1 20 121/81 (94) 90 General Appearance: no apparent distress EENT: PERRL/EOMI, normal ENT inspection Neck: non-tender, normal alignment, supple Rhythm: Afib Cardiovascular: normal peripheral pulses, normal rate, regularly irregular Respiratory/Chest: chest wall non-tender, lungs clear Abdomen: normal bowel sounds, non tender, soft, no organomegaly Extremities: normal range of motion, non-tender, normal inspection 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: 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, no motor/sensory deficits Intake and Output 04/23/18 04/24/18 19:00 07:00 Intake Total 1400 ml 295 ml Output Total 4000 ml Balance -2600 ml 295 ml Intake Oral 700 ml 240 ml IV Total 55 ml Other 700 ml Output Urine Total 4000 ml # Voids 2 # Bowel Movements 1 2 Laboratory Tests Test 04/24/18 05:50 Sodium Level 126 MMOL/L (136-145) L Potassium Level 4.0 MMOL/L (3.5-5.1) Chloride Level 93 MMOL/L (98-107) L Carbon Dioxide Level 27 MMOL/L (21-32) Anion Gap 6 mmol/L (5-15) Blood Urea Nitrogen 22 mg/dL (7-18) H Creatinine 0.6 MG/DL (0.55-1.30) Estimat Glomerular Filtration Rate mL/min (>60) Glucose Level 195 MG/DL (74-106) H Calcium Level 8.2 MG/DL (8.5-10.1) L Enrique Cordero MD Apr 24, 2018 10:55
[2018-04-24 12:00] VITALS: BP 92/70
--- NOTE | 2018-04-24 12:47 | Diagnostic Imaging Report ---
Indications: Technique: Spiral acquisitions obtained through the brain. Angled axial and coronal 5 x 5 mm slices were reconstructed. Total dose length product 1368.99 mGycm. CTDI vol(s) 70.38 mGy. Dose reduction achieved using automated exposure control Comparison: 02/24/2018 Findings: Again demonstrated is a mixed attenuation mass in the right inferior frontal region, current dimensions 3.8 cm AP by 2.3 cm transverse by 2.3 cm craniocaudad. This is much decreased from previous dimensions of 5.6 x 4.3 x 3.8 cm. This is mostly hyperattenuating with a central cystic space. Previously demonstrated mass effect has markedly improved. There is now minimal 4 mm right to left midline shift in the inferior frontal region, and the attenuation of the lateral ventricles has resolved. In fact, there is slight ex vacuo dilatation of the right lateral ventricle now present. There is still fairly extensive vasogenic edema in the right frontal deep white matter. The rest of the prater-white differentiation is normal. There is mild age-related enlargement of the ventricles and extra axial CSF spaces. No acute hemorrhage. The visualized orbits and sinuses are unremarkable. The calvarium is intact. The mastoids are clear Impression: Since 02/24/2018, marked interim decrease in size of previously demonstrated right frontal region mass, presumably reflecting response to therapy. Resultant marked decrease in the degree of mass effect. There is still considerable vasogenic edema within the right frontal lobe, however. It is unclear, as previously, whether this mass is intra-axial or extra-axial. Appearance remains nonspecific as regards etiology, although apparent therapeutic response increases the likelihood that this represents metastatic neoplasm Negative for acute intracranial bleed The CT scanner at [facility] is accredited by the [employer] and the scans are performed using protocols designed to limit radiation exposure to as low as reasonably achievable to attain images of sufficient resolution adequate for diagnostic evaluation.
[2018-04-24] MEDS: Tylenol #3 tab (300mg/30mg) ORAL PRN (12:51)
--- NOTE | 2018-04-24 15:19 | Nephrology Progress Note ---
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) (2) Hyponatremia Assessment: worse (3) Hypertension (4) Metastatic cancer Plan I brought attention to RN reg free water restriction Demeclocycline 300 mg bid follow labs discussed with Subjective Subjective In NAD Objective Objective Last 24 Hour Vital Signs Date Time Temp Pulse Resp B/P (MAP) Pulse Ox O2 Delivery O2 Flow Rate FiO2 04/24/18 12:00 97.7 67 20 92/70 (77) 91 04/24/18 09:00 Nasal Cannula 2.0 04/24/18 08:00 97.2 92 20 94/58 (70) 93 04/24/18 08:00 95 Nasal Cannula 3.0 32 04/24/18 08:00 79 21 Nasal Cannula 3.0 32 04/24/18 08:00 Nasal Cannula 3.0 32 04/24/18 04:00 97.9 75 19 97/61 (73) 94 04/24/18 00:00 97.5 75 18 125/69 (87) 95 04/23/18 21:20 93 102/65 04/23/18 21:00 Nasal Cannula 2.0 04/23/18 20:10 Nasal Cannula 3.0 32 04/23/18 20:10 80 22 Nasal Cannula 3.0 32 04/23/18 20:10 93 Nasal Cannula 3.0 32 04/23/18 20:00 97.2 93 20 102/65 (77) 94 04/23/18 16:00 98.0 20 109/73 (85) 97 Intake and Output 04/23/18 04/24/18 19:00 07:00 Intake Total 1400 ml 295 ml Output Total 4000 ml Balance -2600 ml 295 ml Intake Oral 700 ml 240 ml IV Total 55 ml Other 700 ml Output Urine Total 4000 ml # Voids 2 # Bowel Movements 1 2 Laboratory Tests 04/24/18 05:50: Sodium Level 126L, Potassium Level 4.0, Chloride Level 93L, Carbon Dioxide Level 27, Anion Gap 6, Blood Urea Nitrogen 22H, Creatinine 0.6, Estimat Glomerular Filtration Rate , Glucose Level 195H, Calcium Level 8.2L Height (Feet): 5 Height (Inches): 11.00 Weight (Pounds): 162 Cardiovascular: normal rate Respiratory/Chest: rhonchi - bilaterally Ayo An MD Apr 24, 2018 15:19
--- NOTE | 2018-04-24 16:12 | General Surgery Progress Note ---
General Surgery-Progress Note Subjective Additional Comments no acute events. stable. Objective Last 24 Hour Vital Signs Date Time Temp Pulse Resp B/P (MAP) Pulse Ox O2 Delivery O2 Flow Rate FiO2 04/24/18 12:00 97.7 67 20 92/70 (77) 91 04/24/18 09:00 Nasal Cannula 2.0 04/24/18 08:00 97.2 92 20 94/58 (70) 93 04/24/18 08:00 95 Nasal Cannula 3.0 32 04/24/18 08:00 79 21 Nasal Cannula 3.0 32 04/24/18 08:00 Nasal Cannula 3.0 32 04/24/18 04:00 97.9 75 19 97/61 (73) 94 04/24/18 00:00 97.5 75 18 125/69 (87) 95 04/23/18 21:20 93 102/65 04/23/18 21:00 Nasal Cannula 2.0 04/23/18 20:10 Nasal Cannula 3.0 32 04/23/18 20:10 80 22 Nasal Cannula 3.0 32 04/23/18 20:10 93 Nasal Cannula 3.0 32 04/23/18 20:00 97.2 93 20 102/65 (77) 94 I&O Intake and Output 04/23/18 04/24/18 19:00 07:00 Intake Total 1400 ml 295 ml Output Total 4000 ml Balance -2600 ml 295 ml Intake Oral 700 ml 240 ml IV Total 55 ml Other 700 ml Output Urine Total 4000 ml # Voids 2 # Bowel Movements 1 2 Dressing: other Wound: other Drains: other Cardiovascular: RSR Respiratory: decreased breath sounds Abdomen: soft, flat, non-tender, present bowel sounds Extremities: other Laboratory Tests Test 04/24/18 05:50 Sodium Level 126 MMOL/L (136-145) L Potassium Level 4.0 MMOL/L (3.5-5.1) Chloride Level 93 MMOL/L (98-107) L Carbon Dioxide Level 27 MMOL/L (21-32) Anion Gap 6 mmol/L (5-15) Blood Urea Nitrogen 22 mg/dL (7-18) H Creatinine 0.6 MG/DL (0.55-1.30) Estimat Glomerular Filtration Rate mL/min (>60) Glucose Level 195 MG/DL (74-106) H Calcium Level 8.2 MG/DL (8.5-10.1) L Plan Problems: (1) Dermatitis Assessment & Plan: PT presents with resolving incontinence associated dermatitis to buttocks. Bilateral buttocks pink with dry peeling skin sacral area non-tender when palpated. Both heels dry and callused . Tx.Plan: Apply Moisture Barrier Paste to buttocks with each perineal care Q shift. Reposition at least every 2hours or as tolerated. Off-load heels with pillow. thank you for allowing me to participate in patients care Jamie Chavez Apr 24, 2018 16:12
--- NOTE | 2018-04-24 16:52 | Internal Med Progress Note ---
Subjective Physician Name Noah Paz Attending Physician Noah Paz MD Current Medications Medications (Trade) Dose Ordered Sig/Chivo Route PRN Reason Start Time Stop Time Status Last Admin Dose Admin Acetaminophen (Tylenol) 650 mg Q4H PRN ORAL Mild Pain (Pain Scale 1-3) 04/22/18 18:30 05/20/18 18:29 Acetaminophen (Tylenol) 650 mg Q4H PRN ORAL fever 04/22/18 18:30 05/20/18 18:29 Acetaminophen/ Codeine Phosphate (Tylenol #3) 1 tab Q6H PRN ORAL Moderate Pain (Pain Scale 4-6) 04/22/18 18:30 04/28/18 18:29 04/24/18 12:51 Acetaminophen/ Hydrocodone Bitart ([place] 5/325) 1 tab Q6H PRN ORAL BREAKTHROUGH PAIN 04/22/18 18:30 04/28/18 18:29 Albuterol/ Ipratropium (Albuterol/ Ipratropium) 3 ml Q4H PRN HHN Shortness of Breath 04/23/18 10:15 04/28/18 10:14 Cefepime HCl 1 gm/ Dextrose 55 ml @ 110 mls/hr EVERY 12 HOURS IVPB 04/22/18 21:00 04/28/18 13:29 04/23/18 21:19 Demeclocycline HCl (Declomycin) 300 mg Q12HR ORAL 04/24/18 21:00 05/01/18 20:59 Dexamethasone (Decadron) 4 mg DAILY ORAL 04/23/18 09:00 05/21/18 08:59 04/24/18 09:53 Dextrose (Dextrose 50%) 25 ml Q30M PRN IV Hypoglycemia 04/22/18 18:45 05/20/18 15:14 Dextrose (Dextrose 50%) 50 ml Q30M PRN IV Hypoglycemia 04/22/18 18:45 05/20/18 15:14 Docusate Sodium (Colace) 100 mg EVERY 12 HOURS ORAL 04/22/18 21:00 05/20/18 20:59 04/24/18 09:53 Famotidine (Pepcid) 40 mg DAILY ORAL 04/23/18 09:00 05/21/18 08:59 04/24/18 09:53 Heparin Sodium (Porcine) (Heparin 5000 units/ml) 5,000 units EVERY 12 HOURS SUBQ 04/22/18 21:00 05/20/18 20:59 Insulin Aspart (NovoLOG) BEFORE MEALS AND HS SUBQ 04/22/18 21:00 05/20/18 16:29 04/24/18 16:41 Levothyroxine Sodium (Synthroid) 75 mcg Q24H ORAL 04/23/18 06:30 05/21/18 06:29 04/24/18 06:25 Magnesium Hydroxide (Mom) 30 ml HSPRN PRN ORAL Constipation 04/22/18 18:30 05/22/18 18:29 Metoprolol Tartrate (Lopressor) 25 mg Q12HR ORAL 04/22/18 21:00 05/21/18 22:29 04/23/18 21:20 Nystatin (Nystatin) 3 ml FOUR TIMES A DAY ORAL 04/22/18 21:00 04/27/18 17:59 04/24/18 09:52 Ondansetron HCl (Zofran) 4 mg Q6H PRN IVP Nausea & Vomiting 04/22/18 18:30 05/20/18 18:29 Polyethylene Glycol (Miralax) 17 gm DAILYPRN PRN ORAL Constipation 04/22/18 18:30 05/22/18 18:29 Tamsulosin HCl (Flomax) 0.4 mg QHS ORAL 04/22/18 21:00 05/20/18 20:59 04/23/18 21:19 Allergies: Coded Allergies: No Known Allergies (Unverified , 10/25/13) Subjective awake, alert, responsive ,less confused, Daughter and son at bedside. Objective Last Vital Signs Date Time Temp Pulse Resp B/P (MAP) Pulse Ox O2 Delivery O2 Flow Rate FiO2 04/24/18 12:00 97.7 67 20 92/70 (77) 91 04/24/18 09:00 Nasal Cannula 2.0 04/24/18 08:00 32 Laboratory Tests Test 04/24/18 05:50 Sodium Level 126 MMOL/L (136-145) L Potassium Level 4.0 MMOL/L (3.5-5.1) Chloride Level 93 MMOL/L (98-107) L Carbon Dioxide Level 27 MMOL/L (21-32) Anion Gap 6 mmol/L (5-15) Blood Urea Nitrogen 22 mg/dL (7-18) H Creatinine 0.6 MG/DL (0.55-1.30) Estimat Glomerular Filtration Rate mL/min (>60) Glucose Level 195 MG/DL (74-106) H Calcium Level 8.2 MG/DL (8.5-10.1) L Intake and Output 04/23/18 04/24/18 19:00 07:00 Intake Total 1400 ml 295 ml Output Total 4000 ml Balance -2600 ml 295 ml Intake Oral 700 ml 240 ml IV Total 55 ml Other 700 ml Output Urine Total 4000 ml # Voids 2 # Bowel Movements 1 2 Objective GENERAL: awake, responsive, less confused. HEAD AND NECK: Pupils equal and reactive to light. Extraocular movements intact. Neck was supple. No JVD. LUNGS: Decrease air entry at bases. No wheeze or rales. Poor inspiratory effort. HEART: S1 and S2. Irregular. No murmur or gallop. ABDOMEN: Soft, nondistended, and nontender. Positive bowel sounds. EXTREMITIES: No cyanosis, clubbing, or edema. NEUROLOGIC: Cranial nerves II through XII are grossly intact. moving all the extremities spontaneously. Gait was not assessed due to the patient's status. RECTAL: Refused and deferred. GENITOURINARY: Refused and deferred. PSYCHIATRIC: Mood and affect is intact. Assessment/Plan Assessment/Plan 1. Acute UTI. 2. Steroid-induced hyperglycemia. 3. Dehydration. 4. 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 5. 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 6. 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 7. Hypothyroidism. 8. Atherosclerotic heart disease. 9. A 4.2-cm ascending aortic aneurysm. 10. Status post splenectomy in 1967. 11. Severe osteoarthritis of the knee. 12. Hypertension. 13. New onset Atrial Fibrillation. PLAN: In medical unit. At this time, the patient is not a candidate for anticoagulation due to the brain metastasis. DVT prophylaxis: heparin subcutaneous. Code status: Full Code. Follow up with Nephrology consultation with Dr. An: Demeclocycline 300 mg bid Abx: Cefepime IV F/u with labs and cultures. Discuss with daughter and son and patient at bedside regarding discharge planning, SNF. Noah Paz M.D. CT of Brain without contrast. Impression: Since 02/24/2018, marked interim decrease in size of previously demonstrated right frontal region mass, presumably reflecting response to therapy. Resultant marked decrease in the degree of mass effect. There is still considerable vasogenic edema within the right frontal lobe, however. It is unclear, as previously, whether this mass is intra-axial or extra-axial. Appearance remains nonspecific as regards etiology, although apparent therapeutic response increases the likelihood that this represents metastatic neoplasm Negative for acute intracranial bleed Noah Paz MD Apr 24, 2018 16:52
[2018-04-24 20:00] VITALS: BP 116/72
[2018-04-24] MEDS: Tamsulosin 0.4mg cap ORAL SCH (21:11)
[2018-04-24] MEDS: Demeclocycline 150mg tab ORAL SCH (21:11)
--- NOTE | 2018-04-24 22:12 | Consultation ---
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 History of hypertension, weight loss, dyslipidemia, osteoarthritis of knee, recurrent urinary tract infections, bilateral inguinal hernia repair. the pt pw confusion and agitation yesterday. the was at bedside and per pt s the pt is less confused today. the ct of brain was ordered. the pt has cognitive impairment no violent behavior. no si /hi Allergies: Coded Allergies: No Known Allergies (Unverified , 10/25/13) Medication History Scheduled Cephalexin* (Keflex*), 500 MG ORAL EVERY 12 HOURS, (Reported) Dexamethasone (Dexamethasone), 4 MG PO DAILY, (Reported) Famotidine (Famotidine), 40 MG ORAL DAILY, (Reported) Levothyroxine Sodium* (Synthroid*), 75 MCG ORAL DAILY, (Reported) Nystatin* (Nystatin*), 3 ML ORAL FOUR TIMES A DAY, (Reported) Tamsulosin Hcl (Tamsulosin Hcl*), 0.4 MG ORAL AC, (Reported) Trospium Chloride (Trospium Chloride), 60 MG PO BEDTIME, (Reported) Scheduled PRN Acetaminophen* (Tylenol Extra Strength*), 500 MG ORAL Q8H PRN for Prn Headache/ Temp > 101, (Reported) Patient History Limited by: medical condition History Provided By: Patient, Family Member, Medical Record, PMD Healthcare decision maker Resuscitation status Full Code Advanced Directive on File No Past Medical/Surgical History Past Medical/Surgical History: (1) Dehydration (2) Migraine (3) Hypercholesteremia (4) Hypercholesteremia (5) Hyponatremia (6) Urinary obstruction (7) Metastatic cancer (8) Hypertension (9) HTN (hypertension) (10) HTN (hypertension) (11) Overactive bladder (12) Edema extremities (13) Edema extremities (14) Right knee pain (15) Right flank pain (16) Osteoarthritis, knee (17) Osteoarthritis, knee (18) Failure to thrive in adult (19) Protein-calorie malnutrition, severe (20) Shoulder pain, bilateral (21) Knee osteoarthritis (22) Colon cancer metastasized to multiple sites (23) Dermatitis (24) SIADH (syndrome of inappropriate ADH production) Review of Systems Psychiatric: Reports: prior hx, anxiety, emotional problems Physical Exam General Appearance: alert, confused Last 24 Hour Vital Signs Date Time Temp Pulse Resp B/P (MAP) Pulse Ox O2 Delivery O2 Flow Rate FiO2 04/24/18 20:00 97.9 101 17 116/72 (87) 93 04/24/18 12:00 97.7 67 20 92/70 (77) 91 04/24/18 09:00 Nasal Cannula 2.0 04/24/18 08:00 97.2 92 20 94/58 (70) 93 04/24/18 08:00 95 Nasal Cannula 3.0 32 04/24/18 08:00 79 21 Nasal Cannula 3.0 32 04/24/18 08:00 Nasal Cannula 3.0 32 04/24/18 04:00 97.9 75 19 97/61 (73) 94 04/24/18 00:00 97.5 75 18 125/69 (87) 95 Intake and Output 04/23/18 04/24/18 18:59 06:59 Intake Total 1400 ml 295 ml Output Total 4000 ml Balance -2600 ml 295 ml Intake Oral 700 ml 240 ml IV Total 55 ml Other 700 ml Output Urine Total 4000 ml # Voids 2 # Bowel Movements 1 2 Laboratory Tests Test 04/24/18 05:50 Sodium Level 126 MMOL/L (136-145) L Potassium Level 4.0 MMOL/L (3.5-5.1) Chloride Level 93 MMOL/L (98-107) L Carbon Dioxide Level 27 MMOL/L (21-32) Anion Gap 6 mmol/L (5-15) Blood Urea Nitrogen 22 mg/dL (7-18) H Creatinine 0.6 MG/DL (0.55-1.30) Estimat Glomerular Filtration Rate mL/min (>60) Glucose Level 195 MG/DL (74-106) H Calcium Level 8.2 MG/DL (8.5-10.1) L Height (Feet): 5 Height (Inches): 11.00 Weight (Pounds): 162 Medications Current Medications Medications (Trade) Dose Ordered Sig/Chivo Route PRN Reason Start Time Stop Time Status Last Admin Dose Admin Acetaminophen (Tylenol) 650 mg Q4H PRN ORAL Mild Pain (Pain Scale 1-3) 04/22/18 18:30 05/20/18 18:29 Acetaminophen (Tylenol) 650 mg Q4H PRN ORAL fever 04/22/18 18:30 05/20/18 18:29 Acetaminophen/ Codeine Phosphate (Tylenol #3) 1 tab Q6H PRN ORAL Moderate Pain (Pain Scale 4-6) 04/22/18 18:30 04/28/18 18:29 04/24/18 12:51 Acetaminophen/ Hydrocodone Bitart ([place] 5/325) 1 tab Q6H PRN ORAL BREAKTHROUGH PAIN 04/22/18 18:30 04/28/18 18:29 Albuterol/ Ipratropium (Albuterol/ Ipratropium) 3 ml Q4H PRN HHN Shortness of Breath 04/23/18 10:15 04/28/18 10:14 Cefepime HCl 1 gm/ Dextrose 55 ml @ 110 mls/hr EVERY 12 HOURS IVPB 04/22/18 21:00 04/28/18 13:29 04/24/18 21:11 Demeclocycline HCl (Declomycin) 300 mg Q12HR ORAL 04/24/18 21:00 05/01/18 20:59 04/24/18 21:11 Dexamethasone (Decadron) 4 mg DAILY ORAL 04/23/18 09:00 05/21/18 08:59 04/24/18 09:53 Dextrose (Dextrose 50%) 25 ml Q30M PRN IV Hypoglycemia 04/22/18 18:45 05/20/18 15:14 Dextrose (Dextrose 50%) 50 ml Q30M PRN IV Hypoglycemia 04/22/18 18:45 05/20/18 15:14 Docusate Sodium (Colace) 100 mg EVERY 12 HOURS ORAL 04/22/18 21:00 05/20/18 20:59 04/24/18 21:11 Famotidine (Pepcid) 40 mg DAILY ORAL 04/23/18 09:00 05/21/18 08:59 04/24/18 09:53 Heparin Sodium (Porcine) (Heparin 5000 units/ml) 5,000 units EVERY 12 HOURS SUBQ 04/22/18 21:00 05/20/18 20:59 Insulin Aspart (NovoLOG) BEFORE MEALS AND HS SUBQ 04/22/18 21:00 05/20/18 16:29 04/24/18 21:12 Levothyroxine Sodium (Synthroid) 75 mcg Q24H ORAL 04/23/18 06:30 05/21/18 06:29 04/24/18 06:25 Magnesium Hydroxide (Mom) 30 ml HSPRN PRN ORAL Constipation 04/22/18 18:30 05/22/18 18:29 Metoprolol Tartrate (Lopressor) 25 mg Q12HR ORAL 04/22/18 21:00 05/21/18 22:29 04/23/18 21:20 Nystatin (Nystatin) 3 ml FOUR TIMES A DAY ORAL 04/22/18 21:00 04/27/18 17:59 04/24/18 21:11 Ondansetron HCl (Zofran) 4 mg Q6H PRN IVP Nausea & Vomiting 04/22/18 18:30 05/20/18 18:29 Polyethylene Glycol (Miralax) 17 gm DAILYPRN PRN ORAL Constipation 04/22/18 18:30 05/22/18 18:29 Tamsulosin HCl (Flomax) 0.4 mg QHS ORAL 04/22/18 21:00 05/20/18 20:59 04/24/18 21:11 Assessment/Plan Problem List: (1) Toxic encephalopathy ICD Codes: G92 - Toxic encephalopathy SNOMED: [id number] Assessment/Plan seroquel prn the pt was provided with ro/Jeanie Astudillo MD Apr 24, 2018 22:12
[2018-04-25] VITALS (8 sets, daily range): BP systolic 97–121; BP diastolic 53–78
[2018-04-25] MEDS: Tylenol #3 tab (300mg/30mg) ORAL PRN (01:45)
[2018-04-25] MEDS: NovoLOG Insulin Flexpen SUBQ SCH ×4 (06:06→21:00)
[2018-04-25 07:47] LABS: ANION GAP 7 mmol/L (5-15); BLOOD UREA NITROGEN 19 mg/dL (7-18); CALCIUM 8.6 MG/DL (8.5-10.1); CARBON DIOXIDE 28 MMOL/L (21-32); CHLORIDE 95 MMOL/L (98-107); CREATININE 0.6 MG/DL (0.55-1.30); SODIUM 130 MMOL/L (136-145)
[2018-04-25] MEDS: Heparin 5000 units/ml inj SUBQ SCH ×2 (09:00→21:00)
[2018-04-25] MEDS: Docusate 100mg cap ORAL SCH ×2 (09:05→21:32)
[2018-04-25] MEDS: Cefepime HCl 1 GM in D5W 55 ML IVPB SCH (09:05)
[2018-04-25] MEDS: Demeclocycline 150mg tab ORAL SCH ×2 (09:05→21:32)
[2018-04-25] MEDS: Nystatin Susp 500,000 units/5ml ORAL SCH ×4 (09:06→21:00)
[2018-04-25] MEDS: Metoprolol 25mg tab ORAL SCH ×2 (09:06→21:38)
--- NOTE | 2018-04-25 09:28 | Cardiology Progress Note ---
Assessment/Plan Status: stable Assessment/Plan Assessment/Plan Status: stable, progressing Assessment/Plan Assessment: Tachycardia Atrial fibrillation Neuroendocrine carcinoma with mets Hypertension Hyperlipiemia Osteoarthritis knees Recurrent UT Splenectomy Ascending aortic aneurysm hypothyroidism elevated hemoglobin A1c s/p TURP Ectopy with premature atrial contractions Plan: IV steroids for brain mass IV abx for UTI AAA stable in size no indication for intervention continue outpatient palliative radiation Nutrition consult Continue Synthroid Hx of bradycardia from brain mass and hypervagal state - no indication for intervention Metoprolol prn tachycardia 25 BID - hold for SBP<90, discussed with nursing anticoagulation contraindicated due to brain lesions and fall risk Echo at OSH normal LV function Troponin down trending Fluid restriction for hyponatremia, NA improving CT brain with improvement in size of mass, still has edema Supportive care Hospice? Subjective Cardiovascular: Reports: no symptoms Respiratory: Reports: no symptoms Gastrointestinal/Abdominal: Reports: no symptoms Genitourinary: Reports: no symptoms Subjective Vitals stable, heart rates normal.CT brain showed improvement in size of mass, no bleed. Patient on fluid restriction, NA up to 130 today Objective Last 24 Hour Vital Signs Date Time Temp Pulse Resp B/P (MAP) Pulse Ox O2 Delivery O2 Flow Rate FiO2 04/25/18 09:06 84 111/78 04/25/18 08:00 98.1 84 18 111/78 (89) 94 04/25/18 04:00 97.4 65 17 116/69 (85) 94 04/25/18 00:00 97.4 83 19 104/65 (78) 94 04/24/18 21:00 Nasal Cannula 2.0 04/24/18 20:00 97.9 101 17 116/72 (87) 93 04/24/18 20:00 94 Nasal Cannula 2.0 28 04/24/18 20:00 92 20 Nasal Cannula 2.0 28 04/24/18 20:00 Nasal Cannula 2.0 28 04/24/18 12:00 97.7 67 20 92/70 (77) 91 General Appearance: no apparent distress, alert EENT: PERRL/EOMI, normal ENT inspection, TMs normal Neck: non-tender, normal alignment, supple, normal inspection, no JVD Rhythm: Afib Cardiovascular: normal peripheral pulses, normal rate, regular rhythm Respiratory/Chest: chest wall non-tender, lungs clear, normal breath sounds, no respiratory distress, no accessory muscle use Abdomen: normal bowel sounds, non tender, soft, no organomegaly, no mass Extremities: normal range of motion, non-tender, normal inspection Neurologic: video clerk 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, no motor/sensory deficits Intake and Output 04/24/18 04/25/18 19:00 07:00 Intake Total 920 ml Balance 920 ml Intake Oral 920 ml # Voids 3 2 Laboratory Tests Test 04/25/18 05:24 Sodium Level 130 MMOL/L (136-145) L Potassium Level 4.0 MMOL/L (3.5-5.1) Chloride Level 95 MMOL/L (98-107) L Carbon Dioxide Level 28 MMOL/L (21-32) Anion Gap 7 mmol/L (5-15) Blood Urea Nitrogen 19 mg/dL (7-18) H Creatinine 0.6 MG/DL (0.55-1.30) Estimat Glomerular Filtration Rate mL/min (>60) Glucose Level 204 MG/DL (74-106) H Calcium Level 8.6 MG/DL (8.5-10.1) Enrique Cordero MD Apr 25, 2018 09:28
--- NOTE | 2018-04-25 09:54 | Diagnostic Imaging Report ---
EXAM: XR Chest, 1 View CLINICAL HISTORY: COUGH TECHNIQUE: Frontal view of the chest. COMPARISON: No relevant prior studies available. FINDINGS: Lungs: Reduced lung volumes with bilateral interstitial opacities. Pleural space: Unremarkable. No pneumothorax. Heart: Unremarkable. No cardiomegaly. Mediastinum: Unremarkable. Bones/joints: No acute fracture. Vasculature: Prominent aortic knob. Tubes, lines and devices: Port-A-Cath. IMPRESSION: Reduced lung volumes with bilateral interstitial opacities.
--- NOTE | 2018-04-25 10:31 | Infectious Diseases Prog Note ---
Assessment/Plan Assessment/Plan Assessment: Afebrile cough ? CAP vs Asp Pneum No leukocytosis R/o probable UTI- (on/off dysuria, worse in the last few days, however no pyuria ) - 04/25 CXR: Reduced lung volumes with bilateral interstitial opacities. -u/a wbc 2-4, nit +, leuk est +1; ucx Generalized weakness Dysphagia Afib w RVR -04/23 CXR: Interval worsening of aeration with increasing interstitial opacities and worsening perihilar opacities. Given and short-term interval worsening findings may be related to development of pulmonary edema. Correlate clinically. Previously described right hilar masslike opacity less well-defined on this exam, likely obscured by above described opacities. The possibility of an underlying mass is not entirely excluded especially given history of known malignancy. Follow up recommend. Hyponatremia Troponinemia HTN HLD neuroendocrine CA of bladder with liver, brain, mediastinum and lungs mets s/p chemo and currently on radiation tx (last was 1 month ago) Severe OA Knee s/p knee arthroplasty s/p b/l inguinal repair s/p splenectomy 1968 hypothyroidism hx of UTI Plan: -Continue levaquin and Flagyl d# 1/ 7 ( Asp Pneum and probable UTI ) and DC Cefepime # 5 upon DC will change to po to complete the course -Monitor CBC/CMP -aspiration precautions -Cards f/u Subjective Constitutional: Denies: no symptoms, fever, chills, fatigue, anorexia, drenching sweats, other Allergies: Coded Allergies: No Known Allergies (Unverified , 10/25/13) Subjective today pt had cough + with swallowing pill cough x 2 d Objective Vital Signs Last 24 Hour Vital Signs Date Time Temp Pulse Resp B/P (MAP) Pulse Ox O2 Delivery O2 Flow Rate FiO2 04/25/18 09:06 84 111/78 04/25/18 08:00 98.1 84 18 111/78 (89) 94 04/25/18 04:00 97.4 65 17 116/69 (85) 94 04/25/18 00:00 97.4 83 19 104/65 (78) 94 04/24/18 21:00 Nasal Cannula 2.0 04/24/18 20:00 97.9 101 17 116/72 (87) 93 04/24/18 20:00 94 Nasal Cannula 2.0 28 04/24/18 20:00 92 20 Nasal Cannula 2.0 28 04/24/18 20:00 Nasal Cannula 2.0 28 04/24/18 12:00 97.7 67 20 92/70 (77) 91 Height (Feet): 5 Height (Inches): 11.00 Weight (Pounds): 162 HEENT: anicteric Respiratory/Chest: normal breath sounds Cardiovascular: normal peripheral pulses Abdomen: soft, non tender Laboratory Tests Test 04/25/18 05:24 Sodium Level 130 MMOL/L (136-145) L Potassium Level 4.0 MMOL/L (3.5-5.1) Chloride Level 95 MMOL/L (98-107) L Carbon Dioxide Level 28 MMOL/L (21-32) Anion Gap 7 mmol/L (5-15) Blood Urea Nitrogen 19 mg/dL (7-18) H Creatinine 0.6 MG/DL (0.55-1.30) Estimat Glomerular Filtration Rate mL/min (>60) Glucose Level 204 MG/DL (74-106) H Calcium Level 8.6 MG/DL (8.5-10.1) Current Medications Medications (Trade) Dose Ordered Sig/Chivo Route PRN Reason Start Time Stop Time Status Last Admin Dose Admin Acetaminophen (Tylenol) 650 mg Q4H PRN ORAL Mild Pain (Pain Scale 1-3) 04/22/18 18:30 05/20/18 18:29 Acetaminophen (Tylenol) 650 mg Q4H PRN ORAL fever 04/22/18 18:30 05/20/18 18:29 Acetaminophen/ Codeine Phosphate (Tylenol #3) 1 tab Q6H PRN ORAL Moderate Pain (Pain Scale 4-6) 04/22/18 18:30 04/28/18 18:29 04/25/18 01:45 Acetaminophen/ Hydrocodone Bitart ([place] 5/325) 1 tab Q6H PRN ORAL BREAKTHROUGH PAIN 04/22/18 18:30 04/28/18 18:29 Albuterol/ Ipratropium (Albuterol/ Ipratropium) 3 ml Q4H PRN HHN Shortness of Breath 04/23/18 10:15 04/28/18 10:14 Cefepime HCl 1 gm/ Dextrose 55 ml @ 110 mls/hr EVERY 12 HOURS IVPB 04/22/18 21:00 04/28/18 13:29 04/25/18 09:05 Chlorhexidine Gluconate (Ana-Hex 2%) 1 applic DAILY@2000 TOPIC 04/25/18 20:00 05/25/18 19:59 Demeclocycline HCl (Declomycin) 300 mg Q12HR ORAL 04/24/18 21:00 05/01/18 20:59 04/25/18 09:05 Dexamethasone (Decadron) 4 mg DAILY ORAL 04/23/18 09:00 05/21/18 08:59 04/25/18 09:06 Dextrose (Dextrose 50%) 25 ml Q30M PRN IV Hypoglycemia 04/22/18 18:45 05/20/18 15:14 Dextrose (Dextrose 50%) 50 ml Q30M PRN IV Hypoglycemia 04/22/18 18:45 05/20/18 15:14 Docusate Sodium (Colace) 100 mg EVERY 12 HOURS ORAL 04/22/18 21:00 05/20/18 20:59 04/25/18 09:05 Famotidine (Pepcid) 40 mg DAILY ORAL 04/23/18 09:00 05/21/18 08:59 04/25/18 09:06 Heparin Sodium (Porcine) (Heparin 5000 units/ml) 5,000 units EVERY 12 HOURS SUBQ 04/22/18 21:00 05/20/18 20:59 Insulin Aspart (NovoLOG) BEFORE MEALS AND HS SUBQ 04/22/18 21:00 05/20/18 16:29 04/25/18 06:06 Levothyroxine Sodium (Synthroid) 75 mcg Q24H ORAL 04/23/18 06:30 05/21/18 06:29 04/25/18 06:05 Magnesium Hydroxide (Mom) 30 ml HSPRN PRN ORAL Constipation 04/22/18 18:30 05/22/18 18:29 Metoprolol Tartrate (Lopressor) 25 mg Q12HR ORAL 04/22/18 21:00 05/21/18 22:29 04/25/18 09:06 Nystatin (Nystatin) 3 ml FOUR TIMES A DAY ORAL 04/22/18 21:00 04/27/18 17:59 04/25/18 09:06 Ondansetron HCl (Zofran) 4 mg Q6H PRN IVP Nausea & Vomiting 04/22/18 18:30 05/20/18 18:29 Polyethylene Glycol (Miralax) 17 gm DAILYPRN PRN ORAL Constipation 04/22/18 18:30 05/22/18 18:29 Tamsulosin HCl (Flomax) 0.4 mg QHS ORAL 04/22/18 21:00 05/20/18 20:59 04/24/18 21:11 Seth Navarro MD Apr 25, 2018 10:31
[2018-04-25] MEDS: LORazepam Inj 2mg/ml 1ml IM PRN ×2 (11:28→16:24)
--- NOTE | 2018-04-25 12:29 | General Surgery Progress Note ---
General Surgery-Progress Note Subjective Additional Comments no acute events. stable Objective Last 24 Hour Vital Signs Date Time Temp Pulse Resp B/P (MAP) Pulse Ox O2 Delivery O2 Flow Rate FiO2 04/25/18 11:18 Nasal Cannula 4.0 36 04/25/18 11:18 95 Nasal Cannula 4.0 36 04/25/18 11:18 89 22 95 Nasal Cannula 4.0 36 04/25/18 11:18 36 04/25/18 11:18 85 20 Nasal Cannula 2.0 28 04/25/18 09:06 84 111/78 04/25/18 08:00 98.1 84 18 111/78 (89) 94 04/25/18 04:00 97.4 65 17 116/69 (85) 94 04/25/18 00:00 97.4 83 19 104/65 (78) 94 04/24/18 21:00 Nasal Cannula 2.0 04/24/18 20:00 97.9 101 17 116/72 (87) 93 04/24/18 20:00 94 Nasal Cannula 2.0 28 04/24/18 20:00 92 20 Nasal Cannula 2.0 28 04/24/18 20:00 Nasal Cannula 2.0 28 I&O Intake and Output 04/24/18 04/25/18 19:00 07:00 Intake Total 920 ml Balance 920 ml Intake Oral 920 ml # Voids 3 2 Dressing: other Wound: other Drains: other Cardiovascular: RSR Respiratory: clear Abdomen: soft, flat, present bowel sounds Extremities: other Laboratory Tests Test 04/25/18 05:24 Sodium Level 130 MMOL/L (136-145) L Potassium Level 4.0 MMOL/L (3.5-5.1) Chloride Level 95 MMOL/L (98-107) L Carbon Dioxide Level 28 MMOL/L (21-32) Anion Gap 7 mmol/L (5-15) Blood Urea Nitrogen 19 mg/dL (7-18) H Creatinine 0.6 MG/DL (0.55-1.30) Estimat Glomerular Filtration Rate mL/min (>60) Glucose Level 204 MG/DL (74-106) H Calcium Level 8.6 MG/DL (8.5-10.1) Plan Problems: (1) Dermatitis Assessment & Plan: PT presents with resolving incontinence associated dermatitis to buttocks. Bilateral buttocks pink with dry peeling skin sacral area non-tender when palpated. Both heels dry and callused . Tx.Plan: Apply Moisture Barrier Paste to buttocks with each perineal care Q shift. Reposition at least every 2hours or as tolerated. Off-load heels with pillow. thank you for allowing me to participate in patients care Jamie Chavez Apr 25, 2018 12:29
[2018-04-25] MEDS ORDERED: Haloperidol 5mg/ml Inj IM SCH (13:00)
[2018-04-25] MEDS ORDERED: DiphenhydrAMINE 50mg/ml Inj IM SCH (13:00)
--- NOTE | 2018-04-25 14:58 | Nephrology Progress Note ---
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) (2) Hyponatremia Assessment: better (3) Hypertension (4) Metastatic cancer Plan free water restriction Demeclocycline 300 mg bid follow labs discussed with daughter and clinical psychology professor is following Subjective Subjective upset crying Objective Objective Last 24 Hour Vital Signs Date Time Temp Pulse Resp B/P (MAP) Pulse Ox O2 Delivery O2 Flow Rate FiO2 04/25/18 11:18 Nasal Cannula 4.0 36 04/25/18 11:18 95 Nasal Cannula 4.0 36 04/25/18 11:18 89 22 95 Nasal Cannula 4.0 36 04/25/18 11:18 36 04/25/18 11:18 85 20 Nasal Cannula 2.0 28 04/25/18 09:06 84 111/78 04/25/18 08:00 98.1 84 18 111/78 (89) 94 04/25/18 04:00 97.4 65 17 116/69 (85) 94 04/25/18 00:00 97.4 83 19 104/65 (78) 94 04/24/18 21:00 Nasal Cannula 2.0 04/24/18 20:00 97.9 101 17 116/72 (87) 93 04/24/18 20:00 94 Nasal Cannula 2.0 28 04/24/18 20:00 92 20 Nasal Cannula 2.0 28 04/24/18 20:00 Nasal Cannula 2.0 28 Intake and Output 04/24/18 04/25/18 19:00 07:00 Intake Total 920 ml Balance 920 ml Intake Oral 920 ml # Voids 3 2 Laboratory Tests 04/25/18 05:24: Sodium Level 130L, Potassium Level 4.0, Chloride Level 95L, Carbon Dioxide Level 28, Anion Gap 7, Blood Urea Nitrogen 19H, Creatinine 0.6, Estimat Glomerular Filtration Rate , Glucose Level 204H, Calcium Level 8.6 Height (Feet): 5 Height (Inches): 11.00 Weight (Pounds): 162 Cardiovascular: normal rate Respiratory/Chest: lungs clear Ayo An MD Apr 25, 2018 14:58
--- NOTE | 2018-04-25 15:44 | Internal Med Progress Note ---
Subjective Date of Service: Apr 25, 2018 Physician Name Demetrio Morgan Attending Physician Noah Paz MD Current Medications Medications (Trade) Dose Ordered Sig/Chivo Route PRN Reason Start Time Stop Time Status Last Admin Dose Admin Acetaminophen (Tylenol) 650 mg Q4H PRN ORAL Mild Pain (Pain Scale 1-3) 04/22/18 18:30 05/20/18 18:29 Acetaminophen (Tylenol) 650 mg Q4H PRN ORAL fever 04/22/18 18:30 05/20/18 18:29 Acetaminophen/ Codeine Phosphate (Tylenol #3) 1 tab Q6H PRN ORAL Moderate Pain (Pain Scale 4-6) 04/22/18 18:30 04/28/18 18:29 04/25/18 01:45 Acetaminophen/ Hydrocodone Bitart ([place] 5/325) 1 tab Q6H PRN ORAL BREAKTHROUGH PAIN 04/22/18 18:30 04/28/18 18:29 Albuterol/ Ipratropium (Albuterol/ Ipratropium) 3 ml Q4H PRN HHN Shortness of Breath 04/23/18 10:15 04/28/18 10:14 04/25/18 11:11 Chlorhexidine Gluconate (Ana-Hex 2%) 1 applic DAILY@2000 TOPIC 04/25/18 20:00 05/25/18 19:59 Demeclocycline HCl (Declomycin) 300 mg Q12HR ORAL 04/24/18 21:00 05/01/18 20:59 04/25/18 09:05 Dexamethasone (Decadron) 4 mg DAILY ORAL 04/23/18 09:00 05/21/18 08:59 04/25/18 09:06 Dextrose (Dextrose 50%) 25 ml Q30M PRN IV Hypoglycemia 04/22/18 18:45 05/20/18 15:14 Dextrose (Dextrose 50%) 50 ml Q30M PRN IV Hypoglycemia 04/22/18 18:45 05/20/18 15:14 Docusate Sodium (Colace) 100 mg EVERY 12 HOURS ORAL 04/22/18 21:00 05/20/18 20:59 04/25/18 09:05 Famotidine (Pepcid) 40 mg DAILY ORAL 04/23/18 09:00 05/21/18 08:59 04/25/18 09:06 Heparin Sodium (Porcine) (Heparin 5000 units/ml) 5,000 units EVERY 12 HOURS SUBQ 04/22/18 21:00 05/20/18 20:59 Insulin Aspart (NovoLOG) BEFORE MEALS AND HS SUBQ 04/22/18 21:00 05/20/18 16:29 04/25/18 06:06 Levofloxacin 150 ml @ 100 mls/hr Q24H IVPB 04/25/18 14:00 05/02/18 13:59 04/25/18 15:17 Levothyroxine Sodium (Synthroid) 75 mcg Q24H ORAL 04/23/18 06:30 05/21/18 06:29 04/25/18 06:05 Lorazepam (Ativan 2mg/ml 1ml) 1 mg Q4H PRN IM For Anxiety 04/25/18 11:00 05/02/18 10:59 04/25/18 11:28 Magnesium Hydroxide (Mom) 30 ml HSPRN PRN ORAL Constipation 04/22/18 18:30 05/22/18 18:29 Metoprolol Tartrate (Lopressor) 25 mg Q12HR ORAL 04/22/18 21:00 05/21/18 22:29 04/25/18 09:06 Metronidazole 100 ml @ 100 mls/hr Q8HR IVPB 04/25/18 13:00 05/02/18 12:59 04/25/18 14:02 Nystatin (Nystatin) 3 ml FOUR TIMES A DAY ORAL 04/22/18 21:00 04/27/18 17:59 04/25/18 09:06 Olanzapine (ZyPREXA) 2.5 mg DAILY ORAL 04/26/18 09:00 05/26/18 08:59 Olanzapine (ZyPREXA) 5 mg QHS ORAL 04/25/18 21:00 05/25/18 20:59 Ondansetron HCl (Zofran) 4 mg Q6H PRN IVP Nausea & Vomiting 04/22/18 18:30 05/20/18 18:29 Polyethylene Glycol (Miralax) 17 gm DAILYPRN PRN ORAL Constipation 04/22/18 18:30 05/22/18 18:29 Tamsulosin HCl (Flomax) 0.4 mg QHS ORAL 04/22/18 21:00 05/20/18 20:59 04/24/18 21:11 Allergies: Coded Allergies: No Known Allergies (Unverified , 10/25/13) ROS Limited/Unobtainable: Yes Subjective 82 YO M admitted with dehydration. Now UTI and atrial fib. Cover for Int Med- Dr Paz. Await residential fac placement Objective Last Vital Signs Date Time Temp Pulse Resp B/P (MAP) Pulse Ox O2 Delivery O2 Flow Rate FiO2 04/25/18 15:11 99.1 98 17 109/76 (87) 92 04/25/18 11:18 Nasal Cannula 4.0 36 Laboratory Tests Test 04/25/18 05:24 Sodium Level 130 MMOL/L (136-145) L Potassium Level 4.0 MMOL/L (3.5-5.1) Chloride Level 95 MMOL/L (98-107) L Carbon Dioxide Level 28 MMOL/L (21-32) Anion Gap 7 mmol/L (5-15) Blood Urea Nitrogen 19 mg/dL (7-18) H Creatinine 0.6 MG/DL (0.55-1.30) Estimat Glomerular Filtration Rate mL/min (>60) Glucose Level 204 MG/DL (74-106) H Calcium Level 8.6 MG/DL (8.5-10.1) Intake and Output 04/24/18 04/25/18 19:00 07:00 Intake Total 920 ml Balance 920 ml Intake Oral 920 ml # Voids 3 2 Objective GENERAL: awake, responsive, less confused. HEAD AND NECK: Pupils equal and reactive to light. Extraocular movements intact. Neck was supple. No JVD. LUNGS: Decrease air entry at bases. No wheeze or rales. Poor inspiratory effort. HEART: S1 and S2. Irregular. No murmur or gallop. ABDOMEN: Soft, nondistended, and nontender. Positive bowel sounds. EXTREMITIES: No cyanosis, clubbing, or edema. NEUROLOGIC: Cranial nerves II through XII are grossly intact. moving all the extremities spontaneously. Gait was not assessed due to the patient's status. RECTAL: Refused and deferred. GENITOURINARY: Refused and deferred. PSYCHIATRIC: Mood and affect is intact. Assessment/Plan Assessment/Plan Assessment/Plan Assessment/Plan 1. Acute UTI. 2. Steroid-induced hyperglycemia. 3. Dehydration. 4. 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 5. 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 6. 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 7. Hypothyroidism. 8. Atherosclerotic heart disease. 9. A 4.2-cm ascending aortic aneurysm. 10. Status post splenectomy in 1967. 11. Severe osteoarthritis of the knee. 12. Hypertension. 13. New onset Atrial Fibrillation. PLAN: In medical unit. At this time, the patient is not a candidate for anticoagulation due to the brain metastasis. DVT prophylaxis: heparin subcutaneous. Code status: Full Code. Follow up with Nephrology consultation with Dr. An: Demeclocycline 300 mg bid Abx: Cefepime IV F/u with labs and cultures. Discuss with daughter and son and patient at bedside regarding discharge planning, SNF. Demetrio Morgan MD Apr 25, 2018 15:44
[2018-04-25] MEDS: Tamsulosin 0.4mg cap ORAL SCH (21:32)
[2018-04-25] MEDS: Dyna-Hex 2% Top Sol 2oz TOPIC SCH (21:33)
[2018-04-26] VITALS (8 sets, daily range): BP systolic 103–116; BP diastolic 53–76
[2018-04-26] MEDS: LORazepam Inj 2mg/ml 1ml IM PRN (00:23)
[2018-04-26] MEDS: NovoLOG Insulin Flexpen SUBQ SCH ×4 (06:26→21:00)
[2018-04-26 07:19] LABS: HEMATOCRIT 36.8 % (42.0-52.0); HEMOGLOBIN 13.1 G/DL (14.2-18.0); MEAN CORPUSCULAR VOLUME 92 FL (80-99); PLATELET COUNT 80 K/UL (150-450); RED CELL DISTRIBUTION WIDTH 11.9 % (11.6-14.8); WHITE BLOOD COUNT 4.8 K/UL (4.8-10.8)
[2018-04-26 07:59] LABS: ANION GAP 6 mmol/L (5-15); BLOOD UREA NITROGEN 18 mg/dL (7-18); CALCIUM 7.6 MG/DL (8.5-10.1); CARBON DIOXIDE 26 MMOL/L (21-32); CHLORIDE 101 MMOL/L (98-107); CREATININE 0.6 MG/DL (0.55-1.30); PHOSPHORUS 1.9 MG/DL (2.5-4.9); POTASSIUM 3.3 MMOL/L (3.5-5.1); SODIUM 133 MMOL/L (136-145)
[2018-04-26] MEDS: Heparin 5000 units/ml inj SUBQ SCH ×2 (09:00→21:00)
[2018-04-26] MEDS: Demeclocycline 150mg tab ORAL SCH ×2 (09:00→21:00)
[2018-04-26] MEDS: Docusate 100mg cap ORAL SCH ×2 (09:00→21:00)
[2018-04-26] MEDS: Nystatin Susp 500,000 units/5ml ORAL SCH ×4 (09:00→21:00)
[2018-04-26] MEDS: Metoprolol 25mg tab ORAL SCH ×2 (09:00→21:00)
[2018-04-26] MEDS ORDERED: OLANZapine 2.5mg tab ORAL SCH (09:00)
--- NOTE | 2018-04-26 09:59 | Cardiology Progress Note ---
Assessment/Plan Status: stable Assessment/Plan Assessment/Plan Status: stable, progressing Assessment/Plan Assessment: Tachycardia Atrial fibrillation Neuroendocrine carcinoma with mets Hypertension Hyperlipiemia Osteoarthritis knees Recurrent UT Splenectomy Ascending aortic aneurysm hypothyroidism elevated hemoglobin A1c s/p TURP Ectopy with premature atrial contractions Plan: AAA stable in size no indication for intervention continue outpatient palliative radiation Continue Synthroid Hx of bradycardia from brain mass and hypervagal state - no indication for intervention Metoprolol prn tachycardia 25 BID - hold for SBP<90, discussed with nursing anticoagulation contraindicated due to brain lesions and fall risk No indication for AFIB cardioversion, rates controlled Echo at OSH normal LV function Troponin down trended Fluid restriction for hyponatremia, NA improving CT brain with improvement in size of mass, still has edema Aspiration precautions Supportive care Dispo to SNF Subjective Cardiovascular: Reports: no symptoms Respiratory: Reports: no symptoms Gastrointestinal/Abdominal: Reports: no symptoms Genitourinary: Reports: no symptoms Subjective Vitals stable, heart rates normal.CT brain showed improvement in size of mass, no bleed. Patient on fluid restriction, NA up to 133 today CXR showed Reduced lung volumes with bilateral interstitial opacities. He was agitated overnight and didnt take PO meds this morning, he is on supplemental oxygen. Objective Last 24 Hour Vital Signs Date Time Temp Pulse Resp B/P (MAP) Pulse Ox O2 Delivery O2 Flow Rate FiO2 04/26/18 08:00 98.1 102 21 106/76 (86) 94 04/26/18 04:00 98.2 96 20 103/62 (76) 94 04/26/18 00:00 99.3 98 20 112/76 (88) 94 04/25/18 21:38 98 114/64 04/25/18 21:27 Nasal Cannula 3.0 32 04/25/18 21:27 95 Nasal Cannula 3.0 32 04/25/18 21:26 103 20 Nasal Cannula 2.0 28 04/25/18 21:00 Nasal Cannula 4.0 04/25/18 21:00 114/64 (81) 96 04/25/18 20:00 99.3 98 20 97/53 (68) 94 04/25/18 16:00 97.9 93 19 121/69 (86) 98 04/25/18 12:00 99.1 98 17 109/76 (87) 92 04/25/18 11:18 Nasal Cannula 4.0 36 04/25/18 11:18 95 Nasal Cannula 4.0 36 04/25/18 11:18 89 22 95 Nasal Cannula 4.0 36 04/25/18 11:18 36 04/25/18 11:18 85 20 Nasal Cannula 2.0 28 General Appearance: no apparent distress, alert EENT: PERRL/EOMI, normal ENT inspection, TMs normal, pharynx normal Neck: non-tender, normal alignment, supple, normal inspection, no JVD Rhythm: Afib Cardiovascular: normal peripheral pulses, normal rate, regularly irregular Respiratory/Chest: chest wall non-tender, lungs clear Abdomen: normal bowel sounds, non tender, soft Extremities: normal range of motion, non-tender, normal inspection 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, no motor/sensory deficits Intake and Output 04/25/18 04/26/18 19:00 07:00 Intake Total 120 ml 220 ml Output Total 200 ml Balance 120 ml 20 ml Intake Oral 120 ml 120 ml IV Total 100 ml Output Urine Total 200 ml # Voids 6 Laboratory Tests Test 04/26/18 05:00 White Blood Count 4.8 K/UL (4.8-10.8) Red Blood Count 4.00 M/UL (4.70-6.10) L Hemoglobin 13.1 G/DL (14.2-18.0) L Hematocrit 36.8 % (42.0-52.0) L Mean Corpuscular Volume 92 FL (80-99) Mean Corpuscular Hemoglobin 32.7 PG (27.0-31.0) H Mean Corpuscular Hemoglobin Concent 35.5 G/DL (32.0-36.0) Red Cell Distribution Width 11.9 % (11.6-14.8) Platelet Count 80 K/UL (150-450) L Mean Platelet Volume 8.6 FL (6.5-10.1) Neutrophils (%) (Auto) % (45.0-75.0) Lymphocytes (%) (Auto) % (20.0-45.0) Monocytes (%) (Auto) % (1.0-10.0) Eosinophils (%) (Auto) % (0.0-3.0) Basophils (%) (Auto) % (0.0-2.0) Differential Total Cells Counted 100 Neutrophils % (Manual) 77 % (45-75) H Lymphocytes % (Manual) 9 % (20-45) L Monocytes % (Manual) 10 % (1-10) Eosinophils % (Manual) 0 % (0-3) Basophils % (Manual) 0 % (0-2) Band Neutrophils 4 % (0-8) Platelet Estimate Decreased L Platelet Morphology Normal Red Blood Cell Morphology Normal Sodium Level 133 MMOL/L (136-145) L Potassium Level 3.3 MMOL/L (3.5-5.1) L Chloride Level 101 MMOL/L (98-107) Carbon Dioxide Level 26 MMOL/L (21-32) Anion Gap 6 mmol/L (5-15) Blood Urea Nitrogen 18 mg/dL (7-18) Creatinine 0.6 MG/DL (0.55-1.30) Estimat Glomerular Filtration Rate mL/min (>60) Glucose Level 184 MG/DL (74-106) H Calcium Level 7.6 MG/DL (8.5-10.1) L Phosphorus Level 1.9 MG/DL (2.5-4.9) L Magnesium Level 1.5 MG/DL (1.8-2.4) L Enrique Cordero MD Apr 26, 2018 09:59
--- NOTE | 2018-04-26 12:51 | Nephrology Progress Note ---
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) (2) Hyponatremia Assessment: better (3) Hypertension (4) Metastatic cancer (5) Hypokalemia (6) Hypomagnesemia Plan free water restriction Demeclocycline 300 mg bid follow labs discussed with family and RN NG tube ? Replete K and Mag Subjective Subjective lethargic after Ativan Objective Objective Last 24 Hour Vital Signs Date Time Temp Pulse Resp B/P (MAP) Pulse Ox O2 Delivery O2 Flow Rate FiO2 04/26/18 09:00 Nasal Cannula 5.0 04/26/18 08:00 98.1 102 21 106/76 (86) 94 04/26/18 04:00 98.2 96 20 103/62 (76) 94 04/26/18 00:00 99.3 98 20 112/76 (88) 94 04/25/18 21:38 98 114/64 04/25/18 21:27 Nasal Cannula 3.0 32 04/25/18 21:27 95 Nasal Cannula 3.0 32 04/25/18 21:26 103 20 Nasal Cannula 2.0 28 04/25/18 21:00 Nasal Cannula 4.0 04/25/18 21:00 114/64 (81) 96 04/25/18 20:00 99.3 98 20 97/53 (68) 94 04/25/18 16:00 97.9 93 19 121/69 (86) 98 Intake and Output 04/25/18 04/26/18 19:00 07:00 Intake Total 120 ml 220 ml Output Total 200 ml Balance 120 ml 20 ml Intake Oral 120 ml 120 ml IV Total 100 ml Output Urine Total 200 ml # Voids 6 Laboratory Tests 04/26/18 05:00: White Blood Count 4.8, Red Blood Count 4.00L, Hemoglobin 13.1L, Hematocrit 36.8L , Mean Corpuscular Volume 92, Mean Corpuscular Hemoglobin 32.7H, Mean Corpuscular Hemoglobin Concent 35.5, Red Cell Distribution Width 11.9, Platelet Count 80L, Mean Platelet Volume 8.6, Neutrophils (%) (Auto) , Lymphocytes (%) ( Auto) , Monocytes (%) (Auto) , Eosinophils (%) (Auto) , Basophils (%) (Auto) , Differential Total Cells Counted 100, Neutrophils % (Manual) 77H, Lymphocytes % (Manual) 9L, Monocytes % (Manual) 10, Eosinophils % (Manual) 0, Basophils % ( Manual) 0, Band Neutrophils 4, Platelet Estimate DecreasedL, Platelet Morphology Normal, Red Blood Cell Morphology Normal, Sodium Level 133L, Potassium Level 3.3L, Chloride Level 101, Carbon Dioxide Level 26, Anion Gap 6, Blood Urea Nitrogen 18, Creatinine 0.6, Estimat Glomerular Filtration Rate , Glucose Level 184H, Calcium Level 7.6L, Phosphorus Level 1.9L, Magnesium Level 1.5L Height (Feet): 5 Height (Inches): 11.00 Weight (Pounds): 162 Cardiovascular: normal rate Respiratory/Chest: lungs clear Extremities: trace edema Ayo An MD Apr 26, 2018 12:51
--- NOTE | 2018-04-26 13:41 | Internal Med Progress Note ---
Subjective Date of Service: Apr 26, 2018 Physician Name CathyDemetrio Attending Physician Noah Paz MD Current Medications Medications (Trade) Dose Ordered Sig/Chivo Route PRN Reason Start Time Stop Time Status Last Admin Dose Admin Acetaminophen (Tylenol) 650 mg Q4H PRN ORAL Mild Pain (Pain Scale 1-3) 04/22/18 18:30 05/20/18 18:29 Acetaminophen (Tylenol) 650 mg Q4H PRN ORAL fever 04/22/18 18:30 05/20/18 18:29 Acetaminophen/ Codeine Phosphate (Tylenol #3) 1 tab Q6H PRN ORAL Moderate Pain (Pain Scale 4-6) 04/22/18 18:30 04/28/18 18:29 04/25/18 01:45 Acetaminophen/ Hydrocodone Bitart (Linden 5/325) 1 tab Q6H PRN ORAL BREAKTHROUGH PAIN 04/22/18 18:30 04/28/18 18:29 Albuterol/ Ipratropium (Albuterol/ Ipratropium) 3 ml Q4H PRN HHN Shortness of Breath 04/23/18 10:15 04/28/18 10:14 04/25/18 11:11 Chlorhexidine Gluconate (Ana-Hex 2%) 1 applic DAILY@2000 TOPIC 04/25/18 20:00 05/25/18 19:59 04/25/18 21:33 Demeclocycline HCl (Declomycin) 300 mg Q12HR ORAL 04/24/18 21:00 05/01/18 20:59 04/25/18 21:32 Dexamethasone (Decadron) 4 mg DAILY ORAL 04/23/18 09:00 05/21/18 08:59 04/25/18 09:06 Dextrose (Dextrose 50%) 25 ml Q30M PRN IV Hypoglycemia 04/22/18 18:45 05/20/18 15:14 Dextrose (Dextrose 50%) 50 ml Q30M PRN IV Hypoglycemia 04/22/18 18:45 05/20/18 15:14 Docusate Sodium (Colace) 100 mg EVERY 12 HOURS ORAL 04/22/18 21:00 05/20/18 20:59 04/25/18 21:32 Famotidine (Pepcid) 40 mg DAILY ORAL 04/23/18 09:00 05/21/18 08:59 04/25/18 09:06 Heparin Sodium (Porcine) (Heparin 5000 units/ml) 5,000 units EVERY 12 HOURS SUBQ 04/22/18 21:00 05/20/18 20:59 Insulin Aspart (NovoLOG) BEFORE MEALS AND HS SUBQ 04/22/18 21:00 05/20/18 16:29 04/25/18 06:06 Levofloxacin 150 ml @ 100 mls/hr Q24H IVPB 04/25/18 14:00 05/02/18 13:59 04/25/18 15:17 Levothyroxine Sodium (Synthroid) 75 mcg Q24H ORAL 04/23/18 06:30 05/21/18 06:29 04/25/18 06:05 Lorazepam (Ativan 2mg/ml 1ml) 1 mg Q4H PRN IM For Anxiety 04/25/18 11:00 05/02/18 10:59 04/26/18 00:23 Magnesium Hydroxide (Mom) 30 ml HSPRN PRN ORAL Constipation 04/22/18 18:30 05/22/18 18:29 Magnesium Sulfate 100 ml @ 100 mls/hr Q1H IVPB 04/26/18 11:00 04/26/18 14:59 04/26/18 13:07 Metoprolol Tartrate (Lopressor) 25 mg Q12HR ORAL 04/22/18 21:00 05/21/18 22:29 04/25/18 21:38 Metronidazole 100 ml @ 100 mls/hr Q8HR IVPB 04/25/18 13:00 05/02/18 12:59 04/26/18 06:30 Nystatin (Nystatin) 3 ml FOUR TIMES A DAY ORAL 04/22/18 21:00 04/27/18 17:59 04/25/18 09:06 Olanzapine (ZyPREXA) 2.5 mg DAILY ORAL 04/26/18 09:00 05/26/18 08:59 Olanzapine (ZyPREXA) 5 mg QHS ORAL 04/25/18 21:00 05/25/18 20:59 04/25/18 21:31 Ondansetron HCl (Zofran) 4 mg Q6H PRN IVP Nausea & Vomiting 04/22/18 18:30 05/20/18 18:29 Polyethylene Glycol (Miralax) 17 gm DAILYPRN PRN ORAL Constipation 04/22/18 18:30 05/22/18 18:29 Potassium Chloride 100 ml @ 100 mls/hr Q1HR IVPB 04/26/18 11:00 04/26/18 14:59 Tamsulosin HCl (Flomax) 0.4 mg QHS ORAL 04/22/18 21:00 05/20/18 20:59 04/25/18 21:32 Allergies: Coded Allergies: No Known Allergies (Unverified , 10/25/13) ROS Limited/Unobtainable: Yes Subjective 82 YO M admitted with dehydration. Now UTI and atrial fib. Cover for Int Med- Dr Paz. Await prison fac placement. Not eating per staff Objective Last Vital Signs Date Time Temp Pulse Resp B/P (MAP) Pulse Ox O2 Delivery O2 Flow Rate FiO2 04/26/18 12:00 98.8 102 19 116/54 (74) 95 04/26/18 09:00 Nasal Cannula 5.0 04/25/18 21:27 32 Laboratory Tests Test 04/26/18 05:00 White Blood Count 4.8 K/UL (4.8-10.8) Red Blood Count 4.00 M/UL (4.70-6.10) L Hemoglobin 13.1 G/DL (14.2-18.0) L Hematocrit 36.8 % (42.0-52.0) L Mean Corpuscular Volume 92 FL (80-99) Mean Corpuscular Hemoglobin 32.7 PG (27.0-31.0) H Mean Corpuscular Hemoglobin Concent 35.5 G/DL (32.0-36.0) Red Cell Distribution Width 11.9 % (11.6-14.8) Platelet Count 80 K/UL (150-450) L Mean Platelet Volume 8.6 FL (6.5-10.1) Neutrophils (%) (Auto) % (45.0-75.0) Lymphocytes (%) (Auto) % (20.0-45.0) Monocytes (%) (Auto) % (1.0-10.0) Eosinophils (%) (Auto) % (0.0-3.0) Basophils (%) (Auto) % (0.0-2.0) Differential Total Cells Counted 100 Neutrophils % (Manual) 77 % (45-75) H Lymphocytes % (Manual) 9 % (20-45) L Monocytes % (Manual) 10 % (1-10) Eosinophils % (Manual) 0 % (0-3) Basophils % (Manual) 0 % (0-2) Band Neutrophils 4 % (0-8) Platelet Estimate Decreased L Platelet Morphology Normal Red Blood Cell Morphology Normal Sodium Level 133 MMOL/L (136-145) L Potassium Level 3.3 MMOL/L (3.5-5.1) L Chloride Level 101 MMOL/L (98-107) Carbon Dioxide Level 26 MMOL/L (21-32) Anion Gap 6 mmol/L (5-15) Blood Urea Nitrogen 18 mg/dL (7-18) Creatinine 0.6 MG/DL (0.55-1.30) Estimat Glomerular Filtration Rate mL/min (>60) Glucose Level 184 MG/DL (74-106) H Calcium Level 7.6 MG/DL (8.5-10.1) L Phosphorus Level 1.9 MG/DL (2.5-4.9) L Magnesium Level 1.5 MG/DL (1.8-2.4) L Intake and Output 04/25/18 04/26/18 19:00 07:00 Intake Total 120 ml 220 ml Output Total 200 ml Balance 120 ml 20 ml Intake Oral 120 ml 120 ml IV Total 100 ml Output Urine Total 200 ml # Voids 6 Objective GENERAL: awake, responsive, less confused. HEAD AND NECK: Pupils equal and reactive to light. Extraocular movements intact. Neck was supple. No JVD. LUNGS: Decrease air entry at bases. No wheeze or rales. Poor inspiratory effort. HEART: S1 and S2. Irregular. No murmur or gallop. ABDOMEN: Soft, nondistended, and nontender. Positive bowel sounds. EXTREMITIES: No cyanosis, clubbing, or edema. NEUROLOGIC: Cranial nerves II through XII are grossly intact. moving all the extremities spontaneously. Gait was not assessed due to the patient's status. RECTAL: Refused and deferred. GENITOURINARY: Refused and deferred. PSYCHIATRIC: Mood and affect is intact. Assessment/Plan Assessment/Plan Assessment/Plan Assessment/Plan 1. Acute UTI. 2. Steroid-induced hyperglycemia. 3. Dehydration. 4. 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 5. 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 6. 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 7. Hypothyroidism. 8. Atherosclerotic heart disease. 9. A 4.2-cm ascending aortic aneurysm. 10. Status post splenectomy in 1967. 11. Severe osteoarthritis of the knee. 12. Hypertension. 13. New onset Atrial Fibrillation. 14. Dysphagia PLAN: In medical unit. At this time, the patient is not a candidate for anticoagulation due to the brain metastasis. DVT prophylaxis: heparin subcutaneous. Code status: Full Code. Follow up with Nephrology consultation with Dr. An: Demeclocycline 300 mg bid Abx: Cefepime IV F/u with labs and cultures. Discuss with daughter and son and patient at bedside regarding discharge planning, SNF. GI consult: Re: G-tube eval Discussed with family at bedside Demetrio Morgan MD Apr 26, 2018 13:41
[2018-04-26] MEDS ORDERED: D5 1/2NS w/KCl 20mEq 1,000 ML IV SCH (15:00)
--- NOTE | 2018-04-26 18:26 | General Progress Note ---
Assessment/Plan Problem List: (1) Toxic encephalopathy ICD Codes: G92 - Toxic encephalopathy SNOMED: [id number] Status: unchanged Assessment/Plan zyprexa prn the pt was provided with ro/st dw daughter Subjective Date patient seen: Apr 25, 2018 Neurologic/Psychiatric: Reports: anxiety Allergies: Coded Allergies: No Known Allergies (Unverified , 10/25/13) Subjective the pt is agitated waxing and waning of consciousness. Objective Last 24 Hour Vital Signs Date Time Temp Pulse Resp B/P (MAP) Pulse Ox O2 Delivery O2 Flow Rate FiO2 04/26/18 16:00 99.0 91 19 107/68 (81) 98 04/26/18 12:00 98.8 102 19 116/54 (74) 95 04/26/18 09:00 Nasal Cannula 5.0 04/26/18 08:00 98.1 102 21 106/76 (86) 94 04/26/18 04:00 98.2 96 20 103/62 (76) 94 04/26/18 00:00 99.3 98 20 112/76 (88) 94 04/25/18 21:38 98 114/64 04/25/18 21:27 Nasal Cannula 3.0 32 04/25/18 21:27 95 Nasal Cannula 3.0 32 04/25/18 21:26 103 20 Nasal Cannula 2.0 28 04/25/18 21:00 Nasal Cannula 4.0 04/25/18 21:00 114/64 (81) 96 04/25/18 20:00 99.3 98 20 97/53 (68) 94 Intake and Output 04/25/18 04/26/18 19:00 07:00 Intake Total 120 ml 220 ml Output Total 200 ml Balance 120 ml 20 ml Intake Oral 120 ml 120 ml IV Total 100 ml Output Urine Total 200 ml # Voids 6 Laboratory Tests 04/26/18 05:00: White Blood Count 4.8, Red Blood Count 4.00L, Hemoglobin 13.1L, Hematocrit 36.8L , Mean Corpuscular Volume 92, Mean Corpuscular Hemoglobin 32.7H, Mean Corpuscular Hemoglobin Concent 35.5, Red Cell Distribution Width 11.9, Platelet Count 80L, Mean Platelet Volume 8.6, Neutrophils (%) (Auto) , Lymphocytes (%) ( Auto) , Monocytes (%) (Auto) , Eosinophils (%) (Auto) , Basophils (%) (Auto) , Differential Total Cells Counted 100, Neutrophils % (Manual) 77H, Lymphocytes % (Manual) 9L, Monocytes % (Manual) 10, Eosinophils % (Manual) 0, Basophils % ( Manual) 0, Band Neutrophils 4, Platelet Estimate DecreasedL, Platelet Morphology Normal, Red Blood Cell Morphology Normal, Sodium Level 133L, Potassium Level 3.3L, Chloride Level 101, Carbon Dioxide Level 26, Anion Gap 6, Blood Urea Nitrogen 18, Creatinine 0.6, Estimat Glomerular Filtration Rate , Glucose Level 184H, Calcium Level 7.6L, Phosphorus Level 1.9L, Magnesium Level 1.5L Height (Feet): 5 Height (Inches): 11.00 Weight (Pounds): 162 General Appearance: alert, lethargic, confused, agitated Jeanie Calvin MD Apr 26, 2018 18:26
--- NOTE | 2018-04-26 18:59 | General Progress Note ---
Assessment/Plan Assessment/Plan GI CONSULT Dictated. Family decline NGT placement tonight They will decide again in am. Will follow. Thank you Abby Monge Subjective Allergies: Coded Allergies: No Known Allergies (Unverified , 10/25/13) Objective Last 24 Hour Vital Signs Date Time Temp Pulse Resp B/P (MAP) Pulse Ox O2 Delivery O2 Flow Rate FiO2 04/26/18 16:00 99.0 91 19 107/68 (81) 98 04/26/18 12:00 98.8 102 19 116/54 (74) 95 04/26/18 09:00 Nasal Cannula 5.0 04/26/18 08:00 98.1 102 21 106/76 (86) 94 04/26/18 04:00 98.2 96 20 103/62 (76) 94 04/26/18 00:00 99.3 98 20 112/76 (88) 94 04/25/18 21:38 98 114/64 04/25/18 21:27 Nasal Cannula 3.0 32 04/25/18 21:27 95 Nasal Cannula 3.0 32 04/25/18 21:26 103 20 Nasal Cannula 2.0 28 04/25/18 21:00 Nasal Cannula 4.0 04/25/18 21:00 114/64 (81) 96 04/25/18 20:00 99.3 98 20 97/53 (68) 94 Intake and Output 04/25/18 04/26/18 19:00 07:00 Intake Total 120 ml 220 ml Output Total 200 ml Balance 120 ml 20 ml Intake Oral 120 ml 120 ml IV Total 100 ml Output Urine Total 200 ml # Voids 6 Laboratory Tests 04/26/18 05:00: White Blood Count 4.8, Red Blood Count 4.00L, Hemoglobin 13.1L, Hematocrit 36.8L , Mean Corpuscular Volume 92, Mean Corpuscular Hemoglobin 32.7H, Mean Corpuscular Hemoglobin Concent 35.5, Red Cell Distribution Width 11.9, Platelet Count 80L, Mean Platelet Volume 8.6, Neutrophils (%) (Auto) , Lymphocytes (%) ( Auto) , Monocytes (%) (Auto) , Eosinophils (%) (Auto) , Basophils (%) (Auto) , Differential Total Cells Counted 100, Neutrophils % (Manual) 77H, Lymphocytes % (Manual) 9L, Monocytes % (Manual) 10, Eosinophils % (Manual) 0, Basophils % ( Manual) 0, Band Neutrophils 4, Platelet Estimate DecreasedL, Platelet Morphology Normal, Red Blood Cell Morphology Normal, Sodium Level 133L, Potassium Level 3.3L, Chloride Level 101, Carbon Dioxide Level 26, Anion Gap 6, Blood Urea Nitrogen 18, Creatinine 0.6, Estimat Glomerular Filtration Rate , Glucose Level 184H, Calcium Level 7.6L, Phosphorus Level 1.9L, Magnesium Level 1.5L Height (Feet): 5 Height (Inches): 11.00 Weight (Pounds): 162 Bandar Monge MD Apr 26, 2018 18:59
[2018-04-26] MEDS: Dyna-Hex 2% Top Sol 2oz TOPIC SCH (20:54)
[2018-04-26] MEDS: Tamsulosin 0.4mg cap ORAL SCH (21:00)
[2018-04-26] MEDS ORDERED: Acetaminophen 650 MG SUPP RECTAL PRN ×2 (21:45→21:50)
--- NOTE | 2018-04-26 22:45 | Consultation ---
DATE OF CONSULTATION: 04/26/2018 GASTROENTEROLOGY CONSULTATION CONSULTING PHYSICIAN: Bandar Monge M.D. REFERRING PHYSICIAN: Noah Paz M.D. CHIEF COMPLAINT: I was asked to see this patient by Dr. Noah Paz for evaluation of feeding tube issues. HISTORY OF PRESENT ILLNESS: The patient is an 82-year-old unfortunate white man with history of bladder cancer, who now has been recently told of a solitary brain lesion involving the right frontal brain, who was brought to the hospital due to shortness of breath. In the hospital, he became agitated and has received some sedatives and he is now sleepy. He is unable to eat by mouth and this consultation was generated regarding possible feeding tube placement. Indications for nasogastric tube placement was discussed with family, but they elected to hold off for now in hope of a different swallow strength in the morning. In addition, they understand that the patient's mental status being worsened over time that he may require a gastrostomy tube placement and refused to place in the hospice care. The patient has recently been diagnosed with a 6 cm right frontal mass in the brain and has undergone radiation treatment and has also received steroids. PAST MEDICAL HISTORY: History of bladder cancer, history of hypothyroidism, and history of prostatic hypertrophy. MEDICATIONS: See the chart list for details. FAMILY HISTORY: Noncontributory. SOCIAL HISTORY: The patient is . His daughter and son are at bedside. There is no drug use. ALLERGIES: None. REVIEW OF SYSTEMS: Otherwise negative and unobtainable. PHYSICAL EXAMINATION: GENERAL: Somewhat obtunded white man, seen in his room with family at bedside. HEENT: Normocephalic and atraumatic. NECK: Appeared supple. CHEST: Revealed coarse breath sounds. CARDIOVASCULAR: Revealed regular rate. ABDOMEN: Soft with good bowel sounds. There is no organomegaly. EXTREMITIES: Revealed no edema. NEUROLOGIC: Notable for obtundation. LABORATORY DATA: Noted. ASSESSMENT: This patient presents with a recent diagnosis of metastatic bladder cancer to the brain. The patient has a relatively large brain mass and his prognosis is therefore poor and limited. The patient is somewhat sedated today, which could be due to the Ativan. His head CT has been done showing decreased size of the mass in response to therapy. There was no evidence of intracranial bleeding. At the request of family, we can wait overnight to see if the patient wakes up to pass the swallow test. In that case, he can eat by mouth and in fact, family states that he has been recently eating by mouth, otherwise nasogastric tube can be placed until the time that he does wake up. Discussion for gastrostomy tube will be deferred for now until the above matters have been clarified and stabilized. RECOMMENDATIONS: Per above discussion and per orders written in the chart. Thank you for asking me to participate in the care of this patient. Bandar Monge M.D. DR: ANA JOB#: [id number] CC: COLBY
[2018-04-27] VITALS: BP 99/50
[2018-04-27] MEDS ORDERED: Tylenol #3 tab (300mg/30mg) ORAL PRN (00:30)
[2018-04-27] MEDS ORDERED: Norco 5mg/325mg tab ORAL PRN (00:30)
[2018-04-27] MEDS: D5 1/2NS w/KCl 20mEq 1,000 ML IV SCH ×2 (00:54→18:51)
[2018-04-27] MEDS ORDERED: LORazepam Inj 2mg/ml 1ml IM PRN (01:00)
[2018-04-27] MEDS ORDERED: Albuterol/Ipratropium 3ml neb HHN PRN (02:15)
[2018-04-27 04:00] VITALS: BP 110/62
[2018-04-27] MEDS ORDERED: Acetaminophen 650 MG SUPP RECTAL PRN (04:00)
[2018-04-27 04:48] LABS: HEMATOCRIT 19.3 % (42.0-52.0); MEAN CORPUSCULAR VOLUME 93 FL (80-99); PLATELET COUNT 87 K/UL (150-450); RED BLOOD COUNT 2.09 M/UL (4.70-6.10); RED CELL DISTRIBUTION WIDTH 12.2 % (11.6-14.8); WHITE BLOOD COUNT 5.2 K/UL (4.8-10.8)
[2018-04-27 05:01] LABS: HEMOGLOBIN 6.9 G/DL (14.2-18.0)
[2018-04-27 05:27] LABS: ANION GAP 13 mmol/L (5-15); BLOOD UREA NITROGEN 16 mg/dL (7-18); CALCIUM 7.6 MG/DL (8.5-10.1); CARBON DIOXIDE 22 MMOL/L (21-32); CHLORIDE 99 MMOL/L (98-107); CREATININE 0.5 MG/DL (0.55-1.30); POTASSIUM 3.8 MMOL/L (3.5-5.1); SODIUM 134 MMOL/L (136-145)
[2018-04-27] MEDS: NovoLOG Insulin Flexpen SUBQ SCH ×4 (05:38→21:00)
[2018-04-27 06:39] LABS: HEMATOCRIT 41.3 % (42.0-52.0); HEMOGLOBIN 14.6 G/DL (14.2-18.0); MEAN CORPUSCULAR VOLUME 93 FL (80-99); PLATELET COUNT 64 K/UL (150-450); RED BLOOD COUNT 4.46 M/UL (4.70-6.10); RED CELL DISTRIBUTION WIDTH 12.4 % (11.6-14.8); WHITE BLOOD COUNT 5.1 K/UL (4.8-10.8)
--- NOTE | 2018-04-27 07:38 | Infectious Diseases Prog Note ---
Assessment/Plan Assessment/Plan Abx: Cefepime 04/21- Assessment: Afebrile cough ? CAP vs Asp Pneum No leukocytosis R/o probable UTI- (on/off dysuria, worse in the last few days, however no pyuria ) - 04/25 CXR: Reduced lung volumes with bilateral interstitial opacities. -u/a wbc 2-4, nit +, leuk est +1; ucx Generalized weakness Dysphagia Afib w RVR -04/23 CXR: Interval worsening of aeration with increasing interstitial opacities and worsening perihilar opacities. Given and short-term interval worsening findings may be related to development of pulmonary edema. Correlate clinically. Previously described right hilar masslike opacity less well-defined on this exam, likely obscured by above described opacities. The possibility of an underlying mass is not entirely excluded especially given history of known malignancy. Follow up recommend. Hyponatremia Troponinemia HTN HLD neuroendocrine CA of bladder with liver, brain, mediastinum and lungs mets s/p chemo and currently on radiation tx (last was 1 month ago) Severe OA Knee s/p knee arthroplasty s/p b/l inguinal repair s/p splenectomy 1968 hypothyroidism hx of UTI Plan: -Continue levaquin and Flagyl d# 3/ 7 ( Asp Pneum and probable UTI ) - 03/29/18 S/P Cefepime # 5 -Monitor CBC/CMP -aspiration precautions -Cards f/u Subjective Allergies: Coded Allergies: No Known Allergies (Unverified , 10/25/13) Subjective Patient with lo grade fever last night No leukocytosis Just got a dose of ativan so sleepy Objective Vital Signs Last 24 Hour Vital Signs Date Time Temp Pulse Resp B/P (MAP) Pulse Ox O2 Delivery O2 Flow Rate FiO2 04/27/18 04:00 98.6 110 25 110/62 (78) 92 04/27/18 01:47 112 04/27/18 00:00 98.2 100 20 99/50 (66) 92 04/26/18 22:00 100.4 98 20 112/58 (76) 97 04/26/18 21:30 98.6 105 20 110/64 (79) 87 04/26/18 21:00 Nasal Cannula 5.0 04/26/18 21:00 98 110/64 04/26/18 20:00 100.6 95 20 110/53 (72) 94 04/26/18 19:00 Nasal Cannula 3.0 32 04/26/18 19:00 92 Nasal Cannula 3.0 32 04/26/18 19:00 88 20 Nasal Cannula 3.0 32 04/26/18 16:00 99.0 91 19 107/68 (81) 98 04/26/18 12:00 98.8 102 19 116/54 (74) 95 04/26/18 09:00 Nasal Cannula 5.0 04/26/18 08:00 98.1 102 21 106/76 (86) 94 Height (Feet): 5 Height (Inches): 11.00 Weight (Pounds): 162 Objective GENERAL: The patient is thin, responsive but somewhat confused HEENT: NCAT, MMM LUNGS: Course B/L HEART: S1 and S2. Irregular. No murmur or gallop. ABDOMEN: Soft, nondistended, and nontender. Positive bowel sounds. EXTREMITIES: No cyanosis, clubbing, or edema. Laboratory Tests Test 04/27/18 03:40 04/27/18 06:30 White Blood Count 5.2 K/UL (4.8-10.8) 5.1 K/UL (4.8-10.8) Red Blood Count 2.09 M/UL (4.70-6.10) L 4.46 M/UL (4.70-6.10) L Hemoglobin 6.9 G/DL (14.2-18.0) 14.6 G/DL (14.2-18.0) # Hematocrit 19.3 % (42.0-52.0) #L 41.3 % (42.0-52.0) #L Mean Corpuscular Volume 93 FL (80-99) 93 FL (80-99) Mean Corpuscular Hemoglobin 33.1 PG (27.0-31.0) H 32.7 PG (27.0-31.0) H Mean Corpuscular Hemoglobin Concent 35.7 G/DL (32.0-36.0) 35.3 G/DL (32.0-36.0) Red Cell Distribution Width 12.2 % (11.6-14.8) 12.4 % (11.6-14.8) Platelet Count 87 K/UL (150-450) L 64 K/UL (150-450) L Mean Platelet Volume 7.0 FL (6.5-10.1) 7.4 FL (6.5-10.1) Neutrophils (%) (Auto) % (45.0-75.0) % (45.0-75.0) Lymphocytes (%) (Auto) % (20.0-45.0) % (20.0-45.0) Monocytes (%) (Auto) % (1.0-10.0) % (1.0-10.0) Eosinophils (%) (Auto) % (0.0-3.0) % (0.0-3.0) Basophils (%) (Auto) % (0.0-2.0) % (0.0-2.0) Neutrophils % (Manual) Pending Pending Lymphocytes % (Manual) Pending Pending Platelet Estimate Pending Pending Platelet Morphology Pending Pending Sodium Level 134 MMOL/L (136-145) L Potassium Level 3.8 MMOL/L (3.5-5.1) Chloride Level 99 MMOL/L (98-107) Carbon Dioxide Level 22 MMOL/L (21-32) Anion Gap 13 mmol/L (5-15) Blood Urea Nitrogen 16 mg/dL (7-18) Creatinine 0.5 MG/DL (0.55-1.30) L Estimat Glomerular Filtration Rate mL/min (>60) Glucose Level 181 MG/DL (74-106) H Calcium Level 7.6 MG/DL (8.5-10.1) L Magnesium Level 1.6 MG/DL (1.8-2.4) L Current Medications Medications (Trade) Dose Ordered Sig/Chivo Route PRN Reason Start Time Stop Time Status Last Admin Dose Admin Acetaminophen (Tylenol) 650 mg Q4H PRN ORAL Mild Pain (Pain Scale 1-3) 04/27/18 02:30 05/20/18 18:29 Acetaminophen (Tylenol) 650 mg Q4H PRN ORAL fever 04/27/18 02:30 05/20/18 18:29 Acetaminophen (Tylenol) 650 mg Q6H PRN RECTAL Fever/Headache/Mild Pain 04/27/18 04:00 05/26/18 21:49 Acetaminophen/ Codeine Phosphate (Tylenol #3) 1 tab Q6H PRN ORAL Moderate Pain (Pain Scale 4-6) 04/27/18 00:30 04/28/18 18:29 Acetaminophen/ Hydrocodone Bitart ([place] 5/325) 1 tab Q6H PRN ORAL BREAKTHROUGH PAIN 04/27/18 00:30 04/28/18 18:29 Albuterol/ Ipratropium (Albuterol/ Ipratropium) 3 ml Q4H PRN HHN Shortness of Breath 04/27/18 02:15 04/28/18 10:14 Chlorhexidine Gluconate (Ana-Hex 2%) 1 applic DAILY@2000 TOPIC 04/27/18 20:00 05/25/18 19:59 Demeclocycline HCl (Declomycin) 300 mg Q12HR ORAL 04/27/18 09:00 05/01/18 20:59 Dexamethasone (Decadron) 4 mg DAILY ORAL 04/27/18 09:00 05/21/18 08:59 Dextrose (Dextrose 50%) 25 ml Q30M PRN IV Hypoglycemia 04/26/18 23:15 05/20/18 15:14 Dextrose (Dextrose 50%) 50 ml Q30M PRN IV Hypoglycemia 04/26/18 23:15 05/20/18 15:14 Dextrose/ Electrolytes 1,000 ml @ 50 mls/hr Q20H IV 04/26/18 23:15 05/26/18 14:59 04/27/18 00:54 Docusate Sodium (Colace) 100 mg EVERY 12 HOURS ORAL 04/27/18 09:00 05/20/18 20:59 Famotidine (Pepcid) 40 mg DAILY ORAL 04/27/18 09:00 05/21/18 08:59 Heparin Sodium (Porcine) (Heparin 5000 units/ml) 5,000 units EVERY 12 HOURS SUBQ 04/27/18 09:00 05/20/18 20:59 Insulin Aspart (NovoLOG) BEFORE MEALS AND HS SUBQ 04/27/18 06:30 05/20/18 16:29 Levofloxacin 150 ml @ 100 mls/hr Q24H IVPB 04/27/18 14:00 05/02/18 13:59 Levothyroxine Sodium (Synthroid) 75 mcg Q24H ORAL 04/27/18 06:30 05/21/18 06:29 Lorazepam (Ativan 2mg/ml 1ml) 1 mg Q4H PRN IM For Anxiety 04/27/18 01:00 05/02/18 00:59 04/27/18 00:56 Magnesium Hydroxide (Mom) 30 ml HSPRN PRN ORAL Constipation 04/27/18 18:30 05/22/18 18:29 Metoprolol Tartrate (Lopressor) 25 mg Q12HR ORAL 04/27/18 09:00 05/21/18 22:29 Metronidazole 100 ml @ 100 mls/hr Q8HR IVPB 04/27/18 06:00 05/02/18 12:59 04/27/18 05:36 Nystatin (Nystatin) 3 ml FOUR TIMES A DAY ORAL 04/27/18 09:00 04/27/18 17:59 Olanzapine (ZyPREXA) 2.5 mg DAILY ORAL 04/27/18 09:00 05/26/18 08:59 Olanzapine (ZyPREXA) 5 mg QHS ORAL 04/27/18 21:00 05/25/18 20:59 Ondansetron HCl (Zofran) 4 mg Q6H PRN IVP Nausea & Vomiting 04/27/18 00:30 05/20/18 18:29 Polyethylene Glycol (Miralax) 17 gm DAILYPRN PRN ORAL Constipation 04/27/18 18:30 05/22/18 18:29 Tamsulosin HCl (Flomax) 0.4 mg QHS ORAL 04/27/18 21:00 05/20/18 20:59 Enrique Gregory MD Apr 27, 2018 07:38
[2018-04-27 08:00] VITALS: BP 129/69
[2018-04-27] MEDS ORDERED: Metoprolol 25mg tab ORAL SCH (09:00)
[2018-04-27] MEDS: Heparin 5000 units/ml inj SUBQ SCH ×2 (09:00→21:00)
[2018-04-27] MEDS: Nystatin Susp 500,000 units/5ml ORAL SCH ×2 (09:00→12:31)
[2018-04-27] MEDS: OLANZapine 2.5mg tab ORAL SCH (09:00)
[2018-04-27] MEDS: Demeclocycline 150mg tab ORAL SCH ×2 (09:00→21:00)
[2018-04-27] MEDS: Docusate 100mg cap ORAL SCH ×2 (09:00→21:00)
--- NOTE | 2018-04-27 09:54 | Cardiology Progress Note ---
Assessment/Plan Status: stable Assessment/Plan Assessment/Plan Status: stable, progressing Assessment/Plan Assessment: Tachycardia Atrial fibrillation Neuroendocrine carcinoma with mets Hypertension Hyperlipiemia Osteoarthritis knees Recurrent [place] Splenectomy Ascending aortic aneurysm hypothyroidism elevated hemoglobin A1c s/p TURP Ectopy with premature atrial contractions Plan: Transferred to [facility] BiPAP prn AAA stable in size no indication for intervention continue outpatient palliative radiation Continue Synthroid Hx of bradycardia from brain mass and hypervagal state - no indication for intervention Increase Metoprolol prn tachycardia 50 BID - hold for SBP<90, discussed with nursing anticoagulation contraindicated due to brain lesions and fall risk No indication for AFIB cardioversion, rates controlled Echo at OSH normal LV function Troponin down trended Fluid restriction for hyponatremia, NA improving CT brain with improvement in size of mass, still has edema Aspiration precautions Supportive care Dispo to SNF Subjective Cardiovascular: Reports: no symptoms Respiratory: Reports: no symptoms Gastrointestinal/Abdominal: Reports: no symptoms Genitourinary: Reports: no symptoms Subjective Transferred to [facility] for respiratory distress Currently on Venturi mask at 28% FiO2 with SpO2 of 92% Pulses elevated, BP stable Objective Last 24 Hour Vital Signs Date Time Temp Pulse Resp B/P (MAP) Pulse Ox O2 Delivery O2 Flow Rate FiO2 04/27/18 07:29 93 22 Venturi Mask 14.0 55 04/27/18 07:29 Venturi Mask 14.0 55 04/27/18 07:29 92 Venturi Mask 14.0 55 04/27/18 04:00 98.6 110 25 110/62 (78) 92 04/27/18 01:47 112 04/27/18 00:00 98.2 100 20 99/50 (66) 92 04/26/18 22:00 100.4 98 20 112/58 (76) 97 04/26/18 21:30 98.6 105 20 110/64 (79) 87 04/26/18 21:00 Nasal Cannula 5.0 04/26/18 21:00 98 110/64 04/26/18 20:00 100.6 95 20 110/53 (72) 94 04/26/18 19:00 Nasal Cannula 3.0 32 04/26/18 19:00 92 Nasal Cannula 3.0 32 04/26/18 19:00 88 20 Nasal Cannula 3.0 32 04/26/18 16:00 99.0 91 19 107/68 (81) 98 04/26/18 12:00 98.8 102 19 116/54 (74) 95 General Appearance: no apparent distress, alert EENT: PERRL/EOMI, normal ENT inspection Neck: non-tender, normal alignment, supple, normal inspection Rhythm: NSR Cardiovascular: normal peripheral pulses, normal rate, regular rhythm Respiratory/Chest: chest wall non-tender, lungs clear Abdomen: normal bowel sounds, non tender Extremities: normal range of motion, non-tender Neurologic: land title examiner 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, no motor/sensory deficits Intake and Output 04/26/18 04/27/18 18:59 06:59 Output Total 1150 ml Balance -1150 ml Output Urine Total 1150 ml Laboratory Tests Test 04/27/18 03:40 04/27/18 06:30 04/27/18 09:15 White Blood Count 5.2 K/UL (4.8-10.8) 5.1 K/UL (4.8-10.8) Red Blood Count 2.09 M/UL (4.70-6.10) L 4.46 M/UL (4.70-6.10) L Hemoglobin 6.9 G/DL (14.2-18.0) 14.6 G/DL (14.2-18.0) # Hematocrit 19.3 % (42.0-52.0) #L 41.3 % (42.0-52.0) #L Mean Corpuscular Volume 93 FL (80-99) 93 FL (80-99) Mean Corpuscular Hemoglobin 33.1 PG (27.0-31.0) H 32.7 PG (27.0-31.0) H Mean Corpuscular Hemoglobin Concent 35.7 G/DL (32.0-36.0) 35.3 G/DL (32.0-36.0) Red Cell Distribution Width 12.2 % (11.6-14.8) 12.4 % (11.6-14.8) Platelet Count 87 K/UL (150-450) L 64 K/UL (150-450) L Mean Platelet Volume 7.0 FL (6.5-10.1) 7.4 FL (6.5-10.1) Neutrophils (%) (Auto) % (45.0-75.0) % (45.0-75.0) Lymphocytes (%) (Auto) % (20.0-45.0) % (20.0-45.0) Monocytes (%) (Auto) % (1.0-10.0) % (1.0-10.0) Eosinophils (%) (Auto) % (0.0-3.0) % (0.0-3.0) Basophils (%) (Auto) % (0.0-2.0) % (0.0-2.0) Differential Total Cells Counted 100 100 Neutrophils % (Manual) 81 % (45-75) H 87 % (45-75) H Lymphocytes % (Manual) 7 % (20-45) L 4 % (20-45) L Monocytes % (Manual) 6 % (1-10) 2 % (1-10) Eosinophils % (Manual) 0 % (0-3) 0 % (0-3) Basophils % (Manual) 1 % (0-2) 0 % (0-2) Band Neutrophils 5 % (0-8) 7 % (0-8) Platelet Estimate Decreased L Decreased L Platelet Morphology Normal Normal Hypochromasia 1+ Sodium Level 134 MMOL/L (136-145) L Potassium Level 3.8 MMOL/L (3.5-5.1) Chloride Level 99 MMOL/L (98-107) Carbon Dioxide Level 22 MMOL/L (21-32) Anion Gap 13 mmol/L (5-15) Blood Urea Nitrogen 16 mg/dL (7-18) Creatinine 0.5 MG/DL (0.55-1.30) L Estimat Glomerular Filtration Rate mL/min (>60) Glucose Level 181 MG/DL (74-106) H Calcium Level 7.6 MG/DL (8.5-10.1) L Magnesium Level 1.6 MG/DL (1.8-2.4) L Red Blood Cell Morphology Normal Arterial Blood pH 7.499 (7.350-7.450) Arterial Blood Partial Pressure CO2 29.3 mmHg (35.0-45.0) L Arterial Blood Partial Pressure O2 65.6 mmHg (75.0-100.0) L Arterial Blood HCO3 22.3 mmol/L (22.0-26.0) Arterial Blood Oxygen Saturation 93.8 % (95-100) L Arterial Blood Base Excess 0.3 (-2-2) Francesco Test Positive Enrique Cordero MD Apr 27, 2018 09:54
[2018-04-27] MEDS: Metoprolol Tartrate 10 MG in D5W 55 ML IVPB SCH ×3 (11:30→21:00)
--- NOTE | 2018-04-27 11:46 | Diagnostic Imaging Report ---
Indication: Abdominal pain Technique: Supine view of the abdomen Comparison: 10/18/2016 Findings: Gas-filled upper limits of normal caliber small bowel loops are seen diffusely throughout the abdomen. Stool is seen in the colon. No unusual masses or calcifications. There are degenerative changes of lumbar spine. There is bilateral pulmonary parenchymal interstitial disease Impression: Nonspecific bowel gas pattern, with diffusely upper limits of normal caliber gas-filled small bowel loops. Pulmonary parenchymal interstitial disease Degenerative lumbar spondylosis
--- NOTE | 2018-04-27 11:51 | Diagnostic Imaging Report ---
Indication: Cough Technique: One view of the chest Comparison: 04/25/2018 Findings: Right chest port catheter remains in place. Diffuse interstitial and airspace disease is again demonstrated, with airspace disease appearing worse in the left and right midlungs. The heart is upper limits normal in size. The pleural spaces are probably clear. Impression: Interim slight increase in airspace opacities in the bilateral mid lungs, may reflect developing/worsening pneumonia Other stable findings as described This agrees with the preliminary interpretation provided overnight by [facility] teleradiology service.
[2018-04-27 12:00] VITALS: BP 124/73
--- NOTE | 2018-04-27 13:24 | Consultation ---
History of Present Illness General Chief Complaint: Pain Present Illness HPI 82 yo male with mmp the pt pw anxiety agitation and cognitive impairment the pt has waxing and waning of consciousness. the pt has memory impairment. Allergies: Coded Allergies: No Known Allergies (Unverified , 10/25/13) Medication History Scheduled Cephalexin* (Keflex*), 500 MG ORAL EVERY 12 HOURS, (Reported) Dexamethasone (Dexamethasone), 4 MG PO DAILY, (Reported) Famotidine (Famotidine), 40 MG ORAL DAILY, (Reported) Levothyroxine Sodium* (Synthroid*), 75 MCG ORAL DAILY, (Reported) Nystatin* (Nystatin*), 3 ML ORAL FOUR TIMES A DAY, (Reported) Tamsulosin Hcl (Tamsulosin Hcl*), 0.4 MG ORAL AC, (Reported) Trospium Chloride (Trospium Chloride), 60 MG PO BEDTIME, (Reported) Scheduled PRN Acetaminophen* (Tylenol Extra Strength*), 500 MG ORAL Q8H PRN for Prn Headache/ Temp > 101, (Reported) Morphine 10mg/5ml Oral Soln* (Morphine 10mg/5ml Oral Soln*), 10 MG ORAL EVERY 2 HOURS PRN Patient History Limited by: medical condition History Provided By: Medical Record, PMD Healthcare decision maker Resuscitation status Full Code Advanced Directive on File No Past Medical/Surgical History Past Medical/Surgical History: (1) Hypercholesteremia (2) Hypercholesteremia (3) Urinary obstruction (4) Metastatic cancer (5) Hypertension (6) HTN (hypertension) (7) Right flank pain (8) Osteoarthritis, knee (9) Protein-calorie malnutrition, severe (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 , agitated Last 24 Hour Vital Signs Date Time Temp Pulse Resp B/P (MAP) Pulse Ox O2 Delivery O2 Flow Rate FiO2 04/27/18 09:00 100 129/69 04/27/18 09:00 Nasal Cannula 5.0 04/27/18 08:00 117 04/27/18 08:00 98.1 100 25 129/69 (89) 92 04/27/18 07:29 93 22 Venturi Mask 14.0 55 04/27/18 07:29 Venturi Mask 14.0 55 04/27/18 07:29 92 Venturi Mask 14.0 55 04/27/18 04:00 98.6 110 25 110/62 (78) 92 04/27/18 01:47 112 04/27/18 00:00 98.2 100 20 99/50 (66) 92 04/26/18 22:00 100.4 98 20 112/58 (76) 97 04/26/18 21:30 98.6 105 20 110/64 (79) 87 04/26/18 21:00 Nasal Cannula 5.0 04/26/18 21:00 98 110/64 04/26/18 20:00 100.6 95 20 110/53 (72) 94 04/26/18 19:00 Nasal Cannula 3.0 32 04/26/18 19:00 92 Nasal Cannula 3.0 32 04/26/18 19:00 88 20 Nasal Cannula 3.0 32 04/26/18 16:00 99.0 91 19 107/68 (81) 98 Intake and Output 04/26/18 04/27/18 19:00 07:00 Output Total 1150 ml Balance -1150 ml Output Urine Total 1150 ml Laboratory Tests Test 04/27/18 03:40 04/27/18 06:30 04/27/18 09:15 White Blood Count 5.2 K/UL (4.8-10.8) 5.1 K/UL (4.8-10.8) Red Blood Count 2.09 M/UL (4.70-6.10) L 4.46 M/UL (4.70-6.10) L Hemoglobin 6.9 G/DL (14.2-18.0) 14.6 G/DL (14.2-18.0) # Hematocrit 19.3 % (42.0-52.0) #L 41.3 % (42.0-52.0) #L Mean Corpuscular Volume 93 FL (80-99) 93 FL (80-99) Mean Corpuscular Hemoglobin 33.1 PG (27.0-31.0) H 32.7 PG (27.0-31.0) H Mean Corpuscular Hemoglobin Concent 35.7 G/DL (32.0-36.0) 35.3 G/DL (32.0-36.0) Red Cell Distribution Width 12.2 % (11.6-14.8) 12.4 % (11.6-14.8) Platelet Count 87 K/UL (150-450) L 64 K/UL (150-450) L Mean Platelet Volume 7.0 FL (6.5-10.1) 7.4 FL (6.5-10.1) Neutrophils (%) (Auto) % (45.0-75.0) % (45.0-75.0) Lymphocytes (%) (Auto) % (20.0-45.0) % (20.0-45.0) Monocytes (%) (Auto) % (1.0-10.0) % (1.0-10.0) Eosinophils (%) (Auto) % (0.0-3.0) % (0.0-3.0) Basophils (%) (Auto) % (0.0-2.0) % (0.0-2.0) Differential Total Cells Counted 100 100 Neutrophils % (Manual) 81 % (45-75) H 87 % (45-75) H Lymphocytes % (Manual) 7 % (20-45) L 4 % (20-45) L Monocytes % (Manual) 6 % (1-10) 2 % (1-10) Eosinophils % (Manual) 0 % (0-3) 0 % (0-3) Basophils % (Manual) 1 % (0-2) 0 % (0-2) Band Neutrophils 5 % (0-8) 7 % (0-8) Platelet Estimate Decreased L Decreased L Platelet Morphology Normal Normal Hypochromasia 1+ Sodium Level 134 MMOL/L (136-145) L Potassium Level 3.8 MMOL/L (3.5-5.1) Chloride Level 99 MMOL/L (98-107) Carbon Dioxide Level 22 MMOL/L (21-32) Anion Gap 13 mmol/L (5-15) Blood Urea Nitrogen 16 mg/dL (7-18) Creatinine 0.5 MG/DL (0.55-1.30) L Estimat Glomerular Filtration Rate mL/min (>60) Glucose Level 181 MG/DL (74-106) H Calcium Level 7.6 MG/DL (8.5-10.1) L Magnesium Level 1.6 MG/DL (1.8-2.4) L Red Blood Cell Morphology Normal Arterial Blood pH 7.499 (7.350-7.450) Arterial Blood Partial Pressure CO2 29.3 mmHg (35.0-45.0) L Arterial Blood Partial Pressure O2 65.6 mmHg (75.0-100.0) L Arterial Blood HCO3 22.3 mmol/L (22.0-26.0) Arterial Blood Oxygen Saturation 93.8 % (95-100) L Arterial Blood Base Excess 0.3 (-2-2) Francesco Test Positive Height (Feet): 5 Height (Inches): 11.00 Weight (Pounds): 162 Medications Current Medications Medications (Trade) Dose Ordered Sig/Chivo Route PRN Reason Start Time Stop Time Status Last Admin Dose Admin Acetaminophen (Tylenol) 650 mg Q4H PRN ORAL Mild Pain (Pain Scale 1-3) 04/27/18 02:30 05/20/18 18:29 Acetaminophen (Tylenol) 650 mg Q4H PRN ORAL fever 04/27/18 02:30 05/20/18 18:29 Acetaminophen (Tylenol) 650 mg Q6H PRN RECTAL Fever/Headache/Mild Pain 04/27/18 04:00 05/26/18 21:49 Acetaminophen/ Codeine Phosphate (Tylenol #3) 1 tab Q6H PRN ORAL Moderate Pain (Pain Scale 4-6) 04/27/18 00:30 04/28/18 18:29 Acetaminophen/ Hydrocodone Bitart ([place] 5/325) 1 tab Q6H PRN ORAL BREAKTHROUGH PAIN 04/27/18 00:30 04/28/18 18:29 Albuterol/ Ipratropium (Albuterol/ Ipratropium) 3 ml Q4H PRN HHN Shortness of Breath 04/27/18 02:15 04/28/18 10:14 Chlorhexidine Gluconate (Ana-Hex 2%) 1 applic DAILY@1999 TOPIC 04/27/18 20:00 05/25/18 19:59 Demeclocycline HCl (Declomycin) 300 mg Q12HR ORAL 04/27/18 09:00 1/4/19 20:59 Dexamethasone (Decadron) 4 mg DAILY ORAL 04/27/18 09:00 05/21/18 08:59 Dextrose (Dextrose 50%) 25 ml Q30M PRN IV Hypoglycemia 04/26/18 23:15 05/20/18 15:14 Dextrose (Dextrose 50%) 50 ml Q30M PRN IV Hypoglycemia 04/26/18 23:15 05/20/18 15:14 Dextrose/ Electrolytes 1,000 ml @ 50 mls/hr Q20H IV 04/26/18 23:15 05/26/18 14:59 04/27/18 00:54 Docusate Sodium (Colace) 100 mg EVERY 12 HOURS ORAL 04/27/18 09:00 05/20/18 20:59 Famotidine (Pepcid) 40 mg DAILY ORAL 04/27/18 09:00 05/21/18 08:59 Heparin Sodium (Porcine) (Heparin 5000 units/ml) 5,000 units EVERY 12 HOURS SUBQ 04/27/18 09:00 05/20/18 20:59 Insulin Aspart (NovoLOG) BEFORE MEALS AND HS SUBQ 04/27/18 06:30 05/20/18 16:29 Levofloxacin 150 ml @ 100 mls/hr Q24H IVPB 04/27/18 14:00 05/02/18 13:59 Levothyroxine Sodium (Synthroid) 75 mcg Q24H ORAL 04/27/18 06:30 05/21/18 06:29 Lorazepam (Ativan 2mg/ml 1ml) 1 mg Q4H PRN IM For Anxiety 04/27/18 01:00 05/02/18 00:59 04/27/18 00:56 Magnesium Hydroxide (Mom) 30 ml HSPRN PRN ORAL Constipation 04/27/18 18:30 05/22/18 18:29 Metoprolol Tartrate 10 mg/ Dextrose 65 ml @ 130 mls/hr Q12HR IVPB 04/27/18 11:30 05/27/18 11:29 Metronidazole 100 ml @ 100 mls/hr Q8HR IVPB 04/27/18 06:00 05/02/18 12:59 04/27/18 05:36 Nystatin (Nystatin) 3 ml FOUR TIMES A DAY ORAL 04/27/18 09:00 04/27/18 17:59 Olanzapine (ZyPREXA) 2.5 mg DAILY ORAL 04/27/18 09:00 05/26/18 08:59 Olanzapine (ZyPREXA) 5 mg QHS ORAL 04/27/18 21:00 05/25/18 20:59 Ondansetron HCl (Zofran) 4 mg Q6H PRN IVP Nausea & Vomiting 04/27/18 00:30 05/20/18 18:29 Polyethylene Glycol (Miralax) 17 gm DAILYPRN PRN ORAL Constipation 04/27/18 18:30 05/22/18 18:29 Sodium Chloride 500 ml @ 999 mls/hr Q31M ONCE IV 04/27/18 13:30 04/27/18 14:00 Tamsulosin HCl (Flomax) 0.4 mg QHS ORAL 04/27/18 21:00 05/20/18 20:59 Assessment/Plan Problem List: (1) Toxic encephalopathy ICD Codes: G92 - Toxic encephalopathy SNOMED: 71212442 Assessment/Plan zyprexa prn the pt was provided with ro/st Jeanie Choudhury MD Apr 27, 2018 13:24
[2018-04-27] MEDS ORDERED: Sodium Chloride 500ML 500 ML IV ONE (13:30)
--- NOTE | 2018-04-27 14:22 | Internal Med Progress Note ---
Subjective Date of Service: Apr 27, 2018 Physician Name Demetrio Morgan Attending Physician Noah Paz MD Current Medications Medications (Trade) Dose Ordered Sig/Chivo Route PRN Reason Start Time Stop Time Status Last Admin Dose Admin Acetaminophen (Tylenol) 650 mg Q4H PRN ORAL Mild Pain (Pain Scale 1-3) 04/27/18 02:30 05/20/18 18:29 Acetaminophen (Tylenol) 650 mg Q4H PRN ORAL fever 04/27/18 02:30 05/20/18 18:29 Acetaminophen (Tylenol) 650 mg Q6H PRN RECTAL Fever/Headache/Mild Pain 04/27/18 04:00 05/26/18 21:49 Acetaminophen/ Codeine Phosphate (Tylenol #3) 1 tab Q6H PRN ORAL Moderate Pain (Pain Scale 4-6) 04/27/18 00:30 04/28/18 18:29 Acetaminophen/ Hydrocodone Bitart ([place] 5/325) 1 tab Q6H PRN ORAL BREAKTHROUGH PAIN 04/27/18 00:30 04/28/18 18:29 Albuterol/ Ipratropium (Albuterol/ Ipratropium) 3 ml Q4H PRN HHN Shortness of Breath 04/27/18 02:15 04/28/18 10:14 Chlorhexidine Gluconate (Ana-Hex 2%) 1 applic DAILY@2000 TOPIC 04/27/18 20:00 05/25/18 19:59 Demeclocycline HCl (Declomycin) 300 mg Q12HR ORAL 04/27/18 09:00 05/01/18 20:59 Dexamethasone (Decadron) 4 mg DAILY ORAL 04/27/18 09:00 05/21/18 08:59 Dextrose (Dextrose 50%) 25 ml Q30M PRN IV Hypoglycemia 04/26/18 23:15 05/20/18 15:14 Dextrose (Dextrose 50%) 50 ml Q30M PRN IV Hypoglycemia 04/26/18 23:15 05/20/18 15:14 Dextrose/ Electrolytes 1,000 ml @ 50 mls/hr Q20H IV 04/26/18 23:15 05/26/18 14:59 04/27/18 00:54 Docusate Sodium (Colace) 100 mg EVERY 12 HOURS ORAL 04/27/18 09:00 05/20/18 20:59 Famotidine (Pepcid) 40 mg DAILY ORAL 04/27/18 09:00 05/21/18 08:59 Heparin Sodium (Porcine) (Heparin 5000 units/ml) 5,000 units EVERY 12 HOURS SUBQ 04/27/18 09:00 05/20/18 20:59 Insulin Aspart (NovoLOG) BEFORE MEALS AND HS SUBQ 04/27/18 06:30 05/20/18 16:29 Levofloxacin 150 ml @ 100 mls/hr Q24H IVPB 04/27/18 14:00 05/02/18 13:59 Levothyroxine Sodium (Synthroid) 75 mcg Q24H ORAL 04/27/18 06:30 05/21/18 06:29 Lorazepam (Ativan 2mg/ml 1ml) 1 mg Q4H PRN IM For Anxiety 04/27/18 01:00 05/02/18 00:59 04/27/18 00:56 Magnesium Hydroxide (Mom) 30 ml HSPRN PRN ORAL Constipation 04/27/18 18:30 05/22/18 18:29 Metoprolol Tartrate 10 mg/ Dextrose 65 ml @ 130 mls/hr Q12HR IVPB 04/27/18 11:30 05/27/18 11:29 04/27/18 13:27 Metronidazole 100 ml @ 100 mls/hr Q8HR IVPB 04/27/18 06:00 05/02/18 12:59 04/27/18 05:36 Nystatin (Nystatin) 3 ml FOUR TIMES A DAY ORAL 04/27/18 09:00 04/27/18 17:59 Olanzapine (ZyPREXA) 2.5 mg DAILY ORAL 04/27/18 09:00 05/26/18 08:59 Olanzapine (ZyPREXA) 5 mg QHS ORAL 04/27/18 21:00 05/25/18 20:59 Ondansetron HCl (Zofran) 4 mg Q6H PRN IVP Nausea & Vomiting 04/27/18 00:30 05/20/18 18:29 Polyethylene Glycol (Miralax) 17 gm DAILYPRN PRN ORAL Constipation 04/27/18 18:30 05/22/18 18:29 Sodium Chloride 500 ml @ 999 mls/hr Q31M ONCE IV 04/27/18 13:30 04/27/18 14:00 Tamsulosin HCl (Flomax) 0.4 mg QHS ORAL 04/27/18 21:00 05/20/18 20:59 Allergies: Coded Allergies: No Known Allergies (Unverified , 10/25/13) ROS Limited/Unobtainable: Yes Subjective 82 YO M admitted with dehydration. Cover for Int Med-Dr Paz. Patient transferred to [facility] for respiratory distress overnight Objective Last Vital Signs Date Time Temp Pulse Resp B/P (MAP) Pulse Ox O2 Delivery O2 Flow Rate FiO2 04/27/18 13:27 120 123/74 04/27/18 09:00 Nasal Cannula 5.0 04/27/18 08:00 98.1 25 92 04/27/18 07:29 55 Laboratory Tests Test 04/27/18 03:40 04/27/18 06:30 04/27/18 09:15 White Blood Count 5.2 K/UL (4.8-10.8) 5.1 K/UL (4.8-10.8) Red Blood Count 2.09 M/UL (4.70-6.10) L 4.46 M/UL (4.70-6.10) L Hemoglobin 6.9 G/DL (14.2-18.0) 14.6 G/DL (14.2-18.0) # Hematocrit 19.3 % (42.0-52.0) #L 41.3 % (42.0-52.0) #L Mean Corpuscular Volume 93 FL (80-99) 93 FL (80-99) Mean Corpuscular Hemoglobin 33.1 PG (27.0-31.0) H 32.7 PG (27.0-31.0) H Mean Corpuscular Hemoglobin Concent 35.7 G/DL (32.0-36.0) 35.3 G/DL (32.0-36.0) Red Cell Distribution Width 12.2 % (11.6-14.8) 12.4 % (11.6-14.8) Platelet Count 87 K/UL (150-450) L 64 K/UL (150-450) L Mean Platelet Volume 7.0 FL (6.5-10.1) 7.4 FL (6.5-10.1) Neutrophils (%) (Auto) % (45.0-75.0) % (45.0-75.0) Lymphocytes (%) (Auto) % (20.0-45.0) % (20.0-45.0) Monocytes (%) (Auto) % (1.0-10.0) % (1.0-10.0) Eosinophils (%) (Auto) % (0.0-3.0) % (0.0-3.0) Basophils (%) (Auto) % (0.0-2.0) % (0.0-2.0) Differential Total Cells Counted 100 100 Neutrophils % (Manual) 81 % (45-75) H 87 % (45-75) H Lymphocytes % (Manual) 7 % (20-45) L 4 % (20-45) L Monocytes % (Manual) 6 % (1-10) 2 % (1-10) Eosinophils % (Manual) 0 % (0-3) 0 % (0-3) Basophils % (Manual) 1 % (0-2) 0 % (0-2) Band Neutrophils 5 % (0-8) 7 % (0-8) Platelet Estimate Decreased L Decreased L Platelet Morphology Normal Normal Hypochromasia 1+ Sodium Level 134 MMOL/L (136-145) L Potassium Level 3.8 MMOL/L (3.5-5.1) Chloride Level 99 MMOL/L (98-107) Carbon Dioxide Level 22 MMOL/L (21-32) Anion Gap 13 mmol/L (5-15) Blood Urea Nitrogen 16 mg/dL (7-18) Creatinine 0.5 MG/DL (0.55-1.30) L Estimat Glomerular Filtration Rate mL/min (>60) Glucose Level 181 MG/DL (74-106) H Calcium Level 7.6 MG/DL (8.5-10.1) L Magnesium Level 1.6 MG/DL (1.8-2.4) L Red Blood Cell Morphology Normal Arterial Blood pH 7.499 (7.350-7.450) Arterial Blood Partial Pressure CO2 29.3 mmHg (35.0-45.0) L Arterial Blood Partial Pressure O2 65.6 mmHg (75.0-100.0) L Arterial Blood HCO3 22.3 mmol/L (22.0-26.0) Arterial Blood Oxygen Saturation 93.8 % (95-100) L Arterial Blood Base Excess 0.3 (-2-2) Francesco Test Positive Intake and Output 04/26/18 04/27/18 19:00 07:00 Output Total 1150 ml Balance -1150 ml Output Urine Total 1150 ml Objective GENERAL: awake, responsive, less confused. HEAD AND NECK: Pupils equal and reactive to light. Extraocular movements intact. Neck was supple. No JVD. LUNGS: Venturi mask; Decreased air entry at bases. No wheeze or rales. Poor inspiratory effort. HEART: S1 and S2. Irregular. No murmur or gallop. ABDOMEN: Soft, nondistended, and nontender. Positive bowel sounds. EXTREMITIES: No cyanosis, clubbing, or edema. NEUROLOGIC: Cranial nerves II through XII are grossly intact. moving all the extremities spontaneously. Gait was not assessed due to the patient's status. RECTAL: Refused and deferred. GENITOURINARY: Refused and deferred. PSYCHIATRIC: Mood and affect is intact. Assessment/Plan Assessment/Plan Assessment/Plan Assessment/Plan 1. Acute UTI. 2. Steroid-induced hyperglycemia. 3. Dehydration. 4. 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 5. 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 6. 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 7. Hypothyroidism. 8. Atherosclerotic heart disease. 9. A 4.2-cm ascending aortic aneurysm. 10. Status post splenectomy in 1967. 11. Severe osteoarthritis of the knee. 12. Hypertension. 13. New onset Atrial Fibrillation. 14. Dysphagia 15. respiratory failure PLAN: In [facility] At this time, the patient is not a candidate for anticoagulation due to the brain metastasis. DVT prophylaxis: heparin subcutaneous. Code status: DNR/DNI Follow up with Nephrology consultation with Dr. An: Demeclocycline 300 mg bid Abx: Cefepime IV F/u with labs and cultures. Discuss with daughter and son and patient at bedside regarding discharge planning, SNF. GI consult: Re: G-tube eval Discussed with family at bedside Pulmonary = [facility] Dis=[facility] Prognosis is guarded Demetrio Morgan MD Apr 27, 2018 14:22
--- NOTE | 2018-04-27 14:55 | Nephrology Progress Note ---
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) (2) Hyponatremia Assessment: better (3) Hypertension (4) Metastatic cancer (5) Hypokalemia (6) Hypomagnesemia Plan free water restriction Demeclocycline 300 mg bid follow labs discussed with family and RN Subjective Subjective Awake Objective Objective Last 24 Hour Vital Signs Date Time Temp Pulse Resp B/P (MAP) Pulse Ox O2 Delivery O2 Flow Rate FiO2 04/27/18 13:27 120 123/74 04/27/18 12:00 97.7 117 22 124/73 (90) 93 04/27/18 09:00 100 129/69 04/27/18 09:00 Nasal Cannula 5.0 04/27/18 08:00 117 04/27/18 08:00 98.1 100 25 129/69 (89) 92 04/27/18 07:29 93 22 Venturi Mask 14.0 55 04/27/18 07:29 Venturi Mask 14.0 55 04/27/18 07:29 92 Venturi Mask 14.0 55 04/27/18 04:00 98.6 110 25 110/62 (78) 92 04/27/18 01:47 112 04/27/18 00:00 98.2 100 20 99/50 (66) 92 04/26/18 22:00 100.4 98 20 112/58 (76) 97 04/26/18 21:30 98.6 105 20 110/64 (79) 87 04/26/18 21:00 Nasal Cannula 5.0 04/26/18 21:00 98 110/64 04/26/18 20:00 100.6 95 20 110/53 (72) 94 04/26/18 19:00 Nasal Cannula 3.0 32 04/26/18 19:00 92 Nasal Cannula 3.0 32 04/26/18 19:00 88 20 Nasal Cannula 3.0 32 04/26/18 16:00 99.0 91 19 107/68 (81) 98 Intake and Output 04/26/18 04/27/18 19:00 07:00 Output Total 1150 ml Balance -1150 ml Output Urine Total 1150 ml Laboratory Tests 04/27/18 03:40: White Blood Count 5.2, Red Blood Count 2.09L, Hemoglobin 6.9#*L, Hematocrit 19.3 #L, Mean Corpuscular Volume 93, Mean Corpuscular Hemoglobin 33.1H, Mean Corpuscular Hemoglobin Concent 35.7, Red Cell Distribution Width 12.2, Platelet Count 87L, Mean Platelet Volume 7.0, Neutrophils (%) (Auto) , Lymphocytes (%) ( Auto) , Monocytes (%) (Auto) , Eosinophils (%) (Auto) , Basophils (%) (Auto) , Differential Total Cells Counted 100, Neutrophils % (Manual) 81H, Lymphocytes % (Manual) 7L, Monocytes % (Manual) 6, Eosinophils % (Manual) 0, Basophils % ( Manual) 1, Band Neutrophils 5, Platelet Estimate DecreasedL, Platelet Morphology Normal, Hypochromasia 1+, Sodium Level 134L, Potassium Level 3.8, Chloride Level 99, Carbon Dioxide Level 22, Anion Gap 13, Blood Urea Nitrogen 16 , Creatinine 0.5L, Estimat Glomerular Filtration Rate , Glucose Level 181H, Calcium Level 7.6L, Magnesium Level 1.6L 04/27/18 06:30: White Blood Count 5.1, Red Blood Count 4.46L, Hemoglobin 14.6#, Hematocrit 41.3# L, Mean Corpuscular Volume 93, Mean Corpuscular Hemoglobin 32.7H, Mean Corpuscular Hemoglobin Concent 35.3, Red Cell Distribution Width 12.4, Platelet Count 64L, Mean Platelet Volume 7.4, Neutrophils (%) (Auto) , Lymphocytes (%) ( Auto) , Monocytes (%) (Auto) , Eosinophils (%) (Auto) , Basophils (%) (Auto) , Differential Total Cells Counted 100, Neutrophils % (Manual) 87H, Lymphocytes % (Manual) 4L, Monocytes % (Manual) 2, Eosinophils % (Manual) 0, Basophils % ( Manual) 0, Band Neutrophils 7, Platelet Estimate DecreasedL, Platelet Morphology Normal, Red Blood Cell Morphology Normal 04/27/18 09:15: Arterial Blood pH 7.499H, Arterial Blood Partial Pressure CO2 29.3L, Arterial Blood Partial Pressure O2 65.6L, Arterial Blood HCO3 22.3, Arterial Blood Oxygen Saturation 93.8L, Arterial Blood Base Excess 0.3, Francesco Test Positive Height (Feet): 5 Height (Inches): 11.00 Weight (Pounds): 162 Cardiovascular: normal rate Respiratory/Chest: lungs clear Extremities: trace edema Rahban,Ayo MD Apr 27, 2018 14:55
--- NOTE | 2018-04-27 15:22 | Diagnostic Imaging Report ---
Indication: Cough Technique: One view of the chest Comparison: 04/26/2018 Findings: Unchanged bilateral interstitial and airspace opacities, probable small left pleural effusion. Right size is normal. Right chest port catheter again demonstrated Impression: Unchanged, over one day, findings as above.
[2018-04-27 16:00] VITALS: BP 124/73
[2018-04-27] MEDS: Piperacillin/Tazobactam 3.375 GM in NS 110 ML IVPB SCH ×2 (16:55→23:44)
--- NOTE | 2018-04-27 17:56 | Pulmonology Progress Note ---
Assessment/Plan Assessment/Plan Pulmonary Consultation HPI Patient is an 82-year-old male with history of metastatic colon cancer including to brain. Previous Bladder Cancer. He had chemotherapy before and is getting radiation. Last radiation therapy was about a month ago. He presents with chief complaint of generalized body pain and weakness. Noted to have Pneumonia, Hyponatremia. Decreased appetite. No fever chills but no nausea no vomiting. No increasing focal deficit. Denies any other complaint. Worse with swallowing. [place] nauseous but no vomiting. No diarrhea. No fever. No chest pain. C/o SOB, cough Allergies: No Known Allergies Past Medical History: See above, hypothyroidism Review of Systems Constitutional: Reports: malaise, weakness Eye: Denies: eye pain, blurred vision ENT: Reports: throat pain; Denies: ear pain, nose congestion, throat swelling Respiratory: c/o cough, c/o some shortness of breath Cardiovascular: Denies: chest pain, palpitations Gastrointestinal: Denies: abdominal pain, diarrhea, nausea, vomiting Musculoskeletal: Denies: back pain, joint pain Skin: Denies: rash Neurological: Denies: headache, numbness Endocrine: Denies: increased thirst, increased urine Hematologic/Lymphatic: Denies: easy bruising All Other Systems: negative except mentioned in HPI Physical Exam Vital Signs Noted General Appearance: alert, Chronically Ill Head: normocephalic, atraumatic Eyes: bilateral eye PERRL, bilateral eye EOMI ENT: hearing grossly normal, dry mucus membranes Neck: full range of motion, supple, no meningismus Respiratory: chest non-tender, lungs clear, normal breath sounds Cardiovascular #1: no murmur, tachycardia, irregularly irregular Gastrointestinal: normal bowel sounds, non tender, no mass, no organomegaly, no bruit, non-distended Musculoskeletal: back normal, normal range of motion Neurologic: alert, oriented x3 Psychiatric: mood/affect normal Skin: warm/dry Impression: Pneumonia Hypoxic Respiratory Failure Previous metastatic cancer s/p chemotherapy an dXRT Hypothyroidism Hyponatremia Failure to thrive in adult Dehydration Plan Continuie current antibiotics O2 PRN HHN BiPAP PRN PPX 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 Results Rhythm Strip Time: 06:39 EP Interpretation: yes Rate: 90 Rhythm: no PVC's, no ectopy Chest X-Ray Diagnostic Results Chest X-Ray Diagnostic Results : Chest X-Ray Ordered: Yes # of Views/Limited/Complete: 1 View Indication: Chest Pain EP Interpretation: Yes Interpretation: bilateral infiltrates Subjective ROS Limited/Unobtainable: No Respiratory: Reports: shortness of breath Allergies: Coded Allergies: No Known Allergies (Unverified , 10/25/13) Objective Last 24 Hour Vital Signs Date Time Temp Pulse Resp B/P (MAP) Pulse Ox O2 Delivery O2 Flow Rate FiO2 04/27/18 13:27 120 123/74 04/27/18 12:00 97.7 117 22 124/73 (90) 93 04/27/18 09:00 100 129/69 04/27/18 09:00 Nasal Cannula 5.0 04/27/18 08:00 117 04/27/18 08:00 98.1 100 25 129/69 (89) 92 04/27/18 07:29 93 22 Venturi Mask 14.0 55 04/27/18 07:29 Venturi Mask 14.0 55 04/27/18 07:29 92 Venturi Mask 14.0 55 04/27/18 04:00 98.6 110 25 110/62 (78) 92 04/27/18 01:47 112 04/27/18 00:00 98.2 100 20 99/50 (66) 92 04/26/18 22:00 100.4 98 20 112/58 (76) 97 04/26/18 21:30 98.6 105 20 110/64 (79) 87 04/26/18 21:00 Nasal Cannula 5.0 04/26/18 21:00 98 110/64 04/26/18 20:00 100.6 95 20 110/53 (72) 94 04/26/18 19:00 Nasal Cannula 3.0 32 04/26/18 19:00 92 Nasal Cannula 3.0 32 04/26/18 19:00 88 20 Nasal Cannula 3.0 32 Intake and Output 04/26/18 04/27/18 19:00 07:00 Output Total 1150 ml Balance -1150 ml Output Urine Total 1150 ml Laboratory Tests 04/27/18 03:40: White Blood Count 5.2, Red Blood Count 2.09L, Hemoglobin 6.9#*L, Hematocrit 19.3 #L, Mean Corpuscular Volume 93, Mean Corpuscular Hemoglobin 33.1H, Mean Corpuscular Hemoglobin Concent 35.7, Red Cell Distribution Width 12.2, Platelet Count 87L, Mean Platelet Volume 7.0, Neutrophils (%) (Auto) , Lymphocytes (%) ( Auto) , Monocytes (%) (Auto) , Eosinophils (%) (Auto) , Basophils (%) (Auto) , Differential Total Cells Counted 100, Neutrophils % (Manual) 81H, Lymphocytes % (Manual) 7L, Monocytes % (Manual) 6, Eosinophils % (Manual) 0, Basophils % ( Manual) 1, Band Neutrophils 5, Platelet Estimate DecreasedL, Platelet Morphology Normal, Hypochromasia 1+, Sodium Level 134L, Potassium Level 3.8, Chloride Level 99, Carbon Dioxide Level 22, Anion Gap 13, Blood Urea Nitrogen 16 , Creatinine 0.5L, Estimat Glomerular Filtration Rate , Glucose Level 181H, Calcium Level 7.6L, Magnesium Level 1.6L 04/27/18 06:30: White Blood Count 5.1, Red Blood Count 4.46L, Hemoglobin 14.6#, Hematocrit 41.3# L, Mean Corpuscular Volume 93, Mean Corpuscular Hemoglobin 32.7H, Mean Corpuscular Hemoglobin Concent 35.3, Red Cell Distribution Width 12.4, Platelet Count 64L, Mean Platelet Volume 7.4, Neutrophils (%) (Auto) , Lymphocytes (%) ( Auto) , Monocytes (%) (Auto) , Eosinophils (%) (Auto) , Basophils (%) (Auto) , Differential Total Cells Counted 100, Neutrophils % (Manual) 87H, Lymphocytes % (Manual) 4L, Monocytes % (Manual) 2, Eosinophils % (Manual) 0, Basophils % ( Manual) 0, Band Neutrophils 7, Platelet Estimate DecreasedL, Platelet Morphology Normal, Red Blood Cell Morphology Normal 04/27/18 09:15: Arterial Blood pH 7.499H, Arterial Blood Partial Pressure CO2 29.3L, Arterial Blood Partial Pressure O2 65.6L, Arterial Blood HCO3 22.3, Arterial Blood Oxygen Saturation 93.8L, Arterial Blood Base Excess 0.3, Francesco Test Positive Current Medications Medications (Trade) Dose Ordered Sig/Chivo Route PRN Reason Start Time Stop Time Status Last Admin Dose Admin Acetaminophen (Tylenol) 650 mg Q4H PRN ORAL Mild Pain (Pain Scale 1-3) 12/31/18 02:30 05/20/18 18:29 Acetaminophen (Tylenol) 650 mg Q4H PRN ORAL fever 04/27/18 02:30 05/20/18 18:29 Acetaminophen (Tylenol) 650 mg Q6H PRN RECTAL Fever/Headache/Mild Pain 04/27/18 04:00 05/26/18 21:49 Acetaminophen/ Codeine Phosphate (Tylenol #3) 1 tab Q6H PRN ORAL Moderate Pain (Pain Scale 4-6) 04/27/18 00:30 04/28/18 18:29 Acetaminophen/ Hydrocodone Bitart ([place] 5/325) 1 tab Q6H PRN ORAL BREAKTHROUGH PAIN 04/27/18 00:30 04/28/18 18:29 Albuterol/ Ipratropium (Albuterol/ Ipratropium) 3 ml Q4H PRN HHN Shortness of Breath 04/27/18 02:15 04/28/18 10:14 Chlorhexidine Gluconate (Ana-Hex 2%) 1 applic DAILY@2000 TOPIC 04/27/18 20:00 05/25/18 19:59 Demeclocycline HCl (Declomycin) 300 mg Q12HR ORAL 04/27/18 09:00 05/01/18 20:59 Dexamethasone (Decadron) 4 mg DAILY ORAL 04/27/18 09:00 05/21/18 08:59 Dextrose (Dextrose 50%) 25 ml Q30M PRN IV Hypoglycemia 04/26/18 23:15 05/20/18 15:14 Dextrose (Dextrose 50%) 50 ml Q30M PRN IV Hypoglycemia 04/26/18 23:15 05/20/18 15:14 Dextrose/ Electrolytes 1,000 ml @ 50 mls/hr Q20H IV 04/26/18 23:15 05/26/18 14:59 04/27/18 00:54 Docusate Sodium (Colace) 100 mg EVERY 12 HOURS ORAL 04/27/18 09:00 05/20/18 20:59 Famotidine (Pepcid) 40 mg DAILY ORAL 04/27/18 09:00 05/21/18 08:59 Heparin Sodium (Porcine) (Heparin 5000 units/ml) 5,000 units EVERY 12 HOURS SUBQ 04/27/18 09:00 05/20/18 20:59 Insulin Aspart (NovoLOG) BEFORE MEALS AND HS SUBQ 04/27/18 06:30 05/20/18 16:29 Levofloxacin 150 ml @ 100 mls/hr Q24H IVPB 04/27/18 14:00 05/02/18 13:59 04/27/18 15:11 Levothyroxine Sodium (Synthroid) 75 mcg Q24H ORAL 04/27/18 06:30 05/21/18 06:29 Lorazepam (Ativan 2mg/ml 1ml) 1 mg Q4H PRN IM For Anxiety 04/27/18 01:00 05/02/18 00:59 04/27/18 00:56 Magnesium Hydroxide (Mom) 30 ml HSPRN PRN ORAL Constipation 04/27/18 18:30 05/22/18 18:29 Metoprolol Tartrate 10 mg/ Dextrose 65 ml @ 130 mls/hr Q12HR IVPB 04/27/18 11:30 05/27/18 11:29 04/27/18 13:27 Metronidazole 100 ml @ 100 mls/hr Q8HR IVPB 04/27/18 06:00 05/02/18 12:59 04/27/18 14:10 Nystatin (Nystatin) 3 ml FOUR TIMES A DAY ORAL 04/27/18 09:00 04/27/18 17:59 Olanzapine (ZyPREXA) 2.5 mg DAILY ORAL 04/27/18 09:00 05/26/18 08:59 Olanzapine (ZyPREXA) 5 mg QHS ORAL 04/27/18 21:00 05/25/18 20:59 Ondansetron HCl (Zofran) 4 mg Q6H PRN IVP Nausea & Vomiting 04/27/18 00:30 05/20/18 18:29 Piperacillin Sod/ Tazobactam Sod 3.375 gm/Sodium Chloride 110 ml @ 27.5 mls/hr Q8H IVPB 04/27/18 16:00 05/04/18 15:59 04/27/18 16:55 Polyethylene Glycol (Miralax) 17 gm DAILYPRN PRN ORAL Constipation 04/27/18 18:30 05/22/18 18:29 Tamsulosin HCl (Flomax) 0.4 mg QHS ORAL 04/27/18 21:00 05/20/18 20:59 Enrique Ruiz MD Apr 27, 2018 17:56
[2018-04-27] MEDS ORDERED: Milk of Magnesia 30ml Ud ORAL PRN (18:30)
[2018-04-27] MEDS ORDERED: Miralax 17gm pkt ORAL PRN (18:30)
--- NOTE | 2018-04-27 18:53 | General Progress Note ---
Assessment/Plan Assessment/Plan Assessment - AMS, Delirium - Hypoxia - failed swallow evaluation - h/o bladder CA - BPH Recommendation - supportive care - follow mental status - doubt will tolerate NGT due to agitation - will discuss with family Subjective Allergies: Coded Allergies: No Known Allergies (Unverified , 10/25/13) Subjective Agitated family at bedside pulling off mask failed swallow evaluation Objective Last 24 Hour Vital Signs Date Time Temp Pulse Resp B/P (MAP) Pulse Ox O2 Delivery O2 Flow Rate FiO2 04/27/18 16:00 102 04/27/18 16:00 96.8 79 22 124/73 (90) 90 04/27/18 13:27 120 123/74 04/27/18 12:00 121 04/27/18 12:00 97.7 117 22 124/73 (90) 93 04/27/18 09:00 100 129/69 04/27/18 09:00 Nasal Cannula 5.0 04/27/18 08:00 117 04/27/18 08:00 98.1 100 25 129/69 (89) 92 04/27/18 07:29 93 22 Venturi Mask 14.0 55 04/27/18 07:29 Venturi Mask 14.0 55 04/27/18 07:29 92 Venturi Mask 14.0 55 04/27/18 04:00 98.6 110 25 110/62 (78) 92 04/27/18 01:47 112 04/27/18 00:00 98.2 100 20 99/50 (66) 92 04/26/18 22:00 100.4 98 20 112/58 (76) 97 04/26/18 21:30 98.6 105 20 110/64 (79) 87 04/26/18 21:00 Nasal Cannula 5.0 04/26/18 21:00 98 110/64 04/26/18 20:00 100.6 95 20 110/53 (72) 94 04/26/18 19:00 Nasal Cannula 3.0 32 04/26/18 19:00 92 Nasal Cannula 3.0 32 04/26/18 19:00 88 20 Nasal Cannula 3.0 32 Intake and Output 04/26/18 04/27/18 19:00 07:00 Output Total 1150 ml Balance -1150 ml Output Urine Total 1150 ml Laboratory Tests 04/27/18 03:40: White Blood Count 5.2, Red Blood Count 2.09L, Hemoglobin 6.9#*L, Hematocrit 19.3 #L, Mean Corpuscular Volume 93, Mean Corpuscular Hemoglobin 33.1H, Mean Corpuscular Hemoglobin Concent 35.7, Red Cell Distribution Width 12.2, Platelet Count 87L, Mean Platelet Volume 7.0, Neutrophils (%) (Auto) , Lymphocytes (%) ( Auto) , Monocytes (%) (Auto) , Eosinophils (%) (Auto) , Basophils (%) (Auto) , Differential Total Cells Counted 100, Neutrophils % (Manual) 81H, Lymphocytes % (Manual) 7L, Monocytes % (Manual) 6, Eosinophils % (Manual) 0, Basophils % ( Manual) 1, Band Neutrophils 5, Platelet Estimate DecreasedL, Platelet Morphology Normal, Hypochromasia 1+, Sodium Level 134L, Potassium Level 3.8, Chloride Level 99, Carbon Dioxide Level 22, Anion Gap 13, Blood Urea Nitrogen 16 , Creatinine 0.5L, Estimat Glomerular Filtration Rate , Glucose Level 181H, Calcium Level 7.6L, Magnesium Level 1.6L 04/27/18 06:30: White Blood Count 5.1, Red Blood Count 4.46L, Hemoglobin 14.6#, Hematocrit 41.3# L, Mean Corpuscular Volume 93, Mean Corpuscular Hemoglobin 32.7H, Mean Corpuscular Hemoglobin Concent 35.3, Red Cell Distribution Width 12.4, Platelet Count 64L, Mean Platelet Volume 7.4, Neutrophils (%) (Auto) , Lymphocytes (%) ( Auto) , Monocytes (%) (Auto) , Eosinophils (%) (Auto) , Basophils (%) (Auto) , Differential Total Cells Counted 100, Neutrophils % (Manual) 87H, Lymphocytes % (Manual) 4L, Monocytes % (Manual) 2, Eosinophils % (Manual) 0, Basophils % ( Manual) 0, Band Neutrophils 7, Platelet Estimate DecreasedL, Platelet Morphology Normal, Red Blood Cell Morphology Normal 04/27/18 09:15: Arterial Blood pH 7.499H, Arterial Blood Partial Pressure CO2 29.3L, Arterial Blood Partial Pressure O2 65.6L, Arterial Blood HCO3 22.3, Arterial Blood Oxygen Saturation 93.8L, Arterial Blood Base Excess 0.3, Francesco Test Positive Height (Feet): 5 Height (Inches): 11.00 Weight (Pounds): 162 Objective Agitated elderly man NCAT supple Coarse BS RR abd soft ND no edema Bandar Monge MD Apr 27, 2018 18:53
[2018-04-27] MEDS: Albuterol/Ipratropium 3ml neb HHN SCH ×2 (19:00→23:00)
[2018-04-27 20:00] VITALS: BP 113/71
[2018-04-27] MEDS: Dyna-Hex 2% Top Sol 2oz TOPIC SCH (20:00)
[2018-04-27] MEDS: Tamsulosin 0.4mg cap ORAL SCH (21:00)
[2018-04-27] MEDS ORDERED: Metoprolol Tartrate 50mg tab ORAL SCH (21:00)
[2018-04-28] VITALS: BP 102/66
--- NOTE | 2018-04-28 01:10 | General Progress Note ---
Assessment/Plan Problem List: (1) Toxic encephalopathy ICD Codes: G92 - Toxic encephalopathy SNOMED: 27162511 Status: unchanged Assessment/Plan zyprexa the pt was provided with ro/st dw family Subjective Date patient seen: Apr 27, 2018 Allergies: Coded Allergies: No Known Allergies (Unverified , 10/25/13) Subjective the pt is agitated waxing and waning of consciousness. the pt was oriented to name Objective Last 24 Hour Vital Signs Date Time Temp Pulse Resp B/P (MAP) Pulse Ox O2 Delivery O2 Flow Rate FiO2 04/28/18 00:23 83 20 93 Venturi Mask 14.0 55 04/28/18 00:00 Nasal Cannula 5.0 04/27/18 21:00 129 113/71 04/27/18 20:00 98.7 103 30 113/71 (85) 89 04/27/18 20:00 Nasal Cannula 5.0 04/27/18 19:50 94 22 Venturi Mask 14.0 55 04/27/18 19:50 Venturi Mask 14.0 55 04/27/18 19:50 92 Venturi Mask 14.0 55 04/27/18 19:18 119 04/27/18 16:00 102 04/27/18 16:00 96.8 79 22 124/73 (90) 90 04/27/18 13:27 120 123/74 04/27/18 12:00 121 04/27/18 12:00 97.7 117 22 124/73 (90) 93 04/27/18 09:00 100 129/69 04/27/18 09:00 Nasal Cannula 5.0 04/27/18 08:00 117 04/27/18 08:00 98.1 100 25 129/69 (89) 92 04/27/18 07:29 93 22 Venturi Mask 14.0 55 04/27/18 07:29 Venturi Mask 14.0 55 04/27/18 07:29 92 Venturi Mask 14.0 55 04/27/18 04:00 98.6 110 25 110/62 (78) 92 04/27/18 01:47 112 Intake and Output 04/27/18 04/28/18 19:00 07:00 Intake Total 50 ml 422.36 ml Output Total 900 ml Balance -850 ml 422.36 ml IV Total 50 ml 422.36 ml Output Urine Total 900 ml Laboratory Tests 04/27/18 03:40: White Blood Count 5.2, Red Blood Count 2.09L, Hemoglobin 6.9#*L, Hematocrit 19.3 #L, Mean Corpuscular Volume 93, Mean Corpuscular Hemoglobin 33.1H, Mean Corpuscular Hemoglobin Concent 35.7, Red Cell Distribution Width 12.2, Platelet Count 87L, Mean Platelet Volume 7.0, Neutrophils (%) (Auto) , Lymphocytes (%) ( Auto) , Monocytes (%) (Auto) , Eosinophils (%) (Auto) , Basophils (%) (Auto) , Differential Total Cells Counted 100, Neutrophils % (Manual) 81H, Lymphocytes % (Manual) 7L, Monocytes % (Manual) 6, Eosinophils % (Manual) 0, Basophils % ( Manual) 1, Band Neutrophils 5, Platelet Estimate DecreasedL, Platelet Morphology Normal, Hypochromasia 1+, Sodium Level 134L, Potassium Level 3.8, Chloride Level 99, Carbon Dioxide Level 22, Anion Gap 13, Blood Urea Nitrogen 16 , Creatinine 0.5L, Estimat Glomerular Filtration Rate , Glucose Level 181H, Calcium Level 7.6L, Magnesium Level 1.6L 04/27/18 06:30: White Blood Count 5.1, Red Blood Count 4.46L, Hemoglobin 14.6#, Hematocrit 41.3# L, Mean Corpuscular Volume 93, Mean Corpuscular Hemoglobin 32.7H, Mean Corpuscular Hemoglobin Concent 35.3, Red Cell Distribution Width 12.4, Platelet Count 64L, Mean Platelet Volume 7.4, Neutrophils (%) (Auto) , Lymphocytes (%) ( Auto) , Monocytes (%) (Auto) , Eosinophils (%) (Auto) , Basophils (%) (Auto) , Differential Total Cells Counted 100, Neutrophils % (Manual) 87H, Lymphocytes % (Manual) 4L, Monocytes % (Manual) 2, Eosinophils % (Manual) 0, Basophils % ( Manual) 0, Band Neutrophils 7, Platelet Estimate DecreasedL, Platelet Morphology Normal, Red Blood Cell Morphology Normal 04/27/18 09:15: Arterial Blood pH 7.499H, Arterial Blood Partial Pressure CO2 29.3L, Arterial Blood Partial Pressure O2 65.6L, Arterial Blood HCO3 22.3, Arterial Blood Oxygen Saturation 93.8L, Arterial Blood Base Excess 0.3, Francesco Test Positive Height (Feet): 5 Height (Inches): 11.00 Weight (Pounds): 162 General Appearance: alert, confused, agitated Jeanie Calvin MD Apr 28, 2018 01:10
[2018-04-28] MEDS: Albuterol/Ipratropium 3ml neb HHN SCH ×4 (03:11→18:06)
[2018-04-28 04:00] VITALS: BP 110/60
[2018-04-28 05:56] LABS: HEMATOCRIT 40.1 % (42.0-52.0); HEMOGLOBIN 14.1 G/DL (14.2-18.0); MEAN CORPUSCULAR VOLUME 92 FL (80-99); PLATELET COUNT 71 K/UL (150-450); RED BLOOD COUNT 4.34 M/UL (4.70-6.10); RED CELL DISTRIBUTION WIDTH 12.4 % (11.6-14.8)
[2018-04-28 06:01] LABS: ALANINE AMINOTRANSFERASE 27 U/L (12-78); ALBUMIN 1.2 G/DL (3.4-5.0); ALBUMIN/GLOBULIN RATIO 0.3 (1.0-2.7); ALKALINE PHOSPHATASE 71 U/L (46-116); ANION GAP 12 mmol/L (5-15); ASPARTATE AMINO TRANSFERASE 21 U/L (15-37); BILIRUBIN,TOTAL 0.5 MG/DL (0.2-1.0); BLOOD UREA NITROGEN 17 mg/dL (7-18); CALCIUM 8.4 MG/DL (8.5-10.1); CARBON DIOXIDE 22 MMOL/L (21-32); CHLORIDE 99 MMOL/L (98-107); CREATININE 0.7 MG/DL (0.55-1.30); SODIUM 133 MMOL/L (136-145)
[2018-04-28] MEDS: NovoLOG Insulin Flexpen SUBQ SCH ×4 (06:12→21:00)
[2018-04-28] MEDS: Piperacillin/Tazobactam 3.375 GM in NS 110 ML IVPB SCH ×2 (07:53→16:11)
[2018-04-28 08:00] VITALS: BP 102/46
--- NOTE | 2018-04-28 08:49 | Infectious Diseases Prog Note ---
Assessment/Plan Assessment/Plan Abx: Cefepime 04/21- Assessment: Afebrile cough ? CAP vs Asp Pneum No leukocytosis R/o probable UTI- (on/off dysuria, worse in the last few days, however no pyuria ) - 04/25 CXR: Reduced lung volumes with bilateral interstitial opacities. -u/a wbc 2-4, nit +, leuk est +1; ucx Generalized weakness Dysphagia Afib w RVR -04/23 CXR: Interval worsening of aeration with increasing interstitial opacities and worsening perihilar opacities. Given and short-term interval worsening findings may be related to development of pulmonary edema. Correlate clinically. Previously described right hilar masslike opacity less well-defined on this exam, likely obscured by above described opacities. The possibility of an underlying mass is not entirely excluded especially given history of known malignancy. Follow up recommend. Hyponatremia Troponinemia HTN HLD neuroendocrine CA of bladder with liver, brain, mediastinum and lungs mets s/p chemo and currently on radiation tx (last was 1 month ago) Severe OA Knee s/p knee arthroplasty s/p b/l inguinal repair s/p splenectomy 1968 hypothyroidism hx of UTI Plan: - Zosyn added yesterday - D/C Flagyl #4 -Continue levaquin for now pending Cx (Asp Pneum and probable UTI ) - 03/29/18 S/P Cefepime # 5 - f/u Urine and sputum Cx - f/u Urine Legionella -Monitor CBC/CMP -aspiration precautions -Cards f/u Subjective Allergies: Coded Allergies: No Known Allergies (Unverified , 10/25/13) Subjective Patient afebrile 24hr No leukocytosis Objective Vital Signs Last 24 Hour Vital Signs Date Time Temp Pulse Resp B/P (MAP) Pulse Ox O2 Delivery O2 Flow Rate FiO2 04/28/18 07:43 114 26 96 Non-Rebreather 15.0 100 04/28/18 07:25 96 26 Non-Rebreather 15.0 100 04/28/18 07:25 Non-Rebreather 15.0 100 04/28/18 07:25 96 Non-Rebreather 15.0 100 04/28/18 07:23 95 26 96 Non-Rebreather 15.0 100 04/28/18 04:00 Nasal Cannula 5.0 04/28/18 04:00 98.9 110 32 110/60 (77) 98 04/28/18 03:33 89 26 91 12.0 70 04/28/18 03:32 127 04/28/18 03:11 90 26 96 12.0 70 04/28/18 02:24 85 20 95 Venturi Mask 12.0 55 04/28/18 00:33 55 04/28/18 00:23 83 20 93 Venturi Mask 14.0 55 04/28/18 00:00 98.4 103 30 102/66 (78) 88 04/28/18 00:00 Nasal Cannula 5.0 04/27/18 23:59 117 04/27/18 21:00 129 113/71 04/27/18 20:00 98.7 103 30 113/71 (85) 89 04/27/18 20:00 Nasal Cannula 5.0 04/27/18 19:50 94 22 Venturi Mask 14.0 55 04/27/18 19:50 Venturi Mask 14.0 55 04/27/18 19:50 92 Venturi Mask 14.0 55 04/27/18 19:18 119 04/27/18 16:00 102 04/27/18 16:00 96.8 79 22 124/73 (90) 90 04/27/18 13:27 120 123/74 04/27/18 12:00 121 04/27/18 12:00 97.7 117 22 124/73 (90) 93 04/27/18 09:00 100 129/69 04/27/18 09:00 Nasal Cannula 5.0 Height (Feet): 5 Height (Inches): 11.00 Weight (Pounds): 162 Objective GENERAL: The patient is thin, responsive but confused HEENT: NCAT, MMM LUNGS: Course B/L HEART: S1 and S2. Irregular. No murmur or gallop. ABDOMEN: Soft, nondistended, and nontender. Positive bowel sounds. EXTREMITIES: No cyanosis, clubbing, or edema. Laboratory Tests Test 04/27/18 09:15 04/28/18 04:20 04/28/18 08:15 Arterial Blood pH 7.499 (7.350-7.450) 7.434 (7.350-7.450) Arterial Blood Partial Pressure CO2 29.3 mmHg (35.0-45.0) L 33.3 mmHg (35.0-45.0) L Arterial Blood Partial Pressure O2 65.6 mmHg (75.0-100.0) L 100.4 mmHg (75.0-100.0) H Arterial Blood HCO3 22.3 mmol/L (22.0-26.0) 21.8 mmol/L (22.0-26.0) L Arterial Blood Oxygen Saturation 93.8 % (95-100) L 97.2 % (95-100) Arterial Blood Base Excess 0.3 (-2-2) -1.6 (-2-2) Francesco Test Positive Positive White Blood Count 5.0 K/UL (4.8-10.8) Red Blood Count 4.34 M/UL (4.70-6.10) L Hemoglobin 14.1 G/DL (14.2-18.0) L Hematocrit 40.1 % (42.0-52.0) L Mean Corpuscular Volume 92 FL (80-99) Mean Corpuscular Hemoglobin 32.4 PG (27.0-31.0) H Mean Corpuscular Hemoglobin Concent 35.1 G/DL (32.0-36.0) Red Cell Distribution Width 12.4 % (11.6-14.8) Platelet Count 71 K/UL (150-450) L Mean Platelet Volume 8.0 FL (6.5-10.1) Neutrophils (%) (Auto) % (45.0-75.0) Lymphocytes (%) (Auto) % (20.0-45.0) Monocytes (%) (Auto) % (1.0-10.0) Eosinophils (%) (Auto) % (0.0-3.0) Basophils (%) (Auto) % (0.0-2.0) Sodium Level 133 MMOL/L (136-145) L Potassium Level 4.0 MMOL/L (3.5-5.1) Chloride Level 99 MMOL/L (98-107) Carbon Dioxide Level 22 MMOL/L (21-32) Anion Gap 12 mmol/L (5-15) Blood Urea Nitrogen 17 mg/dL (7-18) Creatinine 0.7 MG/DL (0.55-1.30) Estimat Glomerular Filtration Rate mL/min (>60) Glucose Level 206 MG/DL (74-106) H Calcium Level 8.4 MG/DL (8.5-10.1) L Total Bilirubin 0.5 MG/DL (0.2-1.0) Aspartate Amino Transf (AST/SGOT) 21 U/L (15-37) Alanine Aminotransferase (ALT/SGPT) 27 U/L (12-78) Alkaline Phosphatase 71 U/L (46-116) Total Protein 5.1 G/DL (6.4-8.2) L Albumin 1.2 G/DL (3.4-5.0) L Globulin 3.9 g/dL Albumin/Globulin Ratio 0.3 (1.0-2.7) L Current Medications Medications (Trade) Dose Ordered Sig/Chivo Route PRN Reason Start Time Stop Time Status Last Admin Dose Admin Acetaminophen (Tylenol) 650 mg Q4H PRN ORAL Mild Pain (Pain Scale 1-3) 04/27/18 02:30 05/20/18 18:29 Acetaminophen (Tylenol) 650 mg Q4H PRN ORAL fever 04/27/18 02:30 05/20/18 18:29 Acetaminophen (Tylenol) 650 mg Q6H PRN RECTAL Fever/Headache/Mild Pain 04/27/18 04:00 05/26/18 21:49 Acetaminophen/ Codeine Phosphate (Tylenol #3) 1 tab Q6H PRN ORAL Moderate Pain (Pain Scale 4-6) 04/27/18 00:30 04/28/18 18:29 Acetaminophen/ Hydrocodone Bitart ([place] 5/325) 1 tab Q6H PRN ORAL BREAKTHROUGH PAIN 04/27/18 00:30 04/28/18 18:29 Albuterol/ Ipratropium (Albuterol/ Ipratropium) 3 ml Q4H PRN HHN Shortness of Breath 04/27/18 02:15 04/28/18 10:14 Albuterol/ Ipratropium (Albuterol/ Ipratropium) 3 ml Q4HRT HHN 04/27/18 19:00 05/02/18 18:59 04/28/18 07:23 Chlorhexidine Gluconate (Ana-Hex 2%) 1 applic DAILY@2000 TOPIC 04/27/18 20:00 05/25/18 19:59 04/27/18 20:00 Demeclocycline HCl (Declomycin) 300 mg Q12HR ORAL 04/27/18 09:00 05/01/18 20:59 Dexamethasone (Decadron) 4 mg DAILY ORAL 04/27/18 09:00 05/21/18 08:59 Dextrose (Dextrose 50%) 25 ml Q30M PRN IV Hypoglycemia 04/26/18 23:15 05/20/18 15:14 Dextrose (Dextrose 50%) 50 ml Q30M PRN IV Hypoglycemia 04/26/18 23:15 05/20/18 15:14 Dextrose/ Electrolytes 1,000 ml @ 50 mls/hr Q20H IV 04/26/18 23:15 05/26/18 14:59 04/27/18 18:51 Docusate Sodium (Colace) 100 mg EVERY 12 HOURS ORAL 04/27/18 09:00 05/20/18 20:59 Famotidine (Pepcid) 40 mg DAILY ORAL 04/27/18 09:00 05/21/18 08:59 Heparin Sodium (Porcine) (Heparin 5000 units/ml) 5,000 units EVERY 12 HOURS SUBQ 04/27/18 09:00 05/20/18 20:59 Insulin Aspart (NovoLOG) BEFORE MEALS AND HS SUBQ 04/27/18 06:30 05/20/18 16:29 Levofloxacin 150 ml @ 100 mls/hr Q24H IVPB 04/27/18 14:00 05/02/18 13:59 04/27/18 15:11 Levothyroxine Sodium (Synthroid) 75 mcg Q24H ORAL 04/27/18 06:30 05/21/18 06:29 Lorazepam (Ativan 2mg/ml 1ml) 1 mg Q4H PRN IM For Anxiety 04/27/18 01:00 05/02/18 00:59 04/27/18 00:56 Magnesium Hydroxide (Mom) 30 ml HSPRN PRN ORAL Constipation 04/27/18 18:30 05/22/18 18:29 Metoprolol Tartrate 10 mg/ Dextrose 65 ml @ 130 mls/hr Q12HR IVPB 04/27/18 11:30 05/27/18 11:29 04/27/18 21:00 Metronidazole 100 ml @ 100 mls/hr Q8HR IVPB 04/27/18 06:00 05/02/18 12:59 04/28/18 05:17 Olanzapine (ZyPREXA) 2.5 mg DAILY ORAL 04/27/18 09:00 05/26/18 08:59 Olanzapine (ZyPREXA) 5 mg QHS ORAL 04/27/18 21:00 05/25/18 20:59 Ondansetron HCl (Zofran) 4 mg Q6H PRN IVP Nausea & Vomiting 04/27/18 00:30 05/20/18 18:29 Piperacillin Sod/ Tazobactam Sod 3.375 gm/Sodium Chloride 110 ml @ 27.5 mls/hr Q8H IVPB 04/27/18 16:00 05/04/18 15:59 04/28/18 07:53 Polyethylene Glycol (Miralax) 17 gm DAILYPRN PRN ORAL Constipation 04/27/18 18:30 05/22/18 18:29 Tamsulosin HCl (Flomax) 0.4 mg QHS ORAL 04/27/18 21:00 05/20/18 20:59 Enrique Gregory MD Apr 28, 2018 08:49
[2018-04-28] MEDS: Demeclocycline 150mg tab ORAL SCH ×2 (09:00→20:53)
[2018-04-28] MEDS: Docusate 100mg cap ORAL SCH ×2 (09:00→20:53)
[2018-04-28] MEDS: Heparin 5000 units/ml inj SUBQ SCH ×2 (09:00→20:55)
[2018-04-28] MEDS: Metoprolol Tartrate 10 MG in D5W 55 ML IVPB SCH (09:00)
[2018-04-28] MEDS: OLANZapine 2.5mg tab ORAL SCH (09:00)
[2018-04-28] MEDS ORDERED: Metoprolol 5mg/5ml Inj IVP SCH (10:15)
--- NOTE | 2018-04-28 10:43 | Cardiology Progress Note ---
Assessment/Plan Status: stable Assessment/Plan Assessment/Plan Status: stable, progressing Assessment/Plan Assessment: Tachycardia Atrial fibrillation Neuroendocrine carcinoma with mets Hypertension Hyperlipiemia Osteoarthritis knees Recurrent [place] Splenectomy Ascending aortic aneurysm hypothyroidism elevated hemoglobin A1c s/p TURP Ectopy with premature atrial contractions Plan: Transferred to [facility] BiPAP prn AAA stable in size no indication for intervention continue outpatient palliative radiation Continue Synthroid Hx of bradycardia from brain mass and hypervagal state - no indication for intervention Increase Metoprolol prn tachycardia 50 BID - hold for SBP<90, discussed with nursing anticoagulation contraindicated due to brain lesions and fall risk, thus can not cardiovert unless unstable Echo at OSH normal LV function Troponin down trended Fluid restriction for hyponatremia, NA improved CT brain with improvement in size of mass, still has edema Aspiration precautions Start IV digoxin due to RVR and hypotension, renal function and electrolytes ok Supportive care Dispo to SNF Subjective Cardiovascular: Reports: no symptoms Respiratory: Reports: no symptoms Gastrointestinal/Abdominal: Reports: no symptoms Genitourinary: Reports: no symptoms Subjective Transferred to [facility] for respiratory distress - Currently on Venturi mask at 28% FiO2 with SpO2 of 92% but Patient has been non-compliant with the O2 therapy Pulses elevated, BP low, AFIB RVR, given metoprolol pushes Objective Last 24 Hour Vital Signs Date Time Temp Pulse Resp B/P (MAP) Pulse Ox O2 Delivery O2 Flow Rate FiO2 04/28/18 10:28 125 99/66 04/28/18 09:00 125 99/66 04/28/18 08:17 153 04/28/18 07:43 114 26 96 Non-Rebreather 15.0 100 04/28/18 07:25 96 26 Non-Rebreather 15.0 100 04/28/18 07:25 Non-Rebreather 15.0 100 04/28/18 07:25 96 Non-Rebreather 15.0 100 04/28/18 07:23 95 26 96 Non-Rebreather 15.0 100 04/28/18 04:00 Nasal Cannula 5.0 04/28/18 04:00 98.9 110 32 110/60 (77) 98 04/28/18 03:33 89 26 91 12.0 70 04/28/18 03:32 127 04/28/18 03:11 90 26 96 12.0 70 04/28/18 02:24 85 20 95 Venturi Mask 12.0 55 04/28/18 00:33 55 04/28/18 00:23 83 20 93 Venturi Mask 14.0 55 04/28/18 00:00 98.4 103 30 102/66 (78) 88 04/28/18 00:00 Nasal Cannula 5.0 04/27/18 23:59 117 04/27/18 21:00 129 113/71 04/27/18 20:00 98.7 103 30 113/71 (85) 89 04/27/18 20:00 Nasal Cannula 5.0 04/27/18 19:50 94 22 Venturi Mask 14.0 55 04/27/18 19:50 Venturi Mask 14.0 55 04/27/18 19:50 92 Venturi Mask 14.0 55 04/27/18 19:18 119 04/27/18 16:00 102 04/27/18 16:00 96.8 79 22 124/73 (90) 90 04/27/18 13:27 120 123/74 04/27/18 12:00 121 04/27/18 12:00 97.7 117 22 124/73 (90) 93 General Appearance: no apparent distress, lethargic EENT: PERRL/EOMI, normal ENT inspection Neck: non-tender, normal alignment, normal inspection, no JVD Rhythm: Afib Cardiovascular: regularly irregular, tachycardia Respiratory/Chest: chest wall non-tender, normal breath sounds, crackles/rales Abdomen: normal bowel sounds, non tender, soft, no organomegaly Extremities: normal range of motion, non-tender, normal inspection Neurologic: 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 gauge unit operator 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, no motor/sensory deficits Intake and Output 04/27/18 04/28/18 18:59 06:59 Intake Total 975.00 ml Output Total 900 ml 800 ml Balance -900 ml 175.00 ml IV Total 975.00 ml Output Urine Total 900 ml 800 ml # Bowel Movements 4 Laboratory Tests Test 04/28/18 04:20 04/28/18 08:15 White Blood Count 5.0 K/UL (4.8-10.8) Red Blood Count 4.34 M/UL (4.70-6.10) L Hemoglobin 14.1 G/DL (14.2-18.0) L Hematocrit 40.1 % (42.0-52.0) L Mean Corpuscular Volume 92 FL (80-99) Mean Corpuscular Hemoglobin 32.4 PG (27.0-31.0) H Mean Corpuscular Hemoglobin Concent 35.1 G/DL (32.0-36.0) Red Cell Distribution Width 12.4 % (11.6-14.8) Platelet Count 71 K/UL (150-450) L Mean Platelet Volume 8.0 FL (6.5-10.1) Neutrophils (%) (Auto) % (45.0-75.0) Lymphocytes (%) (Auto) % (20.0-45.0) Monocytes (%) (Auto) % (1.0-10.0) Eosinophils (%) (Auto) % (0.0-3.0) Basophils (%) (Auto) % (0.0-2.0) Sodium Level 133 MMOL/L (136-145) L Potassium Level 4.0 MMOL/L (3.5-5.1) Chloride Level 99 MMOL/L (98-107) Carbon Dioxide Level 22 MMOL/L (21-32) Anion Gap 12 mmol/L (5-15) Blood Urea Nitrogen 17 mg/dL (7-18) Creatinine 0.7 MG/DL (0.55-1.30) Estimat Glomerular Filtration Rate mL/min (>60) Glucose Level 206 MG/DL (74-106) H Calcium Level 8.4 MG/DL (8.5-10.1) L Total Bilirubin 0.5 MG/DL (0.2-1.0) Aspartate Amino Transf (AST/SGOT) 21 U/L (15-37) Alanine Aminotransferase (ALT/SGPT) 27 U/L (12-78) Alkaline Phosphatase 71 U/L (46-116) Total Protein 5.1 G/DL (6.4-8.2) L Albumin 1.2 G/DL (3.4-5.0) L Globulin 3.9 g/dL Albumin/Globulin Ratio 0.3 (1.0-2.7) L Arterial Blood pH 7.434 (7.350-7.450) Arterial Blood Partial Pressure CO2 33.3 mmHg (35.0-45.0) L Arterial Blood Partial Pressure O2 100.4 mmHg (75.0-100.0) H Arterial Blood HCO3 21.8 mmol/L (22.0-26.0) L Arterial Blood Oxygen Saturation 97.2 % (95-100) Arterial Blood Base Excess -1.6 (-2-2) Francesco Test Positive Enrique Cordero MD Apr 28, 2018 10:43
[2018-04-28 12:00] VITALS: BP 107/68
--- NOTE | 2018-04-28 12:10 | Nephrology Progress Note ---
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) (2) Hyponatremia Assessment: better (3) Hypertension (4) Metastatic cancer (5) Hypokalemia (6) Hypomagnesemia Plan free water restriction Demeclocycline 300 mg bid follow labs discussed with family and RN Subjective Subjective Awake Objective Objective Last 24 Hour Vital Signs Date Time Temp Pulse Resp B/P (MAP) Pulse Ox O2 Delivery O2 Flow Rate FiO2 04/28/18 11:17 98 28 94 Non-Rebreather 15.0 100 04/28/18 11:00 103 26 94 Non-Rebreather 15.0 100 04/28/18 10:28 125 99/66 04/28/18 09:00 125 99/66 04/28/18 08:17 153 04/28/18 07:43 114 26 96 Non-Rebreather 15.0 100 04/28/18 07:25 96 26 Non-Rebreather 15.0 100 04/28/18 07:25 Non-Rebreather 15.0 100 04/28/18 07:25 96 Non-Rebreather 15.0 100 04/28/18 07:23 95 26 96 Non-Rebreather 15.0 100 04/28/18 04:00 Nasal Cannula 5.0 04/28/18 04:00 98.9 110 32 110/60 (77) 98 04/28/18 03:33 89 26 91 12.0 70 04/28/18 03:32 127 04/28/18 03:11 90 26 96 12.0 70 04/28/18 02:24 85 20 95 Venturi Mask 12.0 55 04/28/18 00:33 55 04/28/18 00:23 83 20 93 Venturi Mask 14.0 55 04/28/18 00:00 98.4 103 30 102/66 (78) 88 04/28/18 00:00 Nasal Cannula 5.0 04/27/18 23:59 117 04/27/18 21:00 129 113/71 04/27/18 20:00 98.7 103 30 113/71 (85) 89 04/27/18 20:00 Nasal Cannula 5.0 04/27/18 19:50 94 22 Venturi Mask 14.0 55 04/27/18 19:50 Venturi Mask 14.0 55 04/27/18 19:50 92 Venturi Mask 14.0 55 04/27/18 19:18 119 04/27/18 16:00 102 04/27/18 16:00 96.8 79 22 124/73 (90) 90 04/27/18 13:27 120 123/74 Intake and Output 04/27/18 04/28/18 18:59 06:59 Intake Total 975.00 ml Output Total 900 ml 800 ml Balance -900 ml 175.00 ml IV Total 975.00 ml Output Urine Total 900 ml 800 ml # Bowel Movements 4 Laboratory Tests 04/28/18 04:20: White Blood Count 5.0, Red Blood Count 4.34L, Hemoglobin 14.1L, Hematocrit 40.1L , Mean Corpuscular Volume 92, Mean Corpuscular Hemoglobin 32.4H, Mean Corpuscular Hemoglobin Concent 35.1, Red Cell Distribution Width 12.4, Platelet Count 71L, Mean Platelet Volume 8.0, Neutrophils (%) (Auto) , Lymphocytes (%) ( Auto) , Monocytes (%) (Auto) , Eosinophils (%) (Auto) , Basophils (%) (Auto) , Sodium Level 133L, Potassium Level 4.0, Chloride Level 99, Carbon Dioxide Level 22, Anion Gap 12, Blood Urea Nitrogen 17, Creatinine 0.7, Estimat Glomerular Filtration Rate , Glucose Level 206H, Calcium Level 8.4L, Total Bilirubin 0.5, Aspartate Amino Transf (AST/SGOT) 21, Alanine Aminotransferase (ALT/SGPT) 27, Alkaline Phosphatase 71, Total Protein 5.1L, Albumin 1.2L, Globulin 3.9, Albumin /Globulin Ratio 0.3L 04/28/18 08:15: Arterial Blood pH 7.434, Arterial Blood Partial Pressure CO2 33.3L, Arterial Blood Partial Pressure O2 100.4H, Arterial Blood HCO3 21.8L, Arterial Blood Oxygen Saturation 97.2, Arterial Blood Base Excess -1.6, Francesco Test Positive Height (Feet): 5 Height (Inches): 11.00 Weight (Pounds): 162 Cardiovascular: normal rate Respiratory/Chest: other - coarse BSs Ayo An MD Apr 28, 2018 12:10
--- NOTE | 2018-04-28 12:55 | Internal Med Progress Note ---
Subjective Date of Service: Apr 28, 2018 Physician Name Demetrio Morgan Attending Physician Noah Paz MD Current Medications Medications (Trade) Dose Ordered Sig/Chivo Route PRN Reason Start Time Stop Time Status Last Admin Dose Admin Acetaminophen (Tylenol) 650 mg Q4H PRN ORAL Mild Pain (Pain Scale 1-3) 04/27/18 02:30 05/20/18 18:29 Acetaminophen (Tylenol) 650 mg Q4H PRN ORAL fever 04/27/18 02:30 05/20/18 18:29 Acetaminophen (Tylenol) 650 mg Q6H PRN RECTAL Fever/Headache/Mild Pain 04/27/18 04:00 05/26/18 21:49 Acetaminophen/ Codeine Phosphate (Tylenol #3) 1 tab Q6H PRN ORAL Moderate Pain (Pain Scale 4-6) 04/27/18 00:30 04/28/18 18:29 Acetaminophen/ Hydrocodone Bitart (Levels 5/325) 1 tab Q6H PRN ORAL BREAKTHROUGH PAIN 04/27/18 00:30 04/28/18 18:29 Albuterol/ Ipratropium (Albuterol/ Ipratropium) 3 ml Q4HRT HHN 04/27/18 19:00 05/02/18 18:59 04/28/18 11:00 Chlorhexidine Gluconate (Ana-Hex 2%) 1 applic DAILY@2000 TOPIC 04/27/18 20:00 05/25/18 19:59 04/27/18 20:00 Demeclocycline HCl (Declomycin) 300 mg Q12HR ORAL 04/27/18 09:00 05/01/18 20:59 Dexamethasone (Decadron) 4 mg DAILY ORAL 04/27/18 09:00 05/21/18 08:59 Dextrose (Dextrose 50%) 25 ml Q30M PRN IV Hypoglycemia 04/26/18 23:15 05/20/18 15:14 Dextrose (Dextrose 50%) 50 ml Q30M PRN IV Hypoglycemia 04/26/18 23:15 05/20/18 15:14 Dextrose/ Electrolytes 1,000 ml @ 50 mls/hr Q20H IV 04/26/18 23:15 05/26/18 14:59 04/27/18 18:51 Digoxin (Lanoxin) 0.25 mg DAILY IVP 04/29/18 09:00 05/29/18 08:59 Docusate Sodium (Colace) 100 mg EVERY 12 HOURS ORAL 04/27/18 09:00 05/20/18 20:59 Famotidine (Pepcid) 40 mg DAILY ORAL 04/27/18 09:00 05/21/18 08:59 Heparin Sodium (Porcine) (Heparin 5000 units/ml) 5,000 units EVERY 12 HOURS SUBQ 04/27/18 09:00 05/20/18 20:59 Insulin Aspart (NovoLOG) BEFORE MEALS AND HS SUBQ 04/27/18 06:30 05/20/18 16:29 Levofloxacin 150 ml @ 100 mls/hr Q24H IVPB 04/27/18 14:00 05/02/18 13:59 04/27/18 15:11 Levothyroxine Sodium (Synthroid) 75 mcg Q24H ORAL 04/27/18 06:30 05/21/18 06:29 Lorazepam (Ativan 2mg/ml 1ml) 1 mg Q4H PRN IM For Anxiety 04/27/18 01:00 05/02/18 00:59 04/27/18 00:56 Magnesium Hydroxide (Mom) 30 ml HSPRN PRN ORAL Constipation 04/27/18 18:30 05/22/18 18:29 Olanzapine (ZyPREXA) 2.5 mg DAILY ORAL 04/27/18 09:00 05/26/18 08:59 Olanzapine (ZyPREXA) 5 mg QHS ORAL 04/27/18 21:00 05/25/18 20:59 Ondansetron HCl (Zofran) 4 mg Q6H PRN IVP Nausea & Vomiting 04/27/18 00:30 05/20/18 18:29 Piperacillin Sod/ Tazobactam Sod 3.375 gm/Sodium Chloride 110 ml @ 27.5 mls/hr Q8H IVPB 04/27/18 16:00 05/04/18 15:59 04/28/18 07:53 Polyethylene Glycol (Miralax) 17 gm DAILYPRN PRN ORAL Constipation 04/27/18 18:30 05/22/18 18:29 Tamsulosin HCl (Flomax) 0.4 mg QHS ORAL 04/27/18 21:00 05/20/18 20:59 Allergies: Coded Allergies: No Known Allergies (Unverified , 10/25/13) Subjective 82 YO M admitted with dehydration. Cover for Int [facility]-Dr Paz. [place]. Family refused NG tube Objective Last Vital Signs Date Time Temp Pulse Resp B/P (MAP) Pulse Ox O2 Delivery O2 Flow Rate FiO2 04/28/18 11:17 98 28 94 Non-Rebreather 15.0 100 04/28/18 10:28 99/66 04/28/18 04:00 98.9 Laboratory Tests Test 04/28/18 04:20 04/28/18 08:15 White Blood Count 5.0 K/UL (4.8-10.8) Red Blood Count 4.34 M/UL (4.70-6.10) L Hemoglobin 14.1 G/DL (14.2-18.0) L Hematocrit 40.1 % (42.0-52.0) L Mean Corpuscular Volume 92 FL (80-99) Mean Corpuscular Hemoglobin 32.4 PG (27.0-31.0) H Mean Corpuscular Hemoglobin Concent 35.1 G/DL (32.0-36.0) Red Cell Distribution Width 12.4 % (11.6-14.8) Platelet Count 71 K/UL (150-450) L Mean Platelet Volume 8.0 FL (6.5-10.1) Neutrophils (%) (Auto) % (45.0-75.0) Lymphocytes (%) (Auto) % (20.0-45.0) Monocytes (%) (Auto) % (1.0-10.0) Eosinophils (%) (Auto) % (0.0-3.0) Basophils (%) (Auto) % (0.0-2.0) Sodium Level 133 MMOL/L (136-145) L Potassium Level 4.0 MMOL/L (3.5-5.1) Chloride Level 99 MMOL/L (98-107) Carbon Dioxide Level 22 MMOL/L (21-32) Anion Gap 12 mmol/L (5-15) Blood Urea Nitrogen 17 mg/dL (7-18) Creatinine 0.7 MG/DL (0.55-1.30) Estimat Glomerular Filtration Rate mL/min (>60) Glucose Level 206 MG/DL (74-106) H Calcium Level 8.4 MG/DL (8.5-10.1) L Total Bilirubin 0.5 MG/DL (0.2-1.0) Aspartate Amino Transf (AST/SGOT) 21 U/L (15-37) Alanine Aminotransferase (ALT/SGPT) 27 U/L (12-78) Alkaline Phosphatase 71 U/L (46-116) Total Protein 5.1 G/DL (6.4-8.2) L Albumin 1.2 G/DL (3.4-5.0) L Globulin 3.9 g/dL Albumin/Globulin Ratio 0.3 (1.0-2.7) L Arterial Blood pH 7.434 (7.350-7.450) Arterial Blood Partial Pressure CO2 33.3 mmHg (35.0-45.0) L Arterial Blood Partial Pressure O2 100.4 mmHg (75.0-100.0) H Arterial Blood HCO3 21.8 mmol/L (22.0-26.0) L Arterial Blood Oxygen Saturation 97.2 % (95-100) Arterial Blood Base Excess -1.6 (-2-2) Francesco Test Positive Intake and Output 04/27/18 04/28/18 18:59 06:59 Intake Total 975.00 ml Output Total 900 ml 800 ml Balance -900 ml 175.00 ml IV Total 975.00 ml Output Urine Total 900 ml 800 ml # Bowel Movements 4 Objective GENERAL: awake, responsive, less confused. HEAD AND NECK: Pupils equal and reactive to light. Extraocular movements intact. Neck was supple. No JVD. LUNGS: Venturi mask; Decreased air entry at bases. No wheeze or rales. Poor inspiratory effort. HEART: S1 and S2. Irregular. No murmur or gallop. ABDOMEN: Soft, nondistended, and nontender. Positive bowel sounds. EXTREMITIES: No cyanosis, clubbing, or edema. NEUROLOGIC: Cranial nerves II through XII are grossly intact. moving all the extremities spontaneously. Gait was not assessed due to the patient's status. RECTAL: Refused and deferred. GENITOURINARY: Refused and deferred. PSYCHIATRIC: Mood and affect is intact. Assessment/Plan Assessment/Plan Assessment/Plan Assessment/Plan 1. Acute UTI. 2. Steroid-induced hyperglycemia. 3. Dehydration. 4. 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 5. 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 6. 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 7. Hypothyroidism. 8. Atherosclerotic heart disease. 9. A 4.2-cm ascending aortic aneurysm. 10. Status post splenectomy in 1967. 11. Severe osteoarthritis of the knee. 12. Hypertension. 13. New onset Atrial Fibrillation. 14. Dysphagia 15. respiratory failure PLAN: In [place] At this time, the patient is not a candidate for anticoagulation due to the brain metastasis. DVT prophylaxis: heparin subcutaneous. Code status: DNR/DNI Follow up with Nephrology consultation with Dr. An: Demeclocycline 300 mg bid Abx: Cefepime IV F/u with labs and cultures. Discuss with daughter and son and patient at bedside regarding discharge planning, SNF. GI consult: Re: G-tube eval Discussed with family at bedside Pulmonary = [facility] Dis=[facility] Prognosis is guarded Family refused NG tube; await swallow Demetrio Gonzalez MD Apr 28, 2018 12:55
[2018-04-28] MEDS ORDERED: Fleet's Mineral Oil Enema RECTAL SCH (13:30)
[2018-04-28] MEDS: D5 1/2NS w/KCl 20mEq 1,000 ML IV SCH (14:31)
[2018-04-28 16:00] VITALS: BP 94/59
[2018-04-28] MEDS ORDERED: Levalbuterol Inh UD 1.25mg/0.5ml HHN SCH (17:00)
--- NOTE | 2018-04-28 17:07 | Pulmonology Progress Note ---
Assessment/Plan Assessment/Plan Pulmonary Progress Note HPI Patient is an 82-year-old male with history of metastatic colon cancer including to brain. Previous Bladder Cancer. He had chemotherapy before and is getting radiation. Last radiation therapy was about a month ago. He presents with chief complaint of generalized body pain and weakness. Noted to have Pneumonia, Hyponatremia. Decreased appetite. No fever chills but no nausea no vomiting. No increasing focal deficit. Denies any other complaint. Worse with swallowing. [place] nauseous but no vomiting. No diarrhea. No fever. No chest pain. C/o SOB, cough Allergies: No Known Allergies Past Medical History: See above, hypothyroidism Review of Systems Constitutional: Reports: malaise, weakness Eye: Denies: eye pain, blurred vision ENT: Reports: throat pain; Denies: ear pain, nose congestion, throat swelling Respiratory: c/o cough, c/o some shortness of breath Cardiovascular: Denies: chest pain, palpitations Gastrointestinal: Denies: abdominal pain, diarrhea, nausea, vomiting Musculoskeletal: Denies: back pain, joint pain Skin: Denies: rash Neurological: Denies: headache, numbness Endocrine: Denies: increased thirst, increased urine Hematologic/Lymphatic: Denies: easy bruising All Other Systems: negative except mentioned in HPI Physical Exam Vital Signs Noted General Appearance: alert, Chronically Ill Head: normocephalic, atraumatic Eyes: bilateral eye PERRL, bilateral eye EOMI ENT: hearing grossly normal, dry mucus membranes Neck: full range of motion, supple, no meningismus Respiratory: chest non-tender, lungs clear, normal breath sounds Cardiovascular #1: no murmur, tachycardia, irregularly irregular Gastrointestinal: normal bowel sounds, non tender, no mass, no organomegaly, no bruit, non-distended Musculoskeletal: back normal, normal range of motion Neurologic: alert, oriented x3 Psychiatric: mood/affect normal Skin: warm/dry Impression: Pneumonia Hypoxic Respiratory Failure Previous metastatic cancer s/p chemotherapy an dXRT Hypothyroidism Hyponatremia Failure to thrive in adult Dehydration Plan Continuie current antibiotics O2 PRN HHN BiPAP PRN PPX 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 Results Rhythm Strip Time: 06:39 EP Interpretation: yes Rate: 90 Rhythm: no PVC's, no ectopy Chest X-Ray Diagnostic Results Chest X-Ray Diagnostic Results : Chest X-Ray Ordered: Yes # of Views/Limited/Complete: 1 View Indication: Chest Pain EP Interpretation: Yes Interpretation: bilateral infiltrates CXR 04/27/2018 Procedure: XRAY Chest 1v Indication: Cough Technique: One view of the chest Comparison: 04/26/2018 Findings: Unchanged bilateral interstitial and airspace opacities, probable small left pleural effusion. Right size is normal. Right chest port catheter again demonstrated Impression: Unchanged, over one day, findings as above. Subjective ROS Limited/Unobtainable: No Allergies: Coded Allergies: No Known Allergies (Unverified , 10/25/13) Objective Last 24 Hour Vital Signs Date Time Temp Pulse Resp B/P (MAP) Pulse Ox O2 Delivery O2 Flow Rate FiO2 04/28/18 16:00 Nasal Cannula 5.0 04/28/18 15:33 115 04/28/18 12:00 Nasal Cannula 5.0 04/28/18 12:00 97.7 101 24 107/68 (81) 95 04/28/18 11:34 122 04/28/18 11:17 98 28 94 Non-Rebreather 15.0 100 04/28/18 11:00 103 26 94 Non-Rebreather 15.0 100 04/28/18 10:28 125 99/66 04/28/18 09:00 125 99/66 04/28/18 08:17 153 04/28/18 08:00 98.1 80 30 102/46 (64) 98 04/28/18 08:00 Nasal Cannula 5.0 04/28/18 07:43 114 26 96 Non-Rebreather 15.0 100 04/28/18 07:25 96 26 Non-Rebreather 15.0 100 04/28/18 07:25 Non-Rebreather 15.0 100 04/28/18 07:25 96 Non-Rebreather 15.0 100 04/28/18 07:23 95 26 96 Non-Rebreather 15.0 100 04/28/18 04:00 Nasal Cannula 5.0 04/28/18 04:00 98.9 110 32 110/60 (77) 98 04/28/18 03:33 89 26 91 12.0 70 04/28/18 03:32 127 04/28/18 03:11 90 26 96 12.0 70 04/28/18 02:24 85 20 95 Venturi Mask 12.0 55 04/28/18 00:33 55 04/28/18 00:23 83 20 93 Venturi Mask 14.0 55 04/28/18 00:00 98.4 103 30 102/66 (78) 88 04/28/18 00:00 Nasal Cannula 5.0 04/27/18 23:59 117 04/27/18 21:00 129 113/71 04/27/18 20:00 98.7 103 30 113/71 (85) 89 04/27/18 20:00 Nasal Cannula 5.0 04/27/18 19:50 94 22 Venturi Mask 14.0 55 04/27/18 19:50 Venturi Mask 14.0 55 04/27/18 19:50 92 Venturi Mask 14.0 55 04/27/18 19:18 119 Intake and Output 04/27/18 04/28/18 19:00 07:00 Intake Total 50 ml 975.00 ml Output Total 900 ml 800 ml Balance -850 ml 175.00 ml IV Total 50 ml 975.00 ml Output Urine Total 900 ml 800 ml # Bowel Movements 4 Laboratory Tests 04/28/18 04:20: White Blood Count 5.0, Red Blood Count 4.34L, Hemoglobin 14.1L, Hematocrit 40.1L , Mean Corpuscular Volume 92, Mean Corpuscular Hemoglobin 32.4H, Mean Corpuscular Hemoglobin Concent 35.1, Red Cell Distribution Width 12.4, Platelet Count 71L, Mean Platelet Volume 8.0, Neutrophils (%) (Auto) , Lymphocytes (%) ( Auto) , Monocytes (%) (Auto) , Eosinophils (%) (Auto) , Basophils (%) (Auto) , Sodium Level 133L, Potassium Level 4.0, Chloride Level 99, Carbon Dioxide Level 22, Anion Gap 12, Blood Urea Nitrogen 17, Creatinine 0.7, Estimat Glomerular Filtration Rate , Glucose Level 206H, Calcium Level 8.4L, Total Bilirubin 0.5, Aspartate Amino Transf (AST/SGOT) 21, Alanine Aminotransferase (ALT/SGPT) 27, Alkaline Phosphatase 71, Total Protein 5.1L, Albumin 1.2L, Globulin 3.9, Albumin /Globulin Ratio 0.3L 04/28/18 08:15: Arterial Blood pH 7.434, Arterial Blood Partial Pressure CO2 33.3L, Arterial Blood Partial Pressure O2 100.4H, Arterial Blood HCO3 21.8L, Arterial Blood Oxygen Saturation 97.2, Arterial Blood Base Excess -1.6, Francesco Test Positive Current Medications Medications (Trade) Dose Ordered Sig/Chivo Route PRN Reason Start Time Stop Time Status Last Admin Dose Admin Acetaminophen (Tylenol) 650 mg Q4H PRN ORAL Mild Pain (Pain Scale 1-3) 04/27/18 02:30 05/20/18 18:29 Acetaminophen (Tylenol) 650 mg Q4H PRN ORAL fever 04/27/18 02:30 05/20/18 18:29 Acetaminophen (Tylenol) 650 mg Q6H PRN RECTAL Fever/Headache/Mild Pain 04/27/18 04:00 05/26/18 21:49 Acetaminophen/ Codeine Phosphate (Tylenol #3) 1 tab Q6H PRN ORAL Moderate Pain (Pain Scale 4-6) 04/27/18 00:30 04/28/18 18:29 Acetaminophen/ Hydrocodone Bitart ([place] 5/325) 1 tab Q6H PRN ORAL BREAKTHROUGH PAIN 04/27/18 00:30 04/28/18 18:29 Chlorhexidine Gluconate (Ana-Hex 2%) 1 applic DAILY@2000 TOPIC 04/27/18 20:00 05/25/18 19:59 04/27/18 20:00 Demeclocycline HCl (Declomycin) 300 mg Q12HR ORAL 04/27/18 09:00 05/01/18 20:59 Dexamethasone (Decadron) 4 mg DAILY ORAL 04/27/18 09:00 05/21/18 08:59 Dextrose (Dextrose 50%) 25 ml Q30M PRN IV Hypoglycemia 04/26/18 23:15 05/20/18 15:14 Dextrose (Dextrose 50%) 50 ml Q30M PRN IV Hypoglycemia 04/26/18 23:15 05/20/18 15:14 Dextrose/ Electrolytes 1,000 ml @ 50 mls/hr Q20H IV 04/26/18 23:15 05/26/18 14:59 04/28/18 14:31 Digoxin (Lanoxin) 0.25 mg DAILY IVP 04/29/18 09:00 05/29/18 08:59 Docusate Sodium (Colace) 100 mg EVERY 12 HOURS ORAL 04/27/18 09:00 05/20/18 20:59 Famotidine (Pepcid) 40 mg DAILY ORAL 04/27/18 09:00 05/21/18 08:59 Heparin Sodium (Porcine) (Heparin 5000 units/ml) 5,000 units EVERY 12 HOURS SUBQ 04/27/18 09:00 05/20/18 20:59 Insulin Aspart (NovoLOG) BEFORE MEALS AND HS SUBQ 04/27/18 06:30 05/20/18 16:29 Levalbuterol HCl (Xopenex) 0.63 mg ONCE HHN 04/28/18 17:00 04/28/18 18:30 Levalbuterol HCl (Xopenex) 0.63 mg Q8HRT HHN 04/28/18 23:00 05/03/18 22:59 Levofloxacin 150 ml @ 100 mls/hr Q24H IVPB 04/27/18 14:00 05/02/18 13:59 04/28/18 14:23 Levothyroxine Sodium (Synthroid) 75 mcg Q24H ORAL 04/27/18 06:30 05/21/18 06:29 Lorazepam (Ativan 2mg/ml 1ml) 1 mg Q4H PRN IM For Anxiety 04/27/18 01:00 05/02/18 00:59 04/27/18 00:56 Magnesium Hydroxide (Mom) 30 ml HSPRN PRN ORAL Constipation 04/27/18 18:30 05/22/18 18:29 Olanzapine (ZyPREXA) 2.5 mg DAILY ORAL 04/27/18 09:00 05/26/18 08:59 Olanzapine (ZyPREXA) 5 mg QHS ORAL 04/27/18 21:00 05/25/18 20:59 Ondansetron HCl (Zofran) 4 mg Q6H PRN IVP Nausea & Vomiting 04/27/18 00:30 05/20/18 18:29 Piperacillin Sod/ Tazobactam Sod 3.375 gm/Sodium Chloride 110 ml @ 27.5 mls/hr Q8H IVPB 04/27/18 16:00 05/04/18 15:59 04/28/18 16:11 Polyethylene Glycol (Miralax) 17 gm DAILYPRN PRN ORAL Constipation 04/27/18 18:30 05/22/18 18:29 Tamsulosin HCl (Flomax) 0.4 mg QHS ORAL 04/27/18 21:00 05/20/18 20:59 Enrique Ruiz MD Apr 28, 2018 17:07
[2018-04-28] MEDS ORDERED: Digoxin 0.5mg/2ml Inj IVP SCH (17:45)
[2018-04-28] MEDS ORDERED: NS 275ml ONE (17:50)
[2018-04-28] MEDS ORDERED: NS Irrig 1000ml ONE (17:50)
[2018-04-28 20:00] VITALS: BP 112/57
[2018-04-28] MEDS: Tamsulosin 0.4mg cap ORAL SCH (20:53)
[2018-04-28] MEDS: Dyna-Hex 2% Top Sol 2oz TOPIC SCH (21:28)
[2018-04-28] MEDS ORDERED: Levalbuterol Inh UD 1.25mg/0.5ml HHN ONE (23:00)
[2018-04-28] MEDS: Levalbuterol Inh UD 1.25mg/0.5ml HHN SCH (23:53)
[2018-04-29] VITALS (7 sets, daily range): BP systolic 97–122; BP diastolic 52–67
[2018-04-29] MEDS: Piperacillin/Tazobactam 3.375 GM in NS 110 ML IVPB SCH ×4 (00:52→23:29)
[2018-04-29 01:49] LABS: BILIRUBIN, URINE NEGATIVE (NEGATIVE); GLUCOSE, URINE (UA) 1+ (NEGATIVE); KETONES,URINE 1+ (NEGATIVE); LEUKOCYTE ESTERASE ,URINE 1+ (NEGATIVE); NITRITE,URINE NEGATIVE (NEGATIVE); PH,URINE 5 (4.5-8.0); PROTEIN,URINE 3+ (NEGATIVE); UROBILINOGEN,URINE NORMAL MG/DL (0.0-1.0)
[2018-04-29 02:01] LABS: APPEARANCE,URINE SLIGHTLY CLOUDY; COLOR,URINE YELLOW
[2018-04-29] MEDS: NovoLOG Insulin Flexpen SUBQ SCH ×4 (05:51→21:00)
[2018-04-29 05:58] LABS: HEMATOCRIT 39.5 % (42.0-52.0); HEMOGLOBIN 13.8 G/DL (14.2-18.0); MEAN CORPUSCULAR VOLUME 93 FL (80-99); PLATELET COUNT 66 K/UL (150-450); RED BLOOD COUNT 4.25 M/UL (4.70-6.10); RED CELL DISTRIBUTION WIDTH 12.3 % (11.6-14.8)
[2018-04-29 06:11] LABS: ANION GAP 8 mmol/L (5-15); BLOOD UREA NITROGEN 13 mg/dL (7-18); CALCIUM 8.5 MG/DL (8.5-10.1); CARBON DIOXIDE 25 MMOL/L (21-32); CHLORIDE 103 MMOL/L (98-107); CREATININE 0.7 MG/DL (0.55-1.30); POTASSIUM 3.8 MMOL/L (3.5-5.1); SODIUM 136 MMOL/L (136-145)
[2018-04-29] MEDS: Levalbuterol Inh UD 1.25mg/0.5ml HHN SCH ×3 (07:17→23:00)
[2018-04-29] MEDS: Digoxin 0.5mg/2ml Inj IVP SCH (09:00)
[2018-04-29] MEDS: OLANZapine 2.5mg tab ORAL SCH (09:00)
[2018-04-29] MEDS: Heparin 5000 units/ml inj SUBQ SCH (09:00)
[2018-04-29] MEDS: Docusate 100mg cap ORAL SCH ×2 (09:00→21:00)
[2018-04-29] MEDS: Demeclocycline 150mg tab ORAL SCH ×2 (09:00→21:00)
--- NOTE | 2018-04-29 09:02 | Infectious Diseases Prog Note ---
Assessment/Plan Assessment/Plan Abx: Cefepime 04/21- Assessment: Afebrile cough ? CAP vs Asp Pneum No leukocytosis R/o probable UTI- (on/off dysuria, worse in the last few days, however no pyuria ) - 04/25 CXR: Reduced lung volumes with bilateral interstitial opacities. -u/a wbc 2-4, nit +, leuk est +1; ucx Generalized weakness Dysphagia Afib w RVR -04/23 CXR: Interval worsening of aeration with increasing interstitial opacities and worsening perihilar opacities. Given and short-term interval worsening findings may be related to development of pulmonary edema. Correlate clinically. Previously described right hilar masslike opacity less well-defined on this exam, likely obscured by above described opacities. The possibility of an underlying mass is not entirely excluded especially given history of known malignancy. Follow up recommend. Hyponatremia Troponinemia HTN HLD neuroendocrine CA of bladder with liver, brain, mediastinum and lungs mets s/p chemo and currently on radiation tx (last was 1 month ago) Severe OA Knee s/p knee arthroplasty s/p b/l inguinal repair s/p splenectomy 1968 hypothyroidism hx of UTI Plan: - Zosyn #3 -Continue levaquin #4 for now pending Cx (Asp Pneum and probable UTI ) - Flagyl #4 - 03/29/18 S/P Cefepime # 5 - f/u Urine and sputum Cx - f/u Urine Legionella - f/u fungal serologies -Monitor CBC/CMP -aspiration precautions -Cards f/u Subjective Allergies: Coded Allergies: No Known Allergies (Unverified , 10/25/13) Subjective Patient afebrile No leukocytosis On Nonrebreather Awake and alert Objective Vital Signs Last 24 Hour Vital Signs Date Time Temp Pulse Resp B/P (MAP) Pulse Ox O2 Delivery O2 Flow Rate FiO2 04/29/18 07:19 73 92 15.0 100 04/29/18 07:17 92 Non-Rebreather 15.0 100 04/29/18 07:17 Non-Rebreather 15.0 100 04/29/18 07:12 95 30 78 Non-Rebreather 15.0 100 04/29/18 07:10 84 28 92 Non-Rebreather 15.0 100 04/29/18 05:25 110 92 15.0 100 04/29/18 04:00 126 04/29/18 04:00 Non-Rebreather 15.0 04/29/18 04:00 99.3 96 28 97/53 (68) 92 04/29/18 03:20 113 92 15.0 100 04/29/18 00:02 108 26 90 Non-Rebreather 15.0 100 04/29/18 00:00 Non-Rebreather 15.0 04/29/18 00:00 99.0 130 28 121/62 (81) 90 04/29/18 00:00 131 04/28/18 23:53 111 24 88 Non-Rebreather 15.0 100 04/28/18 21:10 105 30 95 Facial 100 04/28/18 20:00 97.9 102 36 112/57 (75) 89 04/28/18 20:00 114 04/28/18 20:00 Non-Rebreather 15.0 04/28/18 19:30 92 26 Non-Rebreather 15.0 100 04/28/18 19:30 Non-Rebreather 15.0 100 04/28/18 19:30 94 Non-Rebreather 15.0 100 04/28/18 18:40 130 04/28/18 17:24 106 24 92 Non-Rebreather 15.0 100 04/28/18 16:00 97.9 100 30 94/59 (71) 96 04/28/18 16:00 Nasal Cannula 5.0 04/28/18 15:33 115 04/28/18 12:00 Nasal Cannula 5.0 04/28/18 12:00 97.7 101 24 107/68 (81) 95 04/28/18 11:34 122 04/28/18 11:17 98 28 94 Non-Rebreather 15.0 100 04/28/18 11:00 103 26 94 Non-Rebreather 15.0 100 04/28/18 10:28 125 99/66 Height (Feet): 5 Height (Inches): 11.00 Weight (Pounds): 190 Objective GENERAL: The patient is thin, Awake and alert HEENT: NCAT, MMM LUNGS: Course B/L, No W HEART: S1 and S2. Irregular. No murmur or gallop. ABDOMEN: Soft, nondistended, and nontender. Positive bowel sounds. EXTREMITIES: No cyanosis, clubbing, or edema. Laboratory Tests Test 04/29/18 01:03 04/29/18 05:26 Urine Color Yellow Urine Appearance Slightly cloudy Urine pH 5 (4.5-8.0) Urine Specific [place] 1.025 (1.005-1.035) Urine Protein 3+ (NEGATIVE) H Urine Glucose (UA) 1+ (NEGATIVE) H Urine Ketones 1+ (NEGATIVE) H Urine Blood 3+ (NEGATIVE) H Urine Nitrite Negative (NEGATIVE) Urine Bilirubin Negative (NEGATIVE) Urine Urobilinogen Normal MG/DL (0.0-1.0) Urine Leukocyte Esterase 1+ (NEGATIVE) H Urine RBC 5-10 /HPF (0 - 0) H Urine WBC 5-10 /HPF (0 - 0) H Urine Squamous Epithelial Cells Few /LPF (NONE/OCC) Urine Bacteria Moderate /HPF (NONE) H Urine Yeast Many /HPF (NONE) H Urine Legionella Antigen Pending White Blood Count 6.0 K/UL (4.8-10.8) Red Blood Count 4.25 M/UL (4.70-6.10) L Hemoglobin 13.8 G/DL (14.2-18.0) L Hematocrit 39.5 % (42.0-52.0) L Mean Corpuscular Volume 93 FL (80-99) Mean Corpuscular Hemoglobin 32.5 PG (27.0-31.0) H Mean Corpuscular Hemoglobin Concent 35.1 G/DL (32.0-36.0) Red Cell Distribution Width 12.3 % (11.6-14.8) Platelet Count 66 K/UL (150-450) L Mean Platelet Volume 7.9 FL (6.5-10.1) Neutrophils (%) (Auto) % (45.0-75.0) Lymphocytes (%) (Auto) % (20.0-45.0) Monocytes (%) (Auto) % (1.0-10.0) Eosinophils (%) (Auto) % (0.0-3.0) Basophils (%) (Auto) % (0.0-2.0) Sodium Level 136 MMOL/L (136-145) Potassium Level 3.8 MMOL/L (3.5-5.1) Chloride Level 103 MMOL/L (98-107) Carbon Dioxide Level 25 MMOL/L (21-32) Anion Gap 8 mmol/L (5-15) Blood Urea Nitrogen 13 mg/dL (7-18) Creatinine 0.7 MG/DL (0.55-1.30) Estimat Glomerular Filtration Rate mL/min (>60) Glucose Level 220 MG/DL (74-106) H Calcium Level 8.5 MG/DL (8.5-10.1) Current Medications Medications (Trade) Dose Ordered Sig/Chivo Route PRN Reason Start Time Stop Time Status Last Admin Dose Admin Acetaminophen (Tylenol) 650 mg Q4H PRN ORAL Mild Pain (Pain Scale 1-3) 04/27/18 02:30 05/20/18 18:29 Acetaminophen (Tylenol) 650 mg Q4H PRN ORAL fever 04/27/18 02:30 05/20/18 18:29 Acetaminophen (Tylenol) 650 mg Q6H PRN RECTAL Fever/Headache/Mild Pain 04/27/18 04:00 05/26/18 21:49 Chlorhexidine Gluconate (Ana-Hex 2%) 1 applic DAILY@2000 TOPIC 04/27/18 20:00 05/25/18 19:59 04/28/18 21:28 Demeclocycline HCl (Declomycin) 300 mg Q12HR ORAL 04/27/18 09:00 05/01/18 20:59 Dexamethasone (Decadron) 4 mg DAILY ORAL 04/27/18 09:00 05/21/18 08:59 Dextrose (Dextrose 50%) 25 ml Q30M PRN IV Hypoglycemia 04/26/18 23:15 05/20/18 15:14 Dextrose (Dextrose 50%) 50 ml Q30M PRN IV Hypoglycemia 04/26/18 23:15 05/20/18 15:14 Dextrose/ Electrolytes 1,000 ml @ 50 mls/hr Q20H IV 04/26/18 23:15 05/26/18 14:59 04/28/18 14:31 Digoxin (Lanoxin) 0.25 mg DAILY IVP 04/29/18 09:00 05/29/18 08:59 Docusate Sodium (Colace) 100 mg EVERY 12 HOURS ORAL 04/27/18 09:00 05/20/18 20:59 Famotidine (Pepcid) 40 mg DAILY ORAL 04/27/18 09:00 05/21/18 08:59 Heparin Sodium (Porcine) (Heparin 5000 units/ml) 5,000 units EVERY 12 HOURS SUBQ 04/27/18 09:00 05/20/18 20:59 Insulin Aspart (NovoLOG) BEFORE MEALS AND HS SUBQ 04/27/18 06:30 05/20/18 16:29 Levalbuterol HCl (Xopenex) 0.63 mg Q8HRT HHN 04/28/18 23:00 05/03/18 22:59 04/29/18 07:17 Levofloxacin 150 ml @ 100 mls/hr Q24H IVPB 04/27/18 14:00 05/02/18 13:59 04/28/18 14:23 Levothyroxine Sodium (Synthroid) 75 mcg Q24H ORAL 04/27/18 06:30 05/21/18 06:29 Lorazepam (Ativan 2mg/ml 1ml) 1 mg Q4H PRN IM For Anxiety 04/27/18 01:00 05/02/18 00:59 04/27/18 00:56 Magnesium Hydroxide (Mom) 30 ml HSPRN PRN ORAL Constipation 04/27/18 18:30 05/22/18 18:29 Olanzapine (ZyPREXA) 2.5 mg DAILY ORAL 04/27/18 09:00 05/26/18 08:59 Olanzapine (ZyPREXA) 5 mg QHS ORAL 04/27/18 21:00 05/25/18 20:59 Ondansetron HCl (Zofran) 4 mg Q6H PRN IVP Nausea & Vomiting 04/27/18 00:30 05/20/18 18:29 Piperacillin Sod/ Tazobactam Sod 3.375 gm/Sodium Chloride 110 ml @ 27.5 mls/hr Q8H IVPB 04/27/18 16:00 05/04/18 15:59 04/29/18 08:45 Polyethylene Glycol (Miralax) 17 gm DAILYPRN PRN ORAL Constipation 04/27/18 18:30 05/22/18 18:29 Tamsulosin HCl (Flomax) 0.4 mg QHS ORAL 04/27/18 21:00 05/20/18 20:59 Enrique Gregory MD Apr 29, 2018 09:02
[2018-04-29] MEDS ORDERED: NS 250 ML IVPB ONE (09:45)
--- NOTE | 2018-04-29 09:55 | Cardiology Progress Note ---
Assessment/Plan Status: not improved, deteriorating Assessment/Plan Assessment/Plan Status: stable, progressing Assessment/Plan Assessment: Tachycardia Atrial fibrillation Neuroendocrine carcinoma with mets Hypertension Hyperlipiemia Osteoarthritis knees Recurrent UT Splenectomy Ascending aortic aneurysm hypothyroidism elevated hemoglobin A1c s/p TURP Ectopy with premature atrial contractions Plan: Transferred to [facility] BiPAP prn -> patient family refusing NGT family refusing AAA stable in size no indication for intervention continue outpatient palliative radiation Continue Synthroid Hx of bradycardia from brain mass and hypervagal state - no indication for intervention Increase Metoprolol prn tachycardia 50 BID - hold for SBP<90, discussed with nursing anticoagulation contraindicated due to brain lesions and fall risk, thus can not cardiovert unless unstable Echo at OSH normal LV function Troponin down trended Fluid restriction for hyponatremia, NA improved CT brain with improvement in size of mass, still has edema Aspiration precautions Start IV digoxin due to RVR and hypotension, renal function and electrolytes ok Supportive care Plan for inpatient hospice Recommend comfort care Subjective Cardiovascular: Reports: no symptoms Respiratory: Reports: cough, orthopnea, shortness of breath, SOB at rest Gastrointestinal/Abdominal: Reports: no symptoms Genitourinary: Reports: no symptoms Subjective Patient in respiratory distress, not using BiPAP, heart rate elevated, no NGT tube at this time. Family wants hospice Objective Last 24 Hour Vital Signs Date Time Temp Pulse Resp B/P (MAP) Pulse Ox O2 Delivery O2 Flow Rate FiO2 04/29/18 09:43 109 39 97 Facial 100 04/29/18 07:19 73 92 15.0 100 04/29/18 07:17 92 Non-Rebreather 15.0 100 04/29/18 07:17 Non-Rebreather 15.0 100 04/29/18 07:12 95 30 78 Non-Rebreather 15.0 100 04/29/18 07:10 84 28 92 Non-Rebreather 15.0 100 04/29/18 05:25 110 92 15.0 100 04/29/18 04:00 126 04/29/18 04:00 Non-Rebreather 15.0 04/29/18 04:00 99.3 96 28 97/53 (68) 92 04/29/18 03:20 113 92 15.0 100 04/29/18 00:02 108 26 90 Non-Rebreather 15.0 100 04/29/18 00:00 Non-Rebreather 15.0 04/29/18 00:00 99.0 130 28 121/62 (81) 90 04/29/18 00:00 131 04/28/18 23:53 111 24 88 Non-Rebreather 15.0 100 04/28/18 21:10 105 30 95 Facial 100 04/28/18 20:00 97.9 102 36 112/57 (75) 89 04/28/18 20:00 114 04/28/18 20:00 Non-Rebreather 15.0 04/28/18 19:30 92 26 Non-Rebreather 15.0 100 04/28/18 19:30 Non-Rebreather 15.0 100 04/28/18 19:30 94 Non-Rebreather 15.0 100 04/28/18 18:40 130 04/28/18 17:24 106 24 92 Non-Rebreather 15.0 100 04/28/18 16:00 97.9 100 30 94/59 (71) 96 04/28/18 16:00 Nasal Cannula 5.0 04/28/18 15:33 115 04/28/18 12:00 Nasal Cannula 5.0 04/28/18 12:00 97.7 101 24 107/68 (81) 95 04/28/18 11:34 122 04/28/18 11:17 98 28 94 Non-Rebreather 15.0 100 04/28/18 11:00 103 26 94 Non-Rebreather 15.0 100 04/28/18 10:28 125 99/66 General Appearance: no apparent distress, alert EENT: PERRL/EOMI, normal ENT inspection Neck: non-tender, normal alignment Rhythm: NSR Cardiovascular: normal peripheral pulses, normal rate, regular rhythm Respiratory/Chest: chest wall non-tender, crackles/rales, rhonchi - bilaterally Abdomen: normal bowel sounds, non tender, soft Extremities: normal range of motion, non-tender, normal inspection 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, no motor/sensory deficits, motor weakness, sensory deficit, disoriented Intake and Output 04/28/18 04/29/18 19:00 07:00 Intake Total 840.0 ml 806.0 ml Output Total 350 ml Balance 840.0 ml 456.0 ml IV Total 840.0 ml 806.0 ml Output Urine Total 350 ml # Bowel Movements 2 1 Laboratory Tests Test 04/29/18 01:03 04/29/18 05:26 Urine Color Yellow Urine Appearance Slightly cloudy Urine pH 5 (4.5-8.0) Urine Specific [place] 1.025 (1.005-1.035) Urine Protein 3+ (NEGATIVE) H Urine Glucose (UA) 1+ (NEGATIVE) H Urine Ketones 1+ (NEGATIVE) H Urine Blood 3+ (NEGATIVE) H Urine Nitrite Negative (NEGATIVE) Urine Bilirubin Negative (NEGATIVE) Urine Urobilinogen Normal MG/DL (0.0-1.0) Urine Leukocyte Esterase 1+ (NEGATIVE) H Urine RBC 5-10 /HPF (0 - 0) H Urine WBC 5-10 /HPF (0 - 0) H Urine Squamous Epithelial Cells Few /LPF (NONE/OCC) Urine Bacteria Moderate /HPF (NONE) H Urine Yeast Many /HPF (NONE) H Urine Legionella Antigen Pending White Blood Count 6.0 K/UL (4.8-10.8) Red Blood Count 4.25 M/UL (4.70-6.10) L Hemoglobin 13.8 G/DL (14.2-18.0) L Hematocrit 39.5 % (42.0-52.0) L Mean Corpuscular Volume 93 FL (80-99) Mean Corpuscular Hemoglobin 32.5 PG (27.0-31.0) H Mean Corpuscular Hemoglobin Concent 35.1 G/DL (32.0-36.0) Red Cell Distribution Width 12.3 % (11.6-14.8) Platelet Count 66 K/UL (150-450) L Mean Platelet Volume 7.9 FL (6.5-10.1) Neutrophils (%) (Auto) % (45.0-75.0) Lymphocytes (%) (Auto) % (20.0-45.0) Monocytes (%) (Auto) % (1.0-10.0) Eosinophils (%) (Auto) % (0.0-3.0) Basophils (%) (Auto) % (0.0-2.0) Sodium Level 136 MMOL/L (136-145) Potassium Level 3.8 MMOL/L (3.5-5.1) Chloride Level 103 MMOL/L (98-107) Carbon Dioxide Level 25 MMOL/L (21-32) Anion Gap 8 mmol/L (5-15) Blood Urea Nitrogen 13 mg/dL (7-18) Creatinine 0.7 MG/DL (0.55-1.30) Estimat Glomerular Filtration Rate mL/min (>60) Glucose Level 220 MG/DL (74-106) H Calcium Level 8.5 MG/DL (8.5-10.1) Enrique Cordero MD Apr 29, 2018 09:55
[2018-04-29] MEDS ORDERED: Ipratropium 0.02% Inh Soln 2.5ml UD HHN PRN (10:30)
--- NOTE | 2018-04-29 10:30 | Pulmonology Progress Note ---
Assessment/Plan Problems: (1) Acute respiratory failure with hypoxemia (2) Multilobar lung infiltrate (3) Neuro-endocrine carcinoma (4) Atrial fibrillation (5) Aspiration pneumonia (6) Metastatic cancer (7) Toxic encephalopathy (8) Protein-calorie malnutrition, severe (9) Failure to thrive in adult (10) Dehydration Assessment/Plan D/C BiPAP per patient wishes Titrate VM to keep SaO2 > 90 RTC and PRN ATROVENT and LEVALBUTEROL HHN's Abx per ID Management of AF per cards A/C contra-indicated CXR, DUPLEX, TTE Plan for NGT D/W son and daughter Jeannette, family leaning towards a more comfort oriented approach but not yet ready for hospice Monitor volumes and renal function, gentle IVF DNAR/DNI 45 min CS link records reviewed as well Subjective Allergies: Coded Allergies: No Known Allergies (Unverified , 10/25/13) Subjective Inc O2 needs, briefly placed on BiPAP this am but pt declines Family consented to NGT No cough + SOB + respiratory distress In AF Objective Last 24 Hour Vital Signs Date Time Temp Pulse Resp B/P (MAP) Pulse Ox O2 Delivery O2 Flow Rate FiO2 04/29/18 09:43 109 39 97 Facial 100 04/29/18 07:19 73 92 15.0 100 04/29/18 07:17 92 Non-Rebreather 15.0 100 04/29/18 07:17 Non-Rebreather 15.0 100 04/29/18 07:12 95 30 78 Non-Rebreather 15.0 100 04/29/18 07:10 84 28 92 Non-Rebreather 15.0 100 04/29/18 05:25 110 92 15.0 100 04/29/18 04:00 126 04/29/18 04:00 Non-Rebreather 15.0 04/29/18 04:00 99.3 96 28 97/53 (68) 92 04/29/18 03:20 113 92 15.0 100 04/29/18 00:02 108 26 90 Non-Rebreather 15.0 100 04/29/18 00:00 Non-Rebreather 15.0 04/29/18 00:00 99.0 130 28 121/62 (81) 90 04/29/18 00:00 131 04/28/18 23:53 111 24 88 Non-Rebreather 15.0 100 04/28/18 21:10 105 30 95 Facial 100 04/28/18 20:00 97.9 102 36 112/57 (75) 89 04/28/18 20:00 114 04/28/18 20:00 Non-Rebreather 15.0 04/28/18 19:30 92 26 Non-Rebreather 15.0 100 04/28/18 19:30 Non-Rebreather 15.0 100 04/28/18 19:30 94 Non-Rebreather 15.0 100 04/28/18 18:40 130 04/28/18 17:24 106 24 92 Non-Rebreather 15.0 100 04/28/18 16:00 97.9 100 30 94/59 (71) 96 04/28/18 16:00 Nasal Cannula 5.0 04/28/18 15:33 115 04/28/18 12:00 Nasal Cannula 5.0 04/28/18 12:00 97.7 101 24 107/68 (81) 95 04/28/18 11:34 122 04/28/18 11:17 98 28 94 Non-Rebreather 15.0 100 04/28/18 11:00 103 26 94 Non-Rebreather 15.0 100 04/28/18 10:28 125 99/66 Intake and Output 04/28/18 04/29/18 19:00 07:00 Intake Total 840.0 ml 806.0 ml Output Total 350 ml Balance 840.0 ml 456.0 ml IV Total 840.0 ml 806.0 ml Output Urine Total 350 ml # Bowel Movements 2 1 General Appearance: cachetic, other - mild distress HEENT: normocephalic, atraumatic, anicteric, mucous membranes moist Respiratory/Chest: rhonchi Cardiovascular: irregularly irregular Abdomen: normal bowel sounds, soft, non tender, no organomegaly, non distended , no mass Extremities: no cyanosis, no clubbing, no edema Laboratory Tests 04/29/18 01:03: Urine Color Yellow, Urine Appearance Slightly cloudy, Urine pH 5, Urine Specific [place] 1.025, Urine Protein 3+H, Urine Glucose (UA) 1+H, Urine Ketones 1+H, Urine Blood 3+H, Urine Nitrite Negative, Urine Bilirubin Negative, Urine Urobilinogen Normal, Urine Leukocyte Esterase 1+H, Urine RBC 5-10H, Urine WBC 5-10H, Urine Squamous Epithelial Cells Few, Urine Bacteria ModerateH, Urine Yeast ManyH, Urine Legionella Antigen [Pending] 04/29/18 05:26: White Blood Count 6.0, Red Blood Count 4.25L, Hemoglobin 13.8L, Hematocrit 39.5L , Mean Corpuscular Volume 93, Mean Corpuscular Hemoglobin 32.5H, Mean Corpuscular Hemoglobin Concent 35.1, Red Cell Distribution Width 12.3, Platelet Count 66L, Mean Platelet Volume 7.9, Neutrophils (%) (Auto) , Lymphocytes (%) ( Auto) , Monocytes (%) (Auto) , Eosinophils (%) (Auto) , Basophils (%) (Auto) , Sodium Level 136, Potassium Level 3.8, Chloride Level 103, Carbon Dioxide Level 25, Anion Gap 8, Blood Urea Nitrogen 13, Creatinine 0.7, Estimat Glomerular Filtration Rate , Glucose Level 220H, Calcium Level 8.5 Current Medications Medications (Trade) Dose Ordered Sig/Chivo Route PRN Reason Start Time Stop Time Status Last Admin Dose Admin Acetaminophen (Tylenol) 650 mg Q4H PRN ORAL Mild Pain (Pain Scale 1-3) 04/27/18 02:30 05/20/18 18:29 Acetaminophen (Tylenol) 650 mg Q4H PRN ORAL fever 04/27/18 02:30 05/20/18 18:29 Acetaminophen (Tylenol) 650 mg Q6H PRN RECTAL Fever/Headache/Mild Pain 04/27/18 04:00 05/26/18 21:49 Chlorhexidine Gluconate (Ana-Hex 2%) 1 applic DAILY@1999 TOPIC 04/27/18 20:00 05/25/18 19:59 04/28/18 21:28 Demeclocycline HCl (Declomycin) 300 mg Q12HR ORAL 04/27/18 09:00 05/01/18 20:59 Dexamethasone (Decadron) 4 mg DAILY ORAL 04/27/18 09:00 05/21/18 08:59 Dextrose (Dextrose 50%) 25 ml Q30M PRN IV Hypoglycemia 04/26/18 23:15 05/20/18 15:14 Dextrose (Dextrose 50%) 50 ml Q30M PRN IV Hypoglycemia 04/26/18 23:15 05/20/18 15:14 Dextrose/ Electrolytes 1,000 ml @ 50 mls/hr Q20H IV 04/26/18 23:15 05/26/18 14:59 04/28/18 14:31 Digoxin (Lanoxin) 0.25 mg DAILY IVP 04/29/18 09:00 05/29/18 08:59 Docusate Sodium (Colace) 100 mg EVERY 12 HOURS ORAL 04/27/18 09:00 05/20/18 20:59 Famotidine (Pepcid) 40 mg DAILY ORAL 04/27/18 09:00 05/21/18 08:59 Heparin Sodium (Porcine) (Heparin 5000 units/ml) 5,000 units EVERY 12 HOURS SUBQ 04/27/18 09:00 05/20/18 20:59 Insulin Aspart (NovoLOG) BEFORE MEALS AND HS SUBQ 04/27/18 06:30 05/20/18 16:29 Levalbuterol HCl (Xopenex) 0.63 mg Q8HRT HHN 04/28/18 23:00 05/03/18 22:59 04/29/18 07:17 Levofloxacin 150 ml @ 100 mls/hr Q24H IVPB 04/27/18 14:00 05/02/18 13:59 04/28/18 14:23 Levothyroxine Sodium (Synthroid) 75 mcg Q24H ORAL 04/27/18 06:30 05/21/18 06:29 Lorazepam (Ativan 2mg/ml 1ml) 1 mg Q4H PRN IM For Anxiety 04/27/18 01:00 05/02/18 00:59 04/27/18 00:56 Magnesium Hydroxide (Mom) 30 ml HSPRN PRN ORAL Constipation 04/27/18 18:30 05/22/18 18:29 Olanzapine (ZyPREXA) 2.5 mg DAILY ORAL 04/27/18 09:00 05/26/18 08:59 Olanzapine (ZyPREXA) 5 mg QHS ORAL 04/27/18 21:00 05/25/18 20:59 Ondansetron HCl (Zofran) 4 mg Q6H PRN IVP Nausea & Vomiting 04/27/18 00:30 05/20/18 18:29 Piperacillin Sod/ Tazobactam Sod 3.375 gm/Sodium Chloride 110 ml @ 27.5 mls/hr Q8H IVPB 04/27/18 16:00 05/04/18 15:59 04/29/18 08:45 Polyethylene Glycol (Miralax) 17 gm DAILYPRN PRN ORAL Constipation 04/27/18 18:30 05/22/18 18:29 Tamsulosin HCl (Flomax) 0.4 mg QHS ORAL 04/27/18 21:00 05/20/18 20:59 Lang Oneill MD Apr 29, 2018 10:30
--- NOTE | 2018-04-29 11:15 | Internal Med Progress Note ---
Subjective Date of Service: Apr 29, 2018 Physician Name Demetrio Morgan Attending Physician Noah Paz MD Current Medications Medications (Trade) Dose Ordered Sig/Chivo Route PRN Reason Start Time Stop Time Status Last Admin Dose Admin Acetaminophen (Tylenol) 650 mg Q4H PRN ORAL Mild Pain (Pain Scale 1-3) 04/27/18 02:30 05/20/18 18:29 Acetaminophen (Tylenol) 650 mg Q4H PRN ORAL fever 04/27/18 02:30 05/20/18 18:29 Acetaminophen (Tylenol) 650 mg Q6H PRN RECTAL Fever/Headache/Mild Pain 04/27/18 04:00 05/26/18 21:49 Chlorhexidine Gluconate (Ana-Hex 2%) 1 applic DAILY@2000 TOPIC 04/27/18 20:00 05/25/18 19:59 04/28/18 21:28 Demeclocycline HCl (Declomycin) 300 mg Q12HR ORAL 04/27/18 09:00 05/01/18 20:59 Dexamethasone (Decadron) 4 mg DAILY ORAL 04/27/18 09:00 05/21/18 08:59 Dextrose (Dextrose 50%) 25 ml Q30M PRN IV Hypoglycemia 04/26/18 23:15 05/20/18 15:14 Dextrose (Dextrose 50%) 50 ml Q30M PRN IV Hypoglycemia 04/26/18 23:15 05/20/18 15:14 Dextrose/ Electrolytes 1,000 ml @ 50 mls/hr Q20H IV 04/26/18 23:15 05/26/18 14:59 04/28/18 14:31 Digoxin (Lanoxin) 0.25 mg DAILY IVP 04/29/18 09:00 05/29/18 08:59 Docusate Sodium (Colace) 100 mg EVERY 12 HOURS ORAL 04/27/18 09:00 05/20/18 20:59 Famotidine (Pepcid) 40 mg DAILY ORAL 04/27/18 09:00 05/21/18 08:59 Heparin Sodium (Porcine) (Heparin 5000 units/ml) 5,000 units EVERY 12 HOURS SUBQ 04/27/18 09:00 05/20/18 20:59 Insulin Aspart (NovoLOG) BEFORE MEALS AND HS SUBQ 04/27/18 06:30 05/20/18 16:29 Ipratropium [place] (Atrovent) 500 mcg Q4H PRN HHN Shortness of Breath 04/29/18 10:30 05/04/18 10:29 Ipratropium [place] (Atrovent) 500 mcg TIDRT HHN 04/29/18 13:00 05/04/18 12:59 Levalbuterol HCl (Xopenex) 0.63 mg Q8HRT HHN 04/28/18 23:00 05/03/18 22:59 04/29/18 07:17 Levofloxacin 150 ml @ 100 mls/hr Q24H IVPB 04/27/18 14:00 05/02/18 13:59 04/28/18 14:23 Levothyroxine Sodium (Synthroid) 75 mcg Q24H ORAL 04/27/18 06:30 05/21/18 06:29 Lorazepam (Ativan 2mg/ml 1ml) 1 mg Q4H PRN IM For Anxiety 04/27/18 01:00 05/02/18 00:59 04/27/18 00:56 Magnesium Hydroxide (Mom) 30 ml HSPRN PRN ORAL Constipation 04/27/18 18:30 05/22/18 18:29 Olanzapine (ZyPREXA) 2.5 mg DAILY ORAL 04/27/18 09:00 05/26/18 08:59 Olanzapine (ZyPREXA) 5 mg QHS ORAL 04/27/18 21:00 05/25/18 20:59 Ondansetron HCl (Zofran) 4 mg Q6H PRN IVP Nausea & Vomiting 04/27/18 00:30 05/20/18 18:29 Piperacillin Sod/ Tazobactam Sod 3.375 gm/Sodium Chloride 110 ml @ 27.5 mls/hr Q8H IVPB 04/27/18 16:00 05/04/18 15:59 04/29/18 08:45 Polyethylene Glycol (Miralax) 17 gm DAILYPRN PRN ORAL Constipation 04/27/18 18:30 05/22/18 18:29 Tamsulosin HCl (Flomax) 0.4 mg QHS ORAL 04/27/18 21:00 05/20/18 20:59 Allergies: Coded Allergies: No Known Allergies (Unverified , 10/25/13) ROS Limited/Unobtainable: No Constitutional: Reports: no symptoms HEENT: Reports: no symptoms Cardiovascular: Reports: no symptoms Respiratory: Reports: shortness of breath Gastrointestinal/Abdominal: Reports: no symptoms Genitourinary: Reports: no symptoms Neurologic/Psychiatric: Reports: no symptoms Subjective 82 YO M admitted with dehydration. Cover for Int [facility]-Dr Paz. [facility]. Failed NG tube placement earlier today. Currently having echocardiogram Objective Last Vital Signs Date Time Temp Pulse Resp B/P (MAP) Pulse Ox O2 Delivery O2 Flow Rate FiO2 04/29/18 09:43 109 39 97 Facial 100 04/29/18 07:19 15.0 04/29/18 04:00 99.3 97/53 (68) Laboratory Tests Test 04/29/18 01:03 04/29/18 05:26 Urine Color Yellow Urine Appearance Slightly cloudy Urine pH 5 (4.5-8.0) Urine Specific [place] 1.025 (1.005-1.035) Urine Protein 3+ (NEGATIVE) H Urine Glucose (UA) 1+ (NEGATIVE) H Urine Ketones 1+ (NEGATIVE) H Urine Blood 3+ (NEGATIVE) H Urine Nitrite Negative (NEGATIVE) Urine Bilirubin Negative (NEGATIVE) Urine Urobilinogen Normal MG/DL (0.0-1.0) Urine Leukocyte Esterase 1+ (NEGATIVE) H Urine RBC 5-10 /HPF (0 - 0) H Urine WBC 5-10 /HPF (0 - 0) H Urine Squamous Epithelial Cells Few /LPF (NONE/OCC) Urine Bacteria Moderate /HPF (NONE) H Urine Yeast Many /HPF (NONE) H Urine Legionella Antigen Pending White Blood Count 6.0 K/UL (4.8-10.8) Red Blood Count 4.25 M/UL (4.70-6.10) L Hemoglobin 13.8 G/DL (14.2-18.0) L Hematocrit 39.5 % (42.0-52.0) L Mean Corpuscular Volume 93 FL (80-99) Mean Corpuscular Hemoglobin 32.5 PG (27.0-31.0) H Mean Corpuscular Hemoglobin Concent 35.1 G/DL (32.0-36.0) Red Cell Distribution Width 12.3 % (11.6-14.8) Platelet Count 66 K/UL (150-450) L Mean Platelet Volume 7.9 FL (6.5-10.1) Neutrophils (%) (Auto) % (45.0-75.0) Lymphocytes (%) (Auto) % (20.0-45.0) Monocytes (%) (Auto) % (1.0-10.0) Eosinophils (%) (Auto) % (0.0-3.0) Basophils (%) (Auto) % (0.0-2.0) Sodium Level 136 MMOL/L (136-145) Potassium Level 3.8 MMOL/L (3.5-5.1) Chloride Level 103 MMOL/L (98-107) Carbon Dioxide Level 25 MMOL/L (21-32) Anion Gap 8 mmol/L (5-15) Blood Urea Nitrogen 13 mg/dL (7-18) Creatinine 0.7 MG/DL (0.55-1.30) Estimat Glomerular Filtration Rate mL/min (>60) Glucose Level 220 MG/DL (74-106) H Calcium Level 8.5 MG/DL (8.5-10.1) Intake and Output 04/28/18 04/29/18 19:00 07:00 Intake Total 840.0 ml 806.0 ml Output Total 350 ml Balance 840.0 ml 456.0 ml IV Total 840.0 ml 806.0 ml Output Urine Total 350 ml # Bowel Movements 2 1 Objective GENERAL: awake, responsive, less confused. HEAD AND NECK: Pupils equal and reactive to light. Extraocular movements intact. Neck was supple. No JVD. LUNGS: Venturi mask; Decreased air entry at bases. No wheeze or rales. Poor inspiratory effort. HEART: S1 and S2. Irregular. No murmur or gallop. ABDOMEN: Soft, nondistended, and nontender. Positive bowel sounds. EXTREMITIES: No cyanosis, clubbing, or edema. NEUROLOGIC: Cranial nerves II through XII are grossly intact. moving all the extremities spontaneously. Gait was not assessed due to the patient's status. RECTAL: Refused and deferred. GENITOURINARY: Refused and deferred. PSYCHIATRIC: Mood and affect is intact. Assessment/Plan Assessment/Plan Assessment/Plan Assessment/Plan 1. Acute UTI. 2. Steroid-induced hyperglycemia. 3. Dehydration. 4. 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 5. 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 6. 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 7. Hypothyroidism. 8. Atherosclerotic heart disease. 9. A 4.2-cm ascending aortic aneurysm. 10. Status post splenectomy in 1967. 11. Severe osteoarthritis of the knee. 12. Hypertension. 13. New onset Atrial Fibrillation. 14. Dysphagia 15. respiratory failure PLAN: In [facility] At this time, the patient is not a candidate for anticoagulation due to the brain metastasis. DVT prophylaxis: heparin subcutaneous. Code status: DNR/DNI Follow up with Nephrology consultation with Dr. An: Demeclocycline 300 mg bid Abx: Cefepime IV F/u with labs and cultures. Discuss with daughter and son and patient at bedside regarding discharge planning, SNF. GI consult: Re: G-tube eval Discussed with family at bedside Pulmonary = [facility] Prognosis is guarded Failed NG tube placement await swallow eval Discussed hospice/comfort care with son at bedside Demetrio Morgan MD Apr 29, 2018 11:15
--- NOTE | 2018-04-29 12:18 | General Progress Note ---
Assessment/Plan Problem List: (1) Toxic encephalopathy ICD Codes: G92 - Toxic encephalopathy SNOMED: 64154897 Assessment/Plan zyprexa the pt was provided with ro/st dw family the pt benefits from palliative care Subjective Allergies: Coded Allergies: No Known Allergies (Unverified , 10/25/13) Subjective the pt is confused and deteriorated. the pt lacks capacity to make decisions. Objective Last 24 Hour Vital Signs Date Time Temp Pulse Resp B/P (MAP) Pulse Ox O2 Delivery O2 Flow Rate FiO2 04/29/18 09:43 109 39 97 Facial 100 04/29/18 09:00 134 04/29/18 07:19 73 92 15.0 100 04/29/18 07:17 92 Non-Rebreather 15.0 100 04/29/18 07:17 Non-Rebreather 15.0 100 04/29/18 07:12 95 30 78 Non-Rebreather 15.0 100 04/29/18 07:10 84 28 92 Non-Rebreather 15.0 100 04/29/18 05:25 110 92 15.0 100 04/29/18 04:00 126 04/29/18 04:00 Non-Rebreather 15.0 04/29/18 04:00 99.3 96 28 97/53 (68) 92 04/29/18 03:20 113 92 15.0 100 04/29/18 00:02 108 26 90 Non-Rebreather 15.0 100 04/29/18 00:00 Non-Rebreather 15.0 04/29/18 00:00 99.0 130 28 121/62 (81) 90 04/29/18 00:00 131 04/28/18 23:53 111 24 88 Non-Rebreather 15.0 100 04/28/18 21:10 105 30 95 Facial 100 04/28/18 20:00 97.9 102 36 112/57 (75) 89 04/28/18 20:00 114 04/28/18 20:00 Non-Rebreather 15.0 04/28/18 19:30 92 26 Non-Rebreather 15.0 100 04/28/18 19:30 Non-Rebreather 15.0 100 04/28/18 19:30 94 Non-Rebreather 15.0 100 04/28/18 18:40 130 04/28/18 17:24 106 24 92 Non-Rebreather 15.0 100 04/28/18 16:00 97.9 100 30 94/59 (71) 96 04/28/18 16:00 Nasal Cannula 5.0 04/28/18 15:33 115 Intake and Output 04/28/18 04/29/18 18:59 06:59 Intake Total 890.0 ml 756.0 ml Output Total 350 ml Balance 890.0 ml 406.0 ml IV Total 890.0 ml 756.0 ml Output Urine Total 350 ml # Bowel Movements 2 1 Laboratory Tests 04/29/18 01:03: Urine Color Yellow, Urine Appearance Slightly cloudy, Urine pH 5, Urine Specific [place] 1.025, Urine Protein 3+H, Urine Glucose (UA) 1+H, Urine Ketones 1+H, Urine Blood 3+H, Urine Nitrite Negative, Urine Bilirubin Negative, Urine Urobilinogen Normal, Urine Leukocyte Esterase 1+H, Urine RBC 5-10H, Urine WBC 5-10H, Urine Squamous Epithelial Cells Few, Urine Bacteria ModerateH, Urine Yeast ManyH, Urine Legionella Antigen [Pending] 04/29/18 05:26: White Blood Count 6.0, Red Blood Count 4.25L, Hemoglobin 13.8L, Hematocrit 39.5L , Mean Corpuscular Volume 93, Mean Corpuscular Hemoglobin 32.5H, Mean Corpuscular Hemoglobin Concent 35.1, Red Cell Distribution Width 12.3, Platelet Count 66L, Mean Platelet Volume 7.9, Neutrophils (%) (Auto) , Lymphocytes (%) ( Auto) , Monocytes (%) (Auto) , Eosinophils (%) (Auto) , Basophils (%) (Auto) , Sodium Level 136, Potassium Level 3.8, Chloride Level 103, Carbon Dioxide Level 25, Anion Gap 8, Blood Urea Nitrogen 13, Creatinine 0.7, Estimat Glomerular Filtration Rate , Glucose Level 220H, Calcium Level 8.5 Height (Feet): 5 Height (Inches): 11.00 Weight (Pounds): 190 General Appearance: confused, agitated Jeanie Calvin MD Apr 29, 2018 12:18
[2018-04-29] MEDS: D5 1/2NS w/KCl 20mEq 1,000 ML IV SCH (12:29)
--- NOTE | 2018-04-29 12:29 | Pulmonology Progress Note ---
Assessment/Plan Problems: (1) Acute respiratory failure with hypoxemia (2) Neuro-endocrine carcinoma (3) Aspiration pneumonia (4) Atrial fibrillation (5) Protein-calorie malnutrition, severe (6) Metastatic cancer Assessment/Plan d/w family members at the bed site, pt stating he is happy trial of laxi CXR reviewed, there might be trace of pulmonary edema check BNP check electrolytes daily pt might be a good candidate for palliative care/ end of life care. still tachy, most likely secondary to dyspnea, family refused BIPA Subjective ROS Limited/Unobtainable: No Constitutional: Reports: no symptoms HEENT: Repors: no symptoms Respiratory: Reports: no symptoms Allergies: Coded Allergies: No Known Allergies (Unverified , 10/25/13) Objective Last 24 Hour Vital Signs Date Time Temp Pulse Resp B/P (MAP) Pulse Ox O2 Delivery O2 Flow Rate FiO2 04/29/18 09:43 109 39 97 Facial 100 04/29/18 09:00 134 04/29/18 07:19 73 92 15.0 100 04/29/18 07:17 92 Non-Rebreather 15.0 100 04/29/18 07:17 Non-Rebreather 15.0 100 04/29/18 07:12 95 30 78 Non-Rebreather 15.0 100 04/29/18 07:10 84 28 92 Non-Rebreather 15.0 100 04/29/18 05:25 110 92 15.0 100 04/29/18 04:00 126 04/29/18 04:00 Non-Rebreather 15.0 04/29/18 04:00 99.3 96 28 97/53 (68) 92 04/29/18 03:20 113 92 15.0 100 04/29/18 00:02 108 26 90 Non-Rebreather 15.0 100 04/29/18 00:00 Non-Rebreather 15.0 04/29/18 00:00 99.0 130 28 121/62 (81) 90 04/29/18 00:00 131 04/28/18 23:53 111 24 88 Non-Rebreather 15.0 100 04/28/18 21:10 105 30 95 Facial 100 04/28/18 20:00 97.9 102 36 112/57 (75) 89 04/28/18 20:00 114 04/28/18 20:00 Non-Rebreather 15.0 04/28/18 19:30 92 26 Non-Rebreather 15.0 100 04/28/18 19:30 Non-Rebreather 15.0 100 04/28/18 19:30 94 Non-Rebreather 15.0 100 04/28/18 18:40 130 04/28/18 17:24 106 24 92 Non-Rebreather 15.0 100 04/28/18 16:00 97.9 100 30 94/59 (71) 96 04/28/18 16:00 Nasal Cannula 5.0 04/28/18 15:33 115 Intake and Output 04/28/18 04/29/18 19:00 07:00 Intake Total 840.0 ml 806.0 ml Output Total 350 ml Balance 840.0 ml 456.0 ml IV Total 840.0 ml 806.0 ml Output Urine Total 350 ml # Bowel Movements 2 1 General Appearance: other - tachypnic HEENT: normocephalic, atraumatic Respiratory/Chest: chest wall non-tender, respiratory distress, accessory muscle use Abdomen: normal bowel sounds, soft, non tender Genitourinary: normal external genitalia Extremities: no clubbing Skin: no lesions Neurologic/Psychiatric: screening unit registered nurse 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 Lymphatic: no neck adenopathy Musculoskeletal: normal muscle bulk Laboratory Tests 04/29/18 01:03: Urine Color Yellow, Urine Appearance Slightly cloudy, Urine pH 5, Urine Specific [place] 1.025, Urine Protein 3+H, Urine Glucose (UA) 1+H, Urine Ketones 1+H, Urine Blood 3+H, Urine Nitrite Negative, Urine Bilirubin Negative, Urine Urobilinogen Normal, Urine Leukocyte Esterase 1+H, Urine RBC 5-10H, Urine WBC 5-10H, Urine Squamous Epithelial Cells Few, Urine Bacteria ModerateH, Urine Yeast ManyH, Urine Legionella Antigen [Pending] 04/29/18 05:26: White Blood Count 6.0, Red Blood Count 4.25L, Hemoglobin 13.8L, Hematocrit 39.5L , Mean Corpuscular Volume 93, Mean Corpuscular Hemoglobin 32.5H, Mean Corpuscular Hemoglobin Concent 35.1, Red Cell Distribution Width 12.3, Platelet Count 66L, Mean Platelet Volume 7.9, Neutrophils (%) (Auto) , Lymphocytes (%) ( Auto) , Monocytes (%) (Auto) , Eosinophils (%) (Auto) , Basophils (%) (Auto) , Sodium Level 136, Potassium Level 3.8, Chloride Level 103, Carbon Dioxide Level 25, Anion Gap 8, Blood Urea Nitrogen 13, Creatinine 0.7, Estimat Glomerular Filtration Rate , Glucose Level 220H, Calcium Level 8.5 Current Medications Medications (Trade) Dose Ordered Sig/Chivo Route PRN Reason Start Time Stop Time Status Last Admin Dose Admin Acetaminophen (Tylenol) 650 mg Q4H PRN ORAL Mild Pain (Pain Scale 1-3) 04/27/18 02:30 05/20/18 18:29 Acetaminophen (Tylenol) 650 mg Q4H PRN ORAL fever 04/27/18 02:30 05/20/18 18:29 Acetaminophen (Tylenol) 650 mg Q6H PRN RECTAL Fever/Headache/Mild Pain 04/27/18 04:00 05/26/18 21:49 Chlorhexidine Gluconate (Ana-Hex 2%) 1 applic DAILY@2000 TOPIC 04/27/18 20:00 05/25/18 19:59 04/28/18 21:28 Demeclocycline HCl (Declomycin) 300 mg Q12HR ORAL 04/27/18 09:00 05/01/18 20:59 Dexamethasone (Decadron) 4 mg DAILY ORAL 04/27/18 09:00 05/21/18 08:59 Dextrose (Dextrose 50%) 25 ml Q30M PRN IV Hypoglycemia 04/26/18 23:15 05/20/18 15:14 Dextrose (Dextrose 50%) 50 ml Q30M PRN IV Hypoglycemia 04/26/18 23:15 05/20/18 15:14 Dextrose/ Electrolytes 1,000 ml @ 50 mls/hr Q20H IV 04/26/18 23:15 05/26/18 14:59 04/28/18 14:31 Digoxin (Lanoxin) 0.25 mg DAILY IVP 04/29/18 09:00 05/29/18 08:59 Docusate Sodium (Colace) 100 mg EVERY 12 HOURS ORAL 04/27/18 09:00 05/20/18 20:59 Famotidine (Pepcid) 40 mg DAILY ORAL 04/27/18 09:00 05/21/18 08:59 Heparin Sodium (Porcine) (Heparin 5000 units/ml) 5,000 units EVERY 12 HOURS SUBQ 04/27/18 09:00 05/20/18 20:59 Insulin Aspart (NovoLOG) BEFORE MEALS AND HS SUBQ 04/27/18 06:30 05/20/18 16:29 Ipratropium [place] (Atrovent) 500 mcg Q4H PRN HHN Shortness of Breath 04/29/18 10:30 05/04/18 10:29 Ipratropium [place] (Atrovent) 500 mcg TIDRT HHN 04/29/18 13:00 05/04/18 12:59 Levalbuterol HCl (Xopenex) 0.63 mg Q8HRT HHN 04/28/18 23:00 05/03/18 22:59 04/29/18 07:17 Levofloxacin 150 ml @ 100 mls/hr Q24H IVPB 04/27/18 14:00 05/02/18 13:59 04/28/18 14:23 Levothyroxine Sodium (Synthroid) 75 mcg Q24H ORAL 04/27/18 06:30 05/21/18 06:29 Lorazepam (Ativan 2mg/ml 1ml) 1 mg Q4H PRN IM For Anxiety 04/27/18 01:00 05/02/18 00:59 04/27/18 00:56 Magnesium Hydroxide (Mom) 30 ml HSPRN PRN ORAL Constipation 04/27/18 18:30 05/22/18 18:29 Olanzapine (ZyPREXA) 2.5 mg DAILY ORAL 04/27/18 09:00 05/26/18 08:59 Olanzapine (ZyPREXA) 5 mg QHS ORAL 04/27/18 21:00 05/25/18 20:59 Ondansetron HCl (Zofran) 4 mg Q6H PRN IVP Nausea & Vomiting 04/27/18 00:30 05/20/18 18:29 Piperacillin Sod/ Tazobactam Sod 3.375 gm/Sodium Chloride 110 ml @ 27.5 mls/hr Q8H IVPB 04/27/18 16:00 05/04/18 15:59 04/29/18 08:45 Polyethylene Glycol (Miralax) 17 gm DAILYPRN PRN ORAL Constipation 04/27/18 18:30 05/22/18 18:29 Tamsulosin HCl (Flomax) 0.4 mg QHS ORAL 04/27/18 21:00 05/20/18 20:59 Isacc Weir MD Apr 29, 2018 12:29
[2018-04-29] MEDS: Ipratropium 0.02% Inh Soln 2.5ml UD HHN SCH ×2 (13:00→19:00)
--- NOTE | 2018-04-29 13:17 | Diagnostic Imaging Report ---
Indication: Dyspnea Comparison: 04/27/2018 A single view chest radiograph was obtained. Findings: Patchy groundglass interstitial and alveolar densities demonstrated bilaterally without significant change. Heart size is stable. Right chest port again noted. IMPRESSION: No significant change
[2018-04-29] MEDS: Morphine Sulfate 4mg/ml Inj (IV/IM USE ONLY) IVP PRN (13:33)
--- NOTE | 2018-04-29 14:52 | Diagnostic Imaging Report ---
Indication: Abdominal pain Comparison: None Single view of the abdomen obtained Findings: NG tube is projected over the stomach in good position. IMPRESSION: Satisfactory position of NG tube
--- NOTE | 2018-04-29 15:05 | Cardiology Report ---
APPROVED REPORT EXAM: Two-dimensional and M-mode echocardiogram with Doppler and color Doppler. INDICATION Congestive Heart Failure M-Mode DIMENSIONS IVSd1.6 (0.7-1.1cm)Left Atrium (MM)4.0 (1.6-4.0cm) LVDd3.8 (3.5-5.6cm)Aortic Root3.4 (2.0-3.7cm) PWd1.0 (0.7-1.1cm)Aortic Cusp Exc.2.2 (1.5-2.0cm) LVDs1.6 (2.5-4.0cm) PWs2.0 cm Technically difficult study due to patient was aggitated. Study quality precludes accurate assessment of regional wall motion. Normal left ventricular chamber size. Septal hypokinesis. Ischemic cardiomyopathy cannot be excluded. Left ventricular ejection fraction estimated to be 40-45 %. Mild left ventricular hypertrophy. Anterior Echo-free space, may be due to pericardial fat or effusion. All other cardiac chamber sizes are within normal limits. Mild focal aortic valve sclerosis with adequate cusp excursion. Mildly thickened mitral valve leaflets with normal excursion. Mild mitral annulus and aortic root calcification. Pulmonic valve not well visualized. Normal tricuspid valve structure. IVC is normal in size with physiological collapse. A color flow and spectral Doppler study was performed and revealed: Moderate to severe aortic insufficiency. Mild mitral regurgitation. Left ventricular diastolic function could not be determined due to arrhythmia. Mild tricuspid regurgitation. Tricuspid systolic velocities suggests peak right ventricular systolic pressure of 33 mmHg. Mild pulmonic regurgitation present.
--- NOTE | 2018-04-29 15:42 | Nephrology Progress Note ---
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) (2) Hyponatremia Assessment: better (3) Hypertension (4) Metastatic cancer (5) Hypokalemia (6) Hypomagnesemia Plan free water restriction Off IVF lasix given Demeclocycline 300 mg bid follow labs discussed with family and RN Subjective Subjective Awake on FM Objective Objective Last 24 Hour Vital Signs Date Time Temp Pulse Resp B/P (MAP) Pulse Ox O2 Delivery O2 Flow Rate FiO2 04/29/18 14:03 99.3 04/29/18 13:05 Non-Rebreather 100 04/29/18 13:05 112 34 97 Non-Rebreather 100 04/29/18 12:48 128 103/52 (69) 04/29/18 12:00 97.7 119 24 122/64 (83) 92 04/29/18 12:00 126 04/29/18 12:00 Non-Rebreather 15.0 04/29/18 09:43 109 39 97 Facial 100 04/29/18 09:00 134 04/29/18 08:00 Non-Rebreather 15.0 04/29/18 08:00 127 04/29/18 08:00 98.1 134 28 99/63 (75) 92 04/29/18 07:19 73 92 15.0 100 04/29/18 07:17 92 Non-Rebreather 15.0 100 04/29/18 07:17 Non-Rebreather 15.0 100 04/29/18 07:12 95 30 78 Non-Rebreather 15.0 100 04/29/18 07:10 84 28 92 Non-Rebreather 15.0 100 04/29/18 05:25 110 92 15.0 100 04/29/18 04:00 126 04/29/18 04:00 Non-Rebreather 15.0 04/29/18 04:00 99.3 96 28 97/53 (68) 92 04/29/18 03:20 113 92 15.0 100 04/29/18 00:02 108 26 90 Non-Rebreather 15.0 100 04/29/18 00:00 Non-Rebreather 15.0 04/29/18 00:00 99.0 130 28 121/62 (81) 90 04/29/18 00:00 131 04/28/18 23:53 111 24 88 Non-Rebreather 15.0 100 04/28/18 21:10 105 30 95 Facial 100 04/28/18 20:00 97.9 102 36 112/57 (75) 89 04/28/18 20:00 114 04/28/18 20:00 Non-Rebreather 15.0 04/28/18 19:30 92 26 Non-Rebreather 15.0 100 04/28/18 19:30 Non-Rebreather 15.0 100 04/28/18 19:30 94 Non-Rebreather 15.0 100 04/28/18 18:40 130 04/28/18 17:24 106 24 92 Non-Rebreather 15.0 100 04/28/18 16:00 97.9 100 30 94/59 (71) 96 04/28/18 16:00 Nasal Cannula 5.0 Intake and Output 04/28/18 04/29/18 18:59 06:59 Intake Total 890.0 ml 756.0 ml Output Total 350 ml Balance 890.0 ml 406.0 ml IV Total 890.0 ml 756.0 ml Output Urine Total 350 ml # Bowel Movements 2 1 Laboratory Tests 04/29/18 01:03: Urine Color Yellow, Urine Appearance Slightly cloudy, Urine pH 5, Urine Specific [place] 1.025, Urine Protein 3+H, Urine Glucose (UA) 1+H, Urine Ketones 1+H, Urine Blood 3+H, Urine Nitrite Negative, Urine Bilirubin Negative, Urine Urobilinogen Normal, Urine Leukocyte Esterase 1+H, Urine RBC 5-10H, Urine WBC 5-10H, Urine Squamous Epithelial Cells Few, Urine Bacteria ModerateH, Urine Yeast ManyH, Urine Legionella Antigen [Pending] 04/29/18 05:26: White Blood Count 6.0, Red Blood Count 4.25L, Hemoglobin 13.8L, Hematocrit 39.5L , Mean Corpuscular Volume 93, Mean Corpuscular Hemoglobin 32.5H, Mean Corpuscular Hemoglobin Concent 35.1, Red Cell Distribution Width 12.3, Platelet Count 66L, Mean Platelet Volume 7.9, Neutrophils (%) (Auto) , Lymphocytes (%) ( Auto) , Monocytes (%) (Auto) , Eosinophils (%) (Auto) , Basophils (%) (Auto) , Sodium Level 136, Potassium Level 3.8, Chloride Level 103, Carbon Dioxide Level 25, Anion Gap 8, Blood Urea Nitrogen 13, Creatinine 0.7, Estimat Glomerular Filtration Rate , Glucose Level 220H, Calcium Level 8.5 Height (Feet): 5 Height (Inches): 11.00 Weight (Pounds): 190 Cardiovascular: normal rate Respiratory/Chest: rhonchi - bilaterally Extremities: trace edema Ayo An MD Apr 29, 2018 15:42
[2018-04-29] MEDS ORDERED: NS 275ml ONE (16:26)
[2018-04-29] MEDS ORDERED: Tubing IV Secondary IV ONE (16:26)
[2018-04-29] MEDS ORDERED: NS 500ML ONE (16:26)
[2018-04-29] MEDS: Dyna-Hex 2% Top Sol 2oz TOPIC SCH (20:00)
[2018-04-29] MEDS: Tamsulosin 0.4mg cap ORAL SCH (21:00)
--- NOTE | 2018-04-29 21:32 | General Progress Note ---
Assessment/Plan Assessment/Plan Assessment - AMS, Delirium - Hypoxia - failed swallow evaluation - h/o bladder CA - BPH Recommendation - supportive care - follow mental status - doubt will tolerate NGT due to agitation - will discuss with family Subjective Allergies: Coded Allergies: No Known Allergies (Unverified , 10/25/13) Subjective Agitated family at bedside pulling off mask failed swallow evaluation Objective Last 24 Hour Vital Signs Date Time Temp Pulse Resp B/P (MAP) Pulse Ox O2 Delivery O2 Flow Rate FiO2 04/29/18 20:00 97.2 102 32 106/63 (77) 90 04/29/18 20:00 Non-Rebreather 15.0 04/29/18 16:00 97.2 124 25 101/67 (78) 91 04/29/18 16:00 130 04/29/18 16:00 Non-Rebreather 15.0 04/29/18 15:24 Non-Rebreather 15.0 100 04/29/18 15:24 Non-Rebreather 15.0 100 04/29/18 14:03 99.3 04/29/18 13:05 Non-Rebreather 100 04/29/18 13:05 112 34 97 Non-Rebreather 100 04/29/18 12:48 128 103/52 (69) 04/29/18 12:00 97.7 119 24 122/64 (83) 92 04/29/18 12:00 126 04/29/18 12:00 Non-Rebreather 15.0 04/29/18 09:43 109 39 97 Facial 100 04/29/18 09:00 134 04/29/18 08:00 Non-Rebreather 15.0 04/29/18 08:00 127 04/29/18 08:00 98.1 134 28 99/63 (75) 92 04/29/18 07:19 73 92 15.0 100 04/29/18 07:17 92 Non-Rebreather 15.0 100 04/29/18 07:17 Non-Rebreather 15.0 100 04/29/18 07:12 95 30 78 Non-Rebreather 15.0 100 04/29/18 07:10 84 28 92 Non-Rebreather 15.0 100 04/29/18 05:25 110 92 15.0 100 04/29/18 04:00 126 04/29/18 04:00 Non-Rebreather 15.0 04/29/18 04:00 99.3 96 28 97/53 (68) 92 04/29/18 03:20 113 92 15.0 100 04/29/18 00:02 108 26 90 Non-Rebreather 15.0 100 04/29/18 00:00 Non-Rebreather 15.0 04/29/18 00:00 99.0 130 28 121/62 (81) 90 04/29/18 00:00 131 04/28/18 23:53 111 24 88 Non-Rebreather 15.0 100 Intake and Output 04/28/18 04/29/18 19:00 07:00 Intake Total 840.0 ml 806.0 ml Output Total 350 ml Balance 840.0 ml 456.0 ml IV Total 840.0 ml 806.0 ml Output Urine Total 350 ml # Bowel Movements 2 1 Laboratory Tests 04/29/18 01:03: Urine Color Yellow, Urine Appearance Slightly cloudy, Urine pH 5, Urine Specific [place] 1.025, Urine Protein 3+H, Urine Glucose (UA) 1+H, Urine Ketones 1+H, Urine Blood 3+H, Urine Nitrite Negative, Urine Bilirubin Negative, Urine Urobilinogen Normal, Urine Leukocyte Esterase 1+H, Urine RBC 5-10H, Urine WBC 5-10H, Urine Squamous Epithelial Cells Few, Urine Bacteria ModerateH, Urine Yeast ManyH, Urine Legionella Antigen [Pending] 04/29/18 05:26: White Blood Count 6.0, Red Blood Count 4.25L, Hemoglobin 13.8L, Hematocrit 39.5L , Mean Corpuscular Volume 93, Mean Corpuscular Hemoglobin 32.5H, Mean Corpuscular Hemoglobin Concent 35.1, Red Cell Distribution Width 12.3, Platelet Count 66L, Mean Platelet Volume 7.9, Neutrophils (%) (Auto) , Lymphocytes (%) ( Auto) , Monocytes (%) (Auto) , Eosinophils (%) (Auto) , Basophils (%) (Auto) , Sodium Level 136, Potassium Level 3.8, Chloride Level 103, Carbon Dioxide Level 25, Anion Gap 8, Blood Urea Nitrogen 13, Creatinine 0.7, Estimat Glomerular Filtration Rate , Glucose Level 220H, Calcium Level 8.5 Height (Feet): 5 Height (Inches): 11.00 Weight (Pounds): 190 Objective Agitated elderly man NCAT supple Coarse BS RR abd soft ND no edema Bandar Monge MD Apr 29, 2018 21:32
--- NOTE | 2018-04-29 21:32 | General Progress Note ---
Assessment/Plan Assessment/Plan Assessment - AMS, Delirium - Hypoxia - failed swallow evaluation - afib, tachy - h/o bladder CA - BPH Recommendation - supportive care - follow mental status - doubt will tolerate NGT due to agitation - unable to safely feed po - not stable for PEG placement at this time Subjective Allergies: Coded Allergies: No Known Allergies (Unverified , 10/25/13) Subjective Agitated family at bedside pulling off O2 mask failed swallow evaluation Objective Last 24 Hour Vital Signs Date Time Temp Pulse Resp B/P (MAP) Pulse Ox O2 Delivery O2 Flow Rate FiO2 04/29/18 20:00 97.2 102 32 106/63 (77) 90 04/29/18 20:00 Non-Rebreather 15.0 04/29/18 16:00 97.2 124 25 101/67 (78) 91 04/29/18 16:00 130 04/29/18 16:00 Non-Rebreather 15.0 04/29/18 15:24 Non-Rebreather 15.0 100 04/29/18 15:24 Non-Rebreather 15.0 100 04/29/18 14:03 99.3 04/29/18 13:05 Non-Rebreather 100 04/29/18 13:05 112 34 97 Non-Rebreather 100 04/29/18 12:48 128 103/52 (69) 04/29/18 12:00 97.7 119 24 122/64 (83) 92 04/29/18 12:00 126 04/29/18 12:00 Non-Rebreather 15.0 04/29/18 09:43 109 39 97 Facial 100 04/29/18 09:00 134 04/29/18 08:00 Non-Rebreather 15.0 04/29/18 08:00 127 04/29/18 08:00 98.1 134 28 99/63 (75) 92 04/29/18 07:19 73 92 15.0 100 04/29/18 07:17 92 Non-Rebreather 15.0 100 04/29/18 07:17 Non-Rebreather 15.0 100 04/29/18 07:12 95 30 78 Non-Rebreather 15.0 100 04/29/18 07:10 84 28 92 Non-Rebreather 15.0 100 04/29/18 05:25 110 92 15.0 100 04/29/18 04:00 126 04/29/18 04:00 Non-Rebreather 15.0 04/29/18 04:00 99.3 96 28 97/53 (68) 92 04/29/18 03:20 113 92 15.0 100 04/29/18 00:02 108 26 90 Non-Rebreather 15.0 100 04/29/18 00:00 Non-Rebreather 15.0 04/29/18 00:00 99.0 130 28 121/62 (81) 90 04/29/18 00:00 131 04/28/18 23:53 111 24 88 Non-Rebreather 15.0 100 Intake and Output 04/28/18 04/29/18 19:00 07:00 Intake Total 840.0 ml 806.0 ml Output Total 350 ml Balance 840.0 ml 456.0 ml IV Total 840.0 ml 806.0 ml Output Urine Total 350 ml # Bowel Movements 2 1 Laboratory Tests 04/29/18 01:03: Urine Color Yellow, Urine Appearance Slightly cloudy, Urine pH 5, Urine Specific [place] 1.025, Urine Protein 3+H, Urine Glucose (UA) 1+H, Urine Ketones 1+H, Urine Blood 3+H, Urine Nitrite Negative, Urine Bilirubin Negative, Urine Urobilinogen Normal, Urine Leukocyte Esterase 1+H, Urine RBC 5-10H, Urine WBC 5-10H, Urine Squamous Epithelial Cells Few, Urine Bacteria ModerateH, Urine Yeast ManyH, Urine Legionella Antigen [Pending] 04/29/18 05:26: White Blood Count 6.0, Red Blood Count 4.25L, Hemoglobin 13.8L, Hematocrit 39.5L , Mean Corpuscular Volume 93, Mean Corpuscular Hemoglobin 32.5H, Mean Corpuscular Hemoglobin Concent 35.1, Red Cell Distribution Width 12.3, Platelet Count 66L, Mean Platelet Volume 7.9, Neutrophils (%) (Auto) , Lymphocytes (%) ( Auto) , Monocytes (%) (Auto) , Eosinophils (%) (Auto) , Basophils (%) (Auto) , Sodium Level 136, Potassium Level 3.8, Chloride Level 103, Carbon Dioxide Level 25, Anion Gap 8, Blood Urea Nitrogen 13, Creatinine 0.7, Estimat Glomerular Filtration Rate , Glucose Level 220H, Calcium Level 8.5 Height (Feet): 5 Height (Inches): 11.00 Weight (Pounds): 190 Objective Agitated elderly man NCAT, (+) O2 FM supple Coarse BS, rio valadez abd soft ND no edema Bandar Monge MD Apr 29, 2018 21:32
[2018-04-30] VITALS: BP 117/70
[2018-04-30 04:00] VITALS: BP 108/51
[2018-04-30 04:27] LABS: HEMATOCRIT 40.1 % (42.0-52.0); HEMOGLOBIN 14.3 G/DL (14.2-18.0); MEAN CORPUSCULAR VOLUME 93 FL (80-99); PLATELET COUNT 65 K/UL (150-450); RED BLOOD COUNT 4.32 M/UL (4.70-6.10); RED CELL DISTRIBUTION WIDTH 12.7 % (11.6-14.8); WHITE BLOOD COUNT 6.1 K/UL (4.8-10.8)
[2018-04-30 04:43] LABS: ALANINE AMINOTRANSFERASE 24 U/L (12-78); ALBUMIN 1.1 G/DL (3.4-5.0); ALBUMIN/GLOBULIN RATIO 0.3 (1.0-2.7); ALKALINE PHOSPHATASE 86 U/L (46-116); ANION GAP 10 mmol/L (5-15); ASPARTATE AMINO TRANSFERASE 39 U/L (15-37); BILIRUBIN,TOTAL 0.7 MG/DL (0.2-1.0); BLOOD UREA NITROGEN 20 mg/dL (7-18); CALCIUM 9.1 MG/DL (8.5-10.1); CARBON DIOXIDE 24 MMOL/L (21-32); CHLORIDE 104 MMOL/L (98-107); CREATININE 0.6 MG/DL (0.55-1.30); POTASSIUM 4.3 MMOL/L (3.5-5.1); SODIUM 138 MMOL/L (136-145)
[2018-04-30] MEDS: NovoLOG Insulin Flexpen SUBQ SCH ×4 (06:12→21:00)
[2018-04-30] MEDS: Levalbuterol Inh UD 1.25mg/0.5ml HHN SCH ×3 (07:40→22:54)
[2018-04-30] MEDS: Ipratropium 0.02% Inh Soln 2.5ml UD HHN SCH ×3 (07:40→19:00)
[2018-04-30 08:00] VITALS: BP 100/54
[2018-04-30] MEDS: Piperacillin/Tazobactam 3.375 GM in NS 110 ML IVPB SCH ×3 (08:00→21:45)
--- NOTE | 2018-04-30 08:43 | Infectious Diseases Prog Note ---
Assessment/Plan Assessment/Plan Abx: Cefepime 04/21- Assessment: Afebrile cough ? CAP vs Asp Pneum No leukocytosis R/o probable UTI- (on/off dysuria, worse in the last few days, however no pyuria ) - 04/25 CXR: Reduced lung volumes with bilateral interstitial opacities. -u/a wbc 2-4, nit +, leuk est +1; ucx Generalized weakness Dysphagia Afib w RVR -04/23 CXR: Interval worsening of aeration with increasing interstitial opacities and worsening perihilar opacities. Given and short-term interval worsening findings may be related to development of pulmonary edema. Correlate clinically. Previously described right hilar masslike opacity less well-defined on this exam, likely obscured by above described opacities. The possibility of an underlying mass is not entirely excluded especially given history of known malignancy. Follow up recommend. Hyponatremia Troponinemia HTN HLD neuroendocrine CA of bladder with liver, brain, mediastinum and lungs mets s/p chemo and currently on radiation tx (last was 1 month ago) Severe OA Knee s/p knee arthroplasty s/p b/l inguinal repair s/p splenectomy 1968 hypothyroidism hx of UTI Plan: - Zosyn #4 -Continue levaquin #5/7 for now pending Cx (Asp Pneum and probable UTI ) - Flagyl #4 - 03/29/18 S/P Cefepime # 5 - f/u Urine and sputum Cx - f/u Urine Legionella - f/u fungal serologies -Monitor CBC/CMP -aspiration precautions -Cards f/u - Goals of care discussion with family - Consider CT chest to evaluate for tumor burden Subjective Allergies: Coded Allergies: No Known Allergies (Unverified , 10/25/13) Subjective Patient afebrile No leukocytosis On Nonrebreather Awake and alert no new problems Objective Vital Signs Last 24 Hour Vital Signs Date Time Temp Pulse Resp B/P (MAP) Pulse Ox O2 Delivery O2 Flow Rate FiO2 04/30/18 07:50 120 04/30/18 04:00 98.2 119 32 108/51 (70) 92 04/30/18 04:00 Non-Rebreather 15.0 04/30/18 03:38 118 04/30/18 01:54 104 20 90 04/30/18 00:00 97.9 120 32 117/70 (86) 92 04/30/18 00:00 Non-Rebreather 15.0 04/29/18 23:18 123 04/29/18 23:00 98 22 87 Non-Rebreather 15.0 100 04/29/18 23:00 98 22 87 Non-Rebreather 15.0 100 04/29/18 22:59 109 22 93 04/29/18 21:00 132 26 92 04/29/18 20:00 97.2 102 32 106/63 (77) 90 04/29/18 20:00 Non-Rebreather 15.0 04/29/18 19:35 93 Non-Rebreather 15.0 100 04/29/18 19:35 Non-Rebreather 15.0 100 04/29/18 19:35 Non-Rebreather 100 04/29/18 19:35 95 34 93 Non-Rebreather 100 04/29/18 19:24 124 04/29/18 16:00 97.2 124 25 101/67 (78) 91 04/29/18 16:00 130 04/29/18 16:00 Non-Rebreather 15.0 04/29/18 15:24 Non-Rebreather 15.0 100 04/29/18 15:24 Non-Rebreather 15.0 100 04/29/18 14:03 99.3 04/29/18 13:05 Non-Rebreather 100 04/29/18 13:05 112 34 97 Non-Rebreather 100 04/29/18 12:48 128 103/52 (69) 04/29/18 12:00 97.7 119 24 122/64 (83) 92 04/29/18 12:00 126 04/29/18 12:00 Non-Rebreather 15.0 04/29/18 09:43 109 39 97 Facial 100 04/29/18 09:00 134 Height (Feet): 5 Height (Inches): 11.00 Weight (Pounds): 190 Objective GENERAL: On NRB, Awake and alert HEENT: NCAT, MMM LUNGS: Course B/L, No W HEART: S1 and S2. Irregular. No murmur or gallop. ABDOMEN: Soft, nondistended, and nontender. Positive bowel sounds. EXTREMITIES: No cyanosis, clubbing, or edema. Laboratory Tests Test 1/3/19 04:00 White Blood Count 6.1 K/UL (4.8-10.8) Red Blood Count 4.32 M/UL (4.70-6.10) L Hemoglobin 14.3 G/DL (14.2-18.0) Hematocrit 40.1 % (42.0-52.0) L Mean Corpuscular Volume 93 FL (80-99) Mean Corpuscular Hemoglobin 33.1 PG (27.0-31.0) H Mean Corpuscular Hemoglobin Concent 35.7 G/DL (32.0-36.0) Red Cell Distribution Width 12.7 % (11.6-14.8) Platelet Count 65 K/UL (150-450) L Mean Platelet Volume 8.9 FL (6.5-10.1) Neutrophils (%) (Auto) % (45.0-75.0) Lymphocytes (%) (Auto) % (20.0-45.0) Monocytes (%) (Auto) % (1.0-10.0) Eosinophils (%) (Auto) % (0.0-3.0) Basophils (%) (Auto) % (0.0-2.0) Sodium Level 138 MMOL/L (136-145) Potassium Level 4.3 MMOL/L (3.5-5.1) Chloride Level 104 MMOL/L (98-107) Carbon Dioxide Level 24 MMOL/L (21-32) Anion Gap 10 mmol/L (5-15) Blood Urea Nitrogen 20 mg/dL (7-18) H Creatinine 0.6 MG/DL (0.55-1.30) Estimat Glomerular Filtration Rate mL/min (>60) Glucose Level 134 MG/DL (74-106) H Calcium Level 9.1 MG/DL (8.5-10.1) Total Bilirubin 0.7 MG/DL (0.2-1.0) Aspartate Amino Transf (AST/SGOT) 39 U/L (15-37) H Alanine Aminotransferase (ALT/SGPT) 24 U/L (12-78) Alkaline Phosphatase 86 U/L (46-116) Pro-B-Type Natriuretic Peptide 1459 pg/mL (0-125) H Total Protein 5.3 G/DL (6.4-8.2) L Albumin 1.1 G/DL (3.4-5.0) L Globulin 4.2 g/dL Albumin/Globulin Ratio 0.3 (1.0-2.7) L Coccidioides Antibody (Comp Fix) Pending Current Medications Medications (Trade) Dose Ordered Sig/Chivo Route PRN Reason Start Time Stop Time Status Last Admin Dose Admin Acetaminophen (Tylenol) 650 mg Q4H PRN ORAL Mild Pain (Pain Scale 1-3) 04/27/18 02:30 05/20/18 18:29 Acetaminophen (Tylenol) 650 mg Q4H PRN ORAL fever 04/27/18 02:30 05/20/18 18:29 Acetaminophen (Tylenol) 650 mg Q6H PRN RECTAL Fever/Headache/Mild Pain 04/27/18 04:00 05/26/18 21:49 Chlorhexidine Gluconate (Ana-Hex 2%) 1 applic DAILY@1999 TOPIC 04/27/18 20:00 05/25/18 19:59 04/29/18 20:00 Demeclocycline HCl (Declomycin) 300 mg Q12HR ORAL 04/27/18 09:00 05/01/18 20:59 Dexamethasone (Decadron) 4 mg DAILY ORAL 04/27/18 09:00 05/21/18 08:59 Dextrose (Dextrose 50%) 25 ml Q30M PRN IV Hypoglycemia 04/26/18 23:15 05/20/18 15:14 Dextrose (Dextrose 50%) 50 ml Q30M PRN IV Hypoglycemia 04/26/18 23:15 05/20/18 15:14 Digoxin (Lanoxin) 0.25 mg DAILY IVP 04/29/18 09:00 05/29/18 08:59 Docusate Sodium (Colace) 100 mg EVERY 12 HOURS ORAL 04/27/18 09:00 05/20/18 20:59 Famotidine (Pepcid) 40 mg DAILY ORAL 04/27/18 09:00 05/21/18 08:59 Insulin Aspart (NovoLOG) BEFORE MEALS AND HS SUBQ 04/27/18 06:30 05/20/18 16:29 04/29/18 16:29 Ipratropium Glade (Atrovent) 500 mcg Q4H PRN HHN Shortness of Breath 04/29/18 10:30 05/04/18 10:29 Ipratropium Glade (Atrovent) 500 mcg TIDRT [facility] 04/29/18 13:00 05/04/18 12:59 04/30/18 07:40 Levalbuterol HCl (Xopenex) 0.63 mg Q8HRT [facility] 04/28/18 23:00 05/03/18 22:59 04/30/18 07:40 Levofloxacin 150 ml @ 100 mls/hr Q24H IVPB 04/27/18 14:00 05/02/18 13:59 04/29/18 13:31 Levothyroxine Sodium (Synthroid) 75 mcg Q24H ORAL 04/27/18 06:30 05/21/18 06:29 Lorazepam (Ativan 2mg/ml 1ml) 1 mg Q4H PRN IM For Anxiety 04/27/18 01:00 05/02/18 00:59 04/27/18 00:56 Morphine Sulfate (Morphine Sulfate) 1 mg Q4H PRN IVP dysnea, RR> 20 04/29/18 12:45 05/06/18 12:44 04/29/18 13:33 Olanzapine (ZyPREXA) 2.5 mg DAILY ORAL 04/27/18 09:00 05/26/18 08:59 Olanzapine (ZyPREXA) 5 mg QHS ORAL 04/27/18 21:00 05/25/18 20:59 Ondansetron HCl (Zofran) 4 mg Q6H PRN IVP Nausea & Vomiting 04/27/18 00:30 05/20/18 18:29 Piperacillin Sod/ Tazobactam Sod 3.375 gm/Sodium Chloride 110 ml @ 27.5 mls/hr Q8H IVPB 04/27/18 16:00 05/04/18 15:59 04/29/18 23:29 Polyethylene Glycol (Miralax) 17 gm DAILYPRN PRN ORAL Constipation 04/27/18 18:30 05/22/18 18:29 Tamsulosin HCl (Flomax) 0.4 mg QHS ORAL 04/27/18 21:00 05/20/18 20:59 Enrique Gregory MD Apr 30, 2018 08:43
[2018-04-30] MEDS: Digoxin 0.5mg/2ml Inj IVP SCH (09:00)
[2018-04-30] MEDS: OLANZapine 2.5mg tab ORAL SCH (09:00)
[2018-04-30] MEDS: Docusate 100mg cap ORAL SCH ×2 (09:00→21:00)
[2018-04-30] MEDS: Demeclocycline 150mg tab ORAL SCH (09:00)
--- NOTE | 2018-04-30 11:04 | Pulmonolgy Critical Care Note ---
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 Critical Care - Objective Last 24 Hour Vital Signs Date Time Temp Pulse Resp B/P (MAP) Pulse Ox O2 Delivery O2 Flow Rate FiO2 04/30/18 09:00 120 04/30/18 08:00 Non-Rebreather 15.0 04/30/18 08:00 97.7 118 32 100/54 (69) 92 04/30/18 07:50 120 04/30/18 04:00 98.2 119 32 108/51 (70) 92 04/30/18 04:00 Non-Rebreather 15.0 04/30/18 03:38 118 04/30/18 01:54 104 20 90 04/30/18 00:00 97.9 120 32 117/70 (86) 92 04/30/18 00:00 Non-Rebreather 15.0 04/29/18 23:18 123 04/29/18 23:00 98 22 87 Non-Rebreather 15.0 100 04/29/18 23:00 98 22 87 Non-Rebreather 15.0 100 04/29/18 22:59 109 22 93 04/29/18 21:00 132 26 92 04/29/18 20:00 97.2 102 32 106/63 (77) 90 04/29/18 20:00 Non-Rebreather 15.0 04/29/18 19:35 93 Non-Rebreather 15.0 100 04/29/18 19:35 Non-Rebreather 15.0 100 04/29/18 19:35 Non-Rebreather 100 04/29/18 19:35 95 34 93 Non-Rebreather 100 04/29/18 19:24 124 04/29/18 16:00 97.2 124 25 101/67 (78) 91 04/29/18 16:00 130 04/29/18 16:00 Non-Rebreather 15.0 04/29/18 15:24 Non-Rebreather 15.0 100 04/29/18 15:24 Non-Rebreather 15.0 100 04/29/18 14:03 99.3 04/29/18 13:05 Non-Rebreather 100 04/29/18 13:05 112 34 97 Non-Rebreather 100 04/29/18 12:48 128 103/52 (69) 04/29/18 12:00 97.7 119 24 122/64 (83) 92 04/29/18 12:00 126 04/29/18 12:00 Non-Rebreather 15.0 Status: awake Condition: critical HEENT: atraumatic Lungs: clear Heart: HR/BP stable, regular Abdomen: non-tender, feeding tube Extremities: edema Decubiti: location Accucheck: 147 Critical Care - Subjective ROS Limited/Unobtainable: Yes Condition: critical, grave FI02: 100 Sputum Amount: None I&O: Intake and Output 04/29/18 04/30/18 19:00 07:00 Intake Total 342.5 ml 137.50 ml Output Total 750 ml 600 ml Balance -407.5 ml -462.50 ml IV Total 342.5 ml 137.50 ml Output Urine Total 750 ml 600 ml # Bowel Movements 2 CXR: pulmonary edema Labs: Laboratory Tests Test 04/30/18 04:00 White Blood Count 6.1 K/UL (4.8-10.8) Red Blood Count 4.32 M/UL (4.70-6.10) L Hemoglobin 14.3 G/DL (14.2-18.0) Hematocrit 40.1 % (42.0-52.0) L Mean Corpuscular Volume 93 FL (80-99) Mean Corpuscular Hemoglobin 33.1 PG (27.0-31.0) H Mean Corpuscular Hemoglobin Concent 35.7 G/DL (32.0-36.0) Red Cell Distribution Width 12.7 % (11.6-14.8) Platelet Count 65 K/UL (150-450) L Mean Platelet Volume 8.9 FL (6.5-10.1) Neutrophils (%) (Auto) % (45.0-75.0) Lymphocytes (%) (Auto) % (20.0-45.0) Monocytes (%) (Auto) % (1.0-10.0) Eosinophils (%) (Auto) % (0.0-3.0) Basophils (%) (Auto) % (0.0-2.0) Sodium Level 138 MMOL/L (136-145) Potassium Level 4.3 MMOL/L (3.5-5.1) Chloride Level 104 MMOL/L (98-107) Carbon Dioxide Level 24 MMOL/L (21-32) Anion Gap 10 mmol/L (5-15) Blood Urea Nitrogen 20 mg/dL (7-18) H Creatinine 0.6 MG/DL (0.55-1.30) Estimat Glomerular Filtration Rate mL/min (>60) Glucose Level 134 MG/DL (74-106) H Calcium Level 9.1 MG/DL (8.5-10.1) Total Bilirubin 0.7 MG/DL (0.2-1.0) Aspartate Amino Transf (AST/SGOT) 39 U/L (15-37) H Alanine Aminotransferase (ALT/SGPT) 24 U/L (12-78) Alkaline Phosphatase 86 U/L (46-116) Pro-B-Type Natriuretic Peptide 1459 pg/mL (0-125) H Total Protein 5.3 G/DL (6.4-8.2) L Albumin 1.1 G/DL (3.4-5.0) L Globulin 4.2 g/dL Albumin/Globulin Ratio 0.3 (1.0-2.7) L Coccidioides Antibody (Comp Fix) Pending Isacc Weir MD Apr 30, 2018 11:03
--- NOTE | 2018-04-30 11:07 | General Progress Note ---
Assessment/Plan Assessment/Plan Assessment - AMS, Delirium - Hypoxia, tachypnia - failed swallow evaluation - afib, tachy - h/o bladder CA - BPH Recommendation - supportive care - follow mental status - doubt will tolerate NGT due to agitation - unable to safely feed po - not stable for PEG placement at this time Subjective Allergies: Coded Allergies: No Known Allergies (Unverified , 10/25/13) Subjective Agitated family at bedside borderline saturation on FM tachycardic confused Objective Last 24 Hour Vital Signs Date Time Temp Pulse Resp B/P (MAP) Pulse Ox O2 Delivery O2 Flow Rate FiO2 04/30/18 09:00 120 04/30/18 08:00 Non-Rebreather 15.0 04/30/18 08:00 97.7 118 32 100/54 (69) 92 04/30/18 07:50 120 04/30/18 04:00 98.2 119 32 108/51 (70) 92 04/30/18 04:00 Non-Rebreather 15.0 04/30/18 03:38 118 04/30/18 01:54 104 20 90 04/30/18 00:00 97.9 120 32 117/70 (86) 92 04/30/18 00:00 Non-Rebreather 15.0 04/29/18 23:18 123 04/29/18 23:00 98 22 87 Non-Rebreather 15.0 100 04/29/18 23:00 98 22 87 Non-Rebreather 15.0 100 04/29/18 22:59 109 22 93 04/29/18 21:00 132 26 92 04/29/18 20:00 97.2 102 32 106/63 (77) 90 04/29/18 20:00 Non-Rebreather 15.0 04/29/18 19:35 93 Non-Rebreather 15.0 100 04/29/18 19:35 Non-Rebreather 15.0 100 04/29/18 19:35 Non-Rebreather 100 04/29/18 19:35 95 34 93 Non-Rebreather 100 04/29/18 19:24 124 04/29/18 16:00 97.2 124 25 101/67 (78) 91 04/29/18 16:00 130 04/29/18 16:00 Non-Rebreather 15.0 04/29/18 15:24 Non-Rebreather 15.0 100 04/29/18 15:24 Non-Rebreather 15.0 100 04/29/18 14:03 99.3 04/29/18 13:05 Non-Rebreather 100 04/29/18 13:05 112 34 97 Non-Rebreather 100 04/29/18 12:48 128 103/52 (69) 04/29/18 12:00 97.7 119 24 122/64 (83) 92 04/29/18 12:00 126 04/29/18 12:00 Non-Rebreather 15.0 Intake and Output 04/29/18 04/30/18 19:00 07:00 Intake Total 342.5 ml 137.50 ml Output Total 750 ml 600 ml Balance -407.5 ml -462.50 ml IV Total 342.5 ml 137.50 ml Output Urine Total 750 ml 600 ml # Bowel Movements 2 Laboratory Tests 04/30/18 04:00: White Blood Count 6.1, Red Blood Count 4.32L, Hemoglobin 14.3, Hematocrit 40.1L , Mean Corpuscular Volume 93, Mean Corpuscular Hemoglobin 33.1H, Mean Corpuscular Hemoglobin Concent 35.7, Red Cell Distribution Width 12.7, Platelet Count 65L, Mean Platelet Volume 8.9, Neutrophils (%) (Auto) , Lymphocytes (%) ( Auto) , Monocytes (%) (Auto) , Eosinophils (%) (Auto) , Basophils (%) (Auto) , Sodium Level 138, Potassium Level 4.3, Chloride Level 104, Carbon Dioxide Level 24, Anion Gap 10, Blood Urea Nitrogen 20H, Creatinine 0.6, Estimat Glomerular Filtration Rate , Glucose Level 134H, Calcium Level 9.1, Total Bilirubin 0.7, Aspartate Amino Transf (AST/SGOT) 39H, Alanine Aminotransferase (ALT/SGPT) 24, Alkaline Phosphatase 86, Pro-B-Type Natriuretic Peptide 1459H, Total Protein 5.3L, Albumin 1.1L, Globulin 4.2, Albumin/Globulin Ratio 0.3L, Coccidioides Antibody (Comp Fix) [Pending] Height (Feet): 5 Height (Inches): 11.00 Weight (Pounds): 190 Objective Agitated elderly man NCAT, (+) O2 FM supple Coarse BS, ronchi, tachypnic tachy abd soft ND no edema Bandar Monge MD Apr 30, 2018 11:07
[2018-04-30] MEDS ORDERED: MORPHINE S10 MG/5 ML ORAL (11:17)
--- NOTE | 2018-04-30 11:32 | Diagnostic Imaging Report ---
Indication: Dyspnea Comparison: 04/29/2018 A single view chest radiograph was obtained. Findings: Infiltrates demonstrated bilaterally versus pulmonary edema. The findings appear unchanged. Chest port again noted on the right. Heart size is stable. IMPRESSION: No change from the prior exam
[2018-04-30 12:00] VITALS: BP 102/62
--- NOTE | 2018-04-30 12:30 | Nephrology Progress Note ---
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) (2) Hyponatremia Assessment: ok (3) Hypertension (4) Metastatic cancer (5) Hypokalemia (6) Hypomagnesemia Plan DC free water restriction Dc Demeclocycline follow labs discussed with family and RN Subjective Subjective In NAD Objective Objective Last 24 Hour Vital Signs Date Time Temp Pulse Resp B/P (MAP) Pulse Ox O2 Delivery O2 Flow Rate FiO2 04/30/18 09:00 120 04/30/18 08:00 Non-Rebreather 15.0 04/30/18 08:00 97.7 118 32 100/54 (69) 92 04/30/18 07:50 120 04/30/18 04:00 98.2 119 32 108/51 (70) 92 04/30/18 04:00 Non-Rebreather 15.0 04/30/18 03:38 118 04/30/18 01:54 104 20 90 04/30/18 00:00 97.9 120 32 117/70 (86) 92 04/30/18 00:00 Non-Rebreather 15.0 04/29/18 23:18 123 04/29/18 23:00 98 22 87 Non-Rebreather 15.0 100 04/29/18 23:00 98 22 87 Non-Rebreather 15.0 100 04/29/18 22:59 109 22 93 04/29/18 21:00 132 26 92 04/29/18 20:00 97.2 102 32 106/63 (77) 90 04/29/18 20:00 Non-Rebreather 15.0 04/29/18 19:35 93 Non-Rebreather 15.0 100 04/29/18 19:35 Non-Rebreather 15.0 100 04/29/18 19:35 Non-Rebreather 100 04/29/18 19:35 95 34 93 Non-Rebreather 100 04/29/18 19:24 124 04/29/18 16:00 97.2 124 25 101/67 (78) 91 04/29/18 16:00 130 04/29/18 16:00 Non-Rebreather 15.0 04/29/18 15:24 Non-Rebreather 15.0 100 04/29/18 15:24 Non-Rebreather 15.0 100 04/29/18 14:03 99.3 04/29/18 13:05 Non-Rebreather 100 04/29/18 13:05 112 34 97 Non-Rebreather 100 04/29/18 12:48 128 103/52 (69) Intake and Output 04/29/18 04/30/18 19:00 07:00 Intake Total 342.5 ml 137.50 ml Output Total 750 ml 600 ml Balance -407.5 ml -462.50 ml IV Total 342.5 ml 137.50 ml Output Urine Total 750 ml 600 ml # Bowel Movements 2 Laboratory Tests 04/30/18 04:00: White Blood Count 6.1, Red Blood Count 4.32L, Hemoglobin 14.3, Hematocrit 40.1L , Mean Corpuscular Volume 93, Mean Corpuscular Hemoglobin 33.1H, Mean Corpuscular Hemoglobin Concent 35.7, Red Cell Distribution Width 12.7, Platelet Count 65L, Mean Platelet Volume 8.9, Neutrophils (%) (Auto) , Lymphocytes (%) ( Auto) , Monocytes (%) (Auto) , Eosinophils (%) (Auto) , Basophils (%) (Auto) , Sodium Level 138, Potassium Level 4.3, Chloride Level 104, Carbon Dioxide Level 24, Anion Gap 10, Blood Urea Nitrogen 20H, Creatinine 0.6, Estimat Glomerular Filtration Rate , Glucose Level 134H, Calcium Level 9.1, Total Bilirubin 0.7, Aspartate Amino Transf (AST/SGOT) 39H, Alanine Aminotransferase (ALT/SGPT) 24, Alkaline Phosphatase 86, Pro-B-Type Natriuretic Peptide 1459H, Total Protein 5.3L, Albumin 1.1L, Globulin 4.2, Albumin/Globulin Ratio 0.3L, Coccidioides Antibody (Comp Fix) [Pending] Height (Feet): 5 Height (Inches): 11.00 Weight (Pounds): 190 Cardiovascular: normal rate Respiratory/Chest: rhonchi - bilaterally Extremities: trace edema Ayo An MD Apr 30, 2018 12:30
--- NOTE | 2018-04-30 13:47 | General Progress Note ---
Assessment/Plan Status: stable Assessment/Plan Zyprexa the pt was provided with ro/st palliative care the family agreed to hospice Subjective Neurologic/Psychiatric: Reports: anxiety, emotional problems Allergies: Coded Allergies: No Known Allergies (Unverified , 10/25/13) Subjective the pt is confused and agitated at times Objective Last 24 Hour Vital Signs Date Time Temp Pulse Resp B/P (MAP) Pulse Ox O2 Delivery O2 Flow Rate FiO2 04/30/18 12:00 Non-Rebreather 15.0 04/30/18 09:00 120 04/30/18 08:00 Non-Rebreather 15.0 04/30/18 08:00 97.7 118 32 100/54 (69) 92 04/30/18 07:50 108 24 95 Non-Rebreather 15.0 100 04/30/18 07:50 120 04/30/18 07:40 108 24 94 Non-Rebreather 15.0 100 04/30/18 07:40 108 24 94 Non-Rebreather 15.0 100 04/30/18 07:39 Non-Rebreather 15.0 100 04/30/18 07:38 94 Non-Rebreather 15.0 100 04/30/18 04:00 98.2 119 32 108/51 (70) 92 04/30/18 04:00 Non-Rebreather 15.0 04/30/18 03:38 118 04/30/18 01:54 104 20 90 04/30/18 00:00 97.9 120 32 117/70 (86) 92 04/30/18 00:00 Non-Rebreather 15.0 04/29/18 23:18 123 04/29/18 23:00 98 22 87 Non-Rebreather 15.0 100 04/29/18 23:00 98 22 87 Non-Rebreather 15.0 100 04/29/18 22:59 109 22 93 04/29/18 21:00 132 26 92 04/29/18 20:00 97.2 102 32 106/63 (77) 90 04/29/18 20:00 Non-Rebreather 15.0 04/29/18 19:35 93 Non-Rebreather 15.0 100 04/29/18 19:35 Non-Rebreather 15.0 100 04/29/18 19:35 Non-Rebreather 100 04/29/18 19:35 95 34 93 Non-Rebreather 100 04/29/18 19:24 124 04/29/18 16:00 97.2 124 25 101/67 (78) 91 04/29/18 16:00 130 04/29/18 16:00 Non-Rebreather 15.0 04/29/18 15:24 Non-Rebreather 15.0 100 04/29/18 15:24 Non-Rebreather 15.0 100 04/29/18 14:03 99.3 Intake and Output 04/29/18 04/30/18 19:00 07:00 Intake Total 342.5 ml 137.50 ml Output Total 750 ml 600 ml Balance -407.5 ml -462.50 ml IV Total 342.5 ml 137.50 ml Output Urine Total 750 ml 600 ml # Bowel Movements 2 Laboratory Tests 04/30/18 04:00: White Blood Count 6.1, Red Blood Count 4.32L, Hemoglobin 14.3, Hematocrit 40.1L , Mean Corpuscular Volume 93, Mean Corpuscular Hemoglobin 33.1H, Mean Corpuscular Hemoglobin Concent 35.7, Red Cell Distribution Width 12.7, Platelet Count 65L, Mean Platelet Volume 8.9, Neutrophils (%) (Auto) , Lymphocytes (%) ( Auto) , Monocytes (%) (Auto) , Eosinophils (%) (Auto) , Basophils (%) (Auto) , Sodium Level 138, Potassium Level 4.3, Chloride Level 104, Carbon Dioxide Level 24, Anion Gap 10, Blood Urea Nitrogen 20H, Creatinine 0.6, Estimat Glomerular Filtration Rate , Glucose Level 134H, Calcium Level 9.1, Total Bilirubin 0.7, Aspartate Amino Transf (AST/SGOT) 39H, Alanine Aminotransferase (ALT/SGPT) 24, Alkaline Phosphatase 86, Pro-B-Type Natriuretic Peptide 1459H, Total Protein 5.3L, Albumin 1.1L, Globulin 4.2, Albumin/Globulin Ratio 0.3L, Coccidioides Antibody (Comp Fix) [Pending] Height (Feet): 5 Height (Inches): 11.00 Weight (Pounds): 190 General Appearance: alert, confused, agitated Neurologic: disoriented, depressed affect Jeanie Calvin MD Apr 30, 2018 13:47
[2018-04-30] MEDS: Morphine Sulfate 4mg/ml Inj (IV/IM USE ONLY) IVP PRN (14:31)
[2018-04-30 16:00] VITALS: BP 95/65
[2018-04-30] MEDS: Dyna-Hex 2% Top Sol 2oz TOPIC SCH (20:00)
[2018-04-30] MEDS: Tamsulosin 0.4mg cap ORAL SCH (21:00)
[2018-05-01] VITALS: BP 101/68
[2018-05-01 04:00] VITALS: BP 111/77
[2018-05-01] MEDS: NovoLOG Insulin Flexpen SUBQ SCH (05:39)
[2018-05-01 08:00] VITALS: BP 105/47
[2018-05-01] MEDS: Piperacillin/Tazobactam 3.375 GM in NS 110 ML IVPB SCH (08:00)
--- NOTE | 2018-05-01 08:57 | Infectious Diseases Prog Note ---
Assessment/Plan Assessment/Plan Abx: Cefepime 04/21- Assessment: Afebrile cough ? CAP vs Asp Pneum No leukocytosis R/o probable UTI- (on/off dysuria, worse in the last few days, however no pyuria ) - 04/25 CXR: Reduced lung volumes with bilateral interstitial opacities. -u/a wbc 2-4, nit +, leuk est +1; ucx Generalized weakness Dysphagia Afib w RVR -04/23 CXR: Interval worsening of aeration with increasing interstitial opacities and worsening perihilar opacities. Given and short-term interval worsening findings may be related to development of pulmonary edema. Correlate clinically. Previously described right hilar masslike opacity less well-defined on this exam, likely obscured by above described opacities. The possibility of an underlying mass is not entirely excluded especially given history of known malignancy. Follow up recommend. Hyponatremia Troponinemia HTN HLD neuroendocrine CA of bladder with liver, brain, mediastinum and lungs mets s/p chemo and currently on radiation tx (last was 1 month ago) Severe OA Knee s/p knee arthroplasty s/p b/l inguinal repair s/p splenectomy 1968 hypothyroidism hx of UTI Plan: - Zosyn #5/7 -Continue levaquin #6/7 for now pending Cx (Asp Pneum and probable UTI ) Will finish a course for PNA and then probably stop abx as there is no evidence for active infection. Discussed case with primary and will consider a CT chest - Flagyl #4 - 03/29/18 S/P Cefepime # 5 - f/u Urine and sputum Cx - f/u Urine Legionella - f/u fungal serologies -Monitor CBC/CMP -aspiration precautions -Cards f/u - Goals of care discussion with family - Consider CT chest to evaluate for tumor burden Subjective Allergies: Coded Allergies: No Known Allergies (Unverified , 10/25/13) Subjective Patient afebrile No leukocytosis On Nonrebreather Awake Objective Vital Signs Last 24 Hour Vital Signs Date Time Temp Pulse Resp B/P (MAP) Pulse Ox O2 Delivery O2 Flow Rate FiO2 05/01/18 04:00 Non-Rebreather 15.0 Non-Rebreather 05/01/18 04:00 97.0 102 24 111/77 (88) 97 05/01/18 03:14 122 05/01/18 00:00 Non-Rebreather 15.0 Non-Rebreather 05/01/18 00:00 97.8 99 32 101/68 (79) 97 04/30/18 23:17 119 04/30/18 22:54 Non-Rebreather 15.0 100 04/30/18 22:54 Non-Rebreather 15.0 100 04/30/18 20:00 Non-Rebreather 15.0 Non-Rebreather 04/30/18 19:30 Non-Rebreather 15.0 100 04/30/18 19:30 Non-Rebreather 15.0 100 04/30/18 19:30 Non-Rebreather 15.0 100 04/30/18 19:30 111 22 Non-Rebreather 15.0 100 04/30/18 19:30 91 Non-Rebreather 15.0 100 04/30/18 16:00 Non-Rebreather 15.0 Non-Rebreather 04/30/18 16:00 125 32 95/65 (75) 92 04/30/18 15:01 97.7 04/30/18 15:00 Non-Rebreather 15.0 100 04/30/18 15:00 Non-Rebreather 15.0 100 04/30/18 13:43 125 24 89 Non-Rebreather 100 04/30/18 13:38 118 24 91 Non-Rebreather 15.0 100 04/30/18 12:00 97.7 118 32 102/62 (75) 92 04/30/18 12:00 129 04/30/18 12:00 Non-Rebreather 15.0 04/30/18 09:00 120 Height (Feet): 5 Height (Inches): 11.00 Weight (Pounds): 190 Objective GENERAL: On NRB, Awake HEENT: NCAT, MMM LUNGS: Course B/L, No W HEART: S1 and S2. Irregular. No murmur or gallop. ABDOMEN: Soft, nondistended, and nontender. Positive bowel sounds. EXTREMITIES: No cyanosis, clubbing, or edema. Microbiology Date/Time Source Procedure Growth Status 04/29/18 01:03 Urine,Clean Catch Urine Culture - Preliminary YEAST Resulted Current Medications Medications (Trade) Dose Ordered Sig/Chivo Route PRN Reason Start Time Stop Time Status Last Admin Dose Admin Acetaminophen (Tylenol) 650 mg Q4H PRN ORAL Mild Pain (Pain Scale 1-3) 04/27/18 02:30 05/20/18 18:29 Acetaminophen (Tylenol) 650 mg Q4H PRN ORAL fever 04/27/18 02:30 05/20/18 18:29 Acetaminophen (Tylenol) 650 mg Q6H PRN RECTAL Fever/Headache/Mild Pain 04/27/18 04:00 05/26/18 21:49 Chlorhexidine Gluconate (Ana-Hex 2%) 1 applic DAILY@2000 TOPIC 04/27/18 20:00 05/25/18 19:59 04/29/18 20:00 Dexamethasone (Decadron) 4 mg DAILY ORAL 04/27/18 09:00 05/21/18 08:59 Dextrose (Dextrose 50%) 25 ml Q30M PRN IV Hypoglycemia 04/26/18 23:15 05/20/18 15:14 Dextrose (Dextrose 50%) 50 ml Q30M PRN IV Hypoglycemia 04/26/18 23:15 05/20/18 15:14 Digoxin (Lanoxin) 0.25 mg DAILY IVP 04/29/18 09:00 05/29/18 08:59 Docusate Sodium (Colace) 100 mg EVERY 12 HOURS ORAL 04/27/18 09:00 05/20/18 20:59 Insulin Aspart (NovoLOG) BEFORE MEALS AND HS SUBQ 04/27/18 06:30 05/20/18 16:29 04/29/18 16:29 Ipratropium Imboden (Atrovent) 500 mcg Q4H PRN HHN Shortness of Breath 04/29/18 10:30 05/04/18 10:29 Ipratropium Imboden (Atrovent) 500 mcg TIDRT HHN 04/29/18 13:00 05/04/18 12:59 04/30/18 13:40 Levalbuterol HCl (Xopenex) 0.63 mg Q8HRT HHN 04/28/18 23:00 05/03/18 22:59 04/30/18 07:40 Levofloxacin 150 ml @ 100 mls/hr Q24H IVPB 04/27/18 14:00 05/02/18 13:59 04/29/18 13:31 Levothyroxine Sodium (Synthroid) 75 mcg Q24H ORAL 04/27/18 06:30 05/21/18 06:29 Lorazepam (Ativan 2mg/ml 1ml) 1 mg Q4H PRN IM For Anxiety 04/27/18 01:00 05/02/18 00:59 04/27/18 00:56 Morphine Sulfate (Morphine Sulfate) 1 mg Q4H PRN IVP dysnea, RR> 20 04/29/18 12:45 05/06/18 12:44 04/30/18 14:31 Olanzapine (ZyPREXA) 2.5 mg DAILY ORAL 04/27/18 09:00 05/26/18 08:59 Olanzapine (ZyPREXA) 5 mg QHS ORAL 04/27/18 21:00 05/25/18 20:59 Ondansetron HCl (Zofran) 4 mg Q6H PRN IVP Nausea & Vomiting 04/27/18 00:30 05/20/18 18:29 Piperacillin Sod/ Tazobactam Sod 3.375 gm/Sodium Chloride 110 ml @ 27.5 mls/hr Q8H IVPB 04/27/18 16:00 05/04/18 15:59 04/30/18 08:00 Polyethylene Glycol (Miralax) 17 gm DAILYPRN PRN ORAL Constipation 04/27/18 18:30 05/22/18 18:29 Tamsulosin HCl (Flomax) 0.4 mg QHS ORAL 04/27/18 21:00 05/20/18 20:59 Enrique Gregory MD May 01, 2018 08:57
[2018-05-01] MEDS: Docusate 100mg cap ORAL SCH (09:00)
[2018-05-01] MEDS: Digoxin 0.5mg/2ml Inj IVP SCH (09:00)
[2018-05-01] MEDS: OLANZapine 2.5mg tab ORAL SCH (09:00)
--- NOTE | 2018-05-01 10:43 | Pulmonology Progress Note ---
Assessment/Plan Problems: (1) Acute respiratory failure with hypoxemia (2) Neuro-endocrine carcinoma (3) Aspiration pneumonia (4) Atrial fibrillation (5) Protein-calorie malnutrition, severe (6) Metastatic cancer Assessment/Plan d/w family members at the bed site, comfort care morphin prn for dyspnea dni Subjective ROS Limited/Unobtainable: No Interval Events: pt was discharged, but then they ran out of Oxygen and pt had to come back Constitutional: Reports: no symptoms HEENT: Repors: no symptoms Respiratory: Reports: no symptoms Allergies: Coded Allergies: No Known Allergies (Unverified , 10/25/13) Objective Last 24 Hour Vital Signs Date Time Temp Pulse Resp B/P (MAP) Pulse Ox O2 Delivery O2 Flow Rate FiO2 05/01/18 04:00 Non-Rebreather 15.0 Non-Rebreather 05/01/18 04:00 97.0 102 24 111/77 (88) 97 05/01/18 03:14 122 05/01/18 00:00 Non-Rebreather 15.0 Non-Rebreather 05/01/18 00:00 97.8 99 32 101/68 (79) 97 04/30/18 23:17 119 04/30/18 22:54 Non-Rebreather 15.0 100 04/30/18 22:54 Non-Rebreather 15.0 100 04/30/18 20:00 Non-Rebreather 15.0 Non-Rebreather 04/30/18 19:30 Non-Rebreather 15.0 100 04/30/18 19:30 Non-Rebreather 15.0 100 04/30/18 19:30 Non-Rebreather 15.0 100 04/30/18 19:30 111 22 Non-Rebreather 15.0 100 04/30/18 19:30 91 Non-Rebreather 15.0 100 04/30/18 16:00 Non-Rebreather 15.0 Non-Rebreather 04/30/18 16:00 125 32 95/65 (75) 92 04/30/18 15:01 97.7 04/30/18 15:00 Non-Rebreather 15.0 100 04/30/18 15:00 Non-Rebreather 15.0 100 04/30/18 13:43 125 24 89 Non-Rebreather 100 04/30/18 13:38 118 24 91 Non-Rebreather 15.0 100 04/30/18 12:00 97.7 118 32 102/62 (75) 92 04/30/18 12:00 129 04/30/18 12:00 Non-Rebreather 15.0 Intake and Output 04/30/18 05/01/18 19:00 07:00 Output Total 300 ml Balance -300 ml Output Urine Total 300 ml # Bowel Movements 1 2 General Appearance: WD/WN HEENT: normocephalic, atraumatic Respiratory/Chest: chest wall non-tender, lungs clear Cardiovascular: normal peripheral pulses, normal rate Abdomen: normal bowel sounds, soft, non tender Genitourinary: normal external genitalia Extremities: no cyanosis Neurologic/Psychiatric: non linear editor 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 Microbiology Date/Time Source Procedure Growth Status 04/29/18 01:03 Urine,Clean Catch Urine Culture - Preliminary YEAST Resulted Current Medications Medications (Trade) Dose Ordered Sig/Chivo Route PRN Reason Start Time Stop Time Status Last Admin Dose Admin Acetaminophen (Tylenol) 650 mg Q4H PRN ORAL Mild Pain (Pain Scale 1-3) 04/27/18 02:30 05/20/18 18:29 Acetaminophen (Tylenol) 650 mg Q4H PRN ORAL fever 04/27/18 02:30 05/20/18 18:29 Acetaminophen (Tylenol) 650 mg Q6H PRN RECTAL Fever/Headache/Mild Pain 04/27/18 04:00 05/26/18 21:49 Chlorhexidine Gluconate (Ana-Hex 2%) 1 applic DAILY@1999 TOPIC 04/27/18 20:00 05/25/18 19:59 04/29/18 20:00 Dexamethasone (Decadron) 4 mg DAILY ORAL 04/27/18 09:00 05/21/18 08:59 Dextrose (Dextrose 50%) 25 ml Q30M PRN IV Hypoglycemia 04/26/18 23:15 05/20/18 15:14 Dextrose (Dextrose 50%) 50 ml Q30M PRN IV Hypoglycemia 04/26/18 23:15 05/20/18 15:14 Digoxin (Lanoxin) 0.25 mg DAILY IVP 04/29/18 09:00 05/29/18 08:59 Docusate Sodium (Colace) 100 mg EVERY 12 HOURS ORAL 04/27/18 09:00 05/20/18 20:59 Insulin Aspart (NovoLOG) BEFORE MEALS AND HS SUBQ 04/27/18 06:30 05/20/18 16:29 04/29/18 16:29 Ipratropium Grandin (Atrovent) 500 mcg Q4H PRN HHN Shortness of Breath 04/29/18 10:30 05/04/18 10:29 Ipratropium Grandin (Atrovent) 500 mcg TIDRT HHN 04/29/18 13:00 05/04/18 12:59 04/30/18 13:40 Levalbuterol HCl (Xopenex) 0.63 mg Q8HRT HHN 04/28/18 23:00 05/03/18 22:59 04/30/18 07:40 Levofloxacin 150 ml @ 100 mls/hr Q24H IVPB 04/27/18 14:00 05/02/18 13:59 04/29/18 13:31 Levothyroxine Sodium (Synthroid) 75 mcg Q24H ORAL 04/27/18 06:30 05/21/18 06:29 Lorazepam (Ativan 2mg/ml 1ml) 1 mg Q4H PRN IM For Anxiety 04/27/18 01:00 05/02/18 00:59 04/27/18 00:56 Morphine Sulfate (Morphine Sulfate) 1 mg Q4H PRN IVP dysnea, RR> 20 04/29/18 12:45 05/06/18 12:44 04/30/18 14:31 Olanzapine (ZyPREXA) 2.5 mg DAILY ORAL 04/27/18 09:00 05/26/18 08:59 Olanzapine (ZyPREXA) 5 mg QHS ORAL 04/27/18 21:00 05/25/18 20:59 Ondansetron HCl (Zofran) 4 mg Q6H PRN IVP Nausea & Vomiting 04/27/18 00:30 05/20/18 18:29 Piperacillin Sod/ Tazobactam Sod 3.375 gm/Sodium Chloride 110 ml @ 27.5 mls/hr Q8H IVPB 04/27/18 16:00 05/04/18 15:59 04/30/18 08:00 Polyethylene Glycol (Miralax) 17 gm DAILYPRN PRN ORAL Constipation 04/27/18 18:30 05/22/18 18:29 Tamsulosin HCl (Flomax) 0.4 mg QHS ORAL 04/27/18 21:00 05/20/18 20:59 Isacc Weir MD May 01, 2018 10:43
[2018-05-01 12:00] VITALS: BP_SYST 112; BP_DIAS 60; BP_DIAS 62
--- NOTE | 2018-05-01 12:05 | Cardiology Progress Note ---
Assessment/Plan Status: stable Assessment/Plan Assessment/Plan Status: stable, progressing Assessment/Plan Assessment: Tachycardia Atrial fibrillation Neuroendocrine carcinoma with mets Hypertension Hyperlipiemia Osteoarthritis knees Recurrent [place] Splenectomy Ascending aortic aneurysm hypothyroidism elevated hemoglobin A1c s/p TURP Ectopy with premature atrial contractions Plan: Transferred to [facility] BiPAP prn -> patient family refusing NGT family refusing Made comfort care with home hospice AAA stable in size no indication for intervention continue outpatient palliative radiation Continue Synthroid Hx of bradycardia from brain mass and hypervagal state - no indication for intervention Increase Metoprolol prn tachycardia 50 BID - hold for SBP<90, discussed with nursing anticoagulation contraindicated due to brain lesions and fall risk, thus can not cardiovert unless unstable Echo at OSH normal LV function Troponin down trended Fluid restriction for hyponatremia, NA improved CT brain with improvement in size of mass, still has edema Aspiration precautions Start IV digoxin due to RVR and hypotension, renal function and electrolytes ok Supportive care Will sign off at this juncture Subjective Cardiovascular: Reports: no symptoms Respiratory: Reports: no symptoms Gastrointestinal/Abdominal: Reports: no symptoms Genitourinary: Reports: no symptoms Subjective Patient in respiratory distress, not using BiPAP, heart rate elevated, no NGT tube at this time. Family wants hospice, plan to discharge today on comfort care Objective Last 24 Hour Vital Signs Date Time Temp Pulse Resp B/P (MAP) Pulse Ox O2 Delivery O2 Flow Rate FiO2 05/01/18 09:10 Non-Rebreather 15.0 100 05/01/18 09:10 94 Non-Rebreather 15.0 100 05/01/18 08:00 96.4 120 24 105/47 (66) 98 05/01/18 07:40 120 05/01/18 04:00 Non-Rebreather 15.0 Non-Rebreather 05/01/18 04:00 97.0 102 24 111/77 (88) 97 05/01/18 03:14 122 05/01/18 00:00 Non-Rebreather 15.0 Non-Rebreather 05/01/18 00:00 97.8 99 32 101/68 (79) 97 04/30/18 23:17 119 04/30/18 22:54 Non-Rebreather 15.0 100 04/30/18 22:54 Non-Rebreather 15.0 100 04/30/18 20:00 Non-Rebreather 15.0 Non-Rebreather 04/30/18 19:30 Non-Rebreather 15.0 100 04/30/18 19:30 Non-Rebreather 15.0 100 04/30/18 19:30 Non-Rebreather 15.0 100 04/30/18 19:30 111 22 Non-Rebreather 15.0 100 04/30/18 19:30 91 Non-Rebreather 15.0 100 04/30/18 16:00 Non-Rebreather 15.0 Non-Rebreather 04/30/18 16:00 125 32 95/65 (75) 92 04/30/18 15:01 97.7 04/30/18 15:00 Non-Rebreather 15.0 100 04/30/18 15:00 Non-Rebreather 15.0 100 04/30/18 13:43 125 24 89 Non-Rebreather 100 04/30/18 13:38 118 24 91 Non-Rebreather 15.0 100 General Appearance: mild distress, cachetic, lethargic EENT: PERRL/EOMI, normal ENT inspection Neck: non-tender, normal alignment, supple, normal inspection, no JVD Rhythm: Afib Cardiovascular: regularly irregular, tachycardia Respiratory/Chest: respiratory distress, decreased breath sounds, accessory muscle use, crackles/rales Abdomen: normal bowel sounds, non tender, soft, no mass Extremities: non-tender, normal inspection Neurologic: milk collector 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, no motor/sensory deficits, motor weakness, sensory deficit, disoriented Intake and Output 04/30/18 05/01/18 19:00 07:00 Output Total 300 ml Balance -300 ml Output Urine Total 300 ml # Bowel Movements 1 2 Microbiology Date/Time Source Procedure Growth Status 04/29/18 01:03 Urine,Clean Catch Urine Culture - Preliminary YEAST Resulted Enrique Cordero MD May 01, 2018 12:05
--- NOTE | 2018-05-01 13:02 | Nephrology Progress Note ---
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 pt has a condom and is incontinent Plan cont as is check bladder scan Discussed with RN and family Lynch if in retention Subjective Subjective on FM Objective Objective Last 24 Hour Vital Signs Date Time Temp Pulse Resp B/P (MAP) Pulse Ox O2 Delivery O2 Flow Rate FiO2 05/01/18 09:10 Non-Rebreather 15.0 100 05/01/18 09:10 94 Non-Rebreather 15.0 100 05/01/18 08:00 96.4 120 24 105/47 (66) 98 05/01/18 08:00 Non-Rebreather 15.0 05/01/18 07:40 120 05/01/18 04:00 Non-Rebreather 15.0 Non-Rebreather 05/01/18 04:00 97.0 102 24 111/77 (88) 97 05/01/18 03:14 122 05/01/18 00:00 Non-Rebreather 15.0 Non-Rebreather 05/01/18 00:00 97.8 99 32 101/68 (79) 97 04/30/18 23:17 119 04/30/18 22:54 Non-Rebreather 15.0 100 04/30/18 22:54 Non-Rebreather 15.0 100 04/30/18 20:00 Non-Rebreather 15.0 Non-Rebreather 04/30/18 19:30 Non-Rebreather 15.0 100 04/30/18 19:30 Non-Rebreather 15.0 100 04/30/18 19:30 Non-Rebreather 15.0 100 04/30/18 19:30 111 22 Non-Rebreather 15.0 100 04/30/18 19:30 91 Non-Rebreather 15.0 100 04/30/18 16:00 Non-Rebreather 15.0 Non-Rebreather 04/30/18 16:00 125 32 95/65 (75) 92 04/30/18 15:01 97.7 04/30/18 15:00 Non-Rebreather 15.0 100 04/30/18 15:00 Non-Rebreather 15.0 100 04/30/18 13:43 125 24 89 Non-Rebreather 100 04/30/18 13:38 118 24 91 Non-Rebreather 15.0 100 Intake and Output 04/30/18 05/01/18 19:00 07:00 Output Total 300 ml Balance -300 ml Output Urine Total 300 ml # Bowel Movements 1 2 Height (Feet): 5 Height (Inches): 11.00 Weight (Pounds): 190 Cardiovascular: normal rate Respiratory/Chest: rhonchi - bilaterally Extremities: other - no edema Ayo An MD May 01, 2018 13:02
[2018-05-01] MEDS ORDERED: Morphine Sulfate 4mg/ml Inj (IV/IM USE ONLY) IVP PRN (13:45)
[2018-05-01] MEDS ORDERED: Acetaminophen 650 MG SUPP RECTAL PRN (14:30)
[2018-05-01] MEDS ORDERED: LORazepam Inj 2mg/ml 1ml IM PRN (14:30)
[2018-05-01] MEDS ORDERED: Miralax 17gm pkt ORAL PRN (14:30)
[2018-05-01] MEDS ORDERED: Ipratropium 0.02% Inh Soln 2.5ml UD HHN PRN (14:30)
[2018-05-01] MEDS ORDERED: NS 275ml ONE (14:56)
[2018-05-01] MEDS ORDERED: Levalbuterol Inh UD 1.25mg/0.5ml HHN SCH (15:00)
--- NOTE | 2018-05-01 17:23 | Internal Med Progress Note ---
Subjective Physician Name Noah Paz Attending Physician Noah Paz MD Allergies: Coded Allergies: No Known Allergies (Unverified , 10/25/13) Subjective less responsive ,family at bedside. Objective Last Vital Signs Date Time Temp Pulse Resp B/P (MAP) Pulse Ox O2 Delivery O2 Flow Rate FiO2 05/01/18 12:00 110 05/01/18 12:00 Non-Rebreather 15.0 05/01/18 12:00 96.4 20 112/62 (79) 94 05/01/18 09:10 100 Microbiology Date/Time Source Procedure Growth Status 04/29/18 01:03 Urine,Clean Catch Urine Culture - Preliminary YEAST Resulted Intake and Output 04/30/18 05/01/18 18:59 06:59 Output Total 300 ml Balance -300 ml Output Urine Total 300 ml # Bowel Movements 1 2 Objective GENERAL: less responsive, less confused. HEAD AND NECK: Pupils equal and reactive to light. E Neck was supple. No JVD. LUNGS: Decrease air entry at bases. No wheeze or rales. Poor inspiratory effort. HEART: S1 and S2. Irregular. No murmur or gallop. ABDOMEN: Soft, nondistended, and nontender. Positive bowel sounds. EXTREMITIES: No cyanosis, clubbing, or edema. NEUROLOGIC: moving all the extremities slowly. Gait was not assessed due to the patient's status. RECTAL: Refused and deferred. Assessment/Plan Assessment/Plan 1. Acute UTI. 2. Steroid-induced hyperglycemia. 3. Dehydration. 4. 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 5. 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 6. 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 7. Hypothyroidism. 8. Atherosclerotic heart disease. 9. A 4.2-cm ascending aortic aneurysm. 10. Status post splenectomy in 1967. 11. Severe osteoarthritis of the knee. 12. Hypertension. 13. New onset Atrial Fibrillation. 14. Dysphagia 15. Acute hypoxemic respiratory failure PLAN: In PCU unit. At this time, the patient is not a candidate for anticoagulation due to the brain metastasis. DVT prophylaxis: heparin subcutaneous. Code status: DNR Code. Follow up with Nephrology consultation with Dr. Juve NUÑEZ home with Hospice, Wes Diallo,Noah MURPHY May 01, 2018 17:23
[2018-05-01] MEDS ORDERED: Ipratropium 0.02% Inh Soln 2.5ml UD HHN SCH (19:00)
[2018-05-01] MEDS ORDERED: Dyna-Hex 2% Top Sol 2oz TOPIC SCH (20:00)
[2018-05-01] MEDS ORDERED: Docusate 100mg cap ORAL SCH (21:00)
[2018-05-01] MEDS ORDERED: Tamsulosin 0.4mg cap ORAL SCH (21:00)
--- NOTE | 2018-05-01 21:55 | General Progress Note ---
Assessment/Plan Status: stable Assessment/Plan Zyprexa the pt was provided with ro/st palliative care the family agreed to hospice Subjective Neurologic/Psychiatric: Reports: anxiety Allergies: Coded Allergies: No Known Allergies (Unverified , 10/25/13) Subjective the pt is confused and agitated at times Objective Last 24 Hour Vital Signs Date Time Temp Pulse Resp B/P (MAP) Pulse Ox O2 Delivery O2 Flow Rate FiO2 05/01/18 12:00 110 05/01/18 12:00 Non-Rebreather 15.0 05/01/18 12:00 96.4 108 20 112/62 (79) 94 05/01/18 12:00 96.4 120 24 112/60 (77) 98 05/01/18 09:10 Non-Rebreather 15.0 100 05/01/18 09:10 94 Non-Rebreather 15.0 100 05/01/18 08:00 96.4 120 24 105/47 (66) 98 05/01/18 08:00 Non-Rebreather 15.0 05/01/18 07:40 120 05/01/18 04:00 Non-Rebreather 15.0 Non-Rebreather 05/01/18 04:00 97.0 102 24 111/77 (88) 97 05/01/18 03:14 122 05/01/18 00:00 Non-Rebreather 15.0 Non-Rebreather 05/01/18 00:00 97.8 99 32 101/68 (79) 97 04/30/18 23:17 119 04/30/18 22:54 Non-Rebreather 15.0 100 04/30/18 22:54 Non-Rebreather 15.0 100 Intake and Output 04/30/18 05/01/18 18:59 06:59 Output Total 300 ml Balance -300 ml Output Urine Total 300 ml # Bowel Movements 1 2 Height (Feet): 5 Height (Inches): 11.00 Weight (Pounds): 190 General Appearance: alert, confused, agitated Jeanie Calvin MD May 01, 2018 21:55
[2018-05-02] MEDS ORDERED: Digoxin 0.5mg/2ml Inj IVP SCH (09:00)
[2018-05-02] MEDS ORDERED: OLANZapine 2.5mg tab ORAL SCH (09:00)
--- NOTE | 2018-05-04 07:32 | Discharge Summary ---
Discharge Summary Discharge Summary _ DATE OF ADMISSION: 04/20/2018 DATE OF DISCHARGE: 05/01/2018 DISCHARGED BY: Dr. 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 Subsequently it was concluded that the mass was unresectable, and patient was discharged home on steroid and famotidine and to follow up with oncologist as outpatient. Patient presented to the hospital complaining of difficulty swallowing, severe weakness, and nausea. No vomiting. No diarrhea. No chest pain, no shortness of breath. Shortly after initial evaluation in emergency room, patient was noted to be hyponatremic, sodium 126. Patient was found to have a new onset of atrial fibrillation. Elevated troponin 0 0.098. Glucose 327. Chest x-ray revealed right upper lung interstitial and airspace opacities, possibly related to clinical history of metastatic colon carcinoma. Right hilar mass possibly related to the metastatic colon carcinoma. No definite dense consolidation or effusion. Valentin catheter in place. Patient was initially full code. Patient admitted to telemetry floor for further evaluation and management CONSULTANTS: inspector brake lining Dr. Cordero pulmonary Dr. Weir ID specialist Dr. Navarro GI specialist Dr. Martinez funeral counselor Dr. Christal An surgery Dr. Chavez psychiatrist [facility]: Patient admitted to telemetry floor. Patient was not a candidate for anticoagulation given brain lesions. DVT prophylaxis with heparin started. Venous duplex bilateral lower extremity revealed no evidence of acute DVT. Patient started on the IV hydration with close monitoring of volumes parameters, renal parameters and electrolytes. Home medications were resumed. Cardiology consult was requested. Echo revealed septal hypokinesis with ejection fraction of 40-45%. Moderate to severe aortic insufficiency. Per cardiology, ascending aortic aneurysm was stable in size and there was no indication for intervention. Patient demonstrated a new onset of atrial fibrillation with tachycardia. Metoprolol started for tachycardia with holding parameters. Again, anticoagulation was contraindicated due to brain lesions . Second troponin was downtrending. No complaints of chest pain,. Troponin elevation probably due to increased demand( metastatic disease, atrial fibrillation with occasional rapid ventricular response). EKG revealed atrial fibrillation, no acute ischemic changes. Telemetry showed ectopy with premature atrial contraction. Patient continued to have tachycardia, metoprolol dose uptitrated. Patient received 1 dose of digoxin due to rapid ventricular response and hypotension. Supervisor Lending Activities followed. Patient was hypoxic and required supplemental oxygen, initially via nasal cannula and then mask. Supplemental oxygen provided as needed to keep pulse oximetry above 92%. Patient declined BiPAP , and was on 100% nonrebreathing mask. Pulmonary toilet provided [id number] and as needed. Patient was follow up with chest x-ray and ABG. Strict aspiration precautions were maintained. Bedside swallow evaluation was done. Speech therapist recommended to keep patient n.p.o. and recommended temporarily non oral feedings to meet nutritional needs. Family declined NG tube. Video swallow evaluation was recommended , when patient more alert. Mental status was declining. CT of the head revealed no acute intracranial bleeding. As compared to previous scan on 02/24/2018 , marked interim decrease in size of previously demonstrated right frontal region mass, presumably reflecting response to therapy with resulting marked decrease in the degree of mass effect. There was still considerable vasogenic edema within the right frontal lobe. Patient was continued on steroids/Decadron. Textile Screen Printer followed. Patient was on free water restriction for hyponatremia. 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 Initial IV fluids stopped. Patient started on demeclocycline 300 mg twice daily. Sodium up to 138 prior to discharge. Patient had a condom catheter due to incontinence Infectious disease specialist followed for treatment of aspiration pneumonia. Patient was on broad-spectrum antibiotics. No leukocytosis, patient had intermittent low-grade fever, which resolved. Urine culture grew Kaylin, likely colonized. Urine Legionella was negative. GI specialist followed after patient failed swallow evaluation and family declined NG tube . GI specialist stated that patient was unable to be safely fed oral food. He also doubted if patient will tolerate NG tube due to agitation, in addition, as mentioned above, family declined NG tube. Patient was not stable fo PEG placement per GI specialist conclusion. Patient presented with resolving, incontinence associated dermatitis. Hells were offloaded, patient was turned every 2 hours as tolerated, and moisture barrier paste was applied as per surgeon recommendation. Psychiatrist followed and diagnosed patient with toxic encephalopathy . Patient was started on Zyprexa. Patient was provided reality orientation and supportive therapy. Patient condition was deteriorating . Further plan of care and prognosis were discussed with family. Family decided to change CODE STATUS to DNR/DNI on 04/27. Comfort care provided. Pain management was addressed. Bowel regimen instituted. Family was opted for hospice services. Hospice care was arranged. Only essential medications were continued along with pain management. Patient was subsequently discharged home with hospice services. 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 DISCHARGE INSTRUCTIONS: Patient discharged home with hospice services I have been assigned to dictate discharge summary for this account. I was not involved in the patient's management. Elizabeth Lam NP May 04, 2018 07:32
== END 2018-05-01 14:57 | disposition hospice, home (50) | DRG 177 ==
LOC: EDBD 05:54 → EMR 06:16 → 2E 08:33 → EDBEDREQ 09:32 → 4E 04-22 18:26 → 2W 04-26 22:31 → UNDODISIN 04-30 15:17
DX: J69.0 Pneumonitis due to inhalation of food and vomit (principal); E43 Unspecified severe protein-calorie malnutrition; J96.01 Acute respiratory failure with hypoxia; G92 Toxic encephalopathy; C7A.1 Malignant poorly differentiated neuroendocrine tumors; E22.2 Syndrome of inappropriate secretion of antidiuretic hormone; C78.7 Secondary malignant neoplasm of liver and intrahepatic bile duct; C78.00 Secondary malignant neoplasm of unspecified lung; C78.1 Secondary malignant neoplasm of mediastinum; C79.31 Secondary malignant neoplasm of brain; N39.0 Urinary tract infection, site not specified; E86.0 Dehydration; Z51.5 Encounter for palliative care; Z66 Do not resuscitate; E03.9 Hypothyroidism, unspecified; E78.5 Hyperlipidemia, unspecified; I48.91 Unspecified atrial fibrillation; I49.1 Atrial premature depolarization; R32 Unspecified urinary incontinence; C67.1 Malignant neoplasm of dome of bladder; R73.9 Hyperglycemia, unspecified; T38.0X5A Adverse effect of glucocorticoids and synthetic analogues, initial encounter; R13.10 Dysphagia, unspecified; I25.10 Atherosclerotic heart disease of native coronary artery without angina pectoris; I71.4 Abdominal aortic aneurysm, without rupture; I10 Essential (primary) hypertension; Z92.3 Personal history of irradiation; M17.0 Bilateral primary osteoarthritis of knee; Z90.81 Acquired absence of spleen; L30.8 Other specified dermatitis; E83.42 Hypomagnesemia
CPT/HCPCS: 36415; 36600; 70450; 71045; 74018; 80048; 80053; 81001; 81003; 82164; 82803; 82962; 83735; 83880; 83935; 84100; 84300; 84443; 84484; 85007; 85025; 86635; 87086; 93005; 93306; 93970; 94640; 94660; 94664; 94760; 96374; 96375; 99285; J1815; J2405; J7620